=== PATIENT | female | born 1970 | race Two or more races ===

== ENCOUNTER 2020-06-22 12:24 | Outpatient (REF) | payer OTHER, SELFPAY ==
[2020-06-22 12:43] LABS: COVID-19 Test Negative (Negative)
== END 2020-06-22 12:25 | disposition home or self-care (01) ==
LOC: HO.LAB 12:24
PROVIDERS: Visit Provider Internal Medicine
DX: Z20.828 Contact with and (suspected) exposure to other viral communicable diseases (principal)
CPT/HCPCS: 87635

== ENCOUNTER → 2020-06-27 10:20 | Outpatient (BNVA) | payer OTHER, SELFPAY | PROVIDERS: PCP Internal Medicine; Visit Provider Physician Assistant | DX: Z13.89 Encounter for screening for other disorder (principal) | CPT/HCPCS: 99213 ==

== ENCOUNTER 2020-07-12 15:00 | Outpatient (RCR) | payer OTHER, SELFPAY ==
--- NOTE | 2020-07-13 08:25 | MHC.OT.DC ---
[address] [phone] F: [phone] Occupational Therapy Discharge Note Provider: Gin Ritter Diagnosis: L THUMB PAIN Date of Evaluation: 05/31/20 Date of Discharge: 07/12/20 Treatments to Date: 12 Discharge Status: Improved Function Independent with HEP Discharge Summary: SANDY ATTENDED OUTPATIENT OT FOR CMCJ PAIN OF L THUMB, WELL L ELBOW PAIN AND CARPAL TUNNEL SYMPTOMS. SHE WAS PROVIDED WITH A VARIETY OF SPLINTS AND EDUCATED ON JOINT PROTECTION WITH DEMANDING HOUSEKEEPING TASKS. SHE HAD DIFFICULTIES IMPLEMENTING JOINT PROTECTION TECHNIQUES WITH WORK RELATED TASKS, PARTICULARLY MOPPING. HER ELBOW PAIN HAS IMPROVED, HOWEVER SHE CONTINUES TO HAVE CMCJ PAIN AND CTS; POSSIBLE TOS. Pt WOULD BENEFIT FROM EMG/NCV AND POSSIBLE REFERRAL FOR HAND SURGEON CONSULT. D/C OT AT THIS TIME. Electronically Signed By: STEWART ACOSTA OTR/L Please Sign and return to therapist, thank you for your referral.
== END 2020-07-13 08:26 | disposition other institution (70) ==
LOC: HO.OT 15:00
PROVIDERS: Visit Provider Physician Assistant
DX: M79.645 Pain in left finger(s) (principal)
CPT/HCPCS: 29125; 29130; 97033; 97035; 97110; 97112; 97140; 97760

== ENCOUNTER 2020-08-02 09:55 | Outpatient (REF) | payer OTHER, SELFPAY ==
[2020-08-02 10:17] LABS: COVID-19 Test Negative (Negative); IDNOW Serial# 55D5AD1C
== END 2020-08-02 09:56 | disposition home or self-care (01) ==
LOC: HO.EMPCOV 09:55
PROVIDERS: Visit Provider Internal Medicine
DX: Z20.828 Contact with and (suspected) exposure to other viral communicable diseases (principal)
CPT/HCPCS: 87635; C9803

== ENCOUNTER 2020-08-08 10:57 | Outpatient (REF) | payer OTHER, SELFPAY ==
[2020-08-08 11:17] LABS: COVID-19 Test Negative (Negative)
== END 2020-08-08 10:58 | disposition home or self-care (01) ==
LOC: HO.EMPCOV 10:57
PROVIDERS: Visit Provider Internal Medicine
DX: Z20.828 Contact with and (suspected) exposure to other viral communicable diseases (principal)
CPT/HCPCS: 87635; C9803

== ENCOUNTER 2020-08-15 15:05 | Outpatient (REF) | payer OTHER, SELFPAY ==
--- NOTE | 2020-08-15 | US_ITS ---
EXAMINATION: MM DIAGNOSTIC DIGITAL BREAST TOMOSYNTHESIS, BILATERAL US DIAGNOSTIC ULTRASOUND BREAST, BILATERAL CLINICAL INFORMATION: Several months history bilateral mastodynia. Intermittent itching nipples. No dermal changes. No palpable mass or discharge. The lifetime risk of breast cancer based on the Tyrer-Cuzick Model is 6%. COMPARISON: Mammography: 06/24/2018, 04/11/2017, 03/27/2016 TECHNIQUE: Digital breast tomosynthesis is performed in both the craniocaudal and mediolateral oblique views along with computer-aided detection (CAD). Synthesized 2D images are generated from the tomosynthesis. Ultrasound of each breast is performed using grayscale imaging and color Doppler without and with harmonics. Imaging is targeted to the areas of clinical concern. Patient is able to point to the areas of concern at time of imaging. FINDINGS: There are scattered areas of fibroglandular density (ACR BI-RADS breast composition Category b). There are no significant masses, abnormal calcifications, or other abnormalities. Parenchymal pattern is similar to prior studies. There is no developing density. No interval skin thickening or coarsening of the Shaquille's ligaments or duct ectasia. Ultrasound bilateral breasts demonstrate no cystic or solid mass, architectural abnormality, or focal duct ectasia. No skin thickening or edema tracking in the soft tissue planes. Results are discussed with the patient at time of visit. US/US breast RT limited IMPRESSION: 1. No mammographic evidence of malignancy or focal inflammatory changes. 2. Unremarkable bilateral targeted breast ultrasound. ASSESSMENT: BI-RADS 1: Negative RECOMMENDATION: 1. Patient's bilateral breast symptoms should be managed based on the clinical impression. 2. Otherwise, routine annual screening mammography. This patient's information was entered into a reminder system with a target due date for their next mammogram.
--- NOTE | 2020-08-15 15:08 | MM_ITS ---
EXAMINATION: MM DIAGNOSTIC DIGITAL BREAST TOMOSYNTHESIS, BILATERAL US DIAGNOSTIC ULTRASOUND BREAST, BILATERAL CLINICAL INFORMATION: Several months history bilateral mastodynia. Intermittent itching nipples. No dermal changes. No palpable mass or discharge. The lifetime risk of breast cancer based on the Tyrer-Cuzick Model is 6%. COMPARISON: Mammography: 06/24/2018, 04/11/2017, 03/27/2016 TECHNIQUE: Digital breast tomosynthesis is performed in both the craniocaudal and mediolateral oblique views along with computer-aided detection (CAD). Synthesized 2D images are generated from the tomosynthesis. Ultrasound of each breast is performed using grayscale imaging and color Doppler without and with harmonics. Imaging is targeted to the areas of clinical concern. Patient is able to point to the areas of concern at time of imaging. FINDINGS: There are scattered areas of fibroglandular density (ACR BI-RADS breast composition Category b). There are no significant masses, abnormal calcifications, or other abnormalities. Parenchymal pattern is similar to prior studies. There is no developing density. No interval skin thickening or coarsening of the Shaquille's ligaments or duct ectasia. Ultrasound bilateral breasts demonstrate no cystic or solid mass, architectural abnormality, or focal duct ectasia. No skin thickening or edema tracking in the soft tissue planes. Results are discussed with the patient at time of visit. MM/MM diagnostic mammo BI IMPRESSION: 1. No mammographic evidence of malignancy or focal inflammatory changes. 2. Unremarkable bilateral targeted breast ultrasound. ASSESSMENT: BI-RADS 1: Negative RECOMMENDATION: 1. Patient's bilateral breast symptoms should be managed based on the clinical impression. 2. Otherwise, routine annual screening mammography. This patient's information was entered into a reminder system with a target due date for their next mammogram.
== END 2020-08-15 15:06 | disposition home or self-care (01) ==
LOC: HO.MAMMO 15:05
PROVIDERS: PCP Internal Medicine; Visit Provider Internal Medicine
DX: N64.4 Mastodynia (principal)
CPT/HCPCS: 76642; 77066

== ENCOUNTER 2020-08-16 08:25 | Outpatient (REF) | payer OTHER, SELFPAY ==
[2020-08-16 09:01] LABS: COVID-19 Test Negative (Negative)
== END 2020-08-16 08:26 | disposition home or self-care (01) ==
LOC: HO.EMPCOV 08:25
PROVIDERS: Visit Provider Internal Medicine
DX: Z20.828 Contact with and (suspected) exposure to other viral communicable diseases (principal)
CPT/HCPCS: 87635; C9803

== ENCOUNTER 2020-08-30 07:04 | Outpatient (REF) | payer OTHER, SELFPAY ==
[2020-08-30 07:57] LABS: COVID-19 Test Negative (Negative)
== END 2020-08-30 07:05 | disposition home or self-care (01) ==
LOC: HO.EMPCOV 07:04
PROVIDERS: Visit Provider Internal Medicine
DX: Z20.828 Contact with and (suspected) exposure to other viral communicable diseases (principal)
CPT/HCPCS: 87635; C9803

== ENCOUNTER 2020-09-13 08:00 | Outpatient (REF) | payer OTHER, SELFPAY ==
[2020-09-14 12:26] LABS: BV Int Neg Control Negative (Negative); BV Int Pos Control Positive (Positive)
[2020-09-15 18:52] LABS: C. trachomatis RNA TMA NOT DETECTED (NOT DETECTED); N. gonorrhoeae RNA TMA NOT DETECTED (NOT DETECTED)
== END 2020-09-13 08:01 | disposition home or self-care (01) ==
LOC: HO.LAB 08:00
PROVIDERS: Visit Provider Advanced Practice Midwife
DX: Z01.411 Encounter for gynecological examination (general) (routine) with abnormal findings (principal); N89.8 Other specified noninflammatory disorders of vagina; Z20.2 Contact with and (suspected) exposure to infections with a predominantly sexual mode of transmission
CPT/HCPCS: 36415; 87480; 87491; 87510; 87591; 87660

== ENCOUNTER 2020-10-05 06:24 | Emergency (ER) | payer OTHER, SELFPAY ==
[2020-10-05 06:37] VITALS: BP 135/76; PULSE 93; RESP 18; TEMP 37.2; O2SAT 97; BMI 31.4
--- NOTE | 2020-10-05 06:55 | ED.BACK ---
HPI - Back Pain/Injury General Chief Complaint: Back Pain/Injury Stated Complaint: Headache/Bodyaches/ Flank pain Time Seen by Provider: 10/05/20 06:55 Source: patient Mode of arrival: ambulatory Limitations: no limitations History of Present Illness HPI Narrative: 5 days of back pain, headache and generalized bodyaches. 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 Patient denies injury. Patient has a history of renal colic, occaisional dysuria, denies hematuria MD elicited complaint: back pain Pertinent past history: prior back pain Onset (ago): day(s) Timing: intermittent Severity: mild Quality: aching Location: left flank Radiation: none Associated symptoms: dysuria Treatments prior to arrival: NSAIDS Work related injury: No Related Data Previous Rx's Medication Instructions Recorded loratadine 10 mg tablet 10 mg PO DAILY PRN 90 Days #90 tab 06/16/20 pantoprazole 40 mg tablet,delayed 40 mg PO BID 90 Days #180 tab 08/01/20 release naproxen [Naprosyn] 500 mg PO BID #20 tab 10/05/20 Allergies Allergy/AdvReac Type Severity Reaction Status Date / Time cephalexin [From KEFLEX] Allergy Severe SOB/HIVES Verified 10/05/20 06:43 Iodinated Contrast Media Allergy Severe SOB/CHEST Verified 10/05/20 06:43 [IV CONTRAST] PAIN/DIFFICULTY BREATHING acetaminophen Allergy Unknown itch, SOB Verified 10/05/20 06:43 [Tylenol-Codeine] oxycodone [From Percocet] AdvReac Itching Verified 10/05/20 06:43 From KEFZOL Allergy Severe DIFFICULTY Uncoded 05/19/20 15:36 BREATHING Review of Systems Constitutional: Constitutional: Reports no additional constitutional complaints Eyes: Eyes: Reports no additional eye complaints ENT: Denies dizziness Cardiovascular: Cardiovascular: Reports no additional cardiovascular complaints Respiratory: Respiratory: Reports as per HPI Gastrointestinal: Gastrointestinal: Reports no additional gastrointestinal complaints Genitourinary: Genitourinary: Reports no additional female genitourinary complaints Musculoskeletal: Musculoskeletal: Reports no additional musculoskeletal complaints Integumentary/Breasts: Skin/Breast: Denies rash Neurologic: Reports system reviewed and no additional complaints, except as documented, Denies dizziness and Denies Sensory deficit (Neuro) Psychiatric: Psychiatric: Denies anxiety PMFSH Past Medical History Medical History Asthma GERD (gastroesophageal reflux disease) Hx of migraine headaches Painful breasts Surgical History H/O: hysterectomy History of appendectomy History of hernia surgery Hx of tubal ligation Family History Family History Mother Uterine cancer Family/Other History of breast cancer Social History Social History Alcohol intake: never Smoking Status: Never smoker Advance Directives: No Physical Exam Vital Signs: Vital Signs: Last Vital Signs Temp 99.0 F 10/05/20 06:37 Pulse 93 10/05/20 06:37 Resp 18 10/05/20 06:37 BP 135/76 10/05/20 06:37 Pulse Ox 97 10/05/20 06:37 Body Mass Index 31.4 Const: General: healthy appearing Nutritional Appearance: average body habitus Orientation/consciousness: oriented to person and patient oriented x3 Limitations: no limitations HENMT: Head: Yes normal to inspection Ears: external ears normal General nose exam: Normal external nose present Mouth: Normal oral and palatal mucosa present and oropharynx normal Throat: Yes posterior oropharynx normal Eyes: General: appearance normal, both eyes and all related structures Neck: Other: supple Neck: Yes normal visual inspection Chest: Chest palpation & inspection: normal inspection of the chest Resp: Auscultation: clear to auscultation bilaterally Cardio: Jugular venous distension: no JVD Rate: regular rate Rhythm: regular rhythm Heart sounds: S1 normal heart sound present and S2 normal heart sound present GI: Inspection: Yes normal to inspection Palpation (GI): Soft to palpation, nontender and No hepatosplenomegaly present Auscultation: normal bowel sounds : General: Yes no CVA tenderness Back/Spine/Pelvis: Back: no CVA tenderness Skin: General skin exam: no rashes or lesions noted Neuro: General: oriented to person and patient oriented x3 Cranial nerves: Yes CN's II-XII intact bilaterally Motor exam (neuro): 5/5 motor strength present throughout Sensory Exam: No Sensory deficit (Neuro) Extrem: General: Yes normal to inspection Psych: Appearance: grossly normal Course Course Course Narrative: resting comfortably, UA negative for blood or WBC, COVID is negative will dc home MDM - Back Pain/Injury Differential Diagnosis Differential diagnosis: Likely renal colic and thoracic back pain Lab Data Labs: Lab Results 10/05/20 10/05/20 Range/Units 07:04 07:04 Urine Color YELLOW Urine Appearance HAZY Urine pH 6.0 (5.0-8.0) Ur Specific [place] 1.025 (1.005-1.025) Urine Protein NEG (NEG-TRACE) MG/DL Urine Glucose (UA) NEG (NEG) MG/DL Urine Ketones NEG (NEG) MG/DL Urine Blood NEG (NEG) Urine Nitrite NEG (NEG) Ur Leukocyte Esterase NEG (NEG) COVID-19 (LENA) Negative (Negative) COVID-19 Clin Com See Note Discharge Plan Discharge Clinical Impression: Myalgia Patient Disposition: Home, Self-Care Instructions: Musculoskeletal Pain (ED) Prescriptions: New naproxen [Naprosyn] 500 mg tablet 500 mg PO BID Qty: 20 RF: 0 No Action loratadine [Allergy Relief (loratadine)] 10 mg tablet 10 mg PO DAILY PRN (Reason: allergy symptoms) 90 Days Qty: 90 RF: 1 pantoprazole 40 mg tablet,delayed release (DR/EC) 40 mg PO BID 90 Days Qty: 180 RF: 2 Referrals: Everett Gutierrez MD [Primary Care Provider] - 2 days
[2020-10-05 07:15] LABS: Glucose Urine UA NEG (NEG); Leukocyte Esterase Urine NEG (NEG); Nitrite Urine NEG (NEG); Specific Gravity - Urine 1.025 (1.005-1.025); Urine Blood NEG (NEG); Urine Ketones NEG (NEG); Urine Protein NEG (NEG-TRACE)
[2020-10-05 07:16] LABS: Appearance Urine HAZY; Color Urine YELLOW
[2020-10-05 07:25] LABS: IDNOW Serial# 9DD0AD1C
[2020-10-05 07:26] LABS: COVID-19 Test Negative (Negative)
[2020-10-05] MEDS: Ketorolac Tromethamine 60 MG/2 ML VIAL IM (07:30)
[2020-10-05 08:07] VITALS: BP 117/80; PULSE 76; RESP 18; O2SAT 100
== END 2020-10-05 08:31 | disposition home or self-care (01) ==
PROVIDERS: Emergency Provider Emergency Medicine; PCP Internal Medicine
DX: Z04.2 Encounter for examination and observation following work accident (principal); M79.18 Myalgia, other site; Z20.822 Contact with and (suspected) exposure to COVID-19; J45.909 Unspecified asthma, uncomplicated; K21.9 Gastro-esophageal reflux disease without esophagitis
CPT/HCPCS: 36415; 81003; 87635; 96372; 99283; 99284; J1885

== ENCOUNTER 2020-10-19 10:01 | Outpatient (REF) | payer OTHER, SELFPAY ==
--- NOTE | ~2020-10-19 | XR_ITS ---
EXAMINATION: XR LUMBOSACRAL SPINE CLINICAL INFORMATION: Low back pain COMPARISON: Previous lumbar spine x-ray December 2014 TECHNIQUE: Three views of the lumbosacral spine. FINDINGS: There may be a transitional vertebral body segment. Levels are designated to match that of previous exams. 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 This is unchanged. No acute fracture or dislocation is seen. There is degenerative disc disease at L5-S1. There is lower lumbar spine facet arthritis. XR/XR lumbar spine 2-3V IMPRESSION: No change from previous exams. Probable transitional vertebral body segment. Ununited fracture versus accessory ossification center of the right transverse process of the L1 vertebral body unchanged from previous exam. Degenerative disc disease at L5-S1 and lower lumbar spine facet arthritis..
== END 2020-10-19 10:02 | disposition home or self-care (01) ==
LOC: HO.XRAY 10:01
PROVIDERS: Visit Provider Internal Medicine
DX: M54.5 Low back pain (principal)
CPT/HCPCS: 72100

== ENCOUNTER → 2020-11-07 10:15 | Outpatient (BNVA) | payer OTHER, SELFPAY | PROVIDERS: PCP Internal Medicine; Visit Provider Nurse Practitioner ==

== ENCOUNTER → 2020-12-05 10:41 | Outpatient (BNVA) | payer OTHER, SELFPAY | PROVIDERS: PCP Internal Medicine; Visit Provider Nurse Practitioner ==

== ENCOUNTER 2020-12-28 16:00 | Outpatient (RCR) | payer OTHER, SELFPAY ==
--- NOTE | 2020-11-23 16:09 | MHC.PT.EP ---
[facility] [place] Office [place] Office [place] Office [address] Ricardo Garcia [address] [phone] F: [phone] F: [phone] F: [phone] F: [phone] Physical Therapy Plan of Care Date of Evaluation: 11/23/20 Date of Surgery: Diagnosis: low back pain Assessment: 50 y/o F referred to PT with LBP. 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 Recommend PT 2x/week for 5 weeks to address impairments, implement HEP, and optimize functional mobility. Frequency and Duration: The patient will be seen 2x/week for 5 weeks Short Term Goals: 3 weeks 1. I with HEP 2. Improve lumbar extension AROM to 100% 3. I with use of lumbar roll without cues 100% of the time [facility] Goals: 5 weeks 1. I with HEP and self management of sx 2. Pt will improve lumbar flexion to 100% to facilitate job duties 3. Pt will be able to lift 20# with proper mechanics and pain < 3/10 Treatment Plan: Modalities to reduce pain, spasms and effusion. Manual therapy to restore motion and function. Therapeutic exercise to improve strength and flexibility. Neuromuscular re-education for posture and balance. Therapeutic activities to return to functional activities of daily living. Electronically signed by: Ena Nieto PT Please sign and return to therapist. Thank you for your referral.
--- NOTE | 2021-01-04 17:47 | MHC.PT.DC ---
[facility] [place] Office [place] Office [place] Office [address] Ricardo Garcia [address] [phone] F: [phone] F: [phone] F: [phone] F: [phone] Physical Therapy Discharge Report Diagnosis: low back pain Date of Surgery: Date of Evaluation: 11/23/20 Date of Discharge: 01/04/21 Treatments to Date: 5 Cancellations to Date: 2 No Shows to Date: 0 Discharge Status: Independent with HEP Patient Elected to Stop Discharge Summary: Pt called to self-dc. At time of last visit, Progressed standing core stab per pt's tolerance. pt only reported fatigue at end of session. Advised pt to continue w/ HEP at home. pt verbalized understanding. Continue to progress strengthening and stability program per pt's tolerance next visit. Electronically signed by: Ena Nieto PT Please sign and return to therapist. Thank you for your referral.
== END 2021-01-04 17:47 | disposition home or self-care (01) ==
LOC: HO.PT 16:00
PROVIDERS: PCP Internal Medicine; Visit Provider Internal Medicine
DX: M54.5 Low back pain (principal)
CPT/HCPCS: 97110; 97112; 97140; 97161; 97530

== ENCOUNTER 2021-05-16 09:03 | Emergency (ER) | payer OTHER, SELFPAY ==
--- NOTE | ~2021-05-16 | XR_ITS ---
EXAMINATION: XR CHEST CLINICAL INFORMATION: Covid symptoms COMPARISON: Previous chest x-ray September 2018 TECHNIQUE: Frontal view of the chest was obtained. FINDINGS: The cardiac and mediastinal contours are normal. There are increased markings seen in the right upper and lower lung questionable for small infiltrate. The left lung is clear. There is no pleural effusion or pneumothorax. There are degenerative changes of the spine. XR/XR chest 1V IMPRESSION: Question small right infiltrate.
[2021-05-16 09:58] VITALS: BP 126/77; PULSE 81; RESP 16; TEMP 36.7; O2SAT 97; BMI 31.1
--- NOTE | 2021-05-16 10:04 | ED.GENADULT ---
HPI - General Adult General Chief complaint: General Medical Stated complaint: ?dehydration, covid + Time Seen by Provider: 05/16/21 09:42 Source: patient Mode of arrival: ambulatory Limitations: no limitations History of Present Illness HPI narrative: Patient is 51 years old with no significant past medical history was COVID positive on 05/01 not vaccinated complaining of nausea loss of taste body aches or oral intake slight cough no fever or chills feeling weaker and weaker no diarrhea Related Data Home Medications Medication Instructions Recorded Confirmed albuterol sulfate 90 mcg/actuation 2 puff PO QID PRN 11/07/20 aerosol inhaler Previous Rx's Medication Instructions Recorded loratadine 10 mg tablet (Allergy 10 mg PO DAILY PRN 90 Days #90 tab 06/16/20 Relief (loratadine)) pantoprazole 40 mg tablet,delayed 40 mg PO BID 90 Days #180 tab 08/01/20 release naproxen 500 mg tablet (Naprosyn) 500 mg PO BID #20 tab 10/05/20 magnesium oxide 500 mg capsule 500 mg PO BID 30 Days #60 cap 11/07/20 sennosides 8.6 mg capsule (senna) 17.2 mg PO BEDTIME 30 Days #60 cap 11/07/20 ondansetron HCl 4 mg tablet 4 mg PO BID PRN 30 Days #90 tab 11/15/20 (Zofran) albuterol sulfate 90 mcg/actuation 2 puff INHALATION Q4-6H PRN #8.5 g 05/16/21 aerosol inhaler (ProAir HFA) codeine 10 mg-guaifenesin 100 mg/5 10 ml PO Q4-6H PRN #237 ml 05/16/21 mL oral liquid dexamethasone 6 mg tablet 6 mg PO DAILY #7 tab 05/16/21 (Decadron) ondansetron 4 mg disintegrating 4 mg PO Q6-8H PRN #7 tab 05/16/21 tablet Allergies Allergy/AdvReac Type Severity Reaction Status Date / Time cephalexin [From KEFLEX] Allergy Severe SOB/HIVES Verified 11/07/20 10:17 Iodinated Contrast Media Allergy Severe SOB/CHEST Verified 11/07/20 10:17 [IV CONTRAST] PAIN/DIFFICULTY BREATHING acetaminophen [From Percocet] Allergy itchy, SOB Verified 12/05/20 10:44 oxycodone [From Percocet] Allergy itchy, SOB Verified 12/05/20 10:44 From KEFZOL Allergy Severe DIFFICULTY Uncoded 05/19/20 15:36 BREATHING Review of Systems Review of Systems: Yes all other systems are reviewed and are negative COUNTS INCLUDE 234 BEDS AT THE [facility] Past Medical History Medical History Asthma GERD (gastroesophageal reflux disease) Hx of migraine headaches Low back pain Painful breasts Surgical History H/O: hysterectomy History of appendectomy History of esophagogastroduodenoscopy (EGD) History of hernia surgery Hx of colonoscopy Hx of tubal ligation Family History Family History Mother Uterine cancer Family/Other History of breast cancer Social History Social History Alcohol intake: never Advance Directives: No Advance Directives Information Provided: No Physical Exam Vital Signs: Vital Signs: Last Vital Signs Temp 98.1 F 05/16/21 09:58 Pulse 64 05/16/21 11:08 Resp 16 05/16/21 11:08 BP 126/83 05/16/21 11:08 Pulse Ox 98 05/16/21 11:08 Body Mass Index 31.1 Appearance: Alert. Oriented X3. No acute distress. Eyes: No pallor or icterus ENT: Pharynx normal. Oral Mucosa moist Neck: Normal inspection. Neck supple. CVS: Normal heart rate and rhythm. Pulses normal. Respiratory: No respiratory distress. Equal air entry bilateral, no wheezing/rales/rhonchi dry cough on deep inspiration Abdomen: Soft and nontender. Bowel sounds are present, no mass palpable, no CVA tenderness Skin: Skin warm and dry. Normal skin color. Normal skin turgor. Extremities: No lower extremity edema. No calf tenderness Neuro: Oriented X 3. Medical Decision Making Lab Data Lab results reviewed: Yes I reviewed the patient's lab results. Result diagrams: 05/16/21 10:13 05/16/21 10:13 Labs: Lab Results 05/16/21 05/16/21 Range/Units 10:13 10:13 WBC 5.9 (4.8-10.8) X10*3/uL RBC 4.36 (4.20-5.50) X10*6/uL Hgb 13.0 (12.0-16.0) g/dl Hct 40.3 (37-47) % MCV 92.4 (80-98) fL MCH 29.8 (27.0-33.0) pg MCHC 32.3 (31.0-35.0) g/dl RDW 13.7 (11.0-16.0) % Plt Count 291 (160-400) X10*3/uL MPV 9.8 (9.4-12.3) fL Immature Gran % (Auto) 0.2 (0.0-0.4) % Neut % (Auto) 53.0 (45-73) % Lymph % (Auto) 30.3 (20-40) % [place] % (Auto) 14.6 H (2-11) % Eos % (Auto) 1.7 (0-4) % Baso % (Auto) 0.2 (0-2) % Lymph # (Auto) 1.8 (1.2-4.9) X10*3/uL [place] # (Auto) 0.9 (0.1-1.2) X10*3/uL Eos # (Auto) 0.1 (0.0-0.4) X10*3/uL Baso # (Auto) 0.0 (0.0-0.2) X10*3/uL Abs Immat Gran (auto) 0.01 (0.00-0.03) X10*3/uL Absolute Neuts (auto) 3.1 (2.0-8.3) X10*3/uL Absolute Nucleated RBC 0.000 (0.0-0.012) X10*3/uL Nucleated RBC % (auto) 0.0 (0.0-0.2) /100WBC Sodium 139 (135-145) mmol/L Potassium 5.0 (3.3-5.1) mmol/L Chloride 105 (96-108) mmol/L Carbon Dioxide 29 (22-29) mmol/L Anion Gap 10 L (12-20) BUN 9 (9-16) mg/dL Creatinine 0.80 (0.5-1.4) mg/dL Estim Creat Clear Calc 80.8 Estimated GFR > 60 Random Glucose 94 (60-115) mg/dL Calcium 9.4 (8.4-10.2) mg/dL Magnesium 2.3 (1.6-2.6) mg/dL Total Bilirubin 0.4 (0.0-1.0) mg/dL AST 22 (5-31) U/L ALT 26 (0-31) U/L Alkaline Phosphatase 111 (39-117) U/L Total Protein 7.5 (6.5-8.0) g/dL Albumin 4.0 (3.5-5.0) g/dL Discharge Plan Discharge Clinical Impression: COVID-19 Patient Disposition: Home, Self-Care Instructions: COVID-19 (Coronavirus Disease 2019) (ED) Additional Instructions: Drink plenty of fluids take medication for cough Medicine for nausea Avoid social contacts Prescriptions: New ondansetron 4 mg tablet,disintegrating 4 mg PO Q6-8H PRN (Reason: nausea and vomiting) Qty: 7 RF: 0 dexamethasone [Decadron] 6 mg tablet 6 mg PO DAILY Qty: 7 RF: 0 codeine-guaifenesin 10-100 mg/5 mL liquid 10 ml PO Q4-6H PRN (Reason: cough) Qty: 237 RF: 0 albuterol sulfate [ProAir HFA] 90 mcg/actuation HFA aerosol inhaler 2 puff inhalation Q4-6H PRN (Reason: shortness of breath or wheezing) Qty: 8.5 RF: 0 No Action loratadine [Allergy Relief (loratadine)] 10 mg tablet 10 mg PO DAILY PRN (Reason: allergy symptoms) 90 Days Qty: 90 RF: 1 pantoprazole 40 mg tablet,delayed release (DR/EC) 40 mg PO BID 90 Days Qty: 180 RF: 2 ondansetron HCl [Zofran] 4 mg tablet 4 mg PO BID PRN (Reason: nausea and vomiting) 30 Days Qty: 90 RF: 0 naproxen [Naprosyn] 500 mg tablet 500 mg PO BID Qty: 20 RF: 0 magnesium oxide 500 mg capsule 500 mg PO BID 30 Days Qty: 60 RF: 6 senna 8.6 mg capsule 17.2 mg PO BEDTIME 30 Days Qty: 60 RF: 6 Interventions: ED Discharge Assessment Last Done: 05/16/21 11:52 Discharge Date/Time: 05/16/21 11:53
[2021-05-16 10:19] LABS: MANUAL DIFF FLAG NO
[2021-05-16 10:24] LABS: Basophils Percent Auto 0.2 % (0-2); Eosinophils Absolute Auto 0.1 X10*3/uL (0.0-0.4); Eosinophils Percent Auto 1.7 % (0-4); Hematocrit 40.3 % (37-47); Imm Gran Abs Auto 0.01 X10*3/uL (0.00-0.03); Imm Gran Pct Auto 0.2 % (0.0-0.4); Lymphocytes Absolute Auto 1.8 X10*3/uL (1.2-4.9); Lymphocytes Percent Auto 30.3 % (20-40); Mean Corpuscular HGB Conc 32.3 g/dl (31.0-35.0); Mean Corpuscular Hemoglobin 29.8 pg (27.0-33.0); Mean Corpuscular Volume 92.4 fL (80-98); Mean Platelet Volume 9.8 fL (9.4-12.3); Monocytes Absolute Auto 0.9 X10*3/uL (0.1-1.2); Monocytes Percent Auto 14.6 % (2-11); Neutrophils Absolute Auto 3.1 X10*3/uL (2.0-8.3); Platelet Count 291 X10*3/uL (160-400); Red Blood Count 4.36 X10*6/uL (4.20-5.50); Red Cell Distribution Width 13.7 % (11.0-16.0); White Blood Count 5.9 X10*3/uL (4.8-10.8)
[2021-05-16 10:49] LABS: Alanine Aminotransferase 26 U/L (0-31); Alkaline Phosphatase 111 U/L (39-117); Anion Gap 10 (12-20); Aspartate Amino Transferase 22 U/L (5-31); Bilirubin Total 0.4 mg/dL (0.0-1.0); Blood Urea Nitrogen 9 mg/dL (9-16); Calcium 9.4 mg/dL (8.4-10.2); Carbon Dioxide 29 mmol/L (22-29); Chloride 105 mmol/L (96-108); Creatinine Clr Calc Pharmacy 80.8; Estimated Glomerular Filt Rate > 60; Glucose Random 94 mg/dL (60-115); Magnesium 2.3 mg/dL (1.6-2.6); Sodium 139 mmol/L (135-145); Total Protein 7.5 g/dL (6.5-8.0)
[2021-05-16] MEDS: 0.9 % Sodium Chloride 1,000 ML 999 ML IVCONT (11:03)
[2021-05-16] MEDS: ondansetron HCL 4 MG/2 ML VIAL IVPUSH (11:06)
[2021-05-16 11:08] VITALS: BP 126/83; PULSE 64; RESP 16; O2SAT 98
[2021-05-16] MEDS: Albuterol Sulfate 90 MCG 8 GM INHALER 2 PUFF INHALE (11:48)
[2021-05-16] MEDS: guaiFEN/Codeine SF 200/20/10ML 10 ML LIQUID PO (11:48)
[2021-05-16] MEDS: dexAMETHasone 6 MG TABLET PO (11:48)
== END 2021-05-16 11:53 | disposition home or self-care (01) ==
PROVIDERS: Physician Assistant Medical; Emergency Provider Internal Medicine; PCP Internal Medicine
DX: U07.1 COVID-19 (principal); R43.9 Unspecified disturbances of smell and taste; M79.10 Myalgia, unspecified site; R05 Cough; Z79.899 Other long term (current) drug therapy
CPT/HCPCS: 36415; 71045; 80053; 83735; 85025; 96361; 96374; 99284; J2405; J8540

== ENCOUNTER 2021-06-05 15:22 | Emergency (ER) | payer OTHER, SELFPAY ==
--- NOTE | ~2021-06-05 | XR_ITS ---
EXAMINATION: XR CHEST CLINICAL INFORMATION: Short of breath. Question Covid. COMPARISON: None TECHNIQUE: Frontal view of the chest was obtained. FINDINGS: No significant abnormality is noted involving the heart, lungs, mediastinum, bony thorax or soft tissues. XR/XR chest 1V IMPRESSION: Unremarkable chest exam.
--- NOTE | 2021-06-05 15:39 | ECG_ITS ---
Test Reason : CHEST PAIN Blood Pressure : / mmHG Vent. Rate : 094 BPM Atrial Rate : 094 BPM P-R Int : 144 ms QRS Dur : 072 ms QT Int : 378 ms P-R-T Axes : 062 018 032 degrees QTc Int : 472 ms Normal sinus rhythm Normal ECG When compared with ECG of 25-APR-2016 13:55, T wave inversion no longer evident in Anterior leads Referred By: Salvador Medrano Electronically Signed By:LIYA LYLES
[2021-06-05 16:10] VITALS: BP 151/99; PULSE 90; RESP 19; TEMP 36.6; O2SAT 97; BMI 31.4
--- NOTE | 2021-06-05 16:13 | ED.GENADULT ---
HPI - General Adult General Chief complaint: Upper Respiratory Symptoms Stated complaint: cp Time Seen by Provider: 06/05/21 16:10 Related Data Home Medications Medication Instructions Recorded Confirmed albuterol sulfate 90 mcg/actuation 2 puff PO QID PRN 11/07/20 aerosol inhaler Previous Rx's Medication Instructions Recorded loratadine 10 mg tablet (Allergy 10 mg PO DAILY PRN 90 Days #90 tab 06/16/20 Relief (loratadine)) pantoprazole 40 mg tablet,delayed 40 mg PO BID 90 Days #180 tab 08/01/20 release naproxen 500 mg tablet (Naprosyn) 500 mg PO BID #20 tab 10/05/20 magnesium oxide 500 mg capsule 500 mg PO BID 30 Days #60 cap 11/07/20 sennosides 8.6 mg capsule (senna) 17.2 mg PO BEDTIME 30 Days #60 cap 11/07/20 albuterol sulfate 90 mcg/actuation 2 puff INHALATION Q4-6H PRN #8.5 g 05/16/21 aerosol inhaler (ProAir HFA) codeine 10 mg-guaifenesin 100 mg/5 10 ml PO Q4-6H PRN #237 ml 05/16/21 mL oral liquid albuterol sulfate 2.5 mg INHALATION Q4-6H PRN #90 ml 06/05/21 albuterol sulfate 90 mcg/actuation 2 puff INHALATION Q4-6H PRN #8.5 g 06/05/21 aerosol inhaler (ProAir HFA) codeine 10 mg-guaifenesin 100 mg/5 10 ml PO Q4-6H PRN #237 ml 06/05/21 mL oral liquid prednisone 20 mg tablet 40 mg PO DAILY #10 tab 06/05/21 Allergies Allergy/AdvReac Type Severity Reaction Status Date / Time cephalexin [From KEFLEX] Allergy Severe SOB/HIVES Verified 11/07/20 10:17 Iodinated Contrast Media Allergy Severe SOB/CHEST Verified 11/07/20 10:17 [IV CONTRAST] PAIN/DIFFICULTY BREATHING acetaminophen [From Percocet] Allergy itchy, SOB Verified 12/05/20 10:44 oxycodone [From Percocet] Allergy itchy, SOB Verified 12/05/20 10:44 From KEFZOL Allergy Severe DIFFICULTY Uncoded 05/19/20 15:36 BREATHING PMFSH Past Medical History Medical History Asthma GERD (gastroesophageal reflux disease) Hx of migraine headaches Low back pain Painful breasts Surgical History H/O: hysterectomy History of appendectomy History of esophagogastroduodenoscopy (EGD) History of hernia surgery Hx of colonoscopy Hx of tubal ligation Family History Family History Mother Uterine cancer Family/Other History of breast cancer Social History Social History Alcohol intake: never Advance Directives: No Advance Directives Information Provided: No Patient : No Physical Exam Vital Signs: Vital Signs: Last Vital Signs Temp 98.1 F 06/05/21 18:00 Pulse 94 06/05/21 18:26 Resp 18 06/05/21 18:00 BP 146/89 H 06/05/21 18:00 Pulse Ox 97 06/05/21 18:00 Body Mass Index 31.4 Course Course Course Narrative: Patient with Covid on 04/21/2021 presents to the ED for pleuretic chest pain and pressure for at least 2 days. Chest xray ordered. Rapid medical screening initiated. Patient is not hypoxic. patient is A0x3. Medical Decision Making Lab Data Labs: Lab Results 06/05/21 Range/Units 17:08 Coronavirus (PCR) POSITIVE A (Negative) SARS-CoV-2 (PCR) Cancelled Influenza Type A (PCR) NEGATIVE (Negative) Influenza Type B (PCR) NEGATIVE (Negative) RSV RNA Qual (PCR) NEGATIVE (Negative) Discharge Plan Discharge Clinical Impression: COVID-19 Patient Disposition: Home, Self-Care Instructions: COVID-19 (Coronavirus Disease 2019) (ED) Additional Instructions: you are Still positive for COVID-19 Stay isolated and keep social distancing Medication as prescribed Prescriptions: New prednisone 20 mg tablet 40 mg PO DAILY Qty: 10 RF: 0 codeine-guaifenesin 10-100 mg/5 mL liquid 10 ml PO Q4-6H PRN (Reason: cough) Qty: 237 RF: 0 albuterol sulfate [ProAir HFA] 90 mcg/actuation HFA aerosol inhaler 2 puff inhalation Q4-6H PRN (Reason: Wheezing) Qty: 8.5 RF: 0 albuterol sulfate 2.5 mg /3 mL (0.083 %) solution for nebulization 2.5 mg inhalation Q4-6H PRN (Reason: shortness of breath or wheezing) Qty: 90 RF: 0 No Action loratadine [Allergy Relief (loratadine)] 10 mg tablet 10 mg PO DAILY PRN (Reason: allergy symptoms) 90 Days Qty: 90 RF: 1 pantoprazole 40 mg tablet,delayed release (DR/EC) 40 mg PO BID 90 Days Qty: 180 RF: 2 codeine-guaifenesin 10-100 mg/5 mL liquid 10 ml PO Q4-6H PRN (Reason: cough) Qty: 237 RF: 0 albuterol sulfate [ProAir HFA] 90 mcg/actuation HFA aerosol inhaler 2 puff inhalation Q4-6H PRN (Reason: shortness of breath or wheezing) Qty: 8.5 RF: 0 naproxen [Naprosyn] 500 mg tablet 500 mg PO BID Qty: 20 RF: 0 magnesium oxide 500 mg capsule 500 mg PO BID 30 Days Qty: 60 RF: 6 senna 8.6 mg capsule 17.2 mg PO BEDTIME 30 Days Qty: 60 RF: 6 Interventions: ED Discharge Assessment Last Done: 06/05/21 19:49 Discharge Date/Time: 06/05/21 19:49 Print Language: Japanese
--- NOTE | 2021-06-05 16:39 | ED_ITS ---
HPI - URI/Sore Throat General Chief Complaint: Upper Respiratory Symptoms Stated Complaint: cp Time Seen by Provider: 06/05/21 16:10 Source: patient Mode of arrival: ambulatory Limitations: no limitations History of Present Illness HPI Narrative: Patient diagnosed with COVID 05/01 with history of asthma was feeling better treated with Decadron for last few days coughing again in bilateral back pain and the mid chest pain with cough no history of coronary disease no leg swelling patient was saturating 97% at room air no leg pain no acute increase in shortness of breath shortness of breath started 3-4 days ago with cough and chest pain is only during cough Related Data Home Medications Medication Instructions Recorded Confirmed albuterol sulfate 90 mcg/actuation 2 puff PO QID PRN 11/07/20 aerosol inhaler Previous Rx's Medication Instructions Recorded loratadine 10 mg tablet (Allergy 10 mg PO DAILY PRN 90 Days #90 tab 06/16/20 Relief (loratadine)) pantoprazole 40 mg tablet,delayed 40 mg PO BID 90 Days #180 tab 08/01/20 release naproxen 500 mg tablet (Naprosyn) 500 mg PO BID #20 tab 10/05/20 magnesium oxide 500 mg capsule 500 mg PO BID 30 Days #60 cap 11/07/20 sennosides 8.6 mg capsule (senna) 17.2 mg PO BEDTIME 30 Days #60 cap 11/07/20 albuterol sulfate 90 mcg/actuation 2 puff INHALATION Q4-6H PRN #8.5 g 05/16/21 aerosol inhaler (ProAir HFA) codeine 10 mg-guaifenesin 100 mg/5 10 ml PO Q4-6H PRN #237 ml 05/16/21 mL oral liquid albuterol sulfate 2.5 mg INHALATION Q4-6H PRN #90 ml 06/05/21 albuterol sulfate 90 mcg/actuation 2 puff INHALATION Q4-6H PRN #8.5 g 06/05/21 aerosol inhaler (ProAir HFA) codeine 10 mg-guaifenesin 100 mg/5 10 ml PO Q4-6H PRN #237 ml 06/05/21 mL oral liquid prednisone 20 mg tablet 40 mg PO DAILY #10 tab 06/05/21 Allergies Allergy/AdvReac Type Severity Reaction Status Date / Time cephalexin [From KEFLEX] Allergy Severe SOB/HIVES Verified 11/07/20 10:17 Iodinated Contrast Media Allergy Severe SOB/CHEST Verified 11/07/20 10:17 [IV CONTRAST] PAIN/DIFFICULTY BREATHING acetaminophen [From Percocet] Allergy itchy, SOB Verified 12/05/20 10:44 oxycodone [From Percocet] Allergy itchy, SOB Verified 12/05/20 10:44 From KEFZOL Allergy Severe DIFFICULTY Uncoded 05/19/20 15:36 BREATHING Review of Systems Review of Systems: Yes all other systems are reviewed and are negative [facility] Past Medical History Medical History Asthma GERD (gastroesophageal reflux disease) Hx of migraine headaches Low back pain Painful breasts Surgical History H/O: hysterectomy History of appendectomy History of esophagogastroduodenoscopy (EGD) History of hernia surgery Hx of colonoscopy Hx of tubal ligation Family History Family History Mother Uterine cancer Family/Other History of breast cancer Social History Social History Alcohol intake: never Advance Directives: No Advance Directives Information Provided: No Patient : No Physical Exam Vital Signs: Vital Signs: Last Vital Signs Temp 98 F 06/05/21 16:10 Pulse 94 06/05/21 18:26 Resp 19 06/05/21 16:10 BP 151/99 H 06/05/21 16:10 Pulse Ox 97 06/05/21 16:10 Body Mass Index 31.4 Appearance: Alert. Oriented X3. No acute distress. ENT: Pharynx normal. Oral Mucosa moist Neck: Normal inspection. Neck supple. CVS: Normal heart rate and rhythm. Pulses normal. Respiratory: No respiratory distress. Equal air entry bilateral, no wheezing/rales/rhonchi prolonged expiration Abdomen: Soft and nontender. Bowel sounds are present, no mass palpable, no CVA tenderness Skin: Skin warm and dry. Normal skin color. Normal skin turgor. Extremities: No lower extremity edema. No calf tenderness Neuro: Oriented X 3. MDM - URI/Sore Throat Differential Diagnosis Differential diagnosis: Likely upper respiratory infection Lab Data Attestation: I reviewed the patient's lab results. Labs: Lab Results 06/05/21 Range/Units 17:08 Coronavirus (PCR) POSITIVE A (Negative) SARS-CoV-2 (PCR) Cancelled Influenza Type A (PCR) NEGATIVE (Negative) Influenza Type B (PCR) NEGATIVE (Negative) RSV RNA Qual (PCR) NEGATIVE (Negative) ECG Data Attestation: I personally reviewed and interpreted this ECG as follows: Interpretation: Normal sinus rhythm heart rate 94 beats per minute normal intervals normal axis no acute ST T wave changes impression normal EKG Discharge Plan Discharge Clinical Impression: COVID-19 Patient Disposition: Home, Self-Care Instructions: COVID-19 (Coronavirus Disease 2019) (ED) Additional Instructions: you are Still positive for COVID-19 Stay isolated and keep social distancing Medication as prescribed Prescriptions: New prednisone 20 mg tablet 40 mg PO DAILY Qty: 10 RF: 0 codeine-guaifenesin 10-100 mg/5 mL liquid 10 ml PO Q4-6H PRN (Reason: cough) Qty: 237 RF: 0 albuterol sulfate [ProAir HFA] 90 mcg/actuation HFA aerosol inhaler 2 puff inhalation Q4-6H PRN (Reason: Wheezing) Qty: 8.5 RF: 0 albuterol sulfate 2.5 mg /3 mL (0.083 %) solution for nebulization 2.5 mg inhalation Q4-6H PRN (Reason: shortness of breath or wheezing) Qty: 90 RF: 0 No Action loratadine [Allergy Relief (loratadine)] 10 mg tablet 10 mg PO DAILY PRN (Reason: allergy symptoms) 90 Days Qty: 90 RF: 1 pantoprazole 40 mg tablet,delayed release (DR/EC) 40 mg PO BID 90 Days Qty: 180 RF: 2 codeine-guaifenesin 10-100 mg/5 mL liquid 10 ml PO Q4-6H PRN (Reason: cough) Qty: 237 RF: 0 albuterol sulfate [ProAir HFA] 90 mcg/actuation HFA aerosol inhaler 2 puff inhalation Q4-6H PRN (Reason: shortness of breath or wheezing) Qty: 8. 5 RF: 0 naproxen [Naprosyn] 500 mg tablet 500 mg PO BID Qty: 20 RF: 0 magnesium oxide 500 mg capsule 500 mg PO BID 30 Days Qty: 60 RF: 6 senna 8.6 mg capsule 17.2 mg PO BEDTIME 30 Days Qty: 60 RF: 6
[2021-06-05] MEDS: predniSONE 20 MG TABLET 40 MG PO (17:06)
[2021-06-05] MEDS: guaiFEN/Codeine SF 200/20/10ML 10 ML LIQUID PO (17:07)
--- NOTE | 2021-06-05 17:09 | PC.NURSE ---
patient a&ox3, medicated per order, covid swab performed, will continue to monitor.
[2021-06-05 18:00] VITALS: BP 146/89; PULSE 94; RESP 18; TEMP 36.7; O2SAT 97
--- NOTE | 2021-06-05 18:00 | PC.NURSE ---
respiratory called for treatment
[2021-06-05] MEDS: Albuterol Sulfate 90 MCG 8 GM INHALER 4 PUFF INHALE (18:18)
[2021-06-05 18:26] VITALS: PULSE 94; O2SAT 97
[2021-06-05 19:12] LABS: Influenza A PCR NEGATIVE (Negative); Influenza B PCR NEGATIVE (Negative); Resp Syncy Virus RNA Qual PCR NEGATIVE (Negative)
[2021-06-05 19:14] LABS: SARS COV2 PCR INHOUSE POSITIVE (Negative)
== END 2021-06-05 19:49 | disposition home or self-care (01) ==
PROVIDERS: Emergency Provider Internal Medicine; PCP Internal Medicine
DX: U07.1 COVID-19 (principal); R07.9 Chest pain, unspecified; Z79.899 Other long term (current) drug therapy
CPT/HCPCS: 0241U; 36415; 71045; 93005; 94640; 94664; 99284

== ENCOUNTER 2021-06-14 10:50 | Emergency (ER) | payer OTHER, SELFPAY ==
[2021-06-14 11:06] VITALS: BP 143/78; PULSE 90; RESP 16; TEMP 36.6; O2SAT 100; BMI 31.4
--- NOTE | 2021-06-14 11:14 | ED_ITS ---
HPI - Dizziness General Chief Complaint: Dizziness Stated Complaint: Dizziness Time Seen by Provider: 06/14/21 11:14 Source: patient Mode of arrival: ambulatory Limitations: no limitations History of Present Illness HPI Narrative: 51-year-old female past medical history significant for GERD, migrganes and recent COVID-19 infection presents to the emergency department with dizziness and headache X2 hours. 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 She states she then went on break, where she became dizzy, she states she felt like she cannot balance on her feet and she felt like she was going to pass out, this reason she sat down in a chair, and felt like she was unable to get up due to dizziness. She states her dizziness is worse when she moves, or if she is lying flat. She says she has been having palpitations for the past 2 hours, and intermittent sweating. She also has a complaint of a frontal headache, she describes as pressure check her head. She denies chest pain, shortness of breath, fevers, chills, nausea, vomiting, abdominal pain, weakness, confusion, changes in vision MD elicited complaint: dizziness and near syncope Onset (ago): hour(s) (2) Timing: sudden onset Severity: moderate Description: off-balance, difficulty walking and near-syncope History of similar symptoms: Yes Exacerbating factors: movement/ambulation, change in body position and position/lying down (Lying down makes it worse) Relieving factors: remaining still Related Data Home Medications Medication Instructions Recorded Confirmed albuterol sulfate 90 mcg/actuation 2 puff PO QID PRN 11/07/20 aerosol inhaler Previous Rx's Medication Instructions Recorded loratadine 10 mg tablet (Allergy 10 mg PO DAILY PRN 90 Days #90 tab 06/16/20 Relief (loratadine)) pantoprazole 40 mg tablet,delayed 40 mg PO BID 90 Days #180 tab 08/01/20 release naproxen 500 mg tablet (Naprosyn) 500 mg PO BID #20 tab 10/05/20 magnesium oxide 500 mg capsule 500 mg PO BID 30 Days #60 cap 11/07/20 sennosides 8.6 mg capsule (senna) 17.2 mg PO BEDTIME 30 Days #60 cap 11/07/20 albuterol sulfate 90 mcg/actuation 2 puff INHALATION Q4-6H PRN #8.5 g 05/16/21 aerosol inhaler (ProAir HFA) codeine 10 mg-guaifenesin 100 mg/5 10 ml PO Q4-6H PRN #237 ml 05/16/21 mL oral liquid albuterol sulfate 2.5 mg INHALATION Q4-6H PRN #90 ml 06/05/21 albuterol sulfate 90 mcg/actuation 2 puff INHALATION Q4-6H PRN #8.5 g 06/05/21 aerosol inhaler (ProAir HFA) codeine 10 mg-guaifenesin 100 mg/5 10 ml PO Q4-6H PRN #237 ml 06/05/21 mL oral liquid prednisone 20 mg tablet 40 mg PO DAILY #10 tab 06/05/21 [id number]-[id number]-yajczbao 1 cap PO Q6H PRN #20 cap 06/14/21 50 mg-300 mg-40 mg capsule (Fioricet) Allergies Allergy/AdvReac Type Severity Reaction Status Date / Time cephalexin [From KEFLEX] Allergy Severe SOB/HIVES Verified 11/07/20 10:17 Iodinated Contrast Media Allergy Severe SOB/CHEST Verified 11/07/20 10:17 [IV CONTRAST] PAIN/DIFFICULTY BREATHING acetaminophen [From Percocet] Allergy itchy, SOB Verified 12/05/20 10:44 oxycodone [From Percocet] Allergy itchy, SOB Verified 12/05/20 10:44 From KEFZOL Allergy Severe DIFFICULTY Uncoded 05/19/20 15:36 BREATHING Review of Systems Review of Systems: Constitutional : No Weight loss, No Fever, No Chills, No Night Sweats, No Fatigue, No Malaise ENT/Mouth : No Hearing loss, No Ear Pain, No Nasal Congestion, no tinnitus Cardiovascular : No Chest Pain, No SOB, No Dyspnea on Exertion, No Orthopnea, No Edema, + Palpitations Respiratory : No Cough, No Sputum, No Wheezing, No Smoke Exposure, No Dyspnea Gastrointestinal : No Nausea, No Vomiting, No Diarrhea, No Constipation, No abdominal Pain, No Hematochezia, No Melena Genitourinary : no irregular bleeding, No Dysuria, No Urinary Frequency, No Hematuria, No Urinary Incontinence, No Urgency, Musculoskeletal : No joint pain, No Myalgias, No Joint Swelling Skin : No Skin Lesions, No rash Neuro : No Weakness, No Numbness, No Paresthesias, No Loss of Consciousness, + Dizziness, + Headache Psych : + Anxiety, No Depression, No SI/HI/AH/VH Neurologic: Reports Abnormal speech present [facility] Past Medical History Attestation statement: The following information was validated with the patient. Source: old records reviewed and nursing notes reviewed Medical History Asthma GERD (gastroesophageal reflux disease) Hx of migraine headaches Low back pain Painful breasts Surgical History H/O: hysterectomy History of appendectomy History of esophagogastroduodenoscopy (EGD) History of hernia surgery Hx of colonoscopy Hx of tubal ligation Family History Family History Mother Uterine cancer Family/Other History of breast cancer Social History Social History Alcohol intake: never Smoked in Last 30 Days: No Use of substances other than those prescribed or required for medical reasons: No Advance Directives: No Advance Directives Information Provided: No Patient : No Physical Exam Vital Signs: Vital Signs: Last Vital Signs Temp 97.8 F 06/14/21 11:06 Pulse 102 H 06/14/21 11:37 Resp 16 06/14/21 11:06 BP 133/86 06/14/21 11:37 Pulse Ox 100 06/14/21 11:06 Body Mass Index 31.4 Const: General: cooperative Nutritional Appearance: average body habitus Orientation/consciousness: oriented to person, oriented to place and oriented to time Limitations: no limitations HENMT: Head: Yes normal to inspection Mouth: Normal oral and palatal mucosa present Eyes: General: appearance normal, both eyes and all related structures Pupils: Equal, round and reactive pupils present EOM: EOMs intact bilaterally Neck: Neck: Yes normal visual inspection and Yes full ROM Thyroid: Thyroid normal Lymphatic: no lymphadenopathy noted Resp: Effort & Inspection: normal respiratory effort and able to speak in c omplete sentences Auscultation: clear to auscultation bilaterally Cardio: Palpation: normal PMI Rate: regular rate Rhythm: regular rhythm and abnormal rhythm Heart sounds: S1 normal heart sound present and S2 normal heart sound present GI: Inspection: Yes normal to inspection Palpation (GI): Soft to palpation and nontender : General: Yes no CVA tenderness Back/Spine/Pelvis: Back: no CVA tenderness Neuro: General: oriented to person, oriented to place and oriented to time Cranial nerves: Yes CN's II-XII intact bilaterally and Yes Equal, round and reactive pupils present Cognition (Neuro): normal cognition Speech: Abnormal speech present Gait exam (Neuro): Normal gait present Motor exam (neuro): 5/5 motor strength present throughout Sensory Exam: Normal double simultaneous stimulation for sensation Coordination: fzhkmk-[id number] test normal, [id number] test normal and tandem gait normal Extrem: General: Yes normal to inspection, Yes full ROM, Yes no pedal edema, Yes no calf tenderness and Yes normal gait Psych: Other: Patient appears anxious Mental Status: mental status grossly normal Course Reevaluation(s) Reevaluation #1: Upon re-evaluation patient states that the dizziness has improved, and some of the palpitations. She does however state that she is having chest pain that is centralized, free of radiation and constant in nature. For this reason the troponin has been ordered to rule out ACS. Time: 12:32 Reevaluation #2: Her EEG normal without any ischemic changes high sensitive troponin negative with atypical chest pain heart score of 0. Discharge patient home advised to follow-up with PCP Time: 14:05 MDM - Dizziness MDM Narrative Medical decision making narrative: 51- year old female past medical history significant for migraines, GERD and a recent COVID-19 infection earlier this month presents to the emergency department with few hours of dizziness, palpitations and headache. Upon physical examination she appears anxious, she is lying on the exam table with her eyes closed, in a dark room. Normal finger to nose, heel to diaz, she is neurologically intact with normal strength upper and lower extremities, unlikely ICH, or cerebellar infarct. She denies chest pain, and shortness of breath, patient's history and physical examination are not consistent with ACS however, an EKG will be ordered to rule this out. This is likely a migraine headache, with anxiety. Plan at this time is to obtain orthostatic vital signs, urinary and EKG Lab Data Labs: Lab Results 06/14/21 06/14/21 Range/Units 11:34 13:26 Troponin I High Sens < 3.5 (<3.5-17.0) ng/L Urine Color YELLOW Urine Appearance CLEAR Urine pH 7.5 (5.0-8.0) Ur Specific [place] 1.010 (1.005-1.025) Urine Protein NEG (NEG-TRACE) MG/DL Urine Glucose (UA) NEG (NEG) MG/DL Urine Ketones NEG (NEG) MG/DL Urine Blood NEG (NEG) Urine Nitrite NEG (NEG) Ur Leukocyte Esterase NEG (NEG) ECG Data Attestation: I personally reviewed and interpreted this ECG as follows: ECG interpretation date: 06/14/21 ECG interpretation time: 11:45 Prior ECG tracings: available for review Interpretation: Ventricular rate 84, normal AR interval, normal QRS, normal QT/QTC. EKG shows normal sinus rhythm. No ST elevations, no T-wave inversions, no acute ischemia. No acute changes when compared with EKG of 06/05/2021 Discharge Plan Discharge Clinical Impression: Palpitations, Dizziness Migraine Qualifiers: Migraine type: without aura Status migrainosus presence: without status migrainosus Intractability: not intractable Qualified Code(s): G43.009 - Migraine without aura, not intractable, without status migrainosus Patient Disposition: Home, Self-Care Instructions: Heart Palpitations (ED), Migraine Headache (ED) Additional Instructions: Follow-up the primary care provider Return to the emergency department with new or worsening symptoms Prescriptions: New pjknnvaggz-bdjlfvvpmecwb-tshx [Fioricet] 50-300-40 mg capsule 1 cap PO Q6H PRN (Reason: headache) Qty: 20 RF: 0 No Action loratadine [Allergy Relief (loratadine)] 10 mg tablet 10 mg PO DAILY PRN (Reason: allergy symptoms) 90 Days Qty: 90 RF: 1 pantoprazole 40 mg tablet,delayed release (DR/EC) 40 mg PO BID 90 Days Qty: 180 RF: 2 codeine-guaifenesin 10-100 mg/5 mL liquid 10 ml PO Q4-6H PRN (Reason: cough) Qty: 237 RF: 0 albuterol sulfate [ProAir HFA] 90 mcg/actuation HFA aerosol inhaler 2 puff inhalation Q4-6H PRN (Reason: shortness of breath or wheezing) Qty: 8.5 RF: 0 naproxen [Naprosyn] 500 mg tablet 500 mg PO BID Qty: 20 RF: 0 prednisone 20 mg tablet 40 mg PO DAILY Qty: 10 RF: 0 codeine-guaifenesin 10-100 mg/5 mL liquid 10 ml PO Q4-6H PRN (Reason: cough) Qty: 237 RF: 0 albuterol sulfate [ProAir HFA] 90 mcg/actuation HFA aerosol inhaler 2 puff inhalation Q4-6H PRN (Reason: Wheezing) Qty: 8.5 RF: 0 albuterol sulfate 2.5 mg /3 mL (0.083 %) solution for nebulization 2.5 mg inhalation Q4-6H PRN (Reason: shortness of breath or wheezing) Qty: 90 RF: 0 magnesium oxide 500 mg capsule 500 mg PO BID 30 Days Qty: 60 RF: 6 senna 8.6 mg capsule 17.2 mg PO BEDTIME 30 Days Qty: 60 RF: 6 Referrals: Everett Gutierrez MD [Primary Care Provider] - 2 days Stand Alone Forms: Work/School Release Interventions: ED Discharge Assessment Last Done: 06/14/21 14:08 Discharge Date/Time: 06/14/21 14:08
--- NOTE | 2021-06-14 11:16 | ECG_ITS ---
Test Reason : DIZZINESS Blood Pressure : / mmHG Vent. Rate : 084 BPM Atrial Rate : 084 BPM P-R Int : 170 ms QRS Dur : 074 ms QT Int : 386 ms P-R-T Axes : 067 007 015 degrees QTc Int : 456 ms Normal sinus rhythm Possible Left atrial enlargement Otherwise normal ECG When compared with ECG of 05-JUN-2021 15:33, No significant change was found Referred By: Parminder Cook Electronically Signed By:JULIA DIAZ MD
[2021-06-14 11:35] VITALS: BP 133/79; PULSE 85
[2021-06-14 11:36] VITALS: BP 126/82; PULSE 100
[2021-06-14 11:37] VITALS: BP 133/86; PULSE 102
[2021-06-14] MEDS: Acetaminophen 325 MG TABLET 975 MG PO (11:49)
[2021-06-14 11:57] LABS: Appearance Urine CLEAR; Color Urine YELLOW; Glucose Urine UA NEG (NEG); Leukocyte Esterase Urine NEG (NEG); Nitrite Urine NEG (NEG); PH 7.5 (5.0-8.0); Urine Blood NEG (NEG); Urine Ketones NEG (NEG); Urine Protein NEG (NEG-TRACE)
[2021-06-14 13:55] LABS: Troponin-I High Sensitivity < 3.5 ng/L (<3.5-17.0)
== END 2021-06-14 14:08 | disposition home or self-care (01) ==
PROVIDERS: Emergency Provider Internal Medicine; PCP Internal Medicine
DX: R42 Dizziness and giddiness (principal); R00.2 Palpitations; G43.009 Migraine without aura, not intractable, without status migrainosus; R07.9 Chest pain, unspecified; Z86.16 Personal history of COVID-19
CPT/HCPCS: 36415; 81003; 84484; 93005; 99283; 99285

== ENCOUNTER 2021-07-03 06:47 | Outpatient (REF) | payer OTHER, SELFPAY ==
[2021-07-03 06:51] LABS: MANUAL DIFF FLAG NO
[2021-07-03 07:28] LABS: Basophils Percent Auto 0.2 % (0-2); Eosinophils Absolute Auto 0.2 X10*3/uL (0.0-0.4); Eosinophils Percent Auto 3.3 % (0-4); Hematocrit 40.8 % (37.0-47.0); Hemoglobin 12.8 g/dl (12.0-16.0); Imm Gran Abs Auto 0.01 X10*3/uL (0.00-0.03); Imm Gran Pct Auto 0.2 % (0.0-0.4); Lymphocytes Percent Auto 40.1 % (20-40); Mean Corpuscular HGB Conc 31.4 g/dl (31.0-35.0); Mean Corpuscular Hemoglobin 29.8 pg (27.0-33.0); Mean Corpuscular Volume 94.9 fL (80.0-98.0); Mean Platelet Volume 9.9 fL (9.4-12.3); Monocytes Absolute Auto 0.6 X10*3/uL (0.1-1.2); Monocytes Percent Auto 13.1 % (2-11); Neutrophils Absolute Auto 2.11 x10*3/uL (2.0-8.3); Neutrophils Percent Auto 43.1 % (45-73); Platelet Count 242 X10*3/uL (160-400); White Blood Count 4.9 X10*3/uL (4.8-10.8)
[2021-07-03 07:59] LABS: Anion Gap 11 (12-20); Blood Urea Nitrogen 9 mg/dL (9-16); Calcium 9.3 mg/dL (8.4-10.2); Carbon Dioxide 30 mmol/L (22-29); Chloride 108 mmol/L (96-108); Cholesterol 257 mg/dL; Estimated Glomerular Filt Rate > 60; Glucose Fasting 101 mg/dL (60-99); HDL Cholesterol 39 mg/dL; LDL Cholesterol Calculated 188 mg/dl; Potassium 4.6 mmol/L (3.3-5.1); Sodium 144 mmol/L (135-145); Triglycerides 152 mg/dL
[2021-07-03 08:22] LABS: TSH reflex Free T4 1.22 uIU/mL (0.32-4.0)
[2021-07-03 13:15] LABS: CT PCR NOT DETECTED (Not Detect.); NG PCR NOT DETECTED (Not Detect.)
== END 2021-07-03 06:48 | disposition home or self-care (01) ==
LOC: HO.LAB 06:47
PROVIDERS: Advanced Practice Midwife; PCP Internal Medicine; Visit Provider Nurse Practitioner Family
DX: F41.9 Anxiety disorder, unspecified (principal); R42 Dizziness and giddiness; E78.00 Pure hypercholesterolemia, unspecified; I10 Essential (primary) hypertension; Z20.2 Contact with and (suspected) exposure to infections with a predominantly sexual mode of transmission
CPT/HCPCS: 36415; 80048; 80061; 82947; 84443; 85025; 87491; 87591

== ENCOUNTER → 2021-08-29 14:22 | Outpatient (REF) | payer OTHER, SELFPAY ==
--- NOTE | ~2021-08-29 | XR_ITS ---
EXAMINATION: XR ABDOMEN KUB CLINICAL INDICATION: Right flank pain and low back pain. COMPARISON: Chest radiograph 06/05/2021, CT abdomen pelvis 03/11/2020. TECHNIQUE: 2 AP radiographs of the abdomen and pelvis. FINDINGS: The visualized lung bases are clear. Scattered bowel gas is noted in nondistended small and large bowel intestinal segments. Scattered upper abdominal calcifications most consistent with scattered costochondral calcifications are noted and correspond to findings present on the CT of 03/11/2020. No definitive findings suspicious for urolithiasis visualized. Multiple pelvic phleboliths are identified. 4 lumbar type vertebral bodies are noted with either hypoplastic ribs associated with the inferior most rib bearing vertebral body or ununited transverse processes. Transitional vertebral bodies present at the lumbosacral junction which may represent L5 with partial bilateral sacralization. Supraspinatus vertebral body represents L5, moderate L4-L5 bilateral facet hypertrophic changes are visualized. Mild bilateral sacroiliac joint vacuum phenomena and subchondral sclerosis is noted. 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 Moderate bilateral facet hypertrophic changes within the lower lumbar spine. *No urolithiasis identified.
[2021-08-29 14:59] LABS: Appearance Urine CLEAR; Color Urine YELLOW; Glucose Urine UA NEG (NEG); Leukocyte Esterase Urine NEG (NEG); Nitrite Urine NEG (NEG); Urine Blood NEG (NEG); Urine Ketones NEG (NEG); Urine Protein NEG (NEG-TRACE)
--- NOTE | 2021-08-29 15:13 | HM_ITS ---
Total monitoring time 3 days and 11 hours. Underlying rhythm is sinus. Minimum heart rate 56/Min. Maximum 156/Min. Average 85/Min. No atrial fibrillation or flutter or AV blocks or pauses. Rare supraventricular ectopy with minimal burden. Rare ventricular ectopy with minimal burden. No patient events. MTDD
== END ==
LOC: HO.CARD 14:22
PROVIDERS: Absent Provider Internal Medicine; PCP Internal Medicine; Visit Provider Nurse Practitioner Family
DX: R00.2 Palpitations (principal); I10 Essential (primary) hypertension; R10.9 Unspecified abdominal pain; M54.50 Low back pain, unspecified
CPT/HCPCS: 74018; 81003; 93242

== ENCOUNTER → 2021-10-16 13:24 | Outpatient (BNVA) | payer OTHER, SELFPAY | PROVIDERS: Visit Provider Nurse Practitioner ==

== ENCOUNTER → 2021-11-01 13:31 | Outpatient (BNVA) | payer OTHER, SELFPAY | PROVIDERS: Referring Provider Internal Medicine; Visit Provider Internal Medicine | DX: R07.2 Precordial pain (principal); R00.2 Palpitations; R03.0 Elevated blood-pressure reading, without diagnosis of hypertension | CPT/HCPCS: 93005 ==

== ENCOUNTER 2021-11-03 08:56 | Outpatient (REF) | payer OTHER, SELFPAY ==
[2021-11-04 09:59] LABS: BV Int Neg Control Negative (Negative); BV Int Pos Control Positive (Positive)
[2021-11-07 23:22] LABS: HPV mRNA E6/E7 rflx Not Detected (Not Detected)
== END 2021-11-03 08:57 | disposition home or self-care (01) ==
LOC: HO.LAB 08:56
PROVIDERS: Visit Provider Advanced Practice Midwife
DX: Z01.419 Encounter for gynecological examination (general) (routine) without abnormal findings (principal); Z11.51 Encounter for screening for human papillomavirus (HPV); N95.2 Postmenopausal atrophic vaginitis
CPT/HCPCS: 87480; 87510; 87624; 87660; 88142

== ENCOUNTER 2021-12-08 13:03 | Outpatient (REF) | payer OTHER, SELFPAY | END 2021-12-08 13:04 | disposition home or self-care (01) | LOC: HO.MAMMO 13:03 | PROVIDERS: Visit Provider Advanced Practice Midwife | DX: Z13.89 Encounter for screening for other disorder (principal) ==

== ENCOUNTER 2021-12-09 07:56 | Outpatient (REF) | payer OTHER, SELFPAY ==
--- NOTE | ~2021-12-09 | MM_ITS ---
EXAMINATION: MM SCREENING DIGITAL BREAST TOMOSYNTHESIS, BILATERAL CLINICAL INFORMATION: Screening. Asymptomatic. The lifetime risk of breast cancer based on the Tyrer-Cuzick Model is 7%. COMPARISON: Mammography: 08/15/2020, 06/24/2018, 04/11/2017 TECHNIQUE: Digital breast tomosynthesis is performed in both the craniocaudal and mediolateral oblique views along with computer-aided detection (CAD). Synthesized 2D images are generated from the tomosynthesis. FINDINGS: There are scattered areas of fibroglandular density (ACR BI-RADS breast composition Category b). There are no significant masses, abnormal calcifications, or other abnormalities. Parenchymal pattern is similar to prior studies. There is no developing density or architectural abnormality. The axilla are unremarkable. MM/MM tomosynthesis screening BI IMPRESSION: No mammographic evidence of malignancy. ASSESSMENT: BI-RADS 1: Negative RECOMMENDATION: Routine annual mammography screening. This patient's information was entered into a reminder system with a target due date for their next mammogram.
== END 2021-12-09 07:57 | disposition home or self-care (01) ==
LOC: HO.MAMMO 07:56
PROVIDERS: Visit Provider Advanced Practice Midwife
DX: Z12.31 Encounter for screening mammogram for malignant neoplasm of breast (principal)
CPT/HCPCS: 77063; 77067

== ENCOUNTER → 2021-12-29 09:27 | Outpatient (REF) | payer OTHER, SELFPAY ==
--- NOTE | 2021-12-29 09:33 | CA_ITS ---
Acquisition Time: 2021-12-29 10:36:11 Total Exercise Time: 00:04:05 Test Indications: Palpitations Medications: ALBUTEROL OMEPRAZOLE PANTOPRAZOLE MAGNESIUM TRULANCE Protocol: BRIONNA Max HR: 126 BPM 74% of Pred: 170 BPM Max BP: 150/100 mmHG Max Work Load: 5.8 METS Exercise stress test with exercise 4 min 5 sec of Brionna protocol, achieving 74% MPHR, with report of 9/10 mid chest tightness ( no discomfort at baseline), without arrythmia, with normotensive response to exercise, with nondiagnostic EKG for ischemia due to suboptimal heart rate however no ischemic changes noted at achieved workload. In recovery her discomfort gradual improved and resolved by 10 min of recovery. Test reviewed with Dr Keys. Will order a pharmacological nuclear stress test for further evaluaton. Referred By: Solis Keys Overread By: KAREN ENG
--- NOTE | 2021-12-29 09:33 | CA_ITS ---
Transthoracic Echocardiogram Patient (Last, First, Middle): Laura Duval, Gender: Female Date of : 1970 Age: 51 Procedure Date: 12/29/2021 Procedure Type: Transthoracic Echocardiogram Location: OP Height: 157.48 cm Weight: 72.58 kg BSA: 1.74 m2 Heart Rate: bpm BP: 22 / 60 mmHg Farm Assistant: Referring MD: Solis Keys MD Symptoms: R07.2 - Precordial pain Study Quality: Good ECG Rhythm: Sinus Conclusions: - The left ventricular systolic function is normal. The calculated ejection fraction is 57% by biplane method. - No obvious valvular pathology seen on this study. Findings Left Ventricle Normal left ventricular cavity size. There is normal left ventricular wall thickness. The left ventricular systolic function is normal. The calculated ejection fraction is 57% by biplane method. There is no evidence of regional wall motion abnormalities. Diastolic function is normal for age. Right Ventricle Normal right ventricular cavity size and systolic function. Atria Both atria are normal in size. Aortic Valve There is a normal trileaflet aortic valve. There is no aortic valve stenosis. There is no aortic valve regurgitation. Mitral Valve The mitral valve appears normal. There is no mitral valve regurgitation. There is no mitral valve stenosis. Pulmonic Valve The pulmonic valve is likely normal. Tricuspid Valve Normal tricuspid valve structure. There is trace tricuspid valve regurgitation. The pulmonary artery systolic pressure is normal. Great Vessels The aortic annulus, sinuses of valsalva, and asc aorta are normal in size. Venous The inferior vena cava is normal in size and does not collapse with inspiration. Pericardium/Pleural There is no evidence of pericardial effusion. Prior Study Comparison No significant change compared to prior study dated: 12/03/2018. Recommendations, Care & Conclusions No obvious valvular pathology seen on this study. Measurements 2D Linear Measurements IVSd: 0.80 0.6-0.9/0.6-1.0 cm LVIDd: 4.31 3.9-5.3/4.2-5.9 cm LVIDd Index: 2.48 2.4-3.2/2.2-3.1 cm/m2 LVIDs: 2.80 2.0-3.6 cm LVPWd: 0.82 0.7-1.1 cm LA Diam: 3.40 2.7-3.8/3.0-4.0 cm LAIDs Index: 1.95 1.5-2.3 cm/m2 LV Mass: 133.60 67-162/88-224 g LV Mass Index: 76.78 43-95/49-115 g/m2 LVOT Diam: 2.00 3.0+(-)1.3 cm 2D Systolic Function EF 4C: 58.60 >55% EF 2C: 53.60 >55% EF BiP: 56.90 >55% Mitral Valve MV Pk E: 0.82 MV PK A: 0.75 MV Decel Time: 171.00 E/A: 1.10 E'Lateral: 13.80 E'Medial: 10.90 E/E' Med: 7.50 E/E' Lat: 5.90 PHT: 50.00 MVA PHT: 4.40 Decel [place]: 4.81 Aortic Valve AoV Pk [place]: 1.56 AoV Mn [place]: 1.07 AoV VTI: 0.34 AoV Pk Grad: 10.00 Aov Mn Grad: 5.00 WILTON Cont.VTI: 2.47 LVOT LVOT Pk [place]: 1.29 LVOT Mn [place]: 0.84 LVOT VTI: 0.27 LVOT Pk Grad: 7.00 LVOT Mn Grad: 3.00 LVOT Diam: 2.00 LVOT Area: 3.14 Diastolic Function MV Pk E: 0.82 MV Pk A: 0.75 E/A: 1.10 E'Medial: 10.90 E/E' Med: 7.50 E' Laterial: 13.80 E/E' Lat: 5.90 Right Ventricle TAPSE (mm): 31.00 TVS' [place]: 13.00 Tricuspid Valve TR Pk [place]: 2.02 TR Pk Grad: 16.00 RA Press: 3.00 RVSP: 19.00 Great Vessels Aorta Ao Asc: 2.90 2.1-3.4 cm Pulmonary Valve PV Pk [place]: 1.08 Peak PV Grad: 5.00 Updated in Other Vendor System with Status of Final Solsi Keys MD electronically signed on 12/30/2021 11:51:26 AM with status of Final
== END ==
LOC: HO.CARD 09:27
PROVIDERS: Visit Provider Internal Medicine
DX: R07.2 Precordial pain (principal)
CPT/HCPCS: 93017; 93306

== ENCOUNTER → 2022-01-05 08:16 | Outpatient (REF) | payer OTHER, SELFPAY ==
--- NOTE | ~2022-01-05 | NM_ITS ---
Lexiscan Myocardial perfusion study Indication: Chest pain, assess for coronary disease and ischemia Technique: The patient was brought in for a Lexiscan perfusion study on 01/05/2022 and was injected 0.4 mg of Lexiscan intravenously. Within a minute of this injection 25 mCi of sestamibi was given intravenously. Images were obtained using the SPECT gamma camera interlaced with the gating device. Images were obtained in supine position. Resting perfusion study was performed on 01/08/2022. Patient was administered 25 mCi of sestamibi intravenously at rest. Images were then obtained in supine position. Total DLP 96mGy-cm. Images were processed with the software and compared side to side in short axis, horizontal long axis and vertical long axis views. Findings: Raw acquisition was reviewed. The stress perfusion study showed no significant perfusion abnormality. With CT attenuation correction, there is overall reduced tracer uptake and hence most likely all artifactual.. The gated study shows normal LV systolic function with calculated LVEF of 56%. LV cavity is normal in size. The gated study shows normal wall thickening and contraction of segments. Resting study shows no significant perfusion abnormality. Gating at rest reveals normal wall motion with ejection fraction at 63%. The findings are consistent with no reversible or fixed perfusion abnormality. NM/NM cardiolite stress test Impression: 1. Myocardial perfusion imaging study shows normal myocardial perfusion. 2. Gated LVEF is 56% during stress and 63% during rest. 3. Transient ischemic dilatation not present. EKG component of the test reported separately.
--- NOTE | 2022-01-05 08:20 | CA_ITS ---
Acquisition Time: 2022-01-05 08:18:19 Total Exercise Time: 00:02:00 Test Indications: ABN ETT, CP Medications: SEE CHART Protocol: LEXISCAN Max HR: 130 BPM 76% of Pred: 170 BPM Max BP: 124/080 mmHG Max Work Load: 1.6 METS Pharmacological stress test with Lexiscan injection, while walking slow on treadmill, with report of 2-3/10 mid chest tightness, with isolated PVC, with normotensive response to injection, with nondiagnostic EKG for ischemia. In recovery she continued to report mid chest tightness that was treated with Aminophylline 75mg IVP to reverse lexiscan with improvement in symptom. Nuclear images pending. Test reviewed with Dr De La Cruz. Referred By: Daphnie Sutton Overread By: DAPHNIE SUTTON
== END ==
LOC: HO.CARD 08:16
PROVIDERS: Visit Provider Nurse Practitioner Family
DX: R07.2 Precordial pain (principal); R94.39 Abnormal result of other cardiovascular function study
CPT/HCPCS: 78452; 93017; A9500; J0280; J2785

== ENCOUNTER 2022-01-27 12:02 | Emergency (ER) | payer OTHER, SELFPAY ==
--- NOTE | ~2022-01-27 | CT_ITS ---
EXAMINATION: CT ABDOMEN AND PELVIS WITHOUT CONTRAST CLINICAL INFORMATION: Epigastric pain, right upper quadrant pain and guarding. COMPARISON: Right upper quadrant ultrasound from 01/27/2022. Abdomen CT from 03/11/2020. TECHNIQUE: Multidetector volumetric imaging was performed from the superior aspect of the liver through the pubic symphysis. Sagittal and coronal reformatted images were obtained on the technologist's workstation. This CT examination was performed using dose optimization techniques as appropriate, variously including the following: *Automated exposure control *Adjustment of mA and/or kV according to patient size (this includes techniques or standardized protocols for targeted exams where dose is matched to indication/reason for exam; i.e. extremities or head) *Use of iterative reconstruction technique DLP: 533 mGy-cm FINDINGS: LUNG BASES: Normal. No pulmonary consolidation or pleural effusion at either lung base. LIVER: The liver has normal size, shape, and attenuation. No evidence of liver mass. GALLBLADDER AND BILIARY TREE: Gallbladder is without radiopaque stones, wall thickening or pericholecystic fluid. No dilated bile ducts. PANCREAS: Normal. No edema, pancreatic ductal dilatation or mass. SPLEEN: Normal. ADRENAL GLANDS: Normal. KIDNEYS AND URETERS: The kidneys have normal size and cortical thickness. No perinephric fluid collection. No urolithiasis or hydroureteronephrosis. BLADDER: Normal. No calculi or wall thickening. BOWEL AND PERITONEUM: Stomach is unremarkable. No dilated loops of bowel. The appendix is surgically absent. No overt bowel wall thickening or mesenteric fat stranding. No ascites or pneumoperitoneum. ABDOMINAL WALL: Unremarkable. VASCULATURE: Unremarkable. LYMPH NODES: No pathologic sized lymph nodes in the abdomen or pelvis. No inguinal lymphadenopathy. PELVIC VISCERA: Prior hysterectomy. No adnexal mass. No pelvic free fluid. Multiple phleboliths are present within the lower pelvis. SKELETAL: No suspicious bone lesions. Moderate facet arthropathy and degenerative disc disease at L5-S1 (as manifest by severe loss of disc space, vacuum phenomenon, endplate sclerosis and osteophytosis). There are osteophytes that cause moderate to severe bilateral neural foraminal narrowing at L5-S1. CT/CT abdomen pelvis wo con IMPRESSION: * No acute imaging abnormalities in the abdomen or pelvis. No specific source of pain is identified. There is no evidence of inflammation or obstruction along the gastrointestinal tract. No abdominal free fluid or pneumoperitoneum. * The hepatobiliary structures have a normal appearance on this noncontrast examination.
--- NOTE | ~2022-01-27 | US_ITS ---
EXAMINATION: US ABDOMEN LIMITED CLINICAL INFORMATION: Right upper quadrant pain. COMPARISON: 03/11/2010 TECHNIQUE: Real-time imaging of the right upper quadrant abdominal viscera. FINDINGS: PANCREAS: Normal. LIVER: Borderline enlarged 16.2 cm. . The liver contour is normal. Mild increased echogenicity No focal hepatic lesion. There is no intrahepatic biliary duct dilatation seen. GALLBLADDER: Echogenic bile. Mild sonographic Tierney's sign reported but no stones or acute inflammatory changes. COMMON BILE DUCT: Normal in caliber measuring 0.3 cm in diameter. RIGHT KIDNEY: Normal. No hydronephrosis. No renal calculi or focal parenchymal lesions. The kidney measures 10.7 cm in maximum dimension. FREE FLUID: None. US/US abdomen limited IMPRESSION: Changes of fatty infiltration of the liver. Gallbladder sludge only. No stones or acute inflammatory changes.
[2022-01-27 12:03] VITALS: BP 127/84; PULSE 85; RESP 18; TEMP 37.2; O2SAT 100; BMI 29.2
[2022-01-27 12:19] LABS: Basophils Percent Auto 0.4 % (0-2); Eosinophils Absolute Auto 0.1 X10*3/uL (0.0-0.4); Eosinophils Percent Auto 1.6 % (0-4); Hematocrit 42.3 % (37.0-47.0); Hemoglobin 12.9 g/dl (12.0-16.0); Imm Gran Abs Auto 0.03 X10*3/uL (0.00-0.03); Imm Gran Pct Auto 0.4 % (0.0-0.4); Lymphocytes Absolute Auto 2.5 X10*3/uL (1.2-4.9); Lymphocytes Percent Auto 30.9 % (20-40); MANUAL DIFF FLAG NO; Mean Corpuscular HGB Conc 30.5 g/dl (31.0-35.0); Mean Corpuscular Hemoglobin 28.4 pg (27.0-33.0); Mean Platelet Volume 9.6 fL (9.4-12.3); Monocytes Absolute Auto 0.8 X10*3/uL (0.1-1.2); Monocytes Percent Auto 10.1 % (2-11); Neutrophils Absolute Auto 4.6 x10*3/uL (2.0-8.3); Neutrophils Percent Auto 56.6 % (45-73); Platelet Count 321 X10*3/uL (160-400); Red Blood Count 4.55 X10*6/uL (4.20-5.50); Red Cell Distribution Width 13.9 % (11.0-16.0)
[2022-01-27 12:36] LABS: Alanine Aminotransferase 26 U/L (0-31); Alkaline Phosphatase 131 U/L (39-117); Anion Gap 13 (12-20); Aspartate Amino Transferase 21 U/L (5-31); Bilirubin Direct < 0.2 mg/dL (0.0-0.5); Bilirubin Total 0.3 mg/dL (0.0-1.0); Blood Urea Nitrogen 12 mg/dL (9-16); Calcium 9.6 mg/dL (8.4-10.2); Carbon Dioxide 26 mmol/L (22-29); Chloride 105 mmol/L (96-108); Creatinine Clr Calc Pharmacy 80.4; Estimated Glomerular Filt Rate > 60; Glucose Random 116 mg/dL (60-115); Potassium 4.5 mmol/L (3.3-5.1); Sodium 139 mmol/L (135-145); Total Protein 7.9 g/dL (6.5-8.0)
[2022-01-27 12:36] LABS: COVID-19 Test Negative (Negative); IDNOW Serial# 16C4AD1C; Influenza A Negative (Negative); Influenza B2 Negative (Negative)
[2022-01-27 13:13] LABS: Appearance Urine HAZY; Color Urine YELLOW; Glucose Urine UA NEG (NEG); Leukocyte Esterase Urine NEG (NEG); Nitrite Urine NEG (NEG); Specific Gravity - Urine >= 1.030 (1.005-1.025); UACC Culture Trigger NO; Urine Blood TRACE (NEG); Urine Ketones NEG (NEG); Urine Protein TRACE MG/DL (NEG-TRACE)
[2022-01-27 13:35] LABS: Lipase 46 U/L (8-78)
[2022-01-27 13:42] LABS: Mucus Urine 1+ /LPF; Squamous Epithelial Cell Urine 2+ /LPF; WBC Urine 0 /HPF (0-4)
--- NOTE | 2022-01-27 14:47 | ED_ITS ---
HPI - Abdominal Pain General Chief Complaint: Abdominal Pain Stated Complaint: Abdominal Pain Time Seen by Provider: 01/27/22 12:34 Source: patient Mode of arrival: ambulatory Limitations: no limitations History of Present Illness HPI narrative: 51-year-old patient sent here from urgent care to rule out gallstones. Patient has had epigastric and right upper quadrant pain that started 4 days ago. The pain is intermittent, and is now 0 4 of 10. No radiation to the back or the shoulder blade. Pain is worse with eating greasy food. Four days ago patient had sore throat, body aches, and subjective fever, and for the last 3 days has had abdominal pain with nausea. Reduced appetite. Tylenol was helping but is not helping anymore. Denies chest pain, shortness of breath, dysuria, hematuria, vomiting, diarrhea. Related Data Home Medications Medication Instructions Recorded Confirmed albuterol sulfate 90 mcg/actuation 2 puff PO QID PRN 11/07/20 11/01/21 aerosol inhaler Previous Rx's Medication Instructions Recorded magnesium oxide 500 mg capsule 500 mg PO BID 30 Days #60 cap 10/16/21 pantoprazole 40 mg tablet,delayed 40 mg PO BID 30 Days #60 tab 10/16/21 release Allergies Allergy/AdvReac Type Severity Reaction Status Date / Time cephalexin [From KEFLEX] Allergy Severe SOB/HIVES Verified 11/03/21 09:20 Iodinated Contrast Media Allergy Severe SOB/CHEST Verified 11/03/21 09:20 [IV CONTRAST] PAIN/DIFFICULTY BREATHING acetaminophen [From Percocet] Allergy itchy, SOB Verified 11/03/21 09:20 oxycodone [From Percocet] Allergy itchy, SOB Verified 11/03/21 09:20 From KEFZOL Allergy Severe DIFFICULTY Uncoded 11/01/21 13:36 BREATHING Review of Systems Constitutional: Denies body ache(s), Denies chills, Denies fatigue, Reports fever(s) (Subjective), Denies headache(s), Denies malaise and Denies weakness Eyes: Denies diplopia Denies vertigo, Denies dizziness, Denies otalgia, Denies headache(s), Denies mouth pain, Denies post nasal drip, Denies sinus pain, Denies sinus pressure, Denies sore throat and Denies throat swelling Cardiovascular: Denies chest pain, Denies syncope, Denies leg edema, Denies lightheadedness, Denies Loss of Consciousness, Denies palpitations and Denies dyspnea Respiratory: Denies chest congestion, Denies cough and Denies dyspnea Gastrointestinal: Reports abdominal pain, Denies hematochezia, Denies constipation, Denies diarrhea, Reports nausea and Denies vomiting Musculoskeletal: Reports no additional musculoskeletal complaints Denies confusion, Denies vertigo, Denies dizziness, Denies syncope, Denies headache(s) and Denies weakness Psychiatric: Denies anxiety, Denies confusion and Denies depression Endocrine: Denies fatigue and Denies palpitations Allergic/Immunologic: Denies throat swelling PMFSH Past Medical History Medical History Asthma GERD (gastroesophageal reflux disease) Hx of migraine headaches Low back pain Painful breasts Surgical History H/O: hysterectomy History of appendectomy History of esophagogastroduodenoscopy (EGD) History of hernia surgery Hx of colonoscopy Hx of tubal ligation Family History Family History Mother Uterine cancer Family/Other History of breast cancer Social History Social History Housing: House Alcohol intake: never Patient Tobacco Use Status: Never used Tobacco e-Cigarette/Vaping Use: Never Used Second Hand Smoke Exposure: No Advance Directives: No Advance Directives Information Provided: No service: No Current occupational status: employed Cognitive needs: No Hearing needs: No Vision needs: No Physical Exam ED Vital Signs: Vital Signs - 24 hr 01/27/22 12:03 01/27/22 14:54 Temperature 99.0 F 98.0 F Pulse Rate 85 84 Respiratory Rate 18 12 Blood Pressure 127/84 113/75 Pulse Oximetry 100 98 BMI result Body Mass Index 29.2 Const General: No confusion Nutritional Appearance: well nourished Orientation/consciousness: No confusion Limitations: no limitations HENMT Head: Yes normal to inspection, Yes normocephalic and Yes atraumatic Ears: hearing grossly normal bilaterally, external ears normal, TM's normal bilaterally and EAC's normal General nose exam: Normal external nose present Face and sinus: Yes normal facial exam and Yes sinuses nontender Mouth: Normal oral and palatal mucosa present Throat: Yes posterior oropharynx normal Eyes Conjunctivae: conjunctivae normal Pupils: Equal, round and reactive pupils present EOM: EOMs intact bilaterally Neck Neck: Yes full ROM, Yes no lymphadenopathy and Yes supple Resp Effort & Inspection: normal respiratory effort and able to speak in complete s entences Auscultation: clear to auscultation bilaterally, no crackles, no rales, no rhonchi and no wheezes Cardio Rate: regular rate Rhythm: regular rhythm Heart sounds: S1 normal heart sound present and S2 normal heart sound present GI Inspection: Yes normal to inspection Palpation (GI): Soft to palpation, Tenderness to palpation present (GI) in the epigastrum and in the RUQ, Guarding due to palpation present (GI) in the RUQ and not rigid Percussion: Yes normal to percussion Auscultation: normal bowel sounds Skin General skin exam: no rashes or lesions noted Neuro General: No confusion Cranial nerves: Yes Equal, round and reactive pupils present Extrem General: Yes normal to inspection and Yes full ROM Psych Appearance: grossly normal Affect: normal affect Attitude: cooperative Thought process: Normal thought process present Course Course Course Narrative: 51-year-old patient sent here from urgent care to rule out gallstones. Patient has had epigastric and right upper quadrant pain that started 4 days ago. The pain is intermittent, and is now 4/10. No radiation to the back or the shoulder blade. Pain is worse with eating greasy food. Four days ago patient had sore throat, body aches, and subjective fever, and for the last 3 days has had abdominal pain with nausea. With right upper quadrant pain, and subjective fevers at home, concern for cholangitis if patient had Charcot's triad of fever, jaundice, abdominal pain. Patient is not jaundiced on exam, she is afebrile here without fever ergonomic specialist, she has no leukocytosis, and her LFTs and bilirubin are all within normal limits. Labs are remarkable only for mildly elevated alk-phos at 01:31. Lipase is not elevated, CBC and CMP are within normal limits. Urine is negative for infection , has trace blood and protein. Patient is negative for COVID negative for flu Ultrasound shows sludge and no stones, no CBD dilatation, no inflammatory changes Awaiting CT of abdomen Patient states she did not want any pain medicine ULTRASOUND FINDINGS: PANCREAS: Normal. LIVER: Borderline enlarged 16.2 cm. . The liver contour is normal. Mild increased echogenicity No focal hepatic lesion. There is no intrahepatic biliary duct dilatation seen. GALLBLADDER: Echogenic bile. Mild sonographic Tierney's sign reported but no stones or acute inflammatory changes. COMMON BILE DUCT: Normal in caliber measuring 0.3 cm in diameter. RIGHT KIDNEY: Normal. No hydronephrosis. No renal calculi or focal parenchymal lesions. The kidney measures 10.7 cm in maximum dimension. FREE FLUID: None. US/US abdomen limited IMPRESSION: Changes of fatty infiltration of the liver. Gallbladder sludge only. No stones or acute inflammatory changes. CT/CT abdomen pelvis wo con IMPRESSION: *? No acute imaging abnormalities in the abdomen or pelvis. No specific source of pain is identified. There is no evidence of inflammation or obstruction along the gastrointestinal tract. No abdominal free fluid or pneumoperitoneum. *? The hepatobiliary structures have a normal appearance on this noncontrast examination. Reevaluation(s) Reevaluation #1: Patient's pain is no worse than when she came in. She refused pain medication. Discussed labs and imaging with patient, discussed need to see GI for possible HIDA scan. Patient cannot take NSAIDs due to her GERD, counseled Tylenol, 1 g every 8 hours, gave return precautions of worsening abdominal pain, fevers, vomiting, return to emergency room. All questions were answered, patient verbalized agreement understanding of the plan MDM - Abdominal Pain Lab Data Result diagrams: 01/27/22 12:12 01/27/22 12:12 Labs: Lab Results 01/27/22 01/27/22 01/27/22 Range/Units 12:08 12:08 12:12 WBC 8.0 (4.8-10.8) X10*3/uL RBC 4.55 (4.20-5.50) X10*6/uL Hgb 12.9 (12.0-16.0) g/dl Hct 42.3 (37.0-47.0) % MCV 93.0 (80.0-98.0) fL MCH 28.4 (27.0-33.0) pg MCHC 30.5 L (31.0-35.0) g/dl RDW 13.9 (11.0-16.0) % Plt Count 321 D (160-400) X10*3/uL MPV 9.6 (9.4-12.3) fL Immature Gran % (Auto) 0.4 (0.0-0.4) % Neut % (Auto) 56.6 (45-73) % Lymph % (Auto) 30.9 (20-40) % [place] % (Auto) 10.1 (2-11) % Eos % (Auto) 1.6 (0-4) % Baso % (Auto) 0.4 (0-2) % Lymph # (Auto) 2.5 (1.2-4.9) X10*3/uL [place] # (Auto) 0.8 (0.1-1.2) X10*3/uL Eos # (Auto) 0.1 (0.0-0.4) X10*3/uL Baso # (Auto) 0.0 (0.0-0.2) X10*3/uL Abs Immat Gran (auto) 0.03 (0.00-0.03) X10*3/uL Absolute Neuts (auto) 4.6 (2.0-8.3) x10*3/uL Absolute Nucleated RBC 0.000 (0.0-0.012) X10*3/uL Nucleated RBC % (auto) 0.0 (0.0-0.2) /100WBC Sodium (135-145) mmol/L Potassium (3.3-5.1) mmol/L Chloride (96-108) mmol/L Carbon Dioxide (22-29) mmol/L Anion Gap (12-20) BUN (9-16) mg/dL Creatinine (0.5-1.4) mg/dL Estim Creat Clear Calc Estimated GFR Random Glucose (60-115) mg/dL Calcium (8.4-10.2) mg/dL Total Bilirubin (0.0-1.0) mg/dL Direct Bilirubin (0.0-0.5) mg/dL AST (5-31) U/L ALT (0-31) U/L Alkaline Phosphatase (39-117) U/L Total Protein (6.5-8.0) g/dL Albumin (3.5-5.0) g/dL Lipase (8-78) U/L Urine Color Urine Appearance Urine pH (5.0-8.0) Ur Specific [place] (1.005-1.025) Urine Protein (NEG-TRACE) MG/DL Urine Glucose (UA) (NEG) MG/DL Urine Ketones (NEG) MG/DL Urine Blood (NEG) Urine Nitrite (NEG) Ur Leukocyte Esterase (NEG) Urine RBC (0) /HPF Urine WBC (0-4) /HPF Ur Squamous Epith Cells /LPF Urine Bacteria /LPF Urine Mucus /LPF COVID-19 (LENA) Negative (Negative) COVID-19 Clin Com See Note Influenza Type A (NIRAV) Negative (Negative) Influenza Type B (NIRAV) Negative (Negative) Influenza A & B Note See Note 01/27/22 01/27/22 Range/Units 12:12 13:04 WBC (4.8-10.8) X10*3/uL RBC (4.20-5.50) X10*6/uL Hgb (12.0-16.0) g/dl Hct (37.0-47.0) % MCV (80.0-98.0) fL MCH (27.0-33.0) pg MCHC (31.0-35.0) g/dl RDW (11.0-16.0) % Plt Count (160-400) X10*3/uL MPV (9.4-12.3) fL Immature Gran % (Auto) (0.0-0.4) % Neut % (Auto) (45-73) % Lymph % (Auto) (20-40) % [place] % (Auto) (2-11) % Eos % (Auto) (0-4) % Baso % (Auto) (0-2) % Lymph # (Auto) (1.2-4.9) X10*3/uL [place] # (Auto) (0.1-1.2) X10*3/uL Eos # (Auto) (0.0-0.4) X10*3/uL Baso # (Auto) (0.0-0.2) X10*3/uL Abs Immat Gran (auto) (0.00-0.03) X10*3/uL Absolute Neuts (auto) (2.0-8.3) x10*3/uL Absolute Nucleated RBC (0.0-0.012) X10*3/uL Nucleated RBC % (auto) (0.0-0.2) /100WBC Sodium 139 (135-145) mmol/L Potassium 4.5 (3.3-5.1) mmol/L Chloride 105 (96-108) mmol/L Carbon Dioxide 26 (22-29) mmol/L Anion Gap 13 (12-20) BUN 12 (9-16) mg/dL Creatinine 0.78 (0.5-1.4) mg/dL Estim Creat Clear Calc 80.4 Estimated GFR > 60 Random Glucose 116 H (60-115) mg/dL Calcium 9.6 (8.4-10.2) mg/dL Total Bilirubin 0.3 (0.0-1.0) mg/dL Direct Bilirubin < 0.2 (0.0-0.5) mg/dL AST 21 (5-31) U/L ALT 26 (0-31) U/L Alkaline Phosphatase 131 H (39-117) U/L Total Protein 7.9 (6.5-8.0) g/dL Albumin 4.0 (3.5-5.0) g/dL Lipase 46 (8-78) U/L Urine Color YELLOW Urine Appearance HAZY Urine pH 6.0 (5.0-8.0) Ur Specific [place] >= 1.030 H (1.005-1.025) Urine Protein TRACE (NEG-TRACE) MG/DL Urine Glucose (UA) NEG (NEG) MG/DL Urine Ketones NEG (NEG) MG/DL Urine Blood TRACE (NEG) Urine Nitrite NEG (NEG) Ur Leukocyte Esterase NEG (NEG) Urine RBC 1-4 (0) /HPF Urine WBC 0 (0-4) /HPF Ur Squamous Epith Cells 2+ /LPF Urine Bacteria NONE /LPF Urine Mucus 1+ /LPF COVID-19 (LENA) (Negative) COVID-19 Clin Com Influenza Type A (NIRAV) (Negative) Influenza Type B (NIRAV) (Negative) Influenza A & B Note Discharge Plan Discharge Clinical Impression: Cholecystitis Prescriptions: No Action albuterol sulfate 90 mcg/actuation HFA aerosol inhaler 2 puff PO QID PRN0RF pantoprazole 40 mg tablet,delayed release (DR/EC) 40 mg PO BID 30 Days Qty: 60 6RF Rx Instructions: Take one tablet by mouth twice a day magnesium oxide 500 mg capsule 500 mg PO BID 30 Days Qty: 60 6RF
[2022-01-27 14:54] VITALS: BP 113/75; PULSE 84; RESP 12; TEMP 36.7; O2SAT 98
== END 2022-01-27 16:26 | disposition home or self-care (01) ==
PROVIDERS: Physician Assistant; Emergency Provider Emergency Medicine; PCP Internal Medicine
DX: K81.9 Cholecystitis, unspecified (principal); R10.13 Epigastric pain; R10.31 Right lower quadrant pain; Z20.822 Contact with and (suspected) exposure to COVID-19; Z79.899 Other long term (current) drug therapy
CPT/HCPCS: 74176; 76705; 80053; 81001; 82248; 83690; 85025; 87502; 87635; 99283

== ENCOUNTER 2022-04-12 08:24 | Day surgery (SDC) | payer OTHER, SELFPAY ==
[2022-04-05 15:18] VITALS: BMI 28.0
--- NOTE | 2022-04-11 12:52 | HO.ANESPROP2 ---
Documented by User: Carol Frost NP 04/11/22 12:55 HPI - Anesthesia Eval Consult details Narrative: 51yo F for Colonoscopy Cardiac w/u for CP 10/2021 negative PMFSH Active Problems Active Problems: All Active Problems (Updated 04/05/22 @ 15:18 by Alicia Charles, DANNY) Well woman exam with routine gynecological exam (Acute) Vaginal odor (Acute) Potential exposure to STD (Acute) GERD (gastroesophageal reflux disease) (Acute) Chronic idiopathic constipation (Acute) Peptic ulcer disease (Acute) COVID-19 (Acute) Chest pain (Acute) Dizziness (Acute) Anxiety (Acute) Elevated blood pressure reading without diagnosis of hypertension (Acute) Headache (Acute) 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) Class 1 obesity (Acute) Palpitations (Acute) Essential hypertension (Acute) Right low back pain (Acute) Intermittent chest pain (Acute) Family history of polyps in the colon (Acute) Precordial chest pain (Acute) Abnormal stress test (Acute) Hemorrhagic gastritis (Acute) Nausea and vomiting (Acute) Low back pain (Acute) Painful breasts (Acute) Past Medical History Medical History Asthma GERD (gastroesophageal reflux disease) History of COVID-19 Hx of migraine headaches Low back pain Painful breasts Family History Family History Mother Uterine cancer Family/Other History of breast cancer Surgical History Surgical History H/O: hysterectomy History of appendectomy History of esophagogastroduodenoscopy (EGD) History of hernia surgery Hx of colonoscopy Hx of tubal ligation Social History Social History Housing: House Alcohol intake: never Patient Tobacco Use Status: Never used Tobacco e-Cigarette/Vaping Use: Never Used Second Hand Smoke Exposure: No Use of substances other than those prescribed or required for medical reasons: No Are you DNR?: No Advance Directives: No Advance Directives Information Provided: Yes service: No Current occupational status: employed Cognitive needs: No Hearing needs: No Vision needs: No Meds Allergies Allergy/AdvReac Type Severity Reaction Status Date / Time cephalexin [From KEFLEX] Allergy Severe SOB/HIVES Verified 03/01/22 15:25 Iodinated Contrast Media Allergy Severe SOB/CHEST Verified 03/01/22 15:25 [IV CONTRAST] PAIN/DIFFICULTY BREATHING oxycodone [From Percocet] Allergy Intermediate itchy, SOB Verified 04/05/22 13:35 Home Medications Medication Instructions Recorded Confirmed Last Taken Type albuterol sulfate 90 mcg/actuation 2 puff PO QID PRN Shortness Of 11/07/20 04/05/22 Unknown History aerosol inhaler Breath docusate sodium 100 mg capsule 100 mg PO DAILY 03/01/22 04/05/22 Unknown History (Colace) Exam Exam Date and Time: April 11, 2022 1252 Height,Weight and Vital Signs: Height 5 ft 2 in Weight 69.4 kg Pertinent Lab Results Pertinent Lab Results: Laboratory Tests 01/27/22 01/27/22 12:12 12:12 WBC 8.0 Hgb 12.9 Hct 42.3 Plt Count 321 D Sodium 139 Potassium 4.5 Chloride 105 Carbon Dioxide 26 BUN 12 Creatinine 0.78 Narrative Narrative: NM cardiolite stress test 12/2021 Impression: ? 1.? Myocardial perfusion imaging study shows normal myocardial perfusion. 2.? Gated LVEF is 56% during stress and 63% during rest. 3. Transient ischemic dilatation not present. ? EKG component of the test reported separately. ECHO 12/2021 Conclusions: - The left ventricular systolic function is normal.? The ? calculated ejection fraction is 57% by biplane method. ? - No obvious valvular pathology seen on this study.? ? EKG 10/2021 sinus rhythm at 69/Min; no significant ST-T changes and otherwise unremarkable. Assessment and Plan Assessment Anesthesia Assessment: Chart Reviewed Documented by User: Carlotta Abad MD 04/12/22 09:20 PMFSH Active Problems Active Problems: All Active Problems (Updated 04/05/22 @ 15:18 by Alicia Charles RN) Well woman exam with routine gynecological exam (Acute) Vaginal odor (Acute) Potential exposure to STD (Acute) GERD (gastroesophageal reflux disease) (Acute) Chronic idiopathic constipation (Acute) Peptic ulcer disease (Acute) COVID-19 (Acute) Chest pain (Acute) Dizziness (Acute) Anxiety (Acute) Elevated blood pressure reading without diagnosis of hypertension (Acute) Headache (Acute) 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) Class 1 obesity (Acute) Palpitations (Acute) Essential hypertension (Acute) Right low back pain (Acute) Intermittent chest pain (Acute) Family history of polyps in the colon (Acute) Precordial chest pain (Acute) Abnormal stress test (Acute). Scheduled to see cardiology for follow up. Denies any chest pain since October. Hemorrhagic gastritis (Acute) Nausea and vomiting (Acute) Low back pain (Acute) Painful breasts (Acute) Past Medical History Medical History Asthma GERD (gastroesophageal reflux disease) History of COVID-19 Hx of migraine headaches Low back pain Painful breasts Family History Family History Mother Uterine cancer Family/Other History of breast cancer Family history of problems with anesthesia: No Surgical History Surgical History H/O: hysterectomy History of appendectomy History of esophagogastroduodenoscopy (EGD) History of hernia surgery Hx of colonoscopy Hx of tubal ligation History of Problems with Anesthesia: No Social History Social History Housing: House Alcohol intake: never Patient Tobacco Use Status: Never used Tobacco e-Cigarette/Vaping Use: Never Used Second Hand Smoke Exposure: No Use of substances other than those prescribed or required for medical reasons: No Are you DNR?: No Advance Directives: No Advance Directives Information Provided: Yes service: No Current occupational status: employed Cognitive needs: No Hearing needs: No Vision needs: No Meds Allergies Allergy/AdvReac Type Severity Reaction Status Date / Time cephalexin [From KEFLEX] Allergy Severe SOB/HIVES Verified 03/01/22 15:25 Iodinated Contrast Media Allergy Severe SOB/CHEST Verified 03/01/22 15:25 [IV CONTRAST] PAIN/DIFFICULTY BREATHING oxycodone [From Percocet] Allergy Intermediate itchy, SOB Verified 04/05/22 13:35 Home Medications Medication Instructions Recorded Confirmed Last Taken Type albuterol sulfate 90 mcg/actuation 2 puff PO QID PRN Shortness Of 11/07/20 04/05/22 Unknown History aerosol inhaler Breath docusate sodium 100 mg capsule 100 mg PO DAILY 03/01/22 04/05/22 Unknown History (Colace) Exam Height,Weight and Vital Signs: Height 5 ft 2 in Weight 69.4 kg Vital Signs Temp Pulse Resp BP Pulse Ox O2 Del Method 04/12/22 08:47 97.8 F 70 16 110/67 98 Room Air Airway Mallampati Class: II TM Dist: >3cm Neck ROM: Full Loose/Missing/Broken Teeth: Yes (Broken bottom left back, missing bottom left back) Heart: RRR Lungs: CTAB Assessment and Plan Assessment Anesthesia Assessment: Anesthesia Plan Discussed Final Anesthetic Review Family History of Problems with Anesthesia: No History of Problems with Anesthesia: No NPO: Yes ASA Class: III Final Preanesthetic Review: No Changes in Pt Med Stat, Meds/Allgs Chart Reviewed, Consent Obtained/Reviewed and Anes Risks/Benef Reviewed Patient Risk: Intermediate Procedure Risk: Low Assessment/Block/Sedation in SS: Assess/Block/Sedation-SS Anesthetic Plan Anesthetic Plan: MAC: Disposition: Standard PACU
[2022-04-12 08:34] VITALS: BMI 28.9
[2022-04-12 08:47] VITALS: BP 110/67; PULSE 70; RESP 16; TEMP 36.6; O2SAT 98
[2022-04-12] MEDS: Lactated Ringers 1,000 ML 100 ML IVCONT (08:50)
--- NOTE | 2022-04-12 09:22 | MHC.SHP ---
Pre-Procedural Eval Section A Date of Service: 04/12/22 Section B Chief Complaint: fm hx of polyps Relevant Family History (Specify if Yes): Yes Relevant Social History: None Present Medications: see Short Stay Collaborative assessment Medical History: Significant History (Asthma GERD (gastroesophageal reflux disease) History of COVID-19 Hx of migraine headaches Low back pain Painful breasts) History of Previous Operations: Relevant previous surgery/procedure and date(s) (H/O: hysterectomy History of appendectomy History of esophagogastroduodenoscopy (EGD) History of hernia surgery Hx of colonoscopy Hx of tubal ligation) Allergies: Allergies Allergy/AdvReac Type Severity Reaction Status Date / Time cephalexin [From KEFLEX] Allergy Severe SOB/HIVES Verified 03/01/22 15:25 Iodinated Contrast Media Allergy Severe SOB/CHEST Verified 03/01/22 15:25 [IV CONTRAST] PAIN/DIFFICULTY BREATHING oxycodone [From Percocet] Allergy Intermediate itchy, SOB Verified 04/05/22 13:35 Review of Systems Sugical H&P ROS: Negative: Constitution, Cardiovascular, Respiratory, Neurological, Psychiatric, Hem-Onc, Allergic/Immunologic, Gastrointestinal, Genitourinary, Musculoskeletal, Integumentary, Endocrine and Eyes/Ears/Nose/Throat Exam Surgical H&P Exam: Normal: HEENT, Normal: Heart, Normal: Lungs, Normal: Extremities, Normal: Abdomen, Normal: Skin and Normal: Neurological Plan Diagnosis/Plan: Unchanged I have reviewed the history and physical and performed a pertinent physical examination on my patient. No changes have occurred unless specified.
--- NOTE | 2022-04-12 09:26 | W.PM.OPN ---
Operative Note Operative Note Date of Service: 04/12/22 Narrative: Operative Information Procedure Description: Colonoscopy Indication: FH of polyps, screening Anesthesia: MAC COLONOSCOPY Instrument: Olympus variable stiffness pediatric scope 190L Colonoscopy Monitoring: Vital signs and clinical assessment, continuous EKG monitoring, Pulse oximetry, Carbon Dioxide monitoring and blood pressure monitoring were done throughout the procedure. Colon withdrawal time was 9 minutes. Procedure: The patient was placed in the left lateral decubitis position and pre-procedure medications were administered. After a digital rectal examination of the ano-rectum, the video colonoscope was inserted into the rectum and advanced through the colon to the cecum/TI. The colonoscope was slowly withdrawn in a retrograde panoramic fashion and the colon mucosa was carefully examined including a retroflexed view of the rectum. Findings and interventions are described below. Procedure Difficulty: easy Findings: Terminal Ileum-normal Right sided retroflexion was normal Cecum:normal Ascending Colon: 8-9 mm sessile polyp removed with cold snare Transverse Colon -normal Descending Colon: 10 mm sessile polyp removed with cold snare Sigmoid Colon: normal Rectum: Retroflexion with small internal hemorrhoids, grade I Anorectum - normal Colon preparation: Renick Bowel Preparation Scale Right colon; 3 Transverse colon: 2 Left colon; 3 (0 = Unprepared colon segment with mucosa not seen due to solid stool that cannot be cleared. 1 = Portion of mucosa of the colon segment seen, but other areas of the colon segment not well seen due to staining, residual stool and/or opaque liquid. 2 = Minor amount of residual staining, small fragments of stool and/or opaque liquid, but mucosa of colon segment seen well. 3 = Entire mucosa of colon segment seen well with no residual staining, small fragments of stool or opaque liquid) Impression and Post Procedure Diagnosis: polyps internal hemorrhoids Plan: High fiber diet leaflet Avoid straining at stool, epsom salts and sitz bath, anusol supps or cream Repeat Colonoscopy in 5 years due to FH and polyps removed today or earlier if clinically indicated Above findings were reviewed with the patient and relevant handouts were provided if indicated.
[2022-04-12 09:50] VITALS: BP 101/58; PULSE 77; RESP 16; TEMP 36.5; O2SAT 98
[2022-04-12 10:05] VITALS: BP 101/58; PULSE 59; RESP 16; TEMP 37.2; O2SAT 96
[2022-04-12 10:20] VITALS: BP 118/72; PULSE 59; RESP 16; TEMP 36.4; O2SAT 96
== END 2022-04-12 10:59 | disposition home or self-care (01) ==
PROVIDERS: Visit Provider Internal Medicine Gastroenterology
PROC: 0DJD8ZZ Inspection of Lower Intestinal Tract, Via Natural or Artificial Opening Endoscopic (ICD-10-PCS; CPT 45378; principal; 2022-04-12 09:40)
DX: Z12.11 Encounter for screening for malignant neoplasm of colon (principal); Z83.71 Family history of colonic polyps; D12.2 Benign neoplasm of ascending colon; D12.4 Benign neoplasm of descending colon; K64.0 First degree hemorrhoids; K59.04 Chronic idiopathic constipation; K21.9 Gastro-esophageal reflux disease without esophagitis; J45.909 Unspecified asthma, uncomplicated; Z79.899 Other long term (current) drug therapy; Z88.1 Allergy status to other antibiotic agents; Z88.8 Allergy status to other drugs, medicaments and biological substances; Z91.041 Radiographic dye allergy status; Z80.49 Family history of malignant neoplasm of other genital organs; Z86.16 Personal history of COVID-19; Z98.890 Other specified postprocedural states
CPT/HCPCS: 45385; 88305

== ENCOUNTER → 2022-08-16 08:26 | Outpatient (REF) | payer OTHER, SELFPAY ==
--- NOTE | ~2022-08-16 | NM_ITS ---
EXAMINATION: RADIONUCLIDE SOLID FOOD GASTRIC EMPTYING 4-HOUR STUDY CLINICAL INFORMATION: Nausea with vomiting. COMPARISON: No previous gastric ending study is available for comparison. TECHNIQUE: A standard meal consisting of 4 oz of Egg Beaters brand equivalent tagged was 1.0 mCi Tc-99m Sulfur Colloid, 8 oz water and 2 slices of toast with jelly was administered orally to the patient. Images were obtained using a dual head gamma camera in the anterior and posterior projections over of the stomach immediately post ingestion and at hourly intervals up to 4 hours post ingestion. The anterior and posterior counts at each time interval were averaged using the geometric mean and expressed as percentage of the immediate post ingestion counts. FINDINGS: There is good visualization of activity in the stomach immediately post ingestion. As the study progresses, there is only minimal visualization of some small bowel bowel activity. At the end of the study at 4 hours post of the activity is still retained within the stomach. Retention in the stomach at each time interval was: 1 hour 85% (normal 37%-90%) 2 hours 86% (normal 30%-60%) 3 hours 78% 4 hours 77% (normal 0%-10%) NM/NM gastric emptying study IMPRESSION: Abnormal study. There is marked abnormal retention of solid food in the stomach at 4 hours.
== END ==
LOC: HO.NUCMED 08:26
PROVIDERS: PCP Internal Medicine; Visit Provider Nurse Practitioner
DX: R11.2 Nausea with vomiting, unspecified (principal)
CPT/HCPCS: 78264; A9541

== ENCOUNTER → 2022-08-29 10:18 | Outpatient (BNVA) | payer OTHER, SELFPAY | PROVIDERS: PCP Internal Medicine; Visit Provider Nurse Practitioner | DX: R10.13 Epigastric pain (principal) ==

== ENCOUNTER 2022-09-05 12:48 | Outpatient (REF) | payer OTHER, SELFPAY ==
[2022-09-05 13:43] LABS: Influenza A PCR POSITIVE (Negative); Influenza B PCR NEGATIVE (Negative); Resp Syncy Virus RNA Qual PCR NEGATIVE (Negative); SARS COV2 PCR INHOUSE NEGATIVE (Negative)
== END 2022-09-05 12:49 | disposition home or self-care (01) ==
LOC: HO.LAB 12:48
PROVIDERS: PCP Internal Medicine; Visit Provider Internal Medicine
DX: Z20.822 Contact with and (suspected) exposure to COVID-19 (principal); J98.8 Other specified respiratory disorders
CPT/HCPCS: 0241U

== ENCOUNTER 2022-09-06 07:05 | Outpatient (REF) | payer OTHER, SELFPAY ==
--- NOTE | ~2022-09-06 | XR_ITS ---
EXAMINATION: XR CHEST CLINICAL INFORMATION: J98.8 - Other specified respiratory disorders COMPARISON: Chest radiographs 06/05/2021, 05/16/2021, CT abdomen 01/27/2022 TECHNIQUE: 2 views of the chest were obtained. FINDINGS: The lungs are clear. There is no airspace consolidation or groundglass opacity or effusion. Heart size normal. Vascularity normal. The hilar and mediastinal contours are unremarkable. No acute bony abnormality. XR/XR chest 2V IMPRESSION: Unremarkable examination.
== END 2022-09-06 07:06 | disposition home or self-care (01) ==
LOC: HO.XRAY 07:05
PROVIDERS: PCP Internal Medicine; Visit Provider Internal Medicine
DX: J98.8 Other specified respiratory disorders (principal); R05.9 Cough, unspecified
CPT/HCPCS: 71046

== ENCOUNTER 2022-09-19 06:36 | Emergency (ER) | payer OTHER, SELFPAY ==
--- NOTE | ~2022-09-19 | XR_ITS ---
EXAMINATION: XR CHEST CLINICAL INFORMATION: Cough and shortness of breath COMPARISON: 09/06/2022 TECHNIQUE: 2 views of the chest were obtained. FINDINGS: No significant abnormality is noted involving the heart, lungs, mediastinum, bony thorax or soft tissues. XR/XR chest 2V IMPRESSION: Unremarkable examination.
[2022-09-19 06:54] VITALS: BP 146/87; PULSE 109; RESP 19; TEMP 36.6; O2SAT 94; BMI 28.9
[2022-09-19 07:36] VITALS: PULSE 89; RESP 16; O2SAT 98
--- NOTE | 2022-09-19 07:41 | PC.NURSE ---
pt alert and oriented, skin appropriate for ethnicity, respirations even and unlabored, intermittent dry cough x3 days, feeling sob, ls diminished on the right lowe lobe, pt also reports having a headache
[2022-09-19 07:58] VITALS: BP 122/82; PULSE 98; RESP 20; TEMP 36.2; O2SAT 97
[2022-09-19 07:59] VITALS: O2SAT 97
[2022-09-19 08:00] LABS: COVID-19 Test Negative (Negative); IDNOW Serial# 16C4AD1C
[2022-09-19 08:02] LABS: IDNOW Serial# BCCEAD1C
[2022-09-19 08:03] LABS: Influenza A Negative (Negative); Influenza B2 Negative (Negative)
--- NOTE | 2022-09-19 09:11 | ED.URI ---
HPI - URI/Sore Throat General Chief Complaint: Upper Respiratory Symptoms Stated Complaint: Asthma Time Seen by Provider: 09/19/22 08:00 Source: patient Mode of arrival: ambulatory Limitations: no limitations History of Present Illness HPI Narrative: 52-year-old female with a past medical history of asthma, GERD, gastroparesis, anxiety, and hypertension presents to the emergency department with complaints of cough and congestion which she has been treating at home with her albuterol nebulizer and inhalers without relief of symptoms. She states she was diagnosed with the flu over 2 weeks ago and took antivirals prescriber primary care provider, however; she continues to have a cough and vague shortness of breath. She reports chills but denies fevers. She denies any nausea, vomiting, diarrhea, constipation, chest pain, Headache vision changes. MD elicited complaint: cough and nasal congestion Pertinent past history: asthma Onset (ago): day(s) Consistency: constant Severity: moderate Description of mucous: clear and yellow Able to tolerate fluids by mouth: Yes Exacerbating factors: speaking and deep breaths Relieving factors: nothing Associated symptoms: denies other symptoms Treatments prior to arrival: other ( Albuterol nebulizer and inhaler) Related Data Home Medications Medication Instructions Recorded Confirmed docusate sodium 100 mg capsule 100 mg PO DAILY 03/01/22 07/09/22 (Colace) doxycycline hyclate 100 mg capsule mg PO BID 08/29/22 Previous Rx's Medication Instructions Recorded magnesium oxide 500 mg capsule 500 mg PO BID 30 days #60 caps 10/16/21 sucralfate 1 gram tablet (Carafate) 1 g PO .qacsupper #60 tabs 03/01/22 pantoprazole 40 mg tablet,delayed 40 mg PO BID #180 tabs 06/18/22 release albuterol sulfate 2.5 mg/3 mL 2.5 mg (3 mL) inhalation Q6H PRN 07/09/22 (0.083 %) solution for nebulization shortness of breath or wheezing 30 days #180 mL albuterol sulfate 90 mcg/actuation 2 puff PO QID PRN Shortness Of 07/09/22 aerosol inhaler Breath 30 days #8.5 grams metoclopramide HCl 5 mg tablet 5 mg PO QIDACHS #120 tabs 08/29/22 (Reglan) oseltamivir 75 mg capsule (Tamiflu) 75 mg PO BID 5 days #10 caps 09/05/22 albuterol sulfate 2.5 mg/3 mL 2.5 mg (3 mL) inhalation Q4-6H PRN 09/19/22 (0.083 %) solution for nebulization shortness of breath or wheezing #180 mL albuterol sulfate 90 mcg/actuation 2 inh inhalation QID PRN shortness 09/19/22 aerosol inhaler of breath or wheezing #8.5 grams amoxicillin 875 mg-potassium 1 tab PO BID 5 days #10 tabs 09/19/22 clavulanate 125 mg tablet guaifenesin 600 mg tablet, 600 mg PO Q12H PRN congestion #14 09/19/22 extended release 12 hr (Mucinex) tabs prednisone 20 mg tablet 60 mg PO DAILY 5 days #15 tabs 09/19/22 Allergies Allergy/AdvReac Type Severity Reaction Status Date / Time cephalexin [From KEFLEX] Allergy Severe SOB/HIVES Verified 08/29/22 10:47 Iodinated Contrast Media Allergy Severe SOB/CHEST Verified 08/29/22 10:47 [IV CONTRAST] PAIN/DIFFICULTY BREATHING oxycodone [From Percocet] Allergy Intermediate itchy, SOB Verified 08/29/22 10:47 Review of Systems Review of Systems: In addition to documented HPI above, the additional ROS was obtained: Constitutional: No Weight loss, No Fever, No Chills ENT/Mouth: No Ear Pain, No Nasal Congestion, No Sinus Pain, No Hoarseness, No sore throat, No Rhinorrhea, No Swallowing Difficulty Cardiovascular: No Chest Pain, No SOB Respiratory: No Cough, No Sputum, No Wheezing Gastrointestinal: No Nausea, No Vomiting, No Diarrhea, No Constipation, No Abdominal pain Genitourinary: No Dysuria, No Urinary Frequency, No Hematuria, No Urinary Incontinence/retention, No Urgency, No Flank Pain Musculoskeletal: No joint pain, No Myalgias, No Joint Swelling Skin: No Skin Lesions, No rash Neuro: No Weakness, No Numbness, No Paresthesias Yes all other systems are reviewed and are negative [facility] Past Medical History Attestation statement: The following information was validated with the patient. Source: old records reviewed Medical History Asthma Gastroparesis GERD (gastroesophageal reflux disease) History of COVID-19 Hx of migraine headaches Low back pain Painful breasts Surgical History H/O: hysterectomy History of appendectomy History of esophagogastroduodenoscopy (EGD) History of hernia surgery Hx of colonoscopy Hx of tubal ligation Family History Family History Mother Uterine cancer Family/Other History of breast cancer Social History Social History Housing: House Alcohol intake: never Patient Tobacco Use Status: Never used Tobacco Smoked in Last 30 Days: No e-Cigarette/Vaping Use: Never Used Second Hand Smoke Exposure: No Use of substances other than those prescribed or required for medical reasons: No Advance Directives: No Advance Directives Information Provided: No service: No Current occupational status: employed Cognitive needs: No Hearing needs: No Vision needs: No Physical Exam Vital Signs: Vital Signs: Last Vital Signs Temp 97.1 F 09/19/22 07:58 Pulse 98 09/19/22 07:58 Resp 20 09/19/22 07:58 BP 122/82 09/19/22 07:58 Pulse Ox 97 09/19/22 07:59 O2 Del Method 09/19/22 07:59 BMI result Body Mass Index 28.9 Nursing notes and vital signs reviewed. GENERAL APPEARANCE: A&0 x 4, generally well appearing, no acute distress HENMT: Normal to inspection, atraumatic, face symmetrical. Normal external ears, nose, and oropharynx clear. EYE: PERRLA, EOM intact, structures appear normal NECK: Supple without lymphadenopathy. No stiffness or restricted ROM. CHEST: Normal to inspection HEART: Normal rate and regular rhythm, normal S1/S2, no M/R/G LUNGS: LS diminished. Able to speak in complete sentences. No crackles, wheezes, or rhonchi auscultated ABDOMEN: Soft, nontender, nondistended. Normal bowel sounds noted BACK: No CVAT, no obvious deformity EXTREMITIES: Moving all extremities without difficulty. No cyanosis, clubbing, or edema. Normal capillary refill. NEUROLOGICAL: Alert and oriented, moving all 4 extremities with equal strength. CN not formally tested but appearing grossly intact. Observed to ambulate with normal gait. Cognition normal SKIN: Warm and dry without any lesions, rash, or visible sores PSYCH: Cooperative, normal affect, normal thought process Course Course Course Narrative: 829: albuterol nebulizer treatment, chest x-ray, and nasal swabs done prior to my initial assessment. 914: Plan for 60 mg p.o. prednisone here in the emergency department plan to continue 5 day course of prednisone and 5 day course of Augmentin as patient has had an intermittent cough for greater than 2 weeks Medications Administered Discontinued Medications Generic Name Dose Route Start Last Admin Trade Name Freq PRN Reason Stop Dose Admin Albuterol Sulfate 2.5 mg/ 0 mg 09/19/22 07:22 09/19/22 07:35 Ipratropium [place] 0.5 mg INHALE 09/19/22 07: 2.5 each ONCE ONE Administration Medical Decision Making Medical Decision Making [facility] Narrative: 52-year-old female with a past medical history of asthma, GERD, gastroparesis, anxiety, and hypertension presents to the emergency department with complaints of cough and congestion which she has been treating at home with her albuterol nebulizer and inhalers without relief of symptoms. Chest x-ray unremarkable. Serology negative for influenza or COVID-19. Albuterol nebulizer and prednisone given in the emergency department with initial SpO2 94% and improved to 97% post treatment. History, physical, and diagnostics consistent with acute asthma exacerbation and bronchitis. Low suspicion for ACS, PE, pneumonia. Patient is safe for discharge at this time with plan to continue 5 day course of prednisone and begin 5 day course of Augmentin. Decongestant, prednisone, Augmentin, and refills of albuterol nebulizer and inhalers sent to patient's preferred pharmacy. HPI, PE, diagnostics, and plan discussed with patient with patient feeling confident being discharged home with plan, no unanswered questions at this time. Patient educated to return to the emergency department with new, worsening, or concerning emergent symptoms. Recommended to follow-up with her primary care provider for further treatment and management. *Refer to Course for additional information on consultations, diagnostic interpretation, consultations, emergency department stay, conversations with patient and family, shared decision making with patient, and more information on medical decision making* Lab Data [facility] Lab Attestation statement: I reviewed the patient's lab results. Labs: Lab Results 09/19/22 09/19/22 Range/Units 07:34 07:34 COVID-19 (LENA) Negative (Negative) COVID-19 Clin Com See Note Influenza Type A (NIRAV) Negative (Negative) Influenza Type B (NIRAV) Negative (Negative) Influenza A & B Note See Note Independent Interpretation I performed an independent interpretation of an: Plain X-Ray Interpretation: Have independently reviewed the chest x-ray showing no cardiopulmonary pathology Radiology Impression Discussion of test interpretation with radiology: I have reviewed the radiologist's reading. Radiologist Impression: EXAMINATION: XR CHEST CLINICAL INFORMATION: Cough and shortness of breath COMPARISON: 09/06/2022 TECHNIQUE: 2 views of the chest were obtained. FINDINGS: No significant abnormality is noted involving the heart, lungs, mediastinum, bony thorax or soft tissues. XR/XR chest 2V IMPRESSION: Unremarkable examination. Dictated By: Trevor Head MD Signed By: <Electronically signed by Trevor Head MD in OV> 09/19/22 0834 DD/ 08 TD/TT:? 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 Prescriptions: New prednisone 20 mg tablet 60 mg PO DAILY 5 Days Qty: 15 0RF amoxicillin-pot clavulanate 875-125 mg tablet 1 tab PO BID 5 Days Qty: 10 0RF albuterol sulfate 2.5 mg /3 mL (0.083 %) solution for nebulization 2.5 mg inhalation Q4-6H PRN (Reason: shortness of breath or wheezing) Qty: 180 0RF albuterol sulfate 90 mcg/actuation HFA aerosol inhaler 2 inh inhalation QID PRN (Reason: shortness of breath or wheezing) Qty: 8.5 0RF guaifenesin [Mucinex] 600 mg tablet extended release 12hr 600 mg PO Q12H PRN (Reason: congestion) Qty: 14 0RF No Action pantoprazole 40 mg tablet,delayed release (DR/EC) 40 mg PO BID Qty: 180 0RF oseltamivir [Tamiflu] 75 mg capsule 75 mg PO BID 5 Days Qty: 10 0RF albuterol sulfate 2.5 mg /3 mL (0.083 %) solution for nebulization 2.5 mg inhalation Q6H PRN (Reason: shortness of breath or wheezing) 30 Days Qty: 180 1RF albuterol sulfate 90 mcg/actuation HFA aerosol inhaler 2 puff PO QID PRN (Reason: Shortness Of Breath) 30 Days Qty: 8.5 1RF magnesium oxide 500 mg capsule 500 mg PO BID 30 Days Qty: 60 6RF docusate sodium [Colace] 100 mg capsule 100 mg PO DAILY sucralfate [Carafate] 1 gram tablet 1 g PO .qacsupper Qty: 60 6RF doxycycline hyclate 100 mg capsule PO BID metoclopramide HCl [Reglan] 5 mg tablet 5 mg PO QIDACHS Qty: 120 3RF Referrals: Everett Gutierrez MD [Primary Care Provider] - Print Language: Maltese
[2022-09-19] MEDS: Acetaminophen 325 MG TABLET 650 MG PO (10:30)
[2022-09-19] MEDS: predniSONE 20 MG TABLET 60 MG PO (10:30)
[2022-09-19 10:34] VITALS: BP 118/82; PULSE 94; TEMP 36.2; O2SAT 99
== END 2022-09-19 10:36 | disposition home or self-care (01) ==
PROVIDERS: Emergency Provider Emergency Medicine; PCP Internal Medicine
DX: J06.9 Acute upper respiratory infection, unspecified (principal); Z20.822 Contact with and (suspected) exposure to COVID-19; J45.909 Unspecified asthma, uncomplicated; I10 Essential (primary) hypertension
CPT/HCPCS: 71046; 87502; 87635; 94640; 99284; 99285

== ENCOUNTER 2022-10-15 07:05 | Outpatient (REF) | payer OTHER, SELFPAY ==
[2022-10-15 07:21] LABS: MANUAL DIFF FLAG NO
[2022-10-15 07:49] LABS: Basophils Percent Auto 0.2 % (0-2); Eosinophils Absolute Auto 0.7 X10*3/uL (0.0-0.4); Eosinophils Percent Auto 8.3 % (0-4); Hematocrit 42.4 % (37.0-47.0); Hemoglobin 13.2 g/dl (12.0-16.0); Imm Gran Abs Auto 0.03 X10*3/uL (0.00-0.03); Imm Gran Pct Auto 0.4 % (0.0-0.4); Lymphocytes Absolute Auto 2.8 X10*3/uL (1.2-4.9); Lymphocytes Percent Auto 33.7 % (20-40); Mean Corpuscular HGB Conc 31.1 g/dl (31.0-35.0); Mean Corpuscular Hemoglobin 29.3 pg (27.0-33.0); Mean Corpuscular Volume 94.2 fL (80.0-98.0); Mean Platelet Volume 10.2 fL (9.4-12.3); Monocytes Absolute Auto 1.1 X10*3/uL (0.1-1.2); Monocytes Percent Auto 12.7 % (2-11); Neutrophils Absolute Auto 3.7 x10*3/uL (2.0-8.3); Neutrophils Percent Auto 44.7 % (45-73); Platelet Count 307 X10*3/uL (160-400); Red Cell Distribution Width 14.1 % (11.0-16.0); White Blood Count 8.3 X10*3/uL (4.8-10.8)
[2022-10-15 07:53] LABS: Appearance Urine Clear; Color Urine Yellow; Glucose Urine UA Negative (Negative); Leukocyte Esterase Urine Negative (Negative); Nitrite Urine Negative (Negative); PH 6.5 (5.0-9.0); Urine Blood Negative (Negative); Urine Ketones Negative (Negative); Urine Protein Negative (Neg-Trace)
[2022-10-15 08:29] LABS: Alanine Aminotransferase 30 U/L (0-31); Albumin Level 4.1 g/dL (3.5-5.0); Alkaline Phosphatase 106 U/L (39-117); Anion Gap 14 (12-20); Aspartate Amino Transferase 24 U/L (5-31); Bilirubin Total 0.4 mg/dL (0.0-1.0); Blood Urea Nitrogen 12 mg/dL (9-16); Calcium 9.5 mg/dL (8.4-10.2); Carbon Dioxide 25 mmol/L (22-29); Chloride 107 mmol/L (96-108); Cholesterol 277 mg/dL; Estimated Glomerular Filt Rate > 60; Glucose Fasting 94 mg/dL (60-99); HDL Cholesterol 41 mg/dL; LDL Cholesterol Calculated 182 mg/dl; Potassium 4.3 mmol/L (3.3-5.1); Sodium 142 mmol/L (135-145); Total Protein 7.3 g/dL (6.5-8.0); Triglycerides 271 mg/dL
[2022-10-15 08:36] LABS: TSH reflex Free T4 1.23 uIU/mL (0.32-4.0); Vitamin D 25-OH Total 23.8 ng/mL (>30)
== END 2022-10-15 07:06 | disposition home or self-care (01) ==
LOC: HO.LAB 07:05
PROVIDERS: PCP Internal Medicine; Visit Provider Internal Medicine
DX: I10 Essential (primary) hypertension (principal); R30.0 Dysuria; E55.9 Vitamin D deficiency, unspecified; E78.00 Pure hypercholesterolemia, unspecified
CPT/HCPCS: 36415; 80053; 80061; 81003; 82306; 84443; 85025

== ENCOUNTER 2022-10-24 11:59 | Outpatient (REF) | payer OTHER, SELFPAY ==
--- NOTE | ~2022-10-24 | XR_ITS ---
EXAMINATION: XR THORACIC SPINE CLINICAL INFORMATION: Back pain COMPARISON: None TECHNIQUE: 3 views of the thoracic spine were obtained. FINDINGS: There is no fracture or bone destruction seen and the vertebral alignment is normal. Mild multilevel disc space narrowing and osteophytosis. There is no abnormality of the paraspinal soft tissues. XR/XR thoracic spine 3V IMPRESSION: Mild degenerative changes of the thoracic spine.
--- NOTE | ~2022-10-24 | XR_ITS ---
EXAMINATION: XR ABDOMEN KUB CLINICAL INDICATION: Lower back pain COMPARISON: None TECHNIQUE: AP view of the abdomen. FINDINGS: The bowel gas pattern is normal with no evidence of ileus or obstruction. No unusual soft tissue calcifications are noted. The bones are unremarkable. XR/XR KUB IMPRESSION: Unremarkable examination.
== END 2022-10-24 12:00 | disposition home or self-care (01) ==
LOC: HO.XRAY 11:59
PROVIDERS: PCP Internal Medicine; Visit Provider Internal Medicine
DX: M54.50 Low back pain, unspecified (principal); M54.9 Dorsalgia, unspecified
CPT/HCPCS: 72072; 74018

== ENCOUNTER 2022-11-22 09:56 | Day surgery (SDC) | payer OTHER, SELFPAY ==
[2022-11-19 11:23] VITALS: BMI 29.6
--- NOTE | 2022-11-21 10:39 | HO.ANESPROP2 ---
Documented by User: Carol Frost NP 11/21/22 10:41 HPI - Anesthesia Eval Consult details Narrative: 52yo F for Upper Endoscopy with Balloon Dilitation s/p [place] 04/2022 with MAC 2021 cardiac w/u negative PMFSH Active Problems Active Problems: All Active Problems (Updated 10/23/22 @ 16:30 by KATIE Norton) Mid back pain (Acute) Tubular adenoma of colon (Acute) Gastroparesis (Acute) Asthma exacerbation (Acute) Epigastric pain (Acute) Well woman exam with routine gynecological exam (Acute) Vaginal odor (Acute) Potential exposure to STD (Acute) GERD (gastroesophageal reflux disease) (Acute) Chronic idiopathic constipation (Acute) Peptic ulcer disease (Acute) COVID-19 (Acute) Chest pain (Acute) Dizziness (Acute) Anxiety (Acute) Elevated blood pressure reading without diagnosis of hypertension (Acute) Headache (Acute) 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) Class 1 obesity (Acute) Palpitations (Acute) Essential hypertension (Acute) Right low back pain (Acute) Intermittent chest pain (Acute) Family history of polyps in the colon (Acute) Precordial chest pain (Acute) Abnormal stress test (Acute) Hemorrhagic gastritis (Acute) Nausea and vomiting (Acute) Low back pain (Acute) Painful breasts (Acute) Past Medical History Medical History Asthma Gastroparesis GERD (gastroesophageal reflux disease) History of COVID-19 Hx of migraine headaches Low back pain Painful breasts Family History Family History Mother Uterine cancer Family/Other History of breast cancer Family history of problems with anesthesia: No Surgical History Surgical History H/O: hysterectomy History of appendectomy History of esophagogastroduodenoscopy (EGD) History of hernia surgery Hx of colonoscopy Hx of tubal ligation History of Problems with Anesthesia: No Social History Social History Housing: House Alcohol intake: never Patient Tobacco Use Status: Never used Tobacco e-Cigarette/Vaping Use: Never Used Second Hand Smoke Exposure: No Use of substances other than those prescribed or required for medical reasons: No Are you DNR?: No Advance Directives: No Advance Directives Information Provided: Yes Recently lost weight without trying: No Nutrition Risks: No Nutritional Risk service: No Current occupational status: employed Cognitive needs: No Hearing needs: No Vision needs: No Meds Allergies Allergy/AdvReac Type Severity Reaction Status Date / Time cephalexin [From KEFLEX] Allergy Severe SOB/HIVES Verified 10/23/22 16:19 Iodinated Contrast Media Allergy Severe SOB/CHEST Verified 10/23/22 16:19 [IV CONTRAST] PAIN/DIFFICULTY BREATHING oxycodone [From Percocet] Allergy Intermediate itchy, SOB Verified 10/23/22 16:19 Home Medications Medication Instructions Recorded Confirmed Last Taken Type docusate sodium 100 mg capsule 100 mg PO DAILY 03/01/22 10/23/22 Unknown History (Colace) Exam Exam Date and Time: November 21, 2022 1039 Height,Weight and Vital Signs: Height 5 ft 2 in Weight 73.482 kg Pertinent Lab Results Pertinent Lab Results: Laboratory Tests 10/15/22 10/15/22 07:19 07:19 WBC 8.3 Hgb 13.2 Hct 42.4 Plt Count 307 Sodium 142 Potassium 4.3 Chloride 107 Carbon Dioxide 25 BUN 12 Creatinine 0.82 Narrative Narrative: NM cardiolite stress test 12/2021 Impression: ? 1.? Myocardial perfusion imaging study shows normal myocardial perfusion. 2.? Gated LVEF is 56% during stress and 63% during rest. 3. Transient ischemic dilatation not present. ? EKG component of the test reported separately. ECHO 12/2021 Conclusions: - The left ventricular systolic function is normal.? The ? calculated ejection fraction is 57% by biplane method. ? - No obvious valvular pathology seen on this study.? ? EKG 10/2021 sinus rhythm at 69/Min; no significant ST-T changes and otherwise unremarkable. Assessment and Plan Assessment Anesthesia Assessment: Chart Reviewed Final Anesthetic Review Family History of Problems with Anesthesia: No History of Problems with Anesthesia: No Documented by User: Zulma Perez MD 11/22/22 10:59 HPI - Anesthesia Eval Consult details Narrative: 52yo F for Upper Endoscopy with Balloon Dilitation for abominal pain and dysphagia s/p [place] 04/2022 with MAC 2021 cardiac w/u negative PMFSH Past Medical History Medical History Asthma Gastroparesis GERD (gastroesophageal reflux disease) History of COVID-19 Hx of migraine headaches Low back pain Painful breasts Family History Family History Mother Uterine cancer Family/Other History of breast cancer Surgical History Surgical History H/O: hysterectomy History of appendectomy History of esophagogastroduodenoscopy (EGD) History of hernia surgery Hx of colonoscopy Hx of tubal ligation Social History Social History Housing: House Alcohol intake: never Patient Tobacco Use Status: Never used Tobacco e-Cigarette/Vaping Use: Never Used Second Hand Smoke Exposure: No Use of substances other than those prescribed or required for medical reasons: No Are you DNR?: No Advance Directives: No Advance Directives Information Provided: Yes Recently lost weight without trying: No Nutrition Risks: No Nutritional Risk service: No Current occupational status: employed Cognitive needs: No Hearing needs: No Vision needs: No Meds Allergies Allergy/AdvReac Type Severity Reaction Status Date / Time cephalexin [From KEFLEX] Allergy Severe SOB/HIVES Verified 10/23/22 16:19 Iodinated Contrast Media Allergy Severe SOB/CHEST Verified 10/23/22 16:19 [IV CONTRAST] PAIN/DIFFICULTY BREATHING oxycodone [From Percocet] Allergy Intermediate itchy, SOB Verified 10/23/22 16:19 Home Medications Medication Instructions Recorded Confirmed Last Taken Type docusate sodium 100 mg capsule 100 mg PO DAILY 03/01/22 10/23/22 Unknown History (Colace) Exam Airway Mallampati Class: II TM Dist: >3cm Neck ROM: Full Heart: rr Lungs: cta Other: cta cough sp cold and asthma no fever today Assessment and Plan Assessment Anesthesia Assessment: Anesthesia Plan Discussed Final Anesthetic Review NPO: Yes ASA Class: II Final Preanesthetic Review: No Changes in Pt Med Stat, Meds/Allgs Chart Reviewed, Consent Obtained/Reviewed and Anes Risks/Benef Reviewed Patient Risk: Intermediate Procedure Risk: Low Anesthetic Plan Anesthetic Plan: MAC: Disposition: Standard PACU
[2022-11-22] VITALS (7 sets, daily range): BP systolic 111–133; BP diastolic 61–87; PULSE 73–91; RESP 16–20; TEMP 36.4–36.8; O2SAT 93–97; BMI 29.9
[2022-11-22] MEDS: Albuterol Sulfate (0.083%) 2.5 MG/3 ML VIAL.NEB INHALE (10:55)
--- NOTE | 2022-11-22 10:56 | MHC.SHP ---
Pre-Procedural Eval Section A Date of Service: 11/22/22 Section B Chief Complaint: GERD,Gastroparesis Relevant Family History (Specify if Yes): No Relevant Social History: None Present Medications: see Short Stay Collaborative assessment Medical History: Significant History (Asthma Gastroparesis GERD (gastroesophageal reflux disease) History of COVID-19 Hx of migraine headaches Low back pain Painful breasts) History of Previous Operations: Relevant previous surgery/procedure and date(s) (H/O: hysterectomy History of appendectomy History of esophagogastroduodenoscopy (EGD) History of hernia surgery Hx of colonoscopy Hx of tubal ligation) Allergies: Allergies Allergy/AdvReac Type Severity Reaction Status Date / Time cephalexin [From KEFLEX] Allergy Severe SOB/HIVES Verified 10/23/22 16:19 Iodinated Contrast Media Allergy Severe SOB/CHEST Verified 10/23/22 16:19 [IV CONTRAST] PAIN/DIFFICULTY BREATHING oxycodone [From Percocet] Allergy Intermediate itchy, SOB Verified 10/23/22 16:19 Review of Systems Sugical H&P ROS: Negative: Constitution, Cardiovascular, Respiratory, Neurological, Psychiatric, Hem-Onc, Allergic/Immunologic, Gastrointestinal, Genitourinary, Musculoskeletal, Integumentary, Endocrine and Eyes/Ears/Nose/Throat Exam Surgical H&P Exam: Normal: HEENT, Normal: Heart, Normal: Lungs, Normal: Extremities, Normal: Abdomen, Normal: Skin and Normal: Neurological Plan Diagnosis/Plan: Unchanged I have reviewed the history and physical and performed a pertinent physical examination on my patient. No changes have occurred unless specified. Time Spent With Patient Time: Total time managing care of this patient today ____ minutes.
[2022-11-22] MEDS: Lactated Ringers 1,000 ML 100 ML IVCONT (11:05)
--- NOTE | 2022-11-22 11:25 | W.PM.OPN ---
Operative Note Operative Note Date of Service: 11/22/22 Narrative: Procedure Description: EGD Indication: gastroparesis, hx of gastritis Anesthesia: MAC FLEXIBLE TRANSORAL UPPER GASTROINTESTINAL ENDOSCOPY UPPER ENDOSCOPY Consent: Indications for the procedure and potential complications of bleeding, perforation, reaction to medications and missed diagnosis were discussed with the patient and informed consent was obtained. Instrument: Olympus GIF H 190 J mid size upper endoscope Monitoring: Vital signs and clinical assessment, continuous EKG monitoring, Pulse oximetry, Carbon Dioxide monitoring and blood pressure monitoring were done throughout the procedure. Procedure: The patient was placed in the left lateral decubitis position and pre-procedure medications were administered and a bite block was placed. The endoscope was inserted into the mouth and advanced under direct vision to the third part of duodenum. A careful inspection was made as the upper endoscope was withdrawn including a retroflexed examination of the proximal stomach; Findings and interventions are described below. Findings: Larynx:normal Esophagus: GE junction at 34 cm, diaphragm hiatus at 36 cm, consistent with 2 cm sliding hiatal hernia--erosive esophagitis noted LA grade B at GEJ, bx taken from GEJ, distal and proximal esophagus Stomach: Patchy gastric erythema with many erosions at the antrum. Biopsies were obtained. Grade 2 flap valve on retroflexed examination of the cardia. The pylorus was stretched with a 19 mm balloon, no tears seen. There appeared to be good stomach peristalsis (patient stopped regaln a while back due to side effects) Duodenum: bulbar duodenitis , bx taken Intervention: Biopsies as noted above, pyloric balloon dilation Impression/Findings: erosive gastritis erosive esophagitis duodenitis hiatal hernia PLAN: reflux precautions check compliance with PPI and change preparation and also if taking nsaids if h pylori pos then treat reflux maybe contributing to her asthma
[2022-11-22] MEDS: fentaNYL citrate/PF 100 MCG/2 ML VIAL 50 MCG IVPUSH (12:02)
== END 2022-11-22 13:01 | disposition home or self-care (01) ==
PROVIDERS: PCP Internal Medicine; Visit Provider Internal Medicine Gastroenterology
PROC: (CPT 43245; principal; 2022-11-22 12:10)
DX: K21.9 Gastro-esophageal reflux disease without esophagitis (principal); K31.84 Gastroparesis; K29.50 Unspecified chronic gastritis without bleeding; K20.80 Other esophagitis without bleeding; K29.80 Duodenitis without bleeding; K44.9 Diaphragmatic hernia without obstruction or gangrene
CPT/HCPCS: 43245; 43239; 88305; 88342; 94640; C1726; J3010

== ENCOUNTER → 2022-11-30 13:50 | Outpatient (BNVA) | payer OTHER, SELFPAY | PROVIDERS: PCP Internal Medicine; Referring Provider Internal Medicine; Visit Provider Nurse Practitioner | DX: Z13.89 Encounter for screening for other disorder (principal) ==

== ENCOUNTER → 2022-12-19 15:52 | Outpatient (BNVA) | payer OTHER, SELFPAY | PROVIDERS: PCP Internal Medicine; Visit Provider Nurse Practitioner | DX: Z13.89 Encounter for screening for other disorder (principal) ==

== ENCOUNTER 2023-01-12 07:32 | Outpatient (REF) | payer OTHER, SELFPAY ==
--- NOTE | ~2023-01-12 | XR_ITS ---
EXAMINATION: XR KNEE, BILATERAL XR FOOT, BILATERAL CLINICAL INFORMATION: Pain. COMPARISON: None available. TECHNIQUE: 3 views each foot. 4 views each knee. FINDINGS: Bilateral Foot: There is a [id number]-size retrocalcaneal enthesophyte. The ankle mortise and subtalar joints are normal. The intertarsal, tarsometatarsal and interphalangeal joints are maintained normal. No acute fracture or bony abnormality. The soft tissues are normal. Bilateral Knee: There is minimal reduction in the medial and patellofemoral compartment joint space both knees. No loose bodies, bony erosive changes, fracture or dislocation. There is a small enthesophyte along the anterior suprapatella left knee. No abnormal joint effusion seen. XR/XR knee RT 4V IMPRESSION: 1. Small retrocalcaneal enthesophyte both feet. No acute fracture or dislocation. 2. Minimal reduction in medial and patellofemoral compartment joint space both knees. No acute fracture, loose bodies or joint effusion seen. Mild anterior superior patellar enthesophyte in left knee.
--- NOTE | ~2023-01-12 | XR_ITS ---
EXAMINATION: XR KNEE, BILATERAL XR FOOT, BILATERAL CLINICAL INFORMATION: Pain. COMPARISON: None available. TECHNIQUE: 3 views each foot. 4 views each knee. FINDINGS: Bilateral Foot: There is a gepos-yz-xfonfuvx-size retrocalcaneal enthesophyte. The ankle mortise and subtalar joints are normal. The intertarsal, tarsometatarsal and interphalangeal joints are maintained normal. No acute fracture or bony abnormality. The soft tissues are normal. Bilateral Knee: There is minimal reduction in the medial and patellofemoral compartment joint space both knees. No loose bodies, bony erosive changes, fracture or dislocation. There is a small enthesophyte along the anterior suprapatella left knee. No abnormal joint effusion seen. XR/XR foot LT min 3V IMPRESSION: 1. Small retrocalcaneal enthesophyte both feet. No acute fracture or dislocation. 2. Minimal reduction in medial and patellofemoral compartment joint space both knees. No acute fracture, loose bodies or joint effusion seen. Mild anterior superior patellar enthesophyte in left knee.
--- NOTE | ~2023-01-12 | XR_ITS ---
EXAMINATION: XR KNEE, BILATERAL XR FOOT, BILATERAL CLINICAL INFORMATION: Pain. COMPARISON: None available. TECHNIQUE: 3 views each foot. 4 views each knee. FINDINGS: Bilateral Foot: There is a omolg-nl-frlwxtdx-size retrocalcaneal enthesophyte. The ankle mortise and subtalar joints are normal. The intertarsal, tarsometatarsal and interphalangeal joints are maintained normal. No acute fracture or bony abnormality. The soft tissues are normal. Bilateral Knee: There is minimal reduction in the medial and patellofemoral compartment joint space both knees. No loose bodies, bony erosive changes, fracture or dislocation. There is a small enthesophyte along the anterior suprapatella left knee. No abnormal joint effusion seen. XR/XR foot RT min 3V IMPRESSION: 1. Small retrocalcaneal enthesophyte both feet. No acute fracture or dislocation. 2. Minimal reduction in medial and patellofemoral compartment joint space both knees. No acute fracture, loose bodies or joint effusion seen. Mild anterior superior patellar enthesophyte in left knee.
--- NOTE | ~2023-01-12 | XR_ITS ---
EXAMINATION: XR KNEE, BILATERAL XR FOOT, BILATERAL CLINICAL INFORMATION: Pain. COMPARISON: None available. TECHNIQUE: 3 views each foot. 4 views each knee. FINDINGS: Bilateral Foot: There is a ahkcn-qj-giybuwhc-size retrocalcaneal enthesophyte. The ankle mortise and subtalar joints are normal. The intertarsal, tarsometatarsal and interphalangeal joints are maintained normal. No acute fracture or bony abnormality. The soft tissues are normal. Bilateral Knee: There is minimal reduction in the medial and patellofemoral compartment joint space both knees. No loose bodies, bony erosive changes, fracture or dislocation. There is a small enthesophyte along the anterior suprapatella left knee. No abnormal joint effusion seen. XR/XR knee LT 4V IMPRESSION: 1. Small retrocalcaneal enthesophyte both feet. No acute fracture or dislocation. 2. Minimal reduction in medial and patellofemoral compartment joint space both knees. No acute fracture, loose bodies or joint effusion seen. Mild anterior superior patellar enthesophyte in left knee.
[2023-01-12 08:07] LABS: MANUAL DIFF FLAG NO
[2023-01-12 08:59] LABS: Basophils Percent Auto 0.5 % (0-2); Eosinophils Absolute Auto 0.4 X10*3/uL (0.0-0.4); Eosinophils Percent Auto 6.5 % (0-4); Hematocrit 41.4 % (37.0-47.0); Hemoglobin 12.8 g/dl (12.0-16.0); Imm Gran Abs Auto 0.01 X10*3/uL (0.00-0.03); Imm Gran Pct Auto 0.2 % (0.0-0.4); Lymphocytes Absolute Auto 2.1 X10*3/uL (1.2-4.9); Mean Corpuscular HGB Conc 30.9 g/dl (31.0-35.0); Mean Corpuscular Hemoglobin 29.2 pg (27.0-33.0); Mean Corpuscular Volume 94.3 fL (80.0-98.0); Mean Platelet Volume 9.9 fL (9.4-12.3); Monocytes Absolute Auto 0.9 X10*3/uL (0.1-1.2); Monocytes Percent Auto 12.8 % (2-11); Neutrophils Absolute Auto 3.3 x10*3/uL (2.0-8.3); Platelet Count 296 X10*3/uL (160-400); Red Blood Count 4.39 X10*6/uL (4.20-5.50); Red Cell Distribution Width 13.3 % (11.0-16.0); White Blood Count 6.6 X10*3/uL (4.8-10.8)
[2023-01-12 09:04] LABS: Appearance Urine Clear; Color Urine Yellow; Glucose Urine UA Negative (Negative); Leukocyte Esterase Urine Small (1+) (Negative); Nitrite Urine Negative (Negative); PH 5.5 (5.0-9.0); Specific Gravity - Urine 1.025 (1.005-1.025); UMIC TRIGGER UACC YES; Urine Blood Negative (Negative); Urine Ketones Negative (Negative); Urine Protein Trace mg/dL (Neg-Trace)
[2023-01-12 09:23] LABS: Bacteria Urine None Seen (None Seen); Hyaline Casts Urine 0-2 /LPF (0-2); RBC Urine 0-2 /HPF (0-2); UACC Culture Trigger YES; WBC Urine 0-5 /HPF (0-5)
[2023-01-12 09:43] LABS: Erythrocyte Sedimentation Rate 21 MM/HR (0-20)
[2023-01-12 09:51] LABS: Alanine Aminotransferase 23 U/L (0-31); Albumin Level 4.2 g/dL (3.5-5.0); Alkaline Phosphatase 112 U/L (39-117); Anion Gap 14 (12-20); Aspartate Amino Transferase 21 U/L (5-31); Bilirubin Total 0.4 mg/dL (0.0-1.0); Blood Urea Nitrogen 13 mg/dL (9-16); C Reactive Protein 0.39 mg/dL (< or = 0.50); Calcium 9.5 mg/dL (8.4-10.2); Carbon Dioxide 27 mmol/L (22-29); Chloride 108 mmol/L (96-108); Cholesterol 280 mg/dL; Estimated Glomerular Filt Rate > 60; Glucose Fasting 101 mg/dL (60-99); HDL Cholesterol 46 mg/dL; LDL Cholesterol Calculated 212 mg/dl; Potassium 4.6 mmol/L (3.3-5.1); Rheumatoid Factor < 13.0 IU/mL (<15.0); Sodium 144 mmol/L (135-145); Total Protein 7.4 g/dL (6.5-8.0); Triglycerides 110 mg/dL
[2023-01-12 10:00] LABS: Folate 11.1 ng/mL (> or = 4.0); TSH reflex Free T4 1.16 uIU/mL (0.32-4.0); Vitamin B12 594 pg/mL (200-900); Vitamin D 25-OH Total 23.7 ng/mL (>30)
[2023-01-16 14:48] LABS: Anti Nuclear Antibody Screen NEGATIVE (NEGATIVE)
== END 2023-01-12 07:33 | disposition home or self-care (01) ==
LOC: HO.LAB 07:32
PROVIDERS: PCP Internal Medicine; Visit Provider Internal Medicine
DX: M25.561 Pain in right knee (principal); M25.562 Pain in left knee; M79.671 Pain in right foot; M79.672 Pain in left foot; E55.9 Vitamin D deficiency, unspecified; E53.8 Deficiency of other specified B group vitamins; R20.2 Paresthesia of skin; I10 Essential (primary) hypertension; D16.22 Benign neoplasm of long bones of left lower limb; E78.00 Pure hypercholesterolemia, unspecified; R82.90 Unspecified abnormal findings in urine
CPT/HCPCS: 36415; 73564; 73630; 80053; 80061; 81001; 82306; 82607; 82746; 84443; 85025; 85652; 86038; 86140; 86431; 87086; 87147

== ENCOUNTER 2023-01-24 10:27 | Outpatient (REF) | payer OTHER, SELFPAY ==
[2023-01-25 10:55] LABS: BV Int Neg Control Negative (Negative); BV Int Pos Control Positive (Positive)
== END 2023-01-24 10:28 | disposition home or self-care (01) ==
LOC: HO.LAB 10:27
PROVIDERS: PCP Internal Medicine; Visit Provider Advanced Practice Midwife
DX: Z01.419 Encounter for gynecological examination (general) (routine) without abnormal findings (principal); N89.8 Other specified noninflammatory disorders of vagina
CPT/HCPCS: 87480; 87510; 87660

== ENCOUNTER → 2023-01-30 15:33 | Outpatient (BNVA) | payer OTHER, SELFPAY | PROVIDERS: PCP Internal Medicine; Visit Provider Nurse Practitioner ==

== ENCOUNTER 2023-02-02 07:26 | Outpatient (REF) | payer OTHER, SELFPAY ==
--- NOTE | ~2023-02-02 | MM_ITS ---
EXAMINATION: MM SCREENING DIGITAL BREAST TOMOSYNTHESIS, BILATERAL CLINICAL INFORMATION: Screening. Asymptomatic. The lifetime risk of breast cancer based on the Tyrer-Cuzick Model is 6%. COMPARISON: Mammography: 12/09/2021, 08/15/2020, 06/24/2018, 04/11/2017 TECHNIQUE: Digital breast tomosynthesis is performed in both the craniocaudal and mediolateral oblique views along with computer-aided detection (CAD). Synthesized 2D images are generated from the tomosynthesis. FINDINGS: There are scattered areas of fibroglandular density (ACR BI-RADS breast composition Category b). Right breast parenchymal pattern is similar to prior studies. No developing density or architectural abnormality. Neither breast shows abnormal calcifications. The bilateral axilla and skin contours are unremarkable. There is small focal nodular asymmetry mid upper outer left breast, margins incompletely defined. Patient will be recalled for additional imaging. MM/MM tomosynthesis screening BI IMPRESSION: Left: -Small focal nodular asymmetry mid upper outer left breast with incompletely defined margins. Right: -No mammographic evidence of malignancy. ASSESSMENT: BI-RADS 0: Incomplete - Need Additional Imaging Evaluation RECOMMENDATION: 1. Additional views left breast: Spot CC, spot ML). 2. Targeted ultrasound if warranted after review of the additional views. 3. Radiology department staff will contact the patient for additional imaging. This patient's information was entered into a reminder system with a target due date for their next mammogram.
== END 2023-02-02 07:27 | disposition home or self-care (01) ==
LOC: HO.MAMMO 07:26
PROVIDERS: Visit Provider Internal Medicine
DX: Z12.31 Encounter for screening mammogram for malignant neoplasm of breast (principal)
CPT/HCPCS: 77063; 77067

== ENCOUNTER 2023-02-19 14:58 | Outpatient (REF) | payer OTHER, SELFPAY ==
--- NOTE | ~2023-02-19 | MM_ITS ---
EXAMINATION: MM DIAGNOSTIC DIGITAL BREAST TOMOSYNTHESIS, LEFT US DIAGNOSTIC ULTRASOUND BREAST, LEFT CLINICAL INFORMATION: Recall from screening for small focal nodular asymmetry mid upper outer left breast with incompletely defined margins. COMPARISON: Prior mammography exams including most recent 02/02/2023. TECHNIQUE: Digital breast tomosynthesis is performed. 2D images are generated from the tomosynthesis. The following views are obtained: Spot CC, spot ML Ultrasound left breast is targeted to the upper outer quadrant using grayscale imaging and color Doppler without and with harmonics. FINDINGS: There are scattered areas of fibroglandular density (ACR BI-RADS breast composition Category b). The additional views show small smooth circumscribed nodule in the area for recall in retrospect without significant change from recent prior studies. No architectural abnormality. No developing density. Ultrasound demonstrates a simple cyst posterior 2:00 position measuring just under 5 mm. There is increased through-transmission of sound and no associated color flow. No solid mass or architectural abnormality. Results are discussed with the patient at time of visit. MM/MM tomosynthesis added views L IMPRESSION: -Small simple cyst posterior 2:00 position corresponding to recent mammography. ASSESSMENT: BI-RADS 2: Benign RECOMMENDATION: Routine annual mammography screening. This patient's information was entered into a reminder system with a target due date for their next mammogram.
== END 2023-02-19 14:59 | disposition home or self-care (01) ==
LOC: HO.MAMMO 14:58
PROVIDERS: PCP Internal Medicine; Visit Provider Internal Medicine
DX: N64.89 Other specified disorders of breast (principal)
CPT/HCPCS: 76642; 77061; 77065

== ENCOUNTER 2023-03-12 15:33 | Outpatient (AMB) | payer OTHER, SELFPAY ==
[2023-03-12 15:40] VITALS: BP 130/84; PULSE 87; BMI 29.9
--- NOTE | 2023-03-12 15:40 | A.OFFVIS_ITS ---
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 08/17/22 IMPRESSION: Abnormal study. There is marked abnormal retention of solid food in the stomach at 4 hours. ?Code(s): K31.84 - Gastroparesis ?Plan: In general he is doing fairly.? She is only able to tolerate half 5 Reglan 1st which she finds controlling her.? I did encourage her to try taking other later in the day since she is still having some trouble bloating.? In the meantime, will try adding some senna and titrating her to get things. She continues on her pantoprazole twice a day with good control of her GERD especially since we added the Reglan.? So far she has not had a return of the severe upper abdominal pain that would necessitate adding back in the Carafate. Return office visit in 2 months per patient request. (2) GERD (gastroesophageal reflux disease): ?Code(s): K21.9 - Gastro-esophageal reflux disease without esophagitis (3) Tubular adenoma of colon: ?Comment: 04/23 scope repeat in 5 years ?Code(s): D12.6 - Benign neoplasm of colon, unspecified ? ? ? Medications: New sennosides (senna) 17.2 mg (2 x 8.6 m g) PO BEDTIME 30 d ays 60 caps 3RF co nstipation K21.9 - Gastro-eso phageal reflux dis ease without esoph agitis ? metoclopramide HCl (Reglan) 5 mg? PO DAILY 30 tabs 3RF K31.84 - Gastropar esis ? Refilled pantoprazole 40 mg? PO BID 180 tabs 1RF K21.9 - Gastro-eso phageal reflux dis ease without esoph agitis, K27.9 - Pe ptic ulcer, site u nspecified, unspec ified as acute or chronic, without h emorrhage or perfo ration ? Discontinued sucralfate (Carafa te) ?? Discontinue d Reason:? Doctor' s Order 1 g? PO .qacsupper 60 tabs 6RF K29.71 - Gastritis , unspecified, wit h bleeding TODAY'S VISIT She is taking 1/2 reglan bid as she did not tolerate the 5mg pill r/t RODRÍGUEZ. She continues to have a lot of post prandial bloating, and her stooling is soft to loose with post prandial urgency. CIC resolved with d/c of carafate. WIll try simethicone and creon. She has senna at home if she needed for constipation. ROV 8 weeks. [facility] Medical History Asthma Esophagitis Gastroparesis GERD (gastroesophageal reflux disease) History of COVID-19 Hx of migraine headaches Low back pain Migraine Overweight (BMI 25.0-29.9) Painful breasts Vitamin D deficiency Surgical History H/O: hysterectomy History of appendectomy History of esophagogastroduodenoscopy (EGD) History of hernia surgery Hx of colonoscopy Hx of tubal ligation Family History Mother Uterine cancer Family/Other History of breast cancer Social History (Updated 03/21/23 @ 10:05 by SERGIO Knight) Housing: House Alcohol intake: never Patient Tobacco Use Status: Never used Tobacco e-Cigarette/Vaping Use: Never Used Second Hand Smoke Exposure: No service: No Current occupational status: 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 Sexual orientation: Straight/Heterosexual Gender identity: Female Cognitive needs: No Hearing needs: No Vision needs: No Female Reproductive History Menstrual Age of Menarche: 12 Review of Systems Const Denies fatigue, Denies fever(s), Denies night sweats, Denies poor appetite and Denies weight loss Eyes Details: glasses Reports requires corrective lenses ENT Reports Normal hearing present, Denies dental pain, Denies dysphagia, Denies hearing loss, Denies mouth pain, Denies odynophagia, Denies throat swelling, Denies tongue swelling and Reports other (Dentition adequate) Card Reports no additional complaints Resp Reports no additional complaints GI Denies abdominal pain, Denies melena, Reports bloating, Denies hematochezia, Denies constipation, Denies GI cramping, Denies dysphagia, Denies excessive flatus, Reports early satiety, Reports heartburn, Denies diarrhea, Reports loose stools, Denies nausea, Denies odynophagia, Denies vomiting and Denies hematemesis Skin/Breast Denies pruritus, Denies lesions, Denies rash and Denies jaundice Neuro Reports Normal hearing present and Denies Abnormal speech present Endo Denies fatigue Aller/Immun Denies throat swelling and Denies tongue swelling Physical Exam Vital Signs: Last Vital Signs Pulse 87 03/12/23 15:40 BP 130/84 03/12/23 15:40 BMI result Body Mass Index 29.9 Const General: cooperative, no acute distress, well developed and well groomed Nutritional Appearance: well nourished and overweight Orientation/consciousness: oriented to person, oriented to place and oriented to time Limitations: language barrier HEENT Head: Yes normocephalic and Yes atraumatic Eyes General: appearance normal, both eyes and all related structures Pupils: Equal, round and reactive pupils present Neck Neck: Yes normal visual inspection and Yes no lymphadenopathy Thyroid: Thyroid normal Resp Effort & Inspection: normal respiratory effort and able to speak in complete sentences Auscultation: clear to auscultation bilaterally Cardio Rate: regular rate Rhythm: regular rhythm Heart sounds: Normal, physiologic split S2 sound present Peripheral pulses: radial pulses present and posterior tibial pulses present GI Inspection: No distended, No Abdominal panniculus present and Yes obesity Palpation (GI): Soft to palpation, nontender, no guarding, not rigid and No hepatosplenomegaly present Percussion: Yes normal to percussion Auscultation: normal bowel sounds Rectal Exam - Female: deferred Skin General skin exam: no rashes or lesions noted, turgor normal, skin not dry, no jaundice, No spider nevi and no striae Rashes: no rashes Nails: normal Neuro General: oriented to person, oriented to place and oriented to time Cranial nerves: Yes Equal, round and reactive pupils present and Yes Normal hearing present Speech: No Abnormal speech present Extrem General: Yes normal to inspection, No clubbing, No cyanosis and No edema Psych Appearance: grossly normal and well kempt Mental Status: mental status grossly normal Speech and movement: Normal speech and movement present Affect: normal affect Attitude: cooperative Thought process: Normal thought process present and not confabulating Thought content: Normal thought content present Insight: Limited insight present (Psych) Judgement: Limited judgement present (Psych) Assessment & Plan Assessment & Plan (1) Gastroparesis: Comment: GASTRIC EMPTYING STUDY 08/17/22 IMPRESSION: Abnormal study. There is marked abnormal retention of solid food in the stomach at 4 hours. Code(s): K31.84 - Gastroparesis Plan: She is taking 1/2 reglan bid as she did not tolerate the 5mg pill r/t RODRÍGUEZ. She continues to have a lot of post prandial bloating, and her stooling is soft to loose with post prandial urgency. CIC resolved with d/c of carafate. WIll try simethicone and creon. She has senna at home if she needed for constipation. ROV 8 weeks. (2) GERD (gastroesophageal reflux disease): Code(s): K21.9 - Gastro-esophageal reflux disease without esophagitis (3) IBS (irritable bowel syndrome): Code(s): K58.9 - Irritable bowel syndrome without diarrhea Medications: New simethicone after meals 180 mg PO .tidac 90 caps 6RF 30 days [id number] 36,000-114,000- 180,000 unit (Creon) administer with meals and/or snacks 1 cap PO QID 120 caps 6RF K58.9 - Irritable bowel syndrome without diarrhea Changed From metoclopramide HCl 5 mg PO DAILY 30 tabs 3RF K31.84 - Gastroparesis To metoclopramide HCl (Reglan) 2.5 mg (1/2 x 5 mg) PO BID 30 tabs 6RF K31.84 - Gastroparesis Refilled metoclopramide HCl (Reglan) 2.5 mg (1/2 x 5 mg) PO BID 30 tabs 6RF K31.84 - Gastroparesis Discontinued sennosides Discontinued Reason: Doctor's Order 17.2 mg (2 x 8.6 mg) PO BEDTIME 30 days 60 caps 3RF constipation K21.9 - Gastro-esophageal reflux disease without esophagitis Coding Level of Care Code Est Pt Level 3 (38137) Diagnoses Gastroparesis K31.84 GERD (gastroesophageal reflux disease) K21.9 IBS (irritable bowel syndrome) K58.9
== END 2023-03-12 16:02 | disposition home or self-care (01) ==
PROVIDERS: PCP Internal Medicine; Visit Provider Nurse Practitioner
DX: K31.84 Gastroparesis (principal); K21.9 Gastro-esophageal reflux disease without esophagitis; K58.9 Irritable bowel syndrome, unspecified
CPT/HCPCS: 99213

== ENCOUNTER → 2023-03-12 15:33 | Outpatient (BNVA) | payer OTHER, SELFPAY | PROVIDERS: PCP Internal Medicine; Visit Provider Nurse Practitioner ==

== ENCOUNTER 2023-03-21 09:50 | Outpatient (AMB) | payer OTHER, SELFPAY ==
[2023-03-21 09:56] VITALS: BMI 29.8
--- NOTE | 2023-03-21 09:56 | MHC.OFFVIS ---
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 Patient reports pain has been present for about 2 years, denies injury. She has intermittent throbbing pain that is located at the anterior aspect of knee. Pain is worse with walking, stair use and bending of knees. Denies numbness or tingling. Finds temporary relief with motrin. No previous tx. 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 She states she has intermittent throbbing pain in the anterior aspect of her knees which radiates to the back of her bilateral knees. Her pain is aggravated with bending, ambulating and stairs use. She also c/o catching and her knees giving out with stair use. She denies any injury, numbness or tingling. She finds mild relief with Motrin. She has not had any physical therapy in the past. 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 [facility] Medical History Asthma Esophagitis Gastroparesis GERD (gastroesophageal reflux disease) History of COVID-19 Hx of migraine headaches Low back pain Migraine Overweight (BMI 25.0-29.9) Painful breasts Vitamin D deficiency Surgical History H/O: hysterectomy History of appendectomy History of esophagogastroduodenoscopy (EGD) History of hernia surgery Hx of colonoscopy Hx of tubal ligation Family History Mother Uterine cancer Family/Other History of breast cancer Social History (Updated 03/21/23 @ 10:05 by Daphnie Nguyen Rey Housing: House Alcohol intake: never Patient Tobacco Use Status: Never used Tobacco e-Cigarette/Vaping Use: Never Used Second Hand Smoke Exposure: No service: No Current occupational status: 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 Sexual orientation: Straight/Heterosexual Gender identity: Female Cognitive needs: No Hearing needs: No Vision needs: No Female Reproductive History Menstrual Age of Menarche: 12 Review of Systems Const All systems reviewed & are unremarkable except as noted in HPI and below Physical Exam Vital Signs: BMI result Body Mass Index 29.8 Const General: cooperative, healthy appearing, comfortable, no acute distress, well developed and alert Orientation/consciousness: patient oriented x3 HEENT Head: Yes normal to inspection, Yes normocephalic and Yes atraumatic Eyes General: appearance normal, both eyes and all related structures Resp Effort & Inspection: normal respiratory effort and able to speak in complete sentences Cardio Rate: regular rate Peripheral pulses: Peripheral pulses 2+ throughout GI Palpation (GI): Soft to palpation Skin Lesions: no lesions Rashes: no rashes Neuro General: patient oriented x3 Extrem Other: Bilateral knee: Skin intact, no erythema or joint effusion. Retropatellar tenderness present. Full ROM with crepitus. Negative George?s. No ligamentous laxity. NVI. Results Reviewed Results Reviewed: xrays of bilat knee obtained on 01/12/23 show mild medial compartment oa with mild pf oa Assessment & Plan Assessment & Plan (1) Osteoarthritis of knees, bilateral: Code(s): M17.0 - Bilateral primary osteoarthritis of knee Plan We discussed options which include PT, NSAIDs and injections. The patient will defer on the injection today and proceed with PT and NSAIDs. I did send a prescription of Celebrex to her pharmacy in the office today. If symptoms persist, the patient will contact me for an injection, otherwise, PRN. Orders: Orders PT Evaluation and Treatment Today M17.0 - Bilateral primary osteoarthritis of knee Medications: New celecoxib (Celebrex) 200 mg PO BID 60 caps 3RF 30 days Patient Instructions: Scribed for Teodora Rosales PA-C, by Faustino Almanza health care / medical job titles, on 03/21/2023 at 10:00 AM Teodora EMZA PA-C, have personally reviewed and agree with the information entered by the scribe. Coding Level of Care Code New Pt Level 3 (06945) Diagnoses Osteoarthritis of knees, bilateral M17.0
== END 2023-03-21 10:19 | disposition home or self-care (01) ==
PROVIDERS: PCP Internal Medicine; Visit Provider Physician Assistant
DX: M17.0 Bilateral primary osteoarthritis of knee (principal)
CPT/HCPCS: 99203

== ENCOUNTER → 2023-03-21 09:50 | Outpatient (BNVA) | payer OTHER, SELFPAY | PROVIDERS: PCP Internal Medicine; Visit Provider Physician Assistant ==

== ENCOUNTER 2023-09-24 15:23 | Outpatient (AMB) | payer OTHER, SELFPAY ==
--- NOTE | 2023-09-24 15:25 | A.OFFVIS_ITS ---
Intake Vital Signs 09/24/23 15:31 Height 5 ft 2 in Weight 165 lb 12.602 oz BMI 30.3 BP 113/75 Blood Pressure Location Lt brachial Position Sitting Pulse 76 Intake Visit Reasons: follow up req by patient Intake Note: Laura returns to in office follow up of GERD. CC: Patient reports she has been having nausea and and upset stomach after she eats. She reports occasional constipation and diarrhea. 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 There is marked abnormal retention of solid food in the stomach at 4 hours. Code(s): K31.84 - Gastroparesis Plan: She is taking 1/2 reglan bid as she did not tolerate the 5mg pill r/t [id number]. She continues to have a lot of post prandial bloating, and her stooling is soft to loose with post prandial urgency. CIC resolved with d/c of carafate. WIll try simethicone and creon. She has senna at home if she needed for constipation. ROV 8 weeks. (2) GERD (gastroesophageal reflux diseas e): Code(s): K21.9 - Gastro-esophageal reflux disease without esophagitis (3) IBS (irritable bowel syndrome): Code(s): K58.9 - Irritable bowel syndrome without diarrhea Medications: New simethicone aft er meals 180 mg PO .tidac 9 0 caps 6RF 30 days [id number] ylase 36,000-114,0 00- 180,000 unit ( Creon) administ er with meals and/ or snacks 1 cap PO QID 120 c aps 6RF K58.9 - Irritable bowel syndrome wit hout diarrhea Changed From metoclopramide HCl 5 mg PO DAILY 30 tabs 3RF K31.84 - Gastropar esis To metoclopramide HCl (Reglan) 2.5 mg (1/2 x 5 mg ) PO BID 30 tabs 6 RF K31.84 - Gastropar esis Refilled metoclopramide HCl (Reglan) 2.5 mg (1/2 x 5 mg ) PO BID 30 tabs 6 RF K31.84 - Gastropar esis Discontinued sennosides Disc ontinued Reason: Doctor's Order 17.2 mg (2 x 8.6 m g) PO BEDTIME 30 d ays 60 caps 3RF co nstipation K21.9 - Gastro-eso phageal reflux dis ease without esoph agitis TODAY'S VISIT She is having more vomiting, although she was better for a while. She shaking of her hands taking the Reglan so she discontinued it. She was doing well for a little while but now the symptoms have returned. We know the gastroparesis is 1 of the root causes of her constipation and her nausea; it is idiopathic, so it is uncertain what makes it better or worse. She has had no other new medications, and she has had a lot on her mind lately so I do not know stress may be a contributing factor. She has constipation on off and I did let her know that sometimes we can manage things from below with laxatives but for now she prefers to continue on her magnesium for this. I offer her Zofran to help with the symptom of nausea but she declines. If she reconsiders this I can always prescribe this for her. She continues on her pantoprazole twice a day, and on her Creon and simethicone. She will be due for repeat colonoscopy in 2026. Return office visit in 6 month [facility] Medical History Osteoarthritis Esophagitis Bilateral knee pain Annual physical exam Right knee pain Left knee pain Arthralgia Duodenitis Mid back pain Tubular adenoma of colon Asthma exacerbation Epigastric pain Nausea and vomiting Hemorrhagic gastritis Precordial chest pain Intermittent chest pain Class 1 obesity Anxiety disorder due to medical condition Headache Elevated blood pressure reading without diagnosis of hypertension COVID-19 Peptic ulcer disease Low back pain Potential exposure to STD Vaginal odor Well woman exam with routine gynecological exam Painful breasts Overweight (BMI 25.0-29.9) Vitamin D deficiency Migraine Gastroparesis History of COVID-19 Asthma Hx of migraine headaches GERD (gastroesophageal reflux disease) Surgical History History of esophagogastroduodenoscopy (EGD) Hx of colonoscopy History of hernia surgery Hx of tubal ligation History of appendectomy H/O: hysterectomy Family History Mother Uterine cancer Family/Other History of breast cancer Social History Housing: House Alcohol intake: never Patient Tobacco Use Status: Never used Tobacco e-Cigarette/Vaping Use: Never Used Second Hand Smoke Exposure: No service: No Current occupational status: 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 Sexual orientation: Straight/Heterosexual Gender identity: Female Cognitive needs: No Hearing needs: No Vision needs: No Female Reproductive History Menstrual Age of Menarche: 12 Review of Systems Const Denies fatigue, Denies fever(s), Denies night sweats, Reports poor appetite and Denies weight loss Eyes Details: glasses Reports requires corrective lenses ENT Reports Normal hearing present, Denies dental pain, Denies dysphagia, Denies hearing loss, Denies mouth pain, Denies odynophagia, Denies throat swelling, Denies tongue swelling and Reports other (Dentition adequate) Card Reports no additional complaints Resp Reports no additional complaints GI Denies abdominal pain, Denies melena, Denies bloating, Denies hematochezia, Reports constipation, Denies GI cramping, Denies dysphagia, Denies excessive flatus, Denies early satiety, Reports heartburn, Denies diarrhea, Reports nausea, Denies odynophagia, Reports vomiting and Denies hematemesis Skin/Breast Denies pruritus, Denies lesions, Denies rash and Denies jaundice Neuro Reports Normal hearing present and Denies Abnormal speech present Psych Reports anxiety Endo Denies fatigue Aller/Immun Denies throat swelling and Denies tongue swelling Physical Exam Vital Signs: Last Vital Signs Pulse 76 09/24/23 15:31 BP 113/75 09/24/23 15:31 BMI result Body Mass Index 30.3 Const General: cooperative, no acute distress, well developed and well groomed Nutritional Appearance: well nourished and obese Orientation/consciousness: oriented to person, oriented to place and oriented to time Limitations: No language barrier HEENT Head: Yes normocephalic and Yes atraumatic Eyes General: appearance normal, both eyes and all related structures Pupils: Equal, round and reactive pupils present Neck Neck: Yes normal visual inspection and Yes no lymphadenopathy Thyroid: Thyroid normal Resp Effort & Inspection: normal respiratory effort and able to speak in complete sentences Auscultation: clear to auscultation bilaterally Cardio Rate: regular rate Rhythm: regular rhythm Heart sounds: Normal, physiologic split S2 sound present Peripheral pulses: radial pulses present and posterior tibial pulses present GI Inspection: No distended, No Abdominal panniculus present and Yes obesity Palpation (GI): Soft to palpation, nontender, no guarding, not rigid and No hepatosplenomegaly present Percussion: Yes normal to percussion Auscultation: normal bowel sounds Rectal Exam - Female: deferred Skin General skin exam: no rashes or lesions noted, turgor normal, skin not dry, no jaundice, No spider nevi and no striae Rashes: no rashes Nails: normal Neuro General: oriented to person, oriented to place and oriented to time Cranial nerves: Yes Equal, round and reactive pupils present and Yes Normal hearing present Speech: No Abnormal speech present Extrem General: Yes normal to inspection, No clubbing, No cyanosis and No edema Psych Appearance: grossly normal and well kempt Mental Status: mental status grossly normal Speech and movement: Normal speech and movement present Affect: normal affect Attitude: cooperative Thought process: Normal thought process present and not confabulating Thought content: Normal thought content present Insight: Fair insight present (Psych) Judgement: Fair judgement present (Psych) Assessment & Plan Assessment & Plan (1) Gastroparesis: Comment: GASTRIC EMPTYING STUDY 08/17/22 IMPRESSION: Abnormal study. There is marked abnormal retention of solid food in the stomach at 4 hours. Code(s): K31.84 - Gastroparesis (2) GERD (gastroesophageal reflux disease): Code(s): K21.9 - Gastro-esophageal reflux disease without esophagitis (3) Chronic idiopathic constipation: Code(s): K59.04 - Chronic idiopathic constipation (4) IBS (irritable bowel syndrome): Code(s): K58.9 - Irritable bowel syndrome without diarrhea Plan She is having more vomiting, although she was better for a while. She shaking of her hands taking the Reglan so she discontinued it. She was doing well for a little while but now the symptoms have returned. We know the gastroparesis is 1 of the root causes of her constipation and her nausea; it is idiopathic, so it is uncertain what makes it better or worse. She has had no other new medications, and she has had a lot on her mind lately so I do not know stress may be a contributing factor. She has constipation on off and I did let her know that sometimes we can manage things from below with laxatives but for now she prefers to continue on her magnesium for this. I offer her Zofran to help with the symptom of nausea but she declines. If she reconsiders this I can always prescribe this for her. She continues on her pantoprazole twice a day, and on her Creon and simethicone. She will be due for repeat colonoscopy in 2026. Return office visit in 6 month Medications: Refilled [id number] 36,000-114,000- 180,000 unit (Creon) administer with meals and/or snacks 1 cap PO QID 120 caps 6RF K58.9 - Irritable bowel syndrome without diarrhea pantoprazole 40 mg PO BID 60 tabs 6RF K21.9 - Gastro-esophageal reflux disease without esophagitis, K27.9 - Peptic ulcer, site unspecified, unspecified as acute or chronic, without hemorrhage or perforation magnesium oxide 500 mg PO BID 30 days 60 caps 6RF K59.04 - Chronic idiopathic constipation simethicone after meals 180 mg PO .tidac 30 days 90 caps 6RF Discontinued metoclopramide HCl (Reglan) Discontinued Reason: Doctor's Order 2.5 mg (1/2 x 5 mg) PO BID 30 tabs 6RF K31.84 - Gastroparesis Coding Level of Care Code Est Pt Level 3 (52213) Diagnoses Gastroparesis K31.84 GERD (gastroesophageal reflux disease) K21.9 Chronic idiopathic constipation K59.04 IBS (irritable bowel syndrome) K58.9
[2023-09-24 15:31] VITALS: BP 113/75; PULSE 76; BMI 30.3
== END 2023-09-24 16:38 | disposition home or self-care (01) ==
PROVIDERS: PCP Internal Medicine; Visit Provider Nurse Practitioner
DX: K31.84 Gastroparesis (principal); K21.9 Gastro-esophageal reflux disease without esophagitis; K59.04 Chronic idiopathic constipation; K58.9 Irritable bowel syndrome, unspecified
CPT/HCPCS: 99213

== ENCOUNTER → 2023-09-24 15:23 | Outpatient (BNVA) | payer OTHER, SELFPAY | PROVIDERS: PCP Internal Medicine; Visit Provider Nurse Practitioner ==

== ENCOUNTER 2024-01-13 17:11 | Outpatient (AMB) | payer OTHER, SELFPAY ==
[2024-01-13 17:21] VITALS: BP 124/78; PULSE 75; O2SAT 98; BMI 30.2
--- NOTE | 2024-01-13 17:21 | MHC.PC.OV ---
Vital Signs 01/13/24 17:21 Height 5 ft 2 in Weight 165 lb BMI 30.2 BP 124/78 Blood Pressure Location Lt brachial Position Sitting Pulse 75 Pulse Source Pulse Oximeter Pulse Oximetry (%) 98 Oxygen Delivery Method Room Air Intake Visit Reasons: Physical exam Allergies cephalexin [From KEFLEX] Allergy (Severe, Verified 01/13/24 17:34) SOB/HIVES Iodinated Contrast Media [IV CONTRAST] Allergy (Severe, Verified 01/13/24 17:34) SOB/CHEST PAIN/DIFFICULTY BREATHING oxycodone [From Percocet] Allergy (Intermediate, Verified 01/13/24 17:34) itchy, SOB Medication List - Last Reconciled 01/13/24 by Everett Gutierrez MD albuterol sulfate 2.5 mg (3 mL) inhalation Q4-6H PRN albuterol sulfate 90 mcg/actuation 2 inhalations inhalation QID PRN atorvastatin 10 mg PO BEDTIME 30 days celecoxib (Celebrex) 200 mg PO BID 30 days bvsqzs-glhhlcvo-cnkdeuj 36,000-114,000- 180,000 unit (Creon) 1 cap PO QID magnesium oxide 500 mg PO BID 30 days pantoprazole 40 mg PO BID simethicone 180 mg PO .tidac 30 days Tobacco use date assessed: 01/13/24 Dental Screening Dental Screen Date: 01/13/24 Did you have a dental visit in the last 12 months?: Yes Did you have a dental problem in the last 6 months where you did not have access to dental care?: No Was dental information given to patient?: Patient has dentist HPI Physical exam HPI Details Patient comes in today for her annual physical examination States that she has been experiencing diffuse joint pains and aching for a while now Also notes on and off sharp pains over her anterior chest wall area - notes that these occur irregardless of activity or exertion She relates increased fatigue but denies any headaches or dizziness Denies any exertional chest pains or increased SOB lately Relates experiencing some asthma flare ups a couple of weeks ago but states that her asthma seems to have calmed down again lately No nausea/vomiting, relates (+) occasional abdominal pain but frequent abdominal bloating and discomfort - has gastroparesis No change in bowel habits noted - states that she still has frequent constipation, which she's had for most of her adult life She denies any acute urinary symptoms but reports (+) occasional flank pains and is concerned that she may be passing kidney stones again when these pains occur She had her screening colonoscopy done with Dr. John back on 04/12/2022 and was recommended repeat colonoscopy in 5 years (2026) She is scheduled for her repeat mammogram next month on 02/10/2024 and has appt with gynecology in a couple of weeks on 01/30/2024 for her next annual gynecology exam and pap smear She has never had a bone density test done in the past [facility] Medical History (Updated 01/13/24 @ 18:32 by Everett Gutierrez MD) Obesity (BMI 30-39.9) Pure hypercholesterolemia Erosive gastritis Osteoarthritis Esophagitis Duodenitis Tubular adenoma of colon Hemorrhagic gastritis Class 1 obesity Anxiety disorder due to medical condition Elevated blood pressure reading without diagnosis of hypertension COVID-19 Peptic ulcer disease Low back pain Vaginal odor Painful breasts Overweight (BMI 25.0-29.9) Vitamin D deficiency Migraine Gastroparesis History of COVID-19 Asthma GERD (gastroesophageal reflux disease) Surgical History History of esophagogastroduodenoscopy (EGD) Hx of colonoscopy History of hernia surgery Hx of tubal ligation History of appendectomy H/O: hysterectomy Family History Mother Uterine cancer Family/Other History of breast cancer Social History Housing: House Alcohol intake: never Patient Tobacco Use Status: Never used Tobacco Tobacco use type: Cigarette e-Cigarette/Vaping Use: Never Used Second Hand Smoke Exposure: No service: No Current occupational status: 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 1. Little interest or pleasure in doing things: not at all 2. Feeling down, depressed, or hopeless: not at all 3. Trouble falling or staying asleep, or sleeping too much: not at all 4. Feeling tired or having little energy: not at all 5. Poor appetite or overeating: not at all 6. Feeling bad about yourself - or that you are a failure or have let yourself or your family down: not at all 7. Trouble concentrating on things, such as reading the newspaper or watching television: not at all 8. Moving or speaking so slowly that other people could have noticed. Or the opposite - being so fidgety or restless that you have been moving around a lot more than usual: not at all 9. Thoughts that you would be better off or of hurting yourself in some way: not at all Total score: 0 Depression Screening Interpretation: Negative Depression Screening Done: Yes [id number] - PHQ-9 Billing: Yes Source: Developed by Drs. Julio Martínez, Reina Ness, Maximo Yousif and colleagues, with an educational neha from [employer]. Thrive Questionnaire Date Thrive assessed: 01/13/24 I am a: Patient What is your living situation today?: I have a steady place to live Within the past 12 months, did the food you bought not last and you didn't have the money to get more?: Never true Within the past 12 months, did you worry whether your food would run out before you got money to buy more?: Never true Do you have trouble paying for medicines?: No Do you have trouble getting transportation to medical appointments?: No Do you have trouble paying your heating and electricity bill?: No Do you have trouble taking care of your child, family member or friend?: No Do you have trouble with day-to-day activities such as bathing, preparing meals, shopping, managing finances, etc.?: No Are you currently unemployed and looking for a job?: No Are you interested in more education?: No Currently or been in a relationship where the following occur: no concerns reported THRIVE Score: 0 AUDIT C Alcohol Use Questionnaire (AUDIT-C) 1. How often do you have a drink containing alcohol?: Never 3. How often do you have six or more drinks on one occasion?: Never Total Score: 0 Score Reviewed/Action Taken: Yes DANA-7 AMB Questionnaire DANA-7 Date DANA - 7 assessed: 01/13/24 Feeling nervous, anxious, or on edge: 0 = Not at all Not being able to stop or control worryin = Not at all Worrying too much about different things: 0 = Not at all Trouble relaxin = Not at all Being so restless that it is hard to sit still: 0 = Not at all Becoming easily annoyed or irritable: 0 = Not at all Feeling afraid as if something awful might happen: 0 = Not at all Total DANA-7 score (0-4 normal; 5-9 mild; 10-14 moderate; 15-21 severe): 0 Source: Developed by Drs. Julio Martínez, Reina Ness, Maximo Yousif and colleagues, with an educational neha from [employer]. Review of Systems Const Denies chills, Reports difficulty sleeping, Reports fatigue (increased lately), Denies fever(s), Denies headache(s) and Denies malaise Eyes Denies blurry vision, Denies change in vision, Denies irritation and Denies itchy eyes ENT Denies dysphagia, Denies dizziness, Denies otalgia, Denies headache(s), Denies nasal congestion, Denies neck pain, Denies odynophagia, Denies sinus pain and Denies sore throat Card Denies chest pain, Denies rapid heart rate, Denies irregular heart rhythm, Denies palpitations and Denies dyspnea Resp Denies chest congestion, Denies cough, Denies dyspnea and Denies wheezing GI Reports abdominal pain (occasional, mostly over the epigastric area), Reports bloating (frequent), Reports constipation (chronic), Denies dysphagia, Reports early satiety, Reports dyspepsia, Denies heartburn, Denies diarrhea, Denies nausea, Denies odynophagia and Denies vomiting Denies hematuria, Denies urinary frequency, Denies dysuria, Reports flank pain (over the left flank, at times), Denies urinary incontinence and Denies urinary urgency Musc Reports back pain (on and off), Reports myalgias, Reports arthralgias (diffuse), Denies joint swelling, Denies muscle weakness, Denies neck pain and Reports stiffness Skin/Breast Denies breast pain, Denies breast mass, Denies change in pigmentation, Denies lesions, Denies rash and Denies unusual bruising Neuro Denies dizziness, Denies headache(s) and Denies paresthesias Psych Denies anxiety and Denies depression Endo Reports fatigue (increased lately) and Denies palpitations Julien/Lymph Denies easy bruising Aller/Immun Denies itchy eyes and Denies wheezing Physical exam (Primary Care) Vital Signs: Last Vital Signs Pulse 75 01/13/24 17:21 BP 124/78 01/13/24 17:21 Pulse Ox 98 01/13/24 17:21 Oxygen Delivery Method Room Air 01/13/24 17:21 BMI result Body Mass Index 30.2 Tobacco/Smoking Status: Tobacco use Status Tobacco use date assessed 01/13/24 01/13/24 17:28 Patient Tobacco Use Status Never used Tobacco 01/13/24 17:28 Tobacco use type Cigarette 01/13/24 17:28 e-Cigarette/Vaping Use Never Used 01/13/24 17:28 PHQ-9: PHQ-9 Score PHQ-9: Total score 0 01/13/24 17:28 Depression Screening Interpretation: Negative Thrive Assessment: Date of Thrive Assessment Date Thrive assessed 01/13/24 01/13/24 17:28 Currently or been in a relationship where the following occur: no concerns reported Const General: no acute distress, alert and awake Orientation/consciousness: patient oriented x3 HENMT Head: Yes normocephalic and Yes atraumatic Ears: external ears normal, TM's normal bilaterally and EAC's normal General nose exam: No nasal discharge present Face and sinus: Yes normal facial exam and Yes sinuses nontender Teeth and gingiva: dentition normal Throat: Yes posterior oropharynx normal and Yes tonsils normal (no TP congestion) Eyes Eyelids: Yes eyelids normal Conjunctivae: conjunctivae normal Pupils: Equal, round and reactive pupils present EOM: EOMs intact bilaterally Neck Neck: Yes no lymphadenopathy and Yes supple Thyroid: Thyroid normal Resp Auscultation: clear to auscultation bilaterally, no rales and no wheezes Cardio Rate: regular rate Rhythm: regular rhythm Heart sounds: no murmurs GI Palpation (GI): Soft to palpation, nontender (but (+) epigastric discomfort on deep palpation), no guarding, No hepatosplenomegaly present and No Rebound tenderness present Auscultation: normal bowel sounds General: Yes no CVA tenderness Back/Spine/Pelvis Back: no CVA tenderness Cervical Spine: cervical muscular tenderness (bilateral) and No Cervical spine tenderness Thoracic/Lumbar Spine: lumbar spinal tenderness (mild) Skin Lesions: no lesions Rashes: no rashes Neuro General: patient oriented x3, moves all extremities, no focal motor deficits and CN's II-XI intact bilaterally Cranial nerves: Yes Equal, round and reactive pupils present Cognition (Neuro): normal cognition Gait exam (Neuro): Normal gait present Extrem General: Yes no clubbing, cyanosis or edema Right upper extremity: shoulder/upper arm Details: tenderness (diffusely over the scapular area) Left upper extremity: shoulder/upper arm Details: tenderness (diffusely over the scapular areas) Assessment and Plan Assessment & Plan (1) Annual physical exam: Code(s): Z00.00 - Encounter for general adult medical examination without abnormal findings Plan: Check labs (2) Pure hypercholesterolemia: Code(s): E78.00 - Pure hypercholesterolemia, unspecified Plan: Reinforced low cholesterol diet Continue Atorvastatin 10 mg QD Will recheck her labs and fasting lipids for follow up (3) Arthralgia: Code(s): M25.50 - Pain in unspecified joint Qualifiers: Joint pain location: unspecified Qualified Code(s): M25.50 - Pain in unspecified joint Plan: Will send her for some additional labs for further evaluation of her diffuse joint and muscle pains, including serologic test for Lyme disease (4) Asthma: Code(s): J45.909 - Unspecified asthma, uncomplicated Qualifiers: Asthma severity: unspecified severity Asthma persistence: unspecified Asthma complication type: uncomplicated Qualified Code(s): J45.909 - Unspecified asthma, uncomplicated Plan: Controlled again lately She used to be on Symbicort 80-4.5 mcg and Montelukast 10 mg but states that she has not taken them in more than a year now Continue Albuterol HFA 2 inhalations Q 6 hours PRN (5) Esophagitis: Comment: (+) erosive esophagitis on biopsy in 2019 Code(s): K20.90 - Esophagitis, unspecified without bleeding Plan: Dietary restrictions reinforced Repeat EGD done in October 2022 revealed (+) findings of erosive esophagitis and gastritis Continue Pantoprazole 40 mg BID Follow up with GI as scheduled (6) Erosive gastritis: Code(s): K29.60 - Other gastritis without bleeding Plan: Repeat EGD done in October 2022 revealed (+) findings of BOTH erosive esophagitis and gastritis Dietary restrictions reinforced Continue Pantoprazole 40 mg BID Follow up with GI as scheduled (7) Gastroparesis: Comment: GASTRIC EMPTYING STUDY 08/17/22 IMPRESSION: Abnormal study. There is marked abnormal retention of solid food in the stomach at 4 hours. Code(s): K31.84 - Gastroparesis Plan: This was noted/confirmed on gastric emptying studies done back in August 2022 Reminded to keep his feedings small but to eat more frequently to help keep up with her nutritional needs Continue Simethicone 180 mg QID and Creon 1 capsule QID Follow up with GI as scheduled (8) Chronic idiopathic constipation: Code(s): K59.04 - Chronic idiopathic constipation Plan: Encouraged increased oral fluids and dietary fiber Continue Senna 8.6 mg 1 to 2 tablets Q HS and Magnesium Oxide 500 mg BID Follow up with GI as scheduled (9) Migraine: Code(s): G43.909 - Migraine, unspecified, not intractable, without status migrainosus Qualifiers: Intractability: not intractable Migraine type: without aura Status migrainosus presence: without status migrainosus Qualified Code(s): G43.009 - Migraine without aura, not intractable, without status migrainosus Plan: Stable/controlled lately Reinforced avoidance of potential migraine triggers (10) Vitamin D deficiency: Code(s): E55.9 - Vitamin D deficiency, unspecified Plan: Will recheck her Vitamin D level for follow up (11) Obesity (BMI 30-39.9): Code(s): E66.9 - Obesity, unspecified Plan: Reinforced diet/exercise as tolerated/lose weight (12) Cervical cancer screening: Code(s): Z12.4 - Encounter for screening for malignant neoplasm of cervix Plan: Patient is up-to-date with her cervical cancer screening and gynecology exam - has appointment scheduled [facility] a [facility] weeks [facility] (13) Breast cancer screening by mammogram: Code(s): Z12.31 - Encounter for screening mammogram for malignant neoplasm of breast Plan: She is also up-to-date with her annual mammography and she is scheduled to have this year's annual mammogram done next month on 02/10/2024 (14) Osteoporosis screening: Code(s): Z13.820 - Encounter for screening for osteoporosis Plan: Will send patient for BMD for osteoporosis screening - this will be her index screen Plan Follow up in 4 months Orders: Orders XR DEXA axial skeleton Today Z78.0 - Asymptomatic menopausal state Comprehensive [place]. Panel Fast Today E78.00 - Pure hypercholesterolemia, unspecified, Z00.00 - Encounter for general adult medical examination without abnormal findings TSH reflex Free T4 Today E78.00 - Pure hypercholesterolemia, unspecified, Z00.00 - Encounter for general adult medical examination without abnormal findings Vitamin D 25-OH Total Today E55.9 - Vitamin D deficiency, unspecified, Z00.00 - Encounter for general adult medical examination without abnormal findings [place] Reflex Titer and Pattern Today M25.50 - Pain in unspecified joint, R52 - Pain, unspecified C Reactive Protein Today M25.50 - Pain in unspecified joint, R52 - Pain, unspecified Lyme IgG/IgM w/reflex to WB Today M25.50 - Pain in unspecified joint, R52 - Pain, unspecified XR KUB Today R10.9 - Unspecified abdominal pain Complete Blood Count Auto Diff Today D64.9 - Anemia, unspecified, Z00.00 - Encounter for general adult medical examination without abnormal findings Lipid Panel Today E78.00 - Pure hypercholesterolemia, unspecified, Z00.00 - Encounter for general adult medical examination without abnormal findings UA CC w/rflx Micro + Cult Today R30.0 - Dysuria, Z00.00 - Encounter for general adult medical examination without abnormal findings Vitamin B12 and Folate Today E53.8 - Deficiency of other specified B group vitamins, Z00.00 - Encounter for general adult medical examination without abnormal findings Rheumatoid Factor Today M25.50 - Pain in unspecified joint, R52 - Pain, unspecified Erythrocyte Sedimentation Rate Today M25.50 - Pain in unspecified joint, M79.7 - Fibromyalgia, R52 - Pain, unspecified CK, Total+Isoenzymes, Serum Today M79.10 - Myalgia, unspecified site Medications: Refilled albuterol sulfate 90 mcg/actuation 2 inhalations inhalation QID PRN 8.5 grams 3RF shortness of breath or wheezing J45.909 - Unspecified asthma, uncomplicated atorvastatin 10 mg PO BEDTIME 30 days 30 tabs 3RF Coding Level of Care Code Est Pt Prev Care 40-64y(70640) Diagnoses Annual physical exam Z00.00 Pure hypercholesterolemia E78.00 Arthralgia, unspecified joint M25.50 Joint pain location: unspecified Uncomplicated asthma, unspecified asthma severity, unspecified whether persistent J45.909 Asthma severity: unspecified severity Asthma persistence: unspecified Asthma complication type: uncomplicated Esophagitis K20.90 Erosive gastritis K29.60 Gastroparesis K31.84 Chronic idiopathic constipation K59.04 Migraine G43.009 Intractability: not intractable Migraine type: without aura Status migrainosus presence: without status migrainosus Vitamin D deficiency E55.9 Obesity (BMI 30-39.9) E66.9 Cervical cancer screening Z12.4 Breast cancer screening by mammogram Z12.31 Osteoporosis screening Z13.820
== END 2024-01-13 17:57 | disposition home or self-care (01) ==
PROVIDERS: PCP Internal Medicine; Visit Provider Internal Medicine
DX: Z00.00 Encounter for general adult medical examination without abnormal findings (principal); E78.00 Pure hypercholesterolemia, unspecified; Z68.30 Body mass index [BMI] 30.0-30.9, adult; M25.50 Pain in unspecified joint; E66.9 Obesity, unspecified; J45.909 Unspecified asthma, uncomplicated; K20.90 Esophagitis, unspecified without bleeding; K29.60 Other gastritis without bleeding; K31.84 Gastroparesis; K59.04 Chronic idiopathic constipation; G43.009 Migraine without aura, not intractable, without status migrainosus; E55.9 Vitamin D deficiency, unspecified
CPT/HCPCS: 99396

== ENCOUNTER 2024-01-21 07:03 | Outpatient (REF) | payer OTHER, SELFPAY ==
--- NOTE | ~2024-01-21 | XR_ITS ---
EXAMINATION: XR ABDOMEN KUB CLINICAL INDICATION: Abdominal pain. COMPARISON: CT abdomen/pelvis dated 01/27/2022. TECHNIQUE: AP views of the abdomen. FINDINGS: Nonobstructive bowel gas pattern. Mild air and stool throughout the bowel. Redemonstration of multiple phleboliths within the pelvis. No abnormal soft tissue calcification. No acute osseous abnormality. XR/XR KUB IMPRESSION: Nonobstructive bowel gas pattern.
[2024-01-21 07:26] LABS: MANUAL DIFF FLAG NO
[2024-01-21 07:34] LABS: Basophils Percent Auto 0.6 % (0-2); Eosinophils Absolute Auto 0.5 X10*3/uL (0.0-0.4); Eosinophils Percent Auto 6.6 % (0-4); Hematocrit 40.1 % (37.0-47.0); Hemoglobin 12.8 g/dl (12.0-16.0); Imm Gran Abs Auto 0.01 X10*3/uL (0.00-0.03); Imm Gran Pct Auto 0.1 % (0.0-0.4); Lymphocytes Absolute Auto 2.3 X10*3/uL (1.2-4.9); Lymphocytes Percent Auto 32.9 % (20-40); Mean Corpuscular HGB Conc 31.9 g/dl (31.0-35.0); Mean Corpuscular Hemoglobin 30.2 pg (27.0-33.0); Mean Corpuscular Volume 94.6 fL (80.0-98.0); Monocytes Absolute Auto 0.8 X10*3/uL (0.1-1.2); Monocytes Percent Auto 11.7 % (2-11); Neutrophils Absolute Auto 3.4 x10*3/uL (2.0-8.3); Neutrophils Percent Auto 48.1 % (45-73); Platelet Count 297 X10*3/uL (160-400); Red Blood Count 4.24 X10*6/uL (4.20-5.50); Red Cell Distribution Width 13.4 % (11.0-16.0); White Blood Count 7.1 X10*3/uL (4.8-10.8)
[2024-01-21 08:13] LABS: Rheumatoid Factor < 13.0 IU/mL (<15.0)
[2024-01-21 08:20] LABS: Alanine Aminotransferase 27 U/L (0-31); Albumin Level 4.1 g/dL (3.5-5.0); Alkaline Phosphatase 109 U/L (39-117); Anion Gap 13 (12-20); Aspartate Amino Transferase 24 U/L (5-31); Bilirubin Total 0.3 mg/dL (0.0-1.0); Blood Urea Nitrogen 15 mg/dL (9-16); C Reactive Protein 0.26 mg/dL (< or = 0.50); Calcium 9.5 mg/dL (8.4-10.2); Carbon Dioxide 26 mmol/L (22-29); Chloride 108 mmol/L (96-108); Cholesterol 178 mg/dL (<200); Erythrocyte Sedimentation Rate 18 MM/HR (0-20); Estimated Glomerular Filt Rate > 60; Glucose Fasting 105 mg/dL (60-99); HDL Cholesterol 42 mg/dL (>40); LDL Cholesterol Calculated 111 mg/dL (<100); Potassium 4.3 mmol/L (3.3-5.1); Sodium 143 mmol/L (135-145); Total Protein 7.6 g/dL (6.5-8.0); Triglycerides 125 mg/dL (<150)
[2024-01-21 08:39] LABS: TSH reflex Free T4 2.14 uIU/mL (0.32-4.0); Vitamin D 25-OH Total 29.2 ng/mL (>30)
[2024-01-21 08:47] LABS: Folate 4.7 ng/mL (> or = 4.0); Vitamin B12 389 pg/mL (200-900)
[2024-01-21 09:56] LABS: Appearance Urine Clear; Color Urine Yellow; Glucose Urine UA Negative (Negative); Leukocyte Esterase Urine Trace (Negative); Nitrite Urine Negative (Negative); PH 6.5 (5.0-9.0); Specific Gravity - Urine 1.025 (1.005-1.025); UMIC TRIGGER UACC YES; Urine Blood Negative (Negative); Urine Ketones Negative (Negative); Urine Protein Trace mg/dL (Neg-Trace)
[2024-01-21 10:01] LABS: Bacteria Urine None Seen (None Seen); Hyaline Casts Urine 0-2 /LPF (0-2); RBC Urine 0-2 /HPF (0-2); WBC Urine 0-5 /HPF (0-5)
[2024-01-22 18:14] LABS: Lyme Blot 1.19 index
[2024-01-23 12:09] LABS: Lyme Abs Screen POSITIVE
[2024-01-23 16:14] LABS: Anti Nuclear Antibody Screen NEGATIVE (NEGATIVE)
[2024-01-24 23:44] LABS: CK-BB None Detected (None Detected); CK-MB 0 % (<5); CK-MM 59 % (95-100); Creatine Kinase,Total,Serum 80 U/L (29-143)
[2024-01-28 18:38] LABS: 18 KD (IgG) Band NON-REACTIVE; 23 KD (IgG) Band NON-REACTIVE; 23 KD (IgM) Band NON-REACTIVE; 28 KD (IgG) Band NON-REACTIVE; 30 KD (IgG) Band NON-REACTIVE; 39 KD (IgM) Band NON-REACTIVE; 39KD (IgG) Band NON-REACTIVE; 41 KD (IgM) Band NON-REACTIVE; 41KD (IgG) Band NON-REACTIVE; 45 KD (IgG) Band NON-REACTIVE; 58 KD (IgG) Band REACTIVE; 66 KD (IgG) Band NON-REACTIVE; 93 KD (IgG) Band NON-REACTIVE; Lyme IgG Blot Interp NEGATIVE (NEGATIVE); Lyme IgM Blot Interp NEGATIVE (NEGATIVE)
== END 2024-01-21 07:04 | disposition home or self-care (01) ==
LOC: HO.XRAY 07:03
PROVIDERS: PCP Internal Medicine; Visit Provider Internal Medicine
DX: Z00.00 Encounter for general adult medical examination without abnormal findings (principal); R10.9 Unspecified abdominal pain; E55.9 Vitamin D deficiency, unspecified; E53.8 Deficiency of other specified B group vitamins; E78.00 Pure hypercholesterolemia, unspecified; D64.9 Anemia, unspecified; M79.7 Fibromyalgia
CPT/HCPCS: 36415; 74018; 80053; 80061; 81001; 82306; 82552; 82607; 82746; 84443; 85025; 85652; 86038; 86140; 86431; 86617; 86618

== ENCOUNTER 2024-01-30 10:06 | Outpatient (AMB) | payer OTHER, SELFPAY ==
[2024-01-30 10:11] VITALS: BP 106/70; BMI 29.8
--- NOTE | 2024-01-30 10:11 | MHC.OFFVIS ---
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 Intake Note: Having vaginal odor Director Rehabilitation Program Required: No Information Interpreted: non-clinical & clinical Waste Disposal Leakage Tester: Waste Disposal Leakage Tester Present (Aidyn) Allergies cephalexin [From KEFLEX] Allergy (Severe, Verified 01/30/24 10:13) SOB/HIVES Iodinated Contrast Media [IV CONTRAST] Allergy (Severe, Verified 01/30/24 10:13) SOB/CHEST PAIN/DIFFICULTY BREATHING oxycodone [From Percocet] Allergy (Intermediate, Verified 01/30/24 10:13) itchy, SOB environmental allergies Allergy (Mild, Verified 01/30/24 10:13) congestion Is last menstrual period known: No Post menopausal: Yes Patient : No HPI Comments Details: She is a postmenopausal woman presenting for her annual ob/gyn examination. She is doing well with no concerns: Vaginal odor, pink discharge with urinating or wiping at times, history of kidney stones, occasional back pain. Attempting to eat a healthy diet, reports she is picky, has calcium and vitamin D and stays active with exercise-walking at work. Currently not sexually active. STI testing offered; she accepts. Last pap smear; 2020. Last mammogram; 2022. Colonoscopy is UTD. Hysterectomy due to heavy menstrual bleeding. Denies any family history of ovarian or colon cancer. Family history of breast cancer. [facility] Medical History Obesity (BMI 30-39.9) Pure hypercholesterolemia Erosive gastritis Osteoarthritis Esophagitis Duodenitis Tubular adenoma of colon Hemorrhagic gastritis Class 1 obesity Anxiety disorder due to medical condition Elevated blood pressure reading without diagnosis of hypertension COVID-19 Peptic ulcer disease Low back pain Vaginal odor Painful breasts Overweight (BMI 25.0-29.9) Vitamin D deficiency Migraine Gastroparesis History of COVID-19 Asthma GERD (gastroesophageal reflux disease) Surgical History History of esophagogastroduodenoscopy (EGD) Hx of colonoscopy History of hernia surgery Hx of tubal ligation History of appendectomy H/O: hysterectomy Family History Mother Uterine cancer Family/Other History of breast cancer Social History Housing: House Alcohol intake: never Patient Tobacco Use Status: Never used Tobacco Tobacco use type: Cigarette e-Cigarette/Vaping Use: Never Used Second Hand Smoke Exposure: No Patient : No service: No Current occupational status: 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 Sexual orientation: Straight/Heterosexual Gender identity: Female Cognitive needs: No Hearing needs: No Vision needs: Yes Female Reproductive History Menstrual Age of Menarche: 12 control method: permanent sterilization Total pregnancies: 4 Full term: 4 Number of Living Children: 4 Date of last pap smear: 11/06/21 (negative) History of abnormal pap smear: No Date of Mammogram: 02/19/23 Review of Systems Const All systems reviewed & are unremarkable except as noted in HPI and below Reports as per HPI Eyes Reports no additional complaints ENT Reports no additional complaints Card Reports no additional complaints Resp Reports no additional complaints GI Reports as per HPI and Reports no additional complaints Reports as per HPI Musc Reports no additional complaints Skin/Breast Reports as per HPI Neuro Reports no additional complaints Psych Reports no additional complaints Endo Reports no additional complaints Julien/Lymph Reports no additional complaints Aller/Immun Reports no additional complaints Physical Exam Vital Signs: Last Vital Signs BP 106/70 01/30/24 10:11 BMI result Body Mass Index 29.8 Const General: cooperative, healthy appearing, no acute distress, well developed and alert Orientation/consciousness: patient oriented x3 HEENT Head: Yes normal to inspection Eyes General: appearance normal, both eyes and all related structures Neck Neck: Yes normal visual inspection Thyroid: Thyroid normal Chest Chest palpation & inspection: normal inspection of the chest and other (no puckering, dimpling, peau de orange, retraction, discharge, masses) Breast/axilla inspection: normal inspection of the breasts Breast/axilla palpation: normal palpation of the breasts Resp Effort & Inspection: normal respiratory effort GI Inspection: Yes normal to inspection and Yes scar Palpation (GI): Soft to palpation Rectal Exam - Female: deferred General: Yes bladder normal to palpation External Female Exam: normal external appearance and normal appearance of the urethra Speculum Exam - Vagina: normal appearance of the vagina, normal palpation, normal vaginal discharge and vagina atrophic Speculum Exam - Cervix: Cervix absent (Vaginal cuff no lesions or nodules) Bimanual exam- vagina & uterus: normal bimanual exam, normal palpation, bladder normal to palpation and uterus absent Bimanual Exam- Adnexa, other: no masses Skin General skin exam: no rashes or lesions noted Rashes: no rashes Neuro General: patient oriented x3 Cognition (Neuro): normal cognition Extrem General: Yes normal to inspection Psych Attitude: cooperative Thought process: Normal thought process present Assessment & Plan Assessment & Plan (1) Encounter for well woman exam with routine gynecological exam: Code(s): Z01.419 - Encounter for gynecological examination (general) (routine) without abnormal findings Plan Discussed: Current recommendations for pap smears per ASCCP guidelines. Breast awareness, periodic self breast exams and yearly mammogram. Maintain a healthy lifestyle, well balanced diet including Calcium 1,200 mg and Vitamin D 600 IU daily, and routine exercise. Increase hydration. Replens moisturizer, lubrication. BV panel and GC chlamydia obtained await results for plan of care. Plan STD blood work today. Contact the office with any postmenopausal bleeding. Patient verbalizes understanding and agrees to the plan of care. She was given opportunity to ask questions and all questions were answered to the best of my ability. RTO in 1 year for annual ob/gyn exam. This note is constructed using voice recognition software. While every effort has been made to ensure accuracy, food preparation worker errors may have been included. Orders: Orders HIV Ab/Ag Today Z20.2 - Contact with and (suspected) exposure to infections with a predominantly sexual mode of transmission Syphilis Screen Today Z20.2 - Contact with and (suspected) exposure to infections with a predominantly sexual mode of transmission UA CC w/rflx Micro + Cult Today N89.8 - Other specified noninflammatory disorders of vagina, Z87.448 - Personal history of other diseases of urinary system Hepatitis C Antibody Reflex Today Z20.2 - Contact with and (suspected) exposure to infections with a predominantly sexual mode of transmission Hepatitis B Core Antibody Today Z20.2 - Contact with and (suspected) exposure to infections with a predominantly sexual mode of transmission Bacterial Vaginosis Panel Today N89.8 - Other specified noninflammatory disorders of vagina, Z87.448 - Personal history of other diseases of urinary system CT NG by PCR Today N89.8 - Other specified noninflammatory disorders of vagina, Z87.448 - Personal history of other diseases of urinary system Coding Level of Care Code Est Pt Prev Care 40-64y(74909) Diagnoses Encounter for well woman exam with routine gynecological exam Z01.419
== END 2024-01-30 10:47 | disposition home or self-care (01) ==
PROVIDERS: PCP Internal Medicine; Visit Provider Advanced Practice Midwife
DX: Z01.419 Encounter for gynecological examination (general) (routine) without abnormal findings (principal)
CPT/HCPCS: 99396

== ENCOUNTER 2024-01-30 10:06 | Outpatient (REF) | payer OTHER, SELFPAY | END 2024-01-30 10:07 | disposition home or self-care (01) | LOC: HO.LNP 10:06 | PROVIDERS: Visit Provider Advanced Practice Midwife | DX: Z13.89 Encounter for screening for other disorder (principal) ==

== ENCOUNTER 2024-01-30 11:07 | Outpatient (REF) | payer OTHER, SELFPAY ==
[2024-01-30 12:28] LABS: Appearance Urine Clear; Color Urine Yellow; Glucose Urine UA Negative (Negative); Leukocyte Esterase Urine Negative (Negative); Nitrite Urine Negative (Negative); PH 5.5 (5.0-9.0); Specific Gravity - Urine 1.025 (1.005-1.025); Urine Blood Negative (Negative); Urine Ketones Trace mg/dL (Negative); Urine Protein Trace mg/dL (Neg-Trace)
[2024-01-30 12:56] LABS: HBc Num1 0.16 S/CO (0.00-0.79); HIV AB/AG Nonreactive (Nonreactive); HIV Num 1 0.06 S/CO (0.00-0.99); Hepatitis B Core Antibody Nonreactive (Nonreactive); ~HepC Num1 0.11 S/CO (0.00-0.79); ~Hepatitis C Antibody Nonreactive (Nonreactive)
[2024-01-30 12:57] LABS: Syphilis Screen Nonreactive (Nonreactive)
[2024-01-30 14:05] LABS: CT PCR NOT DETECTED (Not Detect.); NG PCR NOT DETECTED (Not Detect.)
[2024-01-30 15:22] LABS: Bacterial Vaginosis PCR NEGATIVE (Negative); Candida Group PCR NOT DETECTED (Not Detect); Candida glab krusei PCR NOT DETECTED (Not Detect); Trichomonas vaginalis PCR NOT DETECTED (Not Detect)
== END 2024-01-30 11:08 | disposition home or self-care (01) ==
LOC: HO.LAB 11:07
PROVIDERS: PCP Internal Medicine; Visit Provider Advanced Practice Midwife
DX: Z20.2 Contact with and (suspected) exposure to infections with a predominantly sexual mode of transmission (principal); N89.8 Other specified noninflammatory disorders of vagina; Z87.448 Personal history of other diseases of urinary system
CPT/HCPCS: 0352U; 0353U; 81003; 86704; 86780; 86803; 87389

== ENCOUNTER 2024-03-24 15:38 | Outpatient (AMB) | payer OTHER, SELFPAY ==
[2024-03-24 15:41] VITALS: BP 112/75; PULSE 79; BMI 29.8
--- NOTE | 2024-03-24 15:41 | MHC.OFFVIS ---
Vital Signs 03/24/24 15:41 Height 5 ft 2 in Weight 162 lb 11.218 oz BMI 29.8 BP 112/75 Blood Pressure Location Lt brachial Position Sitting Pulse 79 Intake Visit Reasons: follow up 6 months Intake Note: Patient in office today in follow up of GERD. CC: Patient states that she has been having epigastric pain for 2 days after eating meat with fat. She states GERD and constipation are well controlled with medications. Shop Assistant Required: No Accompanied by: Self / Same As Patient Allergies cephalexin [From KEFLEX] Allergy (Severe, Verified 05/18/24 17:23) SOB/HIVES Iodinated Contrast Media [IV CONTRAST] Allergy (Severe, Verified 05/18/24 17:23) SOB/CHEST PAIN/DIFFICULTY BREATHING oxycodone [From Percocet] Allergy (Intermediate, Verified 05/18/24 17:23) itchy, SOB environmental allergies Allergy (Mild, Verified 05/18/24 17:23) congestion HPI HPI follow up 6 months: Details: Assessment & Plan (1) Gastroparesis: Comment: GASTRIC EMPTYING STUDY 08/17/22 IMPRESSION: Abnormal study. There is marked abnormal retention of solid food in the stomach at 4 hours. Code(s): K31.84 - Gastroparesis (2) GERD (gastroesophageal reflux disease): Code(s): K21.9 - Gastro-esophageal reflux disease without esophagitis (3) Chronic idiopathic constipation: Code(s): K59.04 - Chronic idiopathic constipation (4) IBS (irritable bowel syndrome): Code(s): K58.9 - Irritable bowel syndrome without diarrhea Plan She is having more vomiting, although she was better for a while. She shaking of her hands taking the Reglan so she discontinued it. She was doing well for a little while but now the symptoms have returned. We know the gastroparesis is 1 of the root causes of her constipation and her nausea; it is idiopathic, so it is uncertain what makes it better or worse. She has had no other new medications, and she has had a lot on her mind lately so I do not know stress may be a contributing factor. She has constipation on off and I did let her know that sometimes we can manage things from below with laxatives but for now she prefers to continue on her magnesium for this. I offer her Zofran to help with the symptom of nausea but she declines. If she reconsiders this I can always prescribe this for her. She continues on her pantoprazole twice a day, and on her Creon and simethicone. She will be due for repeat colonoscopy in 2026. Return office visit in 6 month Medications: Refilled [id number] 36,000-114,000- 180,000 unit (Creon) administer with meals and/or snacks 1 cap PO QID 120 caps 6RF K58.9 - Irritable bowel syndrome without diarrhea pantoprazole 40 mg PO BID 60 tabs 6RF K21.9 - Gastro-esophageal reflux disease without esophagitis, K27.9 - Peptic ulcer, site unspecified, unspecified as acute or chronic, without hemorrhage or perforation magnesium oxide 500 mg PO BID 30 days 60 caps 6RF K59.04 - Chronic idiopathic constipation simethicone after meals 180 mg PO .tidac 30 days 90 caps 6RF Discontinued metoclopramide HCl (Reglan) Discontinued Reason: Doctor's Order 2.5 mg (1/2 x 5 mg) PO BID 30 tabs 6RF K31.84 - Gastroparesis TODAY'S VISIT She continues on her pantoprazole twice a day Creon and simethicone. She is more constipation lately this may be because the Creon is now regulating her bowels better. Will start her on a trial of senna. She is complaining of difficulty swallowing and I think will get a barium swallow to look at this also to see if there is any hiatal hernia or paraesophageal hernia contributing to her ongoing nausea and vomiting syndrome. She continues on Zofran for help with this symptom. She did not tolerate Reglan related to hand shaking. Return office visit in 6 weeks [facility] Medical History Chest pain Dizziness Palpitations Osteoporosis screening Cervical cancer screening Breast cancer screening by mammogram Obesity (BMI 30-39.9) Pure hypercholesterolemia Erosive gastritis Osteoarthritis Esophagitis Duodenitis Tubular adenoma of colon Hemorrhagic gastritis Class 1 obesity Anxiety disorder due to medical condition Elevated blood pressure reading without diagnosis of hypertension COVID-19 Peptic ulcer disease Low back pain Vaginal odor Painful breasts Overweight (BMI 25.0-29.9) Vitamin D deficiency Migraine Gastroparesis History of COVID-19 Asthma GERD (gastroesophageal reflux disease) Surgical History History of esophagogastroduodenoscopy (EGD) Hx of colonoscopy History of hernia surgery Hx of tubal ligation History of appendectomy H/O: hysterectomy Family History Mother Uterine cancer Family/Other History of breast cancer Social History Housing: House Alcohol intake: never Patient Tobacco Use Status: Never used Tobacco Tobacco use type: Cigarette e-Cigarette/Vaping Use: Never Used Second Hand Smoke Exposure: No service: No Current occupational status: 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 Sexual orientation: Straight/Heterosexual Gender identity: Female Cognitive needs: No Hearing needs: No Vision needs: Yes Female Reproductive History Menstrual Age of Menarche: 12 Review of Systems Const Denies fatigue, Denies fever(s), Denies night sweats, Denies poor appetite and Denies weight loss Eyes Details: glasses Reports requires corrective lenses ENT Reports Normal hearing present, Denies dental pain, Reports dysphagia, Denies hearing loss, Denies mouth pain, Denies odynophagia, Denies throat swelling, Denies tongue swelling and Reports other (Dentition adequate) Card Reports no additional complaints Resp Reports no additional complaints GI Details: Denies abdominal pain, Denies melena, Denies bloating, Denies hematochezia, Reports constipation, Denies GI cramping, Reports dysphagia, Denies excessive flatus, Denies early satiety, Reports heartburn, Denies diarrhea, Reports nausea, Denies odynophagia, Denies vomiting and Denies hematemesis Skin/Breast Denies pruritus, Denies lesions, Denies rash and Denies jaundice Neuro Reports Normal hearing present and Denies Abnormal speech present Endo Denies fatigue Aller/Immun Denies throat swelling and Denies tongue swelling Physical Exam Vital Signs: Last Vital Signs Pulse 79 03/24/24 15:41 BP 112/75 03/24/24 15:41 BMI result Body Mass Index 29.8 Const General: cooperative, no acute distress, well developed and well groomed Nutritional Appearance: well nourished and overweight Orientation/consciousness: oriented to person, oriented to place and oriented to time Limitations: No language barrier HEENT Head: Yes normocephalic and Yes atraumatic Eyes General: appearance normal, both eyes and all related structures Pupils: Equal, round and reactive pupils present Neck Neck: Yes normal visual inspection and Yes no lymphadenopathy Thyroid: Thyroid normal Resp Effort & Inspection: normal respiratory effort and able to speak in complete sentences Auscultation: clear to auscultation bilaterally Cardio Rate: regular rate Rhythm: regular rhythm Heart sounds: Normal, physiologic split S2 sound present Peripheral pulses: radial pulses present and posterior tibial pulses present GI Inspection: No distended and No Abdominal panniculus present Palpation (GI): Soft to palpation, nontender, no guarding, not rigid and No hepatosplenomegaly present Percussion: Yes normal to percussion Auscultation: normal bowel sounds Rectal Exam - Female: deferred Skin General skin exam: no rashes or lesions noted, turgor normal, skin not dry, no jaundice, No spider nevi and no striae Rashes: no rashes Nails: normal Neuro General: oriented to person, oriented to place and oriented to time Cranial nerves: Yes Equal, round and reactive pupils present and Yes Normal hearing present Speech: No Abnormal speech present Extrem General: Yes normal to inspection, No clubbing, No cyanosis and No edema Psych Appearance: grossly normal and well kempt Mental Status: mental status grossly normal Speech and movement: Normal speech and movement present Affect: normal affect Attitude: cooperative Thought process: Normal thought process present and not confabulating Thought content: Normal thought content present Insight: Limited insight present (Psych) Judgement: Limited judgement present (Psych) Assessment & Plan Assessment & Plan (1) GERD (gastroesophageal reflux disease): Code(s): K21.9 - Gastro-esophageal reflux disease without esophagitis Category: Medical (2) Gastroparesis: Comment: She could not tolerate reglan r/t hand shaking GASTRIC EMPTYING STUDY 08/17/22 IMPRESSION: Abnormal study. There is marked abnormal retention of solid food in the stomach at 4 hours. Code(s): K31.84 - Gastroparesis Category: Medical (3) Chronic idiopathic constipation: Code(s): K59.04 - Chronic idiopathic constipation Category: Medical (4) Erosive gastritis: Code(s): K29.60 - Other gastritis without bleeding Category: Medical Plan She continues on her pantoprazole twice a day Creon and simethicone. She is more constipation lately this may be because the Creon is now regulating her bowels better. Will start her on a trial of senna. She is complaining of difficulty swallowing and I think will get a barium swallow to look at this also to see if there is any hiatal hernia or paraesophageal hernia contributing to her ongoing nausea and vomiting syndrome. She continues on Zofran for help with this symptom. She did not tolerate Reglan related to hand shaking. Return office visit in 6 weeks Orders: Orders [place] barium swallow 03/24/24 K21.9 - Gastro-esophageal reflux disease without esophagitis Medications: New sennosides (Senna Laxative) 17.2 mg (2 x 8.6 mg) PO BEDTIME 60 tabs 6RF K59.04 - Chronic idiopathic constipation Refilled pantoprazole 40 mg PO BID 180 tabs 1RF K27.9 - Peptic ulcer, site unspecified, unspecified as acute or chronic, without hemorrhage or perforation, K21.9 - Gastro-esophageal reflux disease without esophagitis pantoprazole 40 mg PO BID 180 tabs 1RF K27.9 - Peptic ulcer, site unspecified, unspecified as acute or chronic, without hemorrhage or perforation, K21.9 - Gastro-esophageal reflux disease without esophagitis [id number] 36,000-114,000- 180,000 unit (Creon) administer with meals and/or snacks 1 cap PO QID 120 caps 6RF K58.9 - Irritable bowel syndrome without diarrhea magnesium oxide 500 mg PO BID 60 caps 6RF 30 days K59.04 - Chronic idiopathic constipation simethicone after meals 180 mg PO .tidac 90 caps 6RF 30 days [id number] 36,000-114,000- 180,000 unit (Creon) administer with meals and/or snacks 1 cap PO QID 120 caps 6RF K58.9 - Irritable bowel syndrome without diarrhea Coding Level of Care Code Est Pt Level 3 (20569) Diagnoses GERD (gastroesophageal reflux disease) K21.9 Gastroparesis K31.84 Chronic idiopathic constipation K59.04 Erosive gastritis K29.60
== END 2024-03-24 16:24 | disposition home or self-care (01) ==
PROVIDERS: PCP Internal Medicine; Visit Provider Nurse Practitioner
DX: K21.9 Gastro-esophageal reflux disease without esophagitis (principal); K31.84 Gastroparesis; K59.04 Chronic idiopathic constipation; K29.60 Other gastritis without bleeding
CPT/HCPCS: 99213

== ENCOUNTER → 2024-03-24 15:38 | Outpatient (BNVA) | payer OTHER, SELFPAY | PROVIDERS: PCP Internal Medicine; Visit Provider Nurse Practitioner ==

== ENCOUNTER 2024-04-07 14:00 | Outpatient (REF) | payer OTHER, SELFPAY ==
--- NOTE | ~2024-04-07 | MM_ITS ---
EXAMINATION: BONE DENSITOMETRY CLINICAL INDICATION: Asymptomatic menopausal state. COMPARISON: This is the patient's baseline examination. TECHNIQUE: Using a Oculo Therapy DXA System (software version: 13.1) manufactured by [employer] (f[employer]), dual-energy x-ray absorptiometry was performed of the lumbar spine and left hip. The images are of good technical quality. Summary results are attached. FINDINGS: LEFT FEMUR, NECK: BMD 0.949 g/cm2, Z-score 0.1, T-score -0.6, normal. LEFT FEMUR, TOTAL: BMD 0.980 g/cm2, Z-score 0.1, T-score -0.2, normal. AP SPINE L1-L4: BMD 1.086 g/cm2, Z-score -0.4, T-score -0.8, normal. IDENTIFIED RISK FACTORS: Hysterectomy, left oophorectomy, menopause. HISTORY OF FRACTURE: None listed. MEDICATIONS: None listed. MM/XR DEXA axial skeleton IMPRESSION: 1. DIAGNOSIS: Normal bone density based on the lowest T-score value of -0.8 in the lumbar spine applying World Health Organization criteria. 2. 10-YEAR FRACTURE RISK PREDICTION, FRAX: According to the guidelines, FRAX calculation should only be performed on patients in the osteopenia bone density category. Therefore, FRAX was not performed on this patient. 3. Treatment Recommendations: NOF guidelines recommend consideration for treatment in postmenopausal women and men age 50 and older presenting with the following: -A hip or vertebral (clinical or morphometric) fracture. -T-score less than or equal to -2.5 at the femoral neck or spine after appropriate evaluation to exclude secondary causes. -Low bone mass at the hip or spine and a 10-year fracture probability by FRAX of greater than or equal to 3% for hip fracture or greater than or equal to 20% for major osteoporotic fracture based on the [place] adapted WHO algorithm. 4. Other Recommendations: All treatment decisions require clinical judgment and consideration of individual patient factors, including patient preferences, comorbidities, previous drug use, risk factors not captured in the FRAX model (e.g. frailty, falls, vitamin D deficiency, increased bone turnover, interval significant decline in bone density) and possible under or overestimation of fracture risk by FRAX. FUTURE SCAN RECOMMENDATION: People with diagnosed cases of osteoporosis or at high risk for fracture should have regular bone mineral density tests. For patients eligible for Medicare, routine testing is allowed once every 2 years. The testing frequency can be increased to one year for patients who have rapidly progressing disease, those who are receiving or discontinuing medical therapy to restore bone mass, or have additional risk factors.
== END 2024-04-07 14:01 | disposition home or self-care (01) ==
LOC: HO.MAMMO 14:00
PROVIDERS: PCP Internal Medicine; Visit Provider Internal Medicine
DX: Z12.31 Encounter for screening mammogram for malignant neoplasm of breast (principal); Z13.820 Encounter for screening for osteoporosis; Z78.0 Asymptomatic menopausal state
CPT/HCPCS: 77063; 77067; 77080

== ENCOUNTER → 2024-04-07 14:15 | Outpatient (BNV) | payer OTHER, SELFPAY | PROVIDERS: PCP Internal Medicine; Visit Provider Radiology Diagnostic Radiology | DX: Z12.31 Encounter for screening mammogram for malignant neoplasm of breast (principal) | CPT/HCPCS: 77063; 77067 ==

== ENCOUNTER 2024-05-18 16:51 | Outpatient (AMB) | payer OTHER, SELFPAY ==
--- NOTE | 2024-05-18 16:54 | A.OFFPC_ITS ---
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 Allergies cephalexin [From KEFLEX] Allergy (Severe, Verified 05/18/24 17:23) SOB/HIVES Iodinated Contrast Media [IV CONTRAST] Allergy (Severe, Verified 05/18/24 17:23) SOB/CHEST PAIN/DIFFICULTY BREATHING oxycodone [From Percocet] Allergy (Intermediate, Verified 05/18/24 17:23) itchy, SOB environmental allergies Allergy (Mild, Verified 05/18/24 17:23) congestion Medication List - Last Reconciled 05/18/24 by Everett Gutierrez MD albuterol sulfate 2.5 mg (3 mL) inhalation Q4-6H PRN albuterol sulfate 90 mcg/actuation 2 inhalations inhalation QID PRN atorvastatin 10 mg PO BEDTIME 30 days celecoxib (Celebrex) 200 mg PO BID 30 days [id number] 36,000-114,000- 180,000 unit (Creon) 1 cap PO QID magnesium oxide 500 mg PO BID 30 days pantoprazole 40 mg PO BID sennosides (Senna Laxative) 17.2 mg (2 x 8.6 mg) PO BEDTIME simethicone 180 mg PO .tidac 30 days Tobacco use date assessed: 01/13/24 Dental Screening Dental Screen Date: 01/13/24 HPI hypothyroid HPI Details Patient comes in today for her follow up visit States that she continues to experience frequent diffuse joint pains and muscle aches Adds that she's had on and off chest congestion and recurrent coughing for the past couple of weeks now States that her chest feels tight at times, with on and off [place] Relates that her cough is mostly non-productive and seems to be worse at night She denies any fever or sore throat She relates increased fatigue often but denies any headaches or dizziness Denies any exertional chest pains No nausea/vomiting; still (+) mild epigastric pain at times with frequent bloating sensation No change in bowel habits noted She had her labs done back in January 2024 - to discuss her results [facility] Medical History Chest pain Dizziness Palpitations Osteoporosis screening Cervical cancer screening Breast cancer screening by mammogram Obesity (BMI 30-39.9) Pure hypercholesterolemia Erosive gastritis Osteoarthritis Esophagitis Duodenitis Tubular adenoma of colon Hemorrhagic gastritis Class 1 obesity Anxiety disorder due to medical condition Elevated blood pressure reading without diagnosis of hypertension COVID-19 Peptic ulcer disease Low back pain Vaginal odor Painful breasts Overweight (BMI 25.0-29.9) Vitamin D deficiency Migraine Gastroparesis History of COVID-19 Asthma GERD (gastroesophageal reflux disease) Surgical History History of esophagogastroduodenoscopy (EGD) Hx of colonoscopy History of hernia surgery Hx of tubal ligation History of appendectomy H/O: hysterectomy Family History Mother Uterine cancer Family/Other History of breast cancer Social History Housing: House Alcohol intake: never Patient Tobacco Use Status: Never used Tobacco Tobacco use type: Cigarette e-Cigarette/Vaping Use: Never Used Second Hand Smoke Exposure: No service: No Current occupational status: 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 1. Little interest or pleasure in doing things: not at all 2. Feeling down, depressed, or hopeless: not at all 3. Trouble falling or staying asleep, or sleeping too much: not at all 4. Feeling tired or having little energy: not at all 5. Poor appetite or overeating: not at all 6. Feeling bad about yourself - or that you are a failure or have let yourself or your family down: not at all 7. Trouble concentrating on things, such as reading the newspaper or watching television: not at all 8. Moving or speaking so slowly that other people could have noticed. Or the opposite - being so fidgety or restless that you have been moving around a lot more than usual: not at all 9. Thoughts that you would be better off or of hurting yourself in some way: not at all Total score: 0 Depression Screening Interpretation: Negative Depression Screening Done: Yes 00897 - PHQ-9 Billing: Yes Source: Developed by Drs. Julio Martínez, Reina Ness, Maximo Yousif and colleagues, with an educational neha from [employer]. Thrive Questionnaire Date Thrive assessed: 01/13/24 Are you currently unemployed and looking for a job?: No THRIVE Score: 0 AUDIT C Alcohol Use Questionnaire (AUDIT-C) 1. How often do you have a drink containing alcohol?: Never 3. How often do you have six or more drinks on one occasion?: Never Total Score: 0 Score Reviewed/Action Taken: Yes DANA-7 AMB Questionnaire DANA-7 Date DANA - 7 assessed: 01/13/24 Source: Developed by Drs. Julio Martínez, Reina Ness, Maximo Yousif and colleagues, with an educational neha from [employer]. Review of Systems Const Denies chills, Reports difficulty sleeping, Reports fatigue (chronic), Denies fever(s) and Denies headache(s) ENT Denies dysphagia, Denies dizziness, Denies otalgia, Denies headache(s), Reports nasal congestion, Denies neck pain, Denies odynophagia and Denies sore throat Card Denies chest pain, Denies irregular heart rhythm, Denies palpitations and Reports dyspnea on exertion Resp Reports chest congestion (chest feels tight often over the past 2 weeks), Reports cough (recurrent, non-productive and worse at night), Reports dyspnea on exertion and Denies wheezing GI Reports abdominal pain (occasional, mostly over the epigastric area), Reports bloating (frequent), Reports constipation (chronic), Denies dysphagia, Reports early satiety, Reports dyspepsia, Denies heartburn, Denies diarrhea, Denies nausea, Denies odynophagia and Denies vomiting Denies hematuria, Denies urinary frequency, Denies dysuria and Denies urinary urgency Musc Reports back pain (on and off), Reports myalgias (diffuse), Reports arthralgias (involving multiple joints, including shoulders, elbows and both hips), Denies joint swelling, Denies neck pain and Reports stiffness Skin/Breast Denies rash Neuro Denies dizziness, Denies headache(s) and Denies paresthesias Psych Denies anxiety and Denies depression Endo Reports fatigue (chronic) and Denies palpitations Aller/Immun Denies wheezing Physical exam (Primary Care) Vital Signs: Last Vital Signs Pulse 77 05/18/24 16:55 BP 110/78 05/18/24 16:55 Pulse Ox 94 05/18/24 16:55 Oxygen Delivery Method Room Air 05/18/24 16:55 BMI result Body Mass Index 28.9 Tobacco/Smoking Status: Tobacco use Status Tobacco use date assessed 01/13/24 05/18/24 16:58 Patient Tobacco Use Status Never used Tobacco 05/18/24 16:58 Tobacco use type Cigarette 05/18/24 16:58 e-Cigarette/Vaping Use Never Used 05/18/24 16:58 PHQ-9: PHQ-9 Score PHQ-9: Total score 0 05/18/24 21:57 Depression Screening Interpretation: Negative Thrive Assessment: Date of Thrive Assessment Date Thrive assessed 01/13/24 05/18/24 16:58 Const General: no acute distress and alert HENMT Ears: TM's normal bilaterally and EAC's normal Throat: Yes posterior oropharynx normal and Yes tonsils normal (no TP congestion) Neck Neck: Yes no lymphadenopathy and Yes supple Thyroid: Thyroid normal Resp Auscultation: no crackles, no rales, rhonchi (scattered) throughout, no wheezes, diminished lung sounds (slightly) bilateral and bronchial breath sounds bilateral Cardio Rate: regular rate Rhythm: regular rhythm Heart sounds: no murmurs GI Palpation (GI): Soft to palpation, nontender (but (+) epigastric discomfort on deep palpation), no guarding and No Rebound tenderness present Auscultation: normal bowel sounds General: Yes no CVA tenderness Back/Spine/Pelvis Back: no CVA tenderness Cervical Spine: cervical muscular tenderness (bilateral) and No Cervical spine tenderness Thoracic/Lumbar Spine: lumbar spinal tenderness (mild) Skin Rashes: no rashes Extrem General: Yes no clubbing, cyanosis or edema Right upper extremity: shoulder/upper arm Details: tenderness (diffusely over the scapular area) Left upper extremity: shoulder/upper arm Details: tenderness (diffusely over the scapular areas) Results Reviewed Results Reviewed: Laboratory Tests 01/21/24 01/30/24 07:24 11:30 WBC 7.1 Hgb 12.8 Hct 40.1 Plt Count 297 ESR 18 Sodium 143 Potassium 4.3 Creatinine 0.90 Estimated GFR > 60 Fasting Glucose 105 H Calcium 9.5 AST 24 ALT 27 C-Reactive Protein 0.26 Triglycerides 125 Cholesterol 178 LDL Cholesterol, Calc 111 H HDL Cholesterol 42 Vitamin B12 389 25-OH Vitamin D Total 29.2 L TSH 2.14 Ur Specific [place] 1.025 Urine Protein Trace Urine Glucose (UA) Negative Urine Blood Negative Urine Nitrite Negative Ur Leukocyte Esterase Negative Rheumatoid Factor < 13.0 Lyme Screen IgG & IgM POSITIVE Assessment and Plan Assessment & Plan (1) Pure hypercholesterolemia: Code(s): E78.00 - Pure hypercholesterolemia, unspecified Plan: Results of her labs done a few months ago reviewed and discussed with patient - advised that her cholesterol levels have improved significantly from last year Reinforced low cholesterol diet Continue Atorvastatin 10 mg QD Will recheck her labs and fasting lipids in 4 months for follow up (2) Myalgia: Code(s): M79.10 - Myalgia, unspecified site Plan: Diffuse - suspect fibromyalgia although her sed rate was normal when checked a few months ago Patient is advised that her all of her labs that are related to this, including test for Lyme disease, were all negative For completion, will check her for EBV with her next set of labs in a few months (3) Arthralgia: Code(s): M25.50 - Pain in unspecified joint Qualifiers: Joint pain location: unspecified Qualified Code(s): M25.50 - Pain in un specified joint Plan: She is advised that all of the tests we sent her for to look into these, including tests for RA and LORETTA, were all negative X-rays of her knees and feet done a few months ago revealed only minimal / early OA changes in the knees Will send her for x-rays of her hips and pelvis for further evaluation as she reports experiencing increased pain in her hips lately, especially after increased activity or walking Continue Celecoxib 200 mg BID with food PRN for now Will refer her to rheumatology for further evaluation and management (4) Back pain: Code(s): M54.9 - Dorsalgia, unspecified Qualifiers: Back pain location: back pain in other location Chronicity: unspecified Qualified Code(s): M54.89 - Other dorsalgia Plan: Thoracic spine x-rays done last year (2022) revealed (+) mild degenerative changes of the thoracic spine Will send her to get x-rays of her lumbar spine for further evaluation of her recent increased low back pain - advised that she likely also has mild degenerative changes in the lumbar spine, considering the above findings in her thoracic spine last year Reinforced activity and weight-lifting restrictions to avoid aggravating her back symptoms (5) Asthma exacerbation: Code(s): J45.901 - Unspecified asthma with (acute) exacerbation Qualifiers: Asthma severity: moderate Asthma persistence: persistent Qualified Code(s): J45.41 - Moderate persistent asthma with (acute) exacerbation Plan: Will start patient empirically on Azithromycin QD x 5 days but will send her to test for COVID, in light of the apparent spike in the number of COVID cases recently Continue Albuterol HFA 2 inhalations Q 6 hours PRN She used to be on Symbicort 80-4.5 mcg and Montelukast 10 mg but has not taken these in over a year - will start her back on Montelukast 10 mg QD for now Have advised patient that if her respiratory symptoms do not improve significantly over the next few weeks, will consider starting her back on Symbicort (6) Esophagitis: Comment: (+) erosive esophagitis on biopsy in 2018 Code(s): K20.90 - Esophagitis, unspecified without bleeding Plan: Dietary restrictions reinforced Repeat EGD done in October 2022 revealed (+) findings of erosive esophagitis and gastritis Continue Pantoprazole 40 mg BID Follow up with GI as scheduled (7) Erosive gastritis: Code(s): K29.60 - Other gastritis without bleeding Plan: Repeat EGD done in October 2022 revealed (+) findings of BOTH erosive esophagitis and gastritis Dietary restrictions reinforced Continue Pantoprazole 40 mg BID Follow up with GI as scheduled (8) Gastroparesis: Comment: She could not tolerate reglan r/t hand shaking GASTRIC EMPTYING STUDY 08/17/22 IMPRESSION: Abnormal study. There is marked abnormal retention of solid food in the stomach at 4 hours. Code(s): K31.84 - Gastroparesis Plan: This was noted/confirmed on gastric emptying studies done back in August 2022 She is reminded to keep her feedings small but to eat more frequently to help keep up with her nutritional requirements Continue Simethicone 180 mg QID and Creon 1 capsule QID Follow up with GI as scheduled (9) Chronic idiopathic constipation: Code(s): K59.04 - Chronic idiopathic constipation Plan: Encouraged again on increased oral fluids and dietary fiber Continue Senna 8.6 mg 1 to 2 tablets Q HS and Magnesium Oxide 500 mg BID Follow up with GI as scheduled (10) Migraine: Code(s): G43.909 - Migraine, unspecified, not intractable, without status migrainosus Qualifiers: Intractability: not intractable Migraine type: without aura Status migrainosus presence: without status migrainosus Qualified Code(s): G43.009 - Migraine without aura, not intractable, without status migrainosus Plan: Stable/controlled lately Reinforced avoidance of potential migraine triggers (11) Vitamin D deficiency: Code(s): E55.9 - Vitamin D deficiency, unspecified Plan: She is advised that her Vitamin D level is still slightly low on her recent labs Will start her back on Vitamin D3 2000 units QD (12) Overweight (BMI 25.0-29.9): Code(s): E66.3 - Overweight Plan: Reinforced diet/exercise as tolerated/lose weight Plan Follow up in 4 months Orders: Orders Lipid Panel 4 Months E78.00 - Pure hypercholesterolemia, unspecified SARS-CoV2/FLU/RSV 05/18/24 J98.8 - Other specified respiratory disorders Melissa-Jones Virus Profile 4 Months M79.10 - Myalgia, unspecified site, R53.82 - Chronic fatigue, unspecified UA CC w/rflx Micro + Cult 4 Months R30.0 - Dysuria Vitamin D 25-OH Total 4 Months E55.9 - Vitamin D deficiency, unspecified XR hip BI w PEL1V 24 M25.551 - Pain in right hip, M25.552 - Pain in left hip XR lumbar spine 2-3V 05/18/24 M54.50 - Low back pain, unspecified Complete Blood Count Auto Diff 4 Months D64.9 - Anemia, unspecified Comprehensive Price. Panel Fast 4 Months E78.00 - Pure hypercholesterolemia, unspecified Referrals Rheumatology Referral M25.50 - Pain in unspecified joint, M79.10 - Myalgia, unspecified site Medications: New azithromycin take 500 mg today (day 1), then 250 mg for 4 days (days 2-5) PO 6 tabs 0RF Coding Level of Care Code Est Pt Level 4 (99904) Diagnoses Pure hypercholesterolemia E78.00 Myalgia M79.10 Arthralgia, unspecified joint M25.50 Joint pain location: unspecified Other back pain, unspecified chronicity M54.89 Back pain location: back pain in other location Chronicity: unspecified Moderate persistent asthma with exacerbation J45.41 Asthma severity: moderate Asthma persistence: persistent Esophagitis K20.90 Erosive gastritis K29.60 Gastroparesis K31.84 Chronic idiopathic constipation K59.04 Migraine G43.009 Intractability: not intractable Migraine type: without aura Status migrainosus presence: without status migrainosus Vitamin D deficiency E55.9 Overweight (BMI 25.0-29.9) E66.3
[2024-05-18 16:55] VITALS: BP 110/78; PULSE 77; O2SAT 94; BMI 28.9
== END 2024-05-18 17:39 | disposition home or self-care (01) ==
PROVIDERS: PCP Internal Medicine; Visit Provider Internal Medicine
DX: E78.00 Pure hypercholesterolemia, unspecified (principal); M79.10 Myalgia, unspecified site; M25.50 Pain in unspecified joint; M54.89 Other dorsalgia; J45.41 Moderate persistent asthma with (acute) exacerbation; K20.90 Esophagitis, unspecified without bleeding; K29.60 Other gastritis without bleeding; K31.84 Gastroparesis; K59.04 Chronic idiopathic constipation; G43.009 Migraine without aura, not intractable, without status migrainosus; E55.9 Vitamin D deficiency, unspecified; E66.3 Overweight

== ENCOUNTER → 2024-05-18 16:51 | Outpatient (BNVA) | payer OTHER, SELFPAY | PROVIDERS: PCP Internal Medicine; Visit Provider Internal Medicine | DX: E78.00 Pure hypercholesterolemia, unspecified (principal); M79.10 Myalgia, unspecified site; M25.50 Pain in unspecified joint; M54.89 Other dorsalgia; J45.41 Moderate persistent asthma with (acute) exacerbation; K20.90 Esophagitis, unspecified without bleeding; K29.60 Other gastritis without bleeding; K31.84 Gastroparesis; K59.04 Chronic idiopathic constipation; G43.009 Migraine without aura, not intractable, without status migrainosus; E55.9 Vitamin D deficiency, unspecified; E66.3 Overweight; Z79.899 Other long term (current) drug therapy | CPT/HCPCS: 96127 ==

== ENCOUNTER 2024-05-19 06:32 | Outpatient (REF) | payer OTHER, SELFPAY ==
--- NOTE | ~2024-05-19 | XR_ITS ---
EXAMINATION: XR LUMBAR SPINE. XR PELVIS AND HIPS. CLINICAL INFORMATION: Right hip pain. Low back pain. COMPARISON: Lumbar spine radiographs 10/19/2020 TECHNIQUE: 3 views of the lumbar spine. AP pelvis and AP and frog lateral views of each hip. FINDINGS: Lumbar spine: Moderate L5-S1 degenerative disc disease and mild degenerative disc disease at L1-L2 with disc space narrowing and endplate osteophytes. This is slightly progressed since the previous study. No fracture. Normal alignment and lumbar lordosis. Pelvis and hips: No fracture or malalignment. No significant joint space narrowing. No suspicious bone lesion or soft tissue calcification. Multiple phleboliths overlie the pelvis. XR/XR hip BI w PEL1V IMPRESSION: LUMBAR SPINE: Moderate L5-S1 degenerative disc disease, slightly progressed since the previous study. No acute abnormality. PELVIS AND HIP: Normal. Electronically signed by: Ramsey Dumont MD 05/25/2024 08:34 AM EDT
--- NOTE | ~2024-05-19 | XR_ITS ---
EXAMINATION: XR LUMBAR SPINE. XR PELVIS AND HIPS. CLINICAL INFORMATION: Right hip pain. Low back pain. COMPARISON: Lumbar spine radiographs 10/19/2020 TECHNIQUE: 3 views of the lumbar spine. AP pelvis and AP and frog lateral views of each hip. FINDINGS: Lumbar spine: Moderate L5-S1 degenerative disc disease and mild degenerative disc disease at L1-L2 with disc space narrowing and endplate osteophytes. This is slightly progressed since the previous study. No fracture. Normal alignment and lumbar lordosis. Pelvis and hips: No fracture or malalignment. No significant joint space narrowing. No suspicious bone lesion or soft tissue calcification. Multiple phleboliths overlie the pelvis. XR/XR lumbar spine 2-3V IMPRESSION: LUMBAR SPINE: Moderate L5-S1 degenerative disc disease, slightly progressed since the previous study. No acute abnormality. PELVIS AND HIP: Normal. Electronically signed by: Ramsey Dumont MD 05/25/2024 08:34 AM EDT
[2024-05-19 06:49] LABS: MANUAL DIFF FLAG NO
[2024-05-19 07:12] LABS: Basophils Percent Auto 0.4 % (0-2); Eosinophils Absolute Auto 0.4 X10*3/uL (0.0-0.4); Eosinophils Percent Auto 5.5 % (0-4); Hematocrit 39.9 % (37.0-47.0); Hemoglobin 12.5 g/dl (12.0-16.0); Imm Gran Abs Auto 0.01 X10*3/uL (0.00-0.03); Imm Gran Pct Auto 0.1 % (0.0-0.4); Lymphocytes Absolute Auto 2.5 X10*3/uL (1.2-4.9); Lymphocytes Percent Auto 34.5 % (20-40); Mean Corpuscular HGB Conc 31.3 g/dl (31.0-35.0); Mean Corpuscular Hemoglobin 29.5 pg (27.0-33.0); Mean Corpuscular Volume 94.1 fL (80.0-98.0); Mean Platelet Volume 9.9 fL (9.4-12.3); Monocytes Absolute Auto 0.8 X10*3/uL (0.1-1.2); Monocytes Percent Auto 11.4 % (2-11); Neutrophils Absolute Auto 3.5 x10*3/uL (2.0-8.3); Neutrophils Percent Auto 48.1 % (45-73); Platelet Count 325 X10*3/uL (160-400); Red Blood Count 4.24 X10*6/uL (4.20-5.50); Red Cell Distribution Width 13.5 % (11.0-16.0); White Blood Count 7.3 X10*3/uL (4.8-10.8)
[2024-05-19 07:51] LABS: Alanine Aminotransferase 26 U/L (0-31); Alkaline Phosphatase 130 U/L (39-117); Anion Gap 12 (12-20); Aspartate Amino Transferase 20 U/L (5-31); Bilirubin Total 0.2 mg/dL (0.0-1.0); Blood Urea Nitrogen 11 mg/dL (9-16); Calcium 9.5 mg/dL (8.4-10.2); Carbon Dioxide 30 mmol/L (22-29); Chloride 107 mmol/L (96-108); Cholesterol 173 mg/dL (<200); Estimated Glomerular Filt Rate > 60; Glucose Fasting 104 mg/dL (60-99); HDL Cholesterol 40 mg/dL (>40); LDL Cholesterol Calculated 109 mg/dL (<100); Potassium 4.7 mmol/L (3.3-5.1); Sodium 144 mmol/L (135-145); Total Protein 7.6 g/dL (6.5-8.0); Triglycerides 124 mg/dL (<150)
[2024-05-19 08:05] LABS: Vitamin D 25-OH Total 35.3 ng/mL (>30)
[2024-05-19 08:18] LABS: Influenza A PCR NEGATIVE (Negative); Influenza B PCR NEGATIVE (Negative); Resp Syncy Virus RNA Qual PCR NEGATIVE (Negative); SARS COV2 PCR INHOUSE NEGATIVE (Negative)
[2024-05-19 12:20] LABS: Appearance Urine Clear; Color Urine Yellow; Glucose Urine UA Negative (Negative); Leukocyte Esterase Urine Negative (Negative); Nitrite Urine Negative (Negative); Urine Blood Negative (Negative); Urine Ketones Negative (Negative); Urine Protein Negative (Neg-Trace)
[2024-05-21 07:02] LABS: EBV-VCA IgM Ab <36.00 U/mL
== END 2024-05-19 06:33 | disposition home or self-care (01) ==
LOC: HO.XRAY 06:32
PROVIDERS: PCP Internal Medicine; Visit Provider Internal Medicine
DX: M51.17 Intervertebral disc disorders with radiculopathy, lumbosacral region (principal); D64.9 Anemia, unspecified; E78.00 Pure hypercholesterolemia, unspecified; M79.10 Myalgia, unspecified site; R53.82 Chronic fatigue, unspecified; J98.8 Other specified respiratory disorders; R30.0 Dysuria; E55.9 Vitamin D deficiency, unspecified; R05.9 Cough, unspecified; R06.00 Dyspnea, unspecified
CPT/HCPCS: 0241U; 36415; 72100; 73521; 80053; 80061; 81003; 82306; 85025; 86664; 86665

== ENCOUNTER 2024-06-01 14:08 | Outpatient (REF) | payer OTHER, SELFPAY ==
--- NOTE | ~2024-06-01 | XR_ITS ---
EXAMINATION: XR CHEST CLINICAL INFORMATION: Cough, unspecified COMPARISON: Chest 09/19/2022 TECHNIQUE: 2 views of the chest were obtained. FINDINGS: No significant abnormality is noted involving the heart, lungs, mediastinum, bony thorax or soft tissues. XR/XR chest 2V IMPRESSION: Unremarkable examination. Electronically signed by: Jennifer Watts MD 06/01/2024 02:52 PM EDT RP
== END 2024-06-01 14:09 | disposition home or self-care (01) ==
LOC: HO.XRAY 14:08
PROVIDERS: PCP Internal Medicine; Visit Provider Internal Medicine
DX: R05.9 Cough, unspecified (principal)
CPT/HCPCS: 71046

== ENCOUNTER 2024-06-23 13:21 | Outpatient (AMB) | payer OTHER, SELFPAY ==
--- NOTE | 2024-06-23 12:41 | MHC.OFFVIS ---
Vital Signs 06/23/24 13:24 Height 5 ft 2 in Weight 162 lb 4 oz BMI 29.7 BP 118/74 Blood Pressure Location Rt brachial Position Sitting Pulse 82 Pulse Source Pulse Oximeter Pulse Oximetry (%) 98 Oxygen Delivery Method Room Air Intake Visit Reasons: cough/ asthma Allergies cephalexin [From KEFLEX] Allergy (Severe, Verified 06/23/24 13:27) SOB/HIVES Iodinated Contrast Media [IV CONTRAST] Allergy (Severe, Verified 06/23/24 13:27) SOB/CHEST PAIN/DIFFICULTY BREATHING oxycodone [From Percocet] Allergy (Intermediate, Verified 06/23/24 13:27) itchy, SOB environmental allergies Allergy (Mild, Verified 06/23/24 13:27) congestion HPI HPI cough/ asthma: Details: Laura is a pleasant 54-year-old female, never smoker, with underlying asthma, GERD, erosive gastritis, gastroparesis and hypertension. She was referred by PCP for pulmonary evaluation. She reports waxing and waning dry cough for the past few months. She denies dyspnea, chest tightness or wheezing. Recent chest x-ray unremarkable. She currently uses albuterol MDI frequently. Years ago was on a maintenance inhaler. She reports asthma diagnosis as an adult, never requiring intubations. She reports seasonal allergies, no recent allergy testing. When she did have allergy skin testing in the past it had to be discontinued due to increased respiratory symptoms. She has a dog at home. 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 She reports mother with asthma/COPD. She is under the care of GI for reflux and has been on omeprazole with moderate effect. She currently denies any reflux symptoms. FORMERLY [facility], LATER [facility] Medical History Chest pain Dizziness Palpitations Osteoporosis screening Cervical cancer screening Breast cancer screening by mammogram Obesity (BMI 30-39.9) Pure hypercholesterolemia Erosive gastritis Osteoarthritis Esophagitis Duodenitis Tubular adenoma of colon Hemorrhagic gastritis Class 1 obesity Anxiety disorder due to medical condition Elevated blood pressure reading without diagnosis of hypertension COVID-19 Peptic ulcer disease Low back pain Vaginal odor Painful breasts Overweight (BMI 25.0-29.9) Vitamin D deficiency Migraine Gastroparesis History of COVID-19 Asthma GERD (gastroesophageal reflux disease) Surgical History History of esophagogastroduodenoscopy (EGD) Hx of colonoscopy History of hernia surgery Hx of tubal ligation History of appendectomy H/O: hysterectomy Family History Mother Uterine cancer Family/Other History of breast cancer Social History Housing: House Alcohol intake: never Patient Tobacco Use Status: Never used Tobacco Tobacco use type: Cigarette e-Cigarette/Vaping Use: Never Used Second Hand Smoke Exposure: No service: No Current occupational status: 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 Sexual orientation: Straight/Heterosexual Gender identity: Female Cognitive needs: No Hearing needs: No Vision needs: Yes Female Reproductive History Menstrual Age of Menarche: 12 Review of Systems Const Denies chills, Denies excessive sweating, Denies fever(s), Denies headache(s) and Denies night sweats Eyes Denies dry eyes, Denies irritation and Denies itchy eyes ENT Reports Normal hearing present, Denies headache(s), Denies nasal congestion, Denies nasal discharge, Denies post nasal drip and Denies sore throat Card Denies chest pain, Denies chest pain at rest, Denies chest pain with activity, Denies claudication, Denies leg edema, Denies dyspnea, Denies dyspnea on exertion, Denies orthopnea and Denies paroxysmal nocturnal dyspnea Resp Denies chest congestion, Denies excessive phlegm production, Denies pain on inspiration, Denies pain with cough, Denies dyspnea, Denies dyspnea on exertion, Denies stridor and Denies wheezing Musc Denies myalgias Neuro Reports Normal hearing present and Denies headache(s) Endo Denies excessive sweating Julien/Lymph Denies lymphadenopathy Aller/Immun Denies itchy eyes, Denies seasonal rhinorrhea and Denies wheezing Physical Exam Vital Signs: Last Vital Signs Pulse 82 06/23/24 13:24 BP 118/74 06/23/24 13:24 Pulse Ox 98 06/23/24 13:24 Oxygen Delivery Method Room Air 06/23/24 13:24 BMI result Body Mass Index 29.7 Const General: cooperative, healthy appearing, comfortable, no acute distress, well developed and alert Nutritional Appearance: obese Orientation/consciousness: patient oriented x3 Limitations: no limitations HEENT Head: Yes normal to inspection, Yes normocephalic and Yes atraumatic Ears: hearing grossly normal bilaterally and external ears normal Eyes General: appearance normal, both eyes and all related structures Eyelids: Yes eyelids normal Sclerae: sclerae normal EOM: EOMs intact bilaterally Neck Neck: Yes normal visual inspection and Yes no lymphadenopathy Lymphatic: no lymphadenopathy noted Chest Chest palpation & inspection: normal inspection of the chest Resp Other: post exhalation cough Effort & Inspection: normal respiratory effort, able to speak in complete sentences, no audible wheezes, no stridor, not tachypneic, no tripod positioning and no use of accessory muscles Auscultation: clear to auscultation bilaterally Cardio Jugular venous distension: no JVD Rate: regular rate Rhythm: regular rhythm Skin Other: warm, dry General skin exam: no rashes or lesions noted Neuro General: patient oriented x3 Cranial nerves: Yes Normal hearing present Cognition (Neuro): normal cognition Gait exam (Neuro): Normal gait present Extrem General: Yes normal to inspection, Yes capillary refill normal, Yes no clubbing, cyanosis or edema and Yes no pedal edema Psych Appearance: grossly normal and well kempt Speech and movement: Normal speech and movement present and Clear speech present Affect: normal affect Attitude: cooperative Thought process: Normal thought process present Thought content: Normal thought content present Insight: Good insight present (Psych) Judgement: Good judgement present (Psych) Results Reviewed Results Reviewed: [address] [address] XRay Report Signed Patient: Laura Duval MR#: [id number] : 1970 Acct:[id number] Age/Sex: 54 / F ADM Date: 06/01/24 Loc: HO.XRAY Attending Dr: Everett Gutierrez MD Ordering Physician: Everett Gutierrez MD Date of Service: 06/01/24 Procedure(s): XR chest 2V Accession Number(s): [id number] cc: Everett Gutierrez MD~ EXAMINATION: XR CHEST CLINICAL INFORMATION: Cough, unspecified COMPARISON: Chest 09/19/2022 TECHNIQUE: 2 views of the chest were obtained. FINDINGS: No significant abnormality is noted involving the heart, lungs, mediastinum, bony thorax or soft tissues. XR/XR chest 2V IMPRESSION: Unremarkable examination. 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 She also reports multiple allergies which are likely contributing to symptoms, will send for RAST. Will empirically start Arnuity. Discussed importance of good oral hygiene. If cough persists despite optimal control of asthma, will consider chest CT. All questions were answered and patient is in agreement of plan. Will follow-up in 6-8 weeks or sooner use. Orders: Orders Complete Blood Count Auto Diff Today Z91.09 - Other allergy status, other than to drugs and biological substances Immunoglobulin E Today Z91.09 - Other allergy status, other than to drugs and biological substances Resp Allergy Profile Region I Today Z91.09 - Other allergy status, other than to drugs and biological substances PFT pulmonary function test Today J45.909 - Unspecified asthma, uncomplicated Medications: New fluticasone furoate 100 mcg/actuation (Arnuity Ellipta) 1 inh inhalation DAILY 30 ea 3RF Coding Level of Care Code New Pt Level 3 (79996) Diagnoses Uncomplicated asthma, unspecified asthma severity, unspecified whether persistent J45.909 Asthma complication type: uncomplicated Asthma persistence: unspecified Asthma severity: unspecified severity Environmental allergies Z91.09 Cough R05.9
[2024-06-23 13:24] VITALS: BP 118/74; PULSE 82; O2SAT 98; BMI 29.7
== END 2024-06-23 13:44 | disposition home or self-care (01) ==
PROVIDERS: PCP Internal Medicine; Referring Provider Internal Medicine; Visit Provider Nurse Practitioner Family
DX: J45.909 Unspecified asthma, uncomplicated (principal); Z91.09 Other allergy status, other than to drugs and biological substances; R05.9 Cough, unspecified
CPT/HCPCS: 99203

== ENCOUNTER → 2024-06-23 13:21 | Outpatient (BNVA) | payer OTHER, SELFPAY | PROVIDERS: PCP Internal Medicine; Referring Provider Internal Medicine; Visit Provider Nurse Practitioner Family | DX: Z91.09 Other allergy status, other than to drugs and biological substances (principal); J45.909 Unspecified asthma, uncomplicated ==

== ENCOUNTER 2024-06-23 13:49 | Outpatient (REF) | payer OTHER, SELFPAY ==
[2024-06-23 17:44] LABS: MANUAL DIFF FLAG NO
[2024-06-23 17:59] LABS: Basophils Percent Auto 0.4 % (0-2); Eosinophils Absolute Auto 0.4 X10*3/uL (0.0-0.4); Hematocrit 38.9 % (37.0-47.0); Hemoglobin 12.4 g/dl (12.0-16.0); Imm Gran Abs Auto 0.02 X10*3/uL (0.00-0.03); Imm Gran Pct Auto 0.3 % (0.0-0.4); Lymphocytes Absolute Auto 2.5 X10*3/uL (1.2-4.9); Lymphocytes Percent Auto 34.5 % (20-40); Mean Corpuscular HGB Conc 31.9 g/dl (31.0-35.0); Mean Corpuscular Hemoglobin 30.3 pg (27.0-33.0); Mean Corpuscular Volume 95.1 fL (80.0-98.0); Mean Platelet Volume 10.3 fL (9.4-12.3); Monocytes Absolute Auto 0.6 X10*3/uL (0.1-1.2); Monocytes Percent Auto 8.9 % (2-11); Neutrophils Absolute Auto 3.6 x10*3/uL (2.0-8.3); Neutrophils Percent Auto 49.9 % (45-73); Platelet Count 305 X10*3/uL (160-400); Red Blood Count 4.09 X10*6/uL (4.20-5.50); Red Cell Distribution Width 13.8 % (11.0-16.0); White Blood Count 7.2 X10*3/uL (4.8-10.8)
[2024-06-25 21:54] LABS: Class Alternaria alternata 0; Class Aspergillus fumigatus 0; Class Bermuda Grass 0; Class Birch 0; Class Cat Dander 3; Class Cladosporium herbarum 0; Class Cockroach 0/1; Class Common Ragweed 0; Class Cottonwood 0/1; Class Derm. pterony 3; Class Dermatophagoides farinae 3; Class Dog Dander 4; Class Elm 0; Class Maple Box Elder 0; Class Mountain Cedar 0; Class Mouse Urine Protein 3; Class Mugwort 0; Class Oak 0; Class Penicillium crysogenum 0; Class Rough Pigweed 0; Class Sheep Sorrel 0; Class Sycamore 0; Class Timothy Grass 0; Class Walnut Tree 0; Class White Ash 0; Class White Mulberry 0; E001 - IgE Cat Dander 3.85 kU/L; E072-IgE Mouse Urine 7.64 kU/L; G002 IgE Bermuda Grass <0.10 kU/L; G006 - IgE Timothy Grass <0.10 kU/L; I006-IgE Cockroach, German 0.25 kU/L; Immunoglobulin E 431 kU/L (<OR=114); M001 IgE Penicillium chrysogen <0.10 kU/L; M002 - IgE Cladosporium herbar <0.10 kU/L; M003 - IgE Aspergillus fumigat <0.10 kU/L; M006 - IgE Alternaria alternat <0.10 kU/L; T001 IgE Maple/Box Elder <0.10 kU/L; T003 IgE Common Silver Birch <0.10 kU/L; T006 - IgE Cedar, Mountain <0.10 kU/L; T007 - IgE Oak, White <0.10 kU/L; T008 IgE Elm, American <0.10 kU/L; T010 - IgE Walnut <0.10 kU/L; T011 - IgE Maple Leaf Sycamore <0.10 kU/L; T015 - IgE Ash, White <0.10 kU/L; T070 - IgE White Mulberry <0.10 kU/L; W001 - IgE Ragweed, Short <0.10 kU/L; W006 - IgE Mugwort <0.10 kU/L; W014 IgE Pigweed, Common <0.10 kU/L; W018 IgE Sheep Sorrel <0.10 kU/L
== END 2024-06-23 13:50 | disposition home or self-care (01) ==
LOC: HO.WFDLDS 13:49
PROVIDERS: Visit Provider Nurse Practitioner Family
DX: Z91.09 Other allergy status, other than to drugs and biological substances (principal)
CPT/HCPCS: 36415; 82785; 85025; 86003

== ENCOUNTER 2024-07-15 13:17 | Outpatient (AMB) | payer OTHER, SELFPAY ==
[2024-07-15 13:26] VITALS: BP 116/72; PULSE 87; O2SAT 97; BMI 29.9
--- NOTE | 2024-07-15 13:26 | A.OFFVIS_ITS ---
Vital Signs 07/15/24 13:26 Height 5 ft 2 in Weight 163 lb 5.8 oz BMI 29.9 BP 116/72 Blood Pressure Location Lt brachial Position Sitting Pulse 87 Pulse Source Pulse Oximeter Pulse Oximetry (%) 97 Oxygen Delivery Method Room Air Intake Visit Reasons: Myalgia/CM Intake Note: Patient presents today for myalgia, she was internally referred by PCP Dr. Gutierrez. Allergies cephalexin [From KEFLEX] Allergy (Severe, Verified 07/15/24 13:29) SOB/HIVES Iodinated Contrast Media [IV CONTRAST] Allergy (Severe, Verified 07/15/24 13:29) SOB/CHEST PAIN/DIFFICULTY BREATHING oxycodone [From Percocet] Allergy (Intermediate, Verified 07/15/24 13:29) itchy, SOB environmental allergies Allergy (Mild, Verified 07/15/24 13:29) congestion Medication List - Last Reconciled 07/15/24 by Chloe Daniels MD albuterol sulfate 2.5 mg (3 mL) inhalation Q4-6H PRN albuterol sulfate 90 mcg/actuation 2 inhalations inhalation QID PRN atorvastatin 10 mg PO BEDTIME 30 days celecoxib (Celebrex) 200 mg PO BID 30 days fluticasone furoate 100 mcg/actuation (Arnuity Ellipta) 1 inh inhalation DAILY [id number] 36,000-114,000- 180,000 unit (Creon) 1 cap PO QID magnesium oxide 500 mg PO BID 30 days pantoprazole 40 mg PO BID sennosides (Senna Laxative) 17.2 mg (2 x 8.6 mg) PO BEDTIME simethicone 180 mg PO .tidac 30 days HPI Comments Details: Patient is a 54-year-old female with hyperlipidemia who presents for evaluation of polyarthralgias Patient states that for the past 2 years she has noticed insidious onset of polyarticular joint pain involving her hands, wrists, elbows, shoulders, hips, knees and ankles. This is associated with overwhelming fatigue and insomnia (difficulty getting to sleep at night). She particularly notes that she finds it difficult to lay on either side of her hips at night. Denies rashes, photosensitivity, alopecia, oral/nasal ulcers, sicca symptoms, lymphadenopathy, chest pain/shortness of breath, foamy urine, lower extremity edema, muscle weakness, Raynaud's Also denies history of seizure, CVA, psychosis, history of kidney problems, history of cytopenias, history of VTE including PE or DVTs FORMERLY [facility], [facility] Medical History (Updated 07/15/24 @ 14:36 by Chloe Daniels MD) Bilateral carpal tunnel syndrome Fibromyalgia Chest pain Dizziness Palpitations Osteoporosis screening Cervical cancer screening Breast cancer screening by mammogram Obesity (BMI 30-39.9) Pure hypercholesterolemia Erosive gastritis Osteoarthritis Esophagitis Duodenitis Tubular adenoma of colon Hemorrhagic gastritis Class 1 obesity Anxiety disorder due to medical condition Elevated blood pressure reading without diagnosis of hypertension COVID-19 Peptic ulcer disease Low back pain Vaginal odor Painful breasts Overweight (BMI 25.0-29.9) Vitamin D deficiency Migraine Gastroparesis History of COVID-19 Asthma GERD (gastroesophageal reflux disease) Surgical History History of esophagogastroduodenoscopy (EGD) Hx of colonoscopy History of hernia surgery Hx of tubal ligation History of appendectomy H/O: hysterectomy Family History Mother Uterine cancer Family/Other History of breast cancer Social History Housing: House Alcohol intake: never Patient Tobacco Use Status: Never used Tobacco Tobacco use type: Cigarette e-Cigarette/Vaping Use: Never Used Second Hand Smoke Exposure: No service: No Current occupational status: 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 Sexual orientation: Straight/Heterosexual Gender identity: Female Cognitive needs: No Hearing needs: No Vision needs: Yes Female Reproductive History Menstrual Age of Menarche: 12 Review of Systems Const Details: Review of Systems Constitutional: Denies fever, chills, weight loss ENT: Denies vision changes, eye pain or eye redness, dental caries, dry mouth GI: Denies nausea, vomiting, diarrhea, abdominal pain, change in BM Pulm: Denies SOB, [place]DR[place]ON, hemoptysis, wheezing Cards: Denies chest pain, palpitations Skin: Denies Raynaud's, rash, nail changes, photosensitivity, MANAGER AEROSPACE: Denies headaches, weakness, paresthesias, recurrent falls MSK: as per HPI All other systems reviewed and are unremarkable except noted above Physical Exam Vital Signs: Last Vital Signs Pulse 87 11/13/24 13:26 BP 116/72 07/15/24 13:26 Pulse Ox 97 07/15/24 13:26 Oxygen Delivery Method Room Air 07/15/24 13:26 BMI result Body Mass Index 29.9 Physical Examination CONSTITUITIONAL Patient alert and cooperative. Well appearing and in no apparent painful distress HEENT Conjunctiva and sclera clear. ?Pupils equal round and reactive to light. CHEST/RESPIRATORY SYSTEM Normal respiratory effort and able to speak in complete sentences. ?Clear to auscultation bilaterally. ?No crackles, rales, rhonchi, wheezes heard. CARDIAC SYSTEM Regular rate and rhythm. ?S1 and S2 heard no murmurs. 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 ?No deformities noted. ?No synovitis noted to the MCPs, PIPs or DIPs. ?No tenderness to palpation of these joints. Wrists: ?Full range of motion at the wrists without pain. ?No tenderness to palpation or synovitis noted to the wrists. Positive median nerve compression test Elbows: Full range of motion without pain. No tenderness, weakness, swelling, increased warmth or erythema. Shoulders: Full range of motion without pain. No tenderness, weakness, swelling, increased warmth or erythema. Hips: Full range of motion without pain. Hip bursa: Bilateral tenderness to palpation right worse than left Knees: ?Full range of motion. ?No tenderness, swelling, increased warmth or erythema.?No effusion or crepitations Ankles: Full range of motion. ?No tenderness, swelling, increased warmth or erythema.? Feet: ?Negative squeeze test. ?No tenderness to palpation or swelling of the MTPs. Tender points:??Tenderness to palpation of the neck, shoulders, chest, elbows, hips, buttocks or knees. SKIN Skin intact without rashes. Preliminary diagnostic criteria for fibromyalgia: Widespread pain index 7, somatic severity scale 9 Results Reviewed Results Reviewed: Laboratory Tests 01/12/23 01/21/24 05/19/24 08:05 07:24 06:48 WBC 7.3 RBC 4.24 Hgb 12.5 Hct 39.9 Plt Count 325 ESR 21 H 18 Sodium 144 Potassium 4.7 Chloride 107 Carbon Dioxide 30 H BUN 11 Creatinine 0.90 AST 20 ALT 26 C-Reactive Protein 0.26 25-OH Vitamin D Total 35.3 Rheumatoid Factor < 13.0 [place] Screen NEGATIVE 06/23/24 13:51 WBC 7.2 RBC 4.09 L Hgb 12.4 Hct 38.9 Plt Count 305 ESR Sodium Potassium Chloride Carbon Dioxide BUN Creatinine AST ALT C-Reactive Protein 25-OH Vitamin D Total Rheumatoid Factor [place] Screen Assessment & Plan Assessment & Plan (1) Fibromyalgia: Code(s): M79.7 - Fibromyalgia Category: Medical Plan: #Fibromyalgia Patient meets criteria for fibromyalgia satisfying a widespread pain index greater than 5 and a somatic severity scale greater than 7 Had a long discussion with patient about the disease, the nature of the disease and the holistic treatment plan involved. We will trial gabapentin. Gave suggestions for daily stretches in bathtub under shower Check x-rays of hand and wrist (2) Bilateral carpal tunnel syndrome: Code(s): G56.03 - Carpal tunnel syndrome, bilateral upper limbs Category: Medical Plan: #Bilateral carpal tunnel syndrome Bilateral hand splints recommended. Plan I spent 30 minutes reviewing the record and labs, seeing the patient, discussing the treatment plan and documenting in the medical record ? For next visit: * Follow up gabapentin and splints * Follow up x-rays Orders: Orders XR hand wrist LT Today M79.7 - Fibromyalgia XR hand wrist RT Today M79.7 - Fibromyalgia Medications: New gabapentin 300 mg (3 x 100 mg) PO BEDTIME 270 caps 1RF 90 days M79.7 - Fibromyalgia Coding Level of Care Code New Pt Level 3 (71676) Diagnoses Fibromyalgia M79.7 Bilateral carpal tunnel syndrome G56.03
== END 2024-07-15 14:09 | disposition home or self-care (01) ==
PROVIDERS: PCP Internal Medicine; Visit Provider Student in an Organized Health Care Education/Training Program
DX: M79.7 Fibromyalgia (principal); G56.03 Carpal tunnel syndrome, bilateral upper limbs
CPT/HCPCS: 99203

== ENCOUNTER 2024-07-27 08:02 | Outpatient (REF) | payer OTHER, SELFPAY ==
--- NOTE | ~2024-07-27 | FL_ITS ---
EXAMINATION: XR FLUOROSCOPY UPPER GI WITH AIR CLINICAL INFORMATION: Reflux. Dysphagia. COMPARISON: None TECHNIQUE: Fluoroscopic air contrast upper GI examination was performed utilizing standard techniques with thin and thick barium and effervescent granules. Numerous spot images were obtained. FINDINGS: Lateral cine images of the oropharynx and hypopharynx demonstrate normal swallow mechanism with normal epiglottic inversion and soft palate elevation. No tracheal penetration, glottic or subglottic aspiration identified. No nasopharyngeal reflux present. Hypopharyngeal structures appear normal without evidence of mass or diverticulum. There was no significant cricopharyngeal achalasia. Dual and single contrast images of the esophagus demonstrate a normal caliber and contour. There is a mild granular appearance of the esophageal mucosa, suggestive of esophagitis. No masses, ulcerations, or strictures present. There is a small anterior bridging osteophyte at C4-C5 that causes minimal posterior indentation of the cervical esophagus. Esophageal peristalsis is moderately disorganized. A small to moderate-sized type I hiatal hernia is present. Significant gastroesophageal reflux is seen up to the thoracic inlet. Dual contrast and single contrast images of the stomach demonstrated a normal contour. The gastric rugal folds have a thickened appearance, suggestive of gastritis. No masses or ulcerations are seen. Contrast freely passed into the gastric antrum and duodenal bulb without delay. Single and air-contrast images of the duodenal bulb demonstrate no abnormality. The duodenal sweep has a normal appearance, course, and mucosal fold appearance. The imaged proximal jejunum has a normal fold pattern and caliber. FLUOROSCOPY TIME: 3 minutes 21 seconds Number of Spot Images: 11 Number of Cine: 13 DOSE AREA PRODUCT: 1758 uGy-m2 (microgray-meter squared) FL/FL barium swallow with air IMPRESSION: 1. Small anterior bridging osteophyte at C4-C5 that causes minimal posterior indentation of the cervical esophagus. This is unlikely to be contributing to the patient's symptoms. 2. Mild granular appearance of the esophageal mucosa, suggestive of esophagitis. 3. Moderate esophageal dysmotility. 4. Small to moderate-sized type I hiatal hernia with significant gastroesophageal reflux. 5. Thickened appearance the gastric rugal folds, suggestive of gastritis. This procedure was performed by Raul Lomax PA-C, and supervised by Dr. Sánchez Electronically signed by: Kaushal Sánchez MD 07/28/2024 02:39 PM EST RP
== END 2024-07-27 08:03 | disposition home or self-care (01) ==
LOC: HO.XRAY 08:02
PROVIDERS: PCP Internal Medicine; Visit Provider Nurse Practitioner
DX: K21.9 Gastro-esophageal reflux disease without esophagitis (principal)
CPT/HCPCS: 74221

== ENCOUNTER → 2024-07-27 08:04 | Outpatient (BNV) | payer OTHER, SELFPAY | PROVIDERS: PCP Internal Medicine; Visit Provider Physician Assistant Surgical | DX: R13.10 Dysphagia, unspecified (principal) | CPT/HCPCS: 74221 ==

== ENCOUNTER 2024-08-04 15:35 | Outpatient (AMB) | payer OTHER, SELFPAY ==
--- NOTE | 2024-08-04 15:38 | MHC.OFFVIS ---
Vital Signs 08/04/24 15:42 Height 5 ft 2 in Weight 162 lb 4.163 oz BMI 29.7 BP 125/79 Blood Pressure Location Lt brachial Position Sitting Pulse 80 Intake Visit Reasons: barium swallow follow up Intake Note: Laura presents to in office follow up of barium swallow. CC: Patient states that she continues to have abdominal pain since after she took a medication to have the barium swallow done. 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 Accompanied by: Self / Same As Patient Allergies cephalexin [From KEFLEX] Allergy (Severe, Verified 08/04/24 15:55) SOB/HIVES Iodinated Contrast Media [IV CONTRAST] Allergy (Severe, Verified 08/04/24 15:55) SOB/CHEST PAIN/DIFFICULTY BREATHING oxycodone [From Percocet] Allergy (Intermediate, Verified 08/04/24 15:55) itchy, SOB environmental allergies Allergy (Mild, Verified 08/04/24 15:55) congestion HPI HPI barium swallow follow up: Details: Assessment & Plan (1) GERD (gastroesophageal reflux disease): Code(s): K21.9 - Gastro-esophageal reflux disease without esophagitis Category: Medical (2) Gastroparesis: Comment: She could not tolerate reglan r/t hand shaking GASTRIC EMPTYING STUDY 08/17/22 IMPRESSION: Abnormal study. There is marked abnormal retention of solid food in the stomach at 4 hours. Code(s): K31.84 - Gastroparesis Category: Medical (3) Chronic idiopathic constipation: Code(s): K59.04 - Chronic idiopathic constipation Category: Medical (4) Erosive gastritis: Code(s): K29.60 - Other gastritis without bleeding Category: Medical Plan She continues on her pantoprazole twice a day Creon and simethicone. She is more constipation lately this may be because the Creon is now regulating her bowels better. Will start her on a trial of senna. She is complaining of difficulty swallowing and I think will get a barium swallow to look at this also to see if there is any hiatal hernia or paraesophageal hernia contributing to her ongoing nausea and vomiting syndrome. She continues on Zofran for help with this symptom. She did not tolerate Reglan related to hand shaking. Return office visit in 6 weeks Orders: Orders FL barium swallow 03/24/24 K21.9 - Gastro-esophageal reflux disease without esophagitis Medications: New sennosides (Senna Laxative) 17.2 mg (2 x 8.6 mg) PO BEDTIME 60 tabs 6RF K59.04 - Chronic idiopathic constipation Refilled pantoprazole 40 mg PO BID 180 tabs 1RF K27.9 - Peptic ulcer, site unspecified, unspecified as acute or chronic, without hemorrhage or perforation, K21.9 - Gastro-esophageal reflux disease without esophagitis pantoprazole 40 mg PO BID 180 tabs 1RF K27.9 - Peptic ulcer, site unspecified, unspecified as acute or chronic, without hemorrhage or perforation, K21.9 - Gastro-esophageal reflux disease without esophagitis [id number] 36,000-114,000- 180,000 unit (Creon) administer with meals and/or snacks 1 cap PO QID 120 caps 6RF K58.9 - Irritable bowel syndrome without diarrhea magnesium oxide 500 mg PO BID 60 caps 6RF 30 days K59.04 - Chronic idiopathic constipation simethicone after meals 180 mg PO .tidac 90 caps 6RF 30 days [id number] 36,000-114,000- 180,000 unit (Creon) administer with meals and/or snacks 1 cap PO QID 120 caps 6RF K58.9 - Irritable bowel syndrome without diarrhea BARIUM SWALLOW 07/28/24 FINDINGS: Lateral cine images of the oropharynx and hypopharynx demonstrate normal swallow mechanism with normal epiglottic inversion and soft palate elevation. No tracheal penetration, glottic or subglottic aspiration identified. No nasopharyngeal reflux present. Hypopharyngeal structures appear normal without evidence of mass or diverticulum. There was no significant cricopharyngeal achalasia. Dual and single contrast images of the esophagus demonstrate a normal caliber and contour. There is a mild granular appearance of the esophageal mucosa, suggestive of esophagitis. No masses, ulcerations, or strictures present. There is a small anterior bridging osteophyte at C4-C5 that causes minimal posterior indentation of the cervical esophagus. Esophageal peristalsis is moderately disorganized. A small to moderate-sized type I hiatal hernia is present. Significant gastroesophageal reflux is seen up to the thoracic inlet. Dual contrast and single contrast images of the stomach demonstrated a normal contour. The gastric rugal folds have a thickened appearance, suggestive of gastritis. No masses or ulcerations are seen. Contrast freely passed into the gastric antrum and duodenal bulb without delay. Single and air-contrast images of the duodenal bulb demonstrate no abnormality. The duodenal sweep has a normal appearance, course, and mucosal fold appearance. The imaged proximal jejunum has a normal fold pattern and caliber. FLUOROSCOPY TIME: 3 minutes 21 seconds Number of Spot Images: 11 Number of Cine: 13 DOSE AREA PRODUCT: 1758 uGy-m2 (microgray-meter squared) FL/FL barium swallow with air IMPRESSION: 1. Small anterior bridging osteophyte at C4-C5 that causes minimal posterior indentation of the cervical esophagus. This is unlikely to be contributing to the patient's symptoms. 2. Mild granular appearance of the esophageal mucosa, suggestive of esophagitis. 3. Moderate esophageal dysmotility. 4. Small to moderate-sized type I hiatal hernia with significant gastroesophageal reflux. 5. Thickened appearance the gastric rugal folds, suggestive of gastritis. Laboratory Tests 05/19/24 06/23/24 06:48 13:51 WBC 7.2 Hgb 12.4 Hct 38.9 Plt Count 305 Estimated GFR > 60 Total Bilirubin 0.2 AST 20 ALT 26 Alkaline Phosphatase 130 H TODAYS VISIT Given history of erosive esophagitis and gastritis at this point we might want schedule another upper endoscopy to assess for healing. She is agreeable to this. No cardiac or respiratory problems. No problems with anesthesia or sedation. No ID problems. her dysphagia continues and when she drank the barium etc it really hurt her stomach. She continues on her pantoprazole 40mg bid. I can't rx carafate now as she is having CIC, she takes senna and magnesium, but this is very slow to work for her. Will progress to low dose Linzess 72mcg. She can continue the magnesium as this helps with her migraines. ROV 4 weeks. [facility] Medical History (Updated 08/04/24 @ 16:51 by Daisy Kilgore, ANP-C) Constipation Bilateral carpal tunnel syndrome Fibromyalgia Chest pain Dizziness Palpitations Osteoporosis screening Cervical cancer screening Breast cancer screening by mammogram Obesity (BMI 30-39.9) Pure hypercholesterolemia Erosive gastritis Osteoarthritis Esophagitis Duodenitis Tubular adenoma of colon Hemorrhagic gastritis Class 1 obesity Anxiety disorder due to medical condition Elevated blood pressure reading without diagnosis of hypertension COVID-19 Peptic ulcer disease Low back pain Vaginal odor Painful breasts Overweight (BMI 25.0-29.9) Vitamin D deficiency Migraine Gastroparesis History of COVID-19 Asthma GERD (gastroesophageal reflux disease) Surgical History History of esophagogastroduodenoscopy (EGD) Hx of colonoscopy History of hernia surgery Hx of tubal ligation History of appendectomy H/O: hysterectomy Family History Mother Uterine cancer Family/Other History of breast cancer Social History Housing: House Alcohol intake: never Patient Tobacco Use Status: Never used Tobacco Tobacco use type: Cigarette e-Cigarette/Vaping Use: Never Used Second Hand Smoke Exposure: No service: No Current occupational status: 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 Sexual orientation: Straight/Heterosexual Gender identity: Female Cognitive needs: No Hearing needs: No Vision needs: Yes Female Reproductive History Menstrual Age of Menarche: 12 Review of Systems Const Denies fatigue, Denies fever(s), Denies night sweats, Denies poor appetite and Denies weight loss Eyes Details: glasses Reports requires corrective lenses ENT Reports Normal hearing present, Denies dental pain, Reports dysphagia, Denies hearing loss, Denies mouth pain, Denies odynophagia, Denies throat swelling, Denies tongue swelling and Reports other (Dentition adequate) Card Reports no additional complaints Resp Reports no additional complaints GI Details: Reports abdominal pain, Denies melena, Denies bloating, Denies hematochezia, Reports constipation, Denies GI cramping, Reports dysphagia, Denies excessive flatus, Denies early satiety, Reports heartburn, Denies diarrhea, Denies nausea, Denies odynophagia, Denies vomiting and Denies hematemesis Skin/Breast Denies pruritus, Denies lesions, Denies rash and Denies jaundice Neuro Reports Normal hearing present and Denies Abnormal speech present Endo Denies fatigue Aller/Immun Denies throat swelling and Denies tongue swelling Physical Exam Vital Signs: Last Vital Signs Pulse 80 08/04/24 15:42 BP 125/79 08/04/24 15:42 BMI result Body Mass Index 29.7 Const General: cooperative, no acute distress, well developed and well groomed Nutritional Appearance: well nourished and overweight Orientation/consciousness: oriented to person, oriented to place and oriented to time Limitations: No language barrier HEENT Head: Yes normocephalic and Yes atraumatic Eyes General: appearance normal, both eyes and all related structures Pupils: Equal, round and reactive pupils present Neck Neck: Yes normal visual inspection and Yes no lymphadenopathy Thyroid: Thyroid normal Resp Effort & Inspection: normal respiratory effort and able to speak in complete sentences Auscultation: clear to auscultation bilaterally Cardio Rate: regular rate Rhythm: regular rhythm Heart sounds: Normal, physiologic split S2 sound present Peripheral pulses: radial pulses present and posterior tibial pulses present GI Inspection: No distended, No Abdominal panniculus present and Yes obesity Palpation (GI): Soft to palpation, nontender, no guarding, not rigid and No hepatosplenomegaly present Percussion: Yes normal to percussion Auscultation: normal bowel sounds Rectal Exam - Female: deferred Skin General skin exam: no rashes or lesions noted, turgor normal, skin not dry, no jaundice, No spider nevi and no striae Rashes: no rashes Nails: normal Neuro General: oriented to person, oriented to place and oriented to time Cranial nerves: Yes Equal, round and reactive pupils present and Yes Normal hearing present Speech: No Abnormal speech present Extrem General: Yes normal to inspection, No clubbing, No cyanosis and No edema Psych Appearance: grossly normal and well kempt Mental Status: mental status grossly normal Speech and movement: Normal speech and movement present Affect: normal affect Attitude: cooperative Thought process: Normal thought process present and not confabulating Thought content: Normal thought content present Insight: Limited insight present (Psych) Judgement: Limited judgement present (Psych) Assessment & Plan Assessment & Plan (1) Gastroparesis: Comment: She could not tolerate reglan r/t hand shaking GASTRIC EMPTYING STUDY 08/17/22 IMPRESSION: Abnormal study. There is marked abnormal retention of solid food in the stomach at 4 hours. Code(s): K31.84 - Gastroparesis Category: Medical (2) GERD (gastroesophageal reflux disease): Code(s): K21.9 - Gastro-esophageal reflux disease without esophagitis Category: Medical (3) Chronic idiopathic constipation: Code(s): K59.04 - Chronic idiopathic constipation Category: Medical (4) Dysphagia: Code(s): R13.10 - Dysphagia, unspecified Category: Medical (5) Pre-op examination: Code(s): Z01.818 - Encounter for other preprocedural examination Category: Medical Plan Given history of erosive esophagitis and gastritis at this point we might want schedule another upper endoscopy to assess for healing. She is agreeable to this. No cardiac or respiratory problems. No problems with anesthesia or sedation. No ID problems. her dysphagia continues and when she drank the barium etc it really hurt her stomach. She continues on her pantoprazole 40mg bid. I can't rx carafate now as she is having CIC, she takes senna and magnesium, but this is very slow to work for her. Will progress to low dose Linzess 72mcg. She can continue the magnesium as this helps with her migraines. ROV 4 weeks. Orders: Orders Rheumatoid Factor Today M25.50 - Pain in unspecified joint EGD - GI Use Only Today R13.10 - Dysphagia, unspecified Medications: New linaclotide (Linzess) 72 mcg PO QAM 30 caps 6RF K59.00 - Constipation, unspecified On Hold sennosides (Senna Laxative) Hold Comment: Doctor's Order 17.2 mg (2 x 8.6 mg) PO BEDTIME 60 tabs 6RF K59.04 - Chronic idiopathic constipation Coding Level of Care Code Est Pt Level 4 (12590) Diagnoses Gastroparesis K31.84 GERD (gastroesophageal reflux disease) K21.9 Chronic idiopathic constipation K59.04 Dysphagia R13.10 Pre-op examination Z01.818 Time Spent (min) 35
[2024-08-04 15:42] VITALS: BP 125/79; PULSE 80; BMI 29.7
== END 2024-08-04 16:39 | disposition home or self-care (01) ==
LOC: HO.HGI 15:35
PROVIDERS: PCP Internal Medicine; Visit Provider Nurse Practitioner
DX: K31.84 Gastroparesis (principal); K21.9 Gastro-esophageal reflux disease without esophagitis; K59.04 Chronic idiopathic constipation; R13.10 Dysphagia, unspecified; Z01.818 Encounter for other preprocedural examination
CPT/HCPCS: 99214

== ENCOUNTER 2024-08-11 15:27 | Outpatient (REF) | payer OTHER, SELFPAY ==
[2024-08-11 11:08] VITALS: PULSE 82; O2SAT 96
--- NOTE | 2024-08-11 15:51 | PFT_ITS ---
Indication: Asthma Spirometry [FEV1 to FVC 72% pre bronchodilators and 75% post bronchodilators; FEV1 2.32 L; FVC 3.11 L. No significant response to bronchodilators noted. To note the FEF 01/19/2075 down to 59% predicted.] Lung Volumes [Total lung capacity in 6% predicted; residual volume 73% predicted] Diffusion Capacity [DLCO 114% predicted] Comparisons [None] Interpretation [No definitive obstructive nor restrictive ventilatory defects identified. No significant response to bronchodilators noted. Although there is evidence of small airways disease suggestive of the history asthma. Normal ox voluntary ventilation. Lung volumes are low normal. Diffusing capacity is within normal limits. If asthma is in the differential a methacholine challenge may be helpful in assessing for hyperreactive airways. Clinical correlation warranted.] MTDD
== END 2024-08-11 15:28 | disposition home or self-care (01) ==
LOC: HO.RESP 15:27
PROVIDERS: PCP Internal Medicine; Visit Provider Nurse Practitioner Family
DX: J45.909 Unspecified asthma, uncomplicated (principal)
CPT/HCPCS: 94010; 94640; 94727; 94729

== ENCOUNTER → 2024-08-11 15:51 | Outpatient (BNV) | payer OTHER, SELFPAY | PROVIDERS: PCP Internal Medicine; Visit Provider Hospitalist | DX: J45.909 Unspecified asthma, uncomplicated (principal) | CPT/HCPCS: 94060; 94727; 94729 ==

== ENCOUNTER 2024-08-31 15:11 | Outpatient (AMB) | payer OTHER, SELFPAY ==
--- NOTE | 2024-08-31 12:34 | MHC.OFFVIS ---
Vital Signs 08/31/24 15:20 Height 5 ft 2 in Weight 166 lb 7.184 oz BMI 30.4 BP 108/60 Blood Pressure Location Lt brachial Position Sitting Pulse 73 Pulse Source Pulse Oximeter Pulse Oximetry (%) 97 Oxygen Delivery Method Room Air Intake Visit Reasons: Asthma/PFT Follow Up Allergies cephalexin [From KEFLEX] Allergy (Severe, Verified 08/31/24 15:23) SOB/HIVES Iodinated Contrast Media [IV CONTRAST] Allergy (Severe, Verified 08/31/24 15:23) SOB/CHEST PAIN/DIFFICULTY BREATHING oxycodone [From Percocet] Allergy (Intermediate, Verified 08/31/24 15:23) itchy, SOB environmental allergies Allergy (Mild, Verified 08/31/24 15:23) congestion HPI HPI Asthma/PFT Follow Up: Details: Laura is a pleasant 54-year-old female, never smoker, with underlying asthma, GERD, erosive gastritis, gastroparesis and hypertension. At the last visit, she was started on Arnuity, noting some improvements overall however continues with harsh dry cough, as well as intermittent chest tightness and wheezing. 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 Today she presents to review RAST and PFT results. She denies any visits to urgent care or hospitalizations related to respiratory distress since the last visit. [facility] Medical History (Updated 08/04/24 @ 16:51 by VANCE Cornelius) Constipation Bilateral carpal tunnel syndrome Fibromyalgia Chest pain Dizziness Palpitations Osteoporosis screening Cervical cancer screening Breast cancer screening by mammogram Obesity (BMI 30-39.9) Pure hypercholesterolemia Erosive gastritis Osteoarthritis Esophagitis Duodenitis Tubular adenoma of colon Hemorrhagic gastritis Class 1 obesity Anxiety disorder due to medical condition Elevated blood pressure reading without diagnosis of hypertension COVID-19 Peptic ulcer disease Low back pain Vaginal odor Painful breasts Overweight (BMI 25.0-29.9) Vitamin D deficiency Migraine Gastroparesis History of COVID-19 Asthma GERD (gastroesophageal reflux disease) Surgical History History of esophagogastroduodenoscopy (EGD) Hx of colonoscopy History of hernia surgery Hx of tubal ligation History of appendectomy H/O: hysterectomy Family History Mother Uterine cancer Family/Other History of breast cancer Social History Housing: House Alcohol intake: never Patient Tobacco Use Status: Never used Tobacco Tobacco use type: Cigarette e-Cigarette/Vaping Use: Never Used Second Hand Smoke Exposure: No service: No Current occupational status: 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 Sexual orientation: Straight/Heterosexual Gender identity: Female Cognitive needs: No Hearing needs: No Vision needs: Yes Female Reproductive History Menstrual Age of Menarche: 12 Review of Systems Const Denies chills, Denies excessive sweating, Denies fever(s), Denies headache(s) and Denies night sweats Eyes Denies dry eyes, Denies irritation and Denies itchy eyes ENT Reports Normal hearing present and Denies headache(s) Card Denies chest pain, Denies chest pain at rest, Denies chest pain with activity, Denies claudication, Denies leg edema, Denies dyspnea, Denies dyspnea on exertion, Denies orthopnea and Denies paroxysmal nocturnal dyspnea Resp Denies chest congestion, Denies excessive phlegm production, Denies pain on inspiration, Denies pain with cough, Denies dyspnea, Denies dyspnea on exertion and Denies stridor Musc Denies myalgias Neuro Reports Normal hearing present and Denies headache(s) Endo Denies excessive sweating Julien/Lymph Denies lymphadenopathy Aller/Immun Denies itchy eyes and Denies seasonal rhinorrhea Physical Exam Vital Signs: Last Vital Signs Pulse 73 08/31/24 15:20 BP 108/60 08/31/24 15:20 Pulse Ox 97 08/31/24 15:20 Oxygen Delivery Method Room Air 08/31/24 15:20 BMI result Body Mass Index 30.4 Const General: cooperative, healthy appearing, comfortable, no acute distress, well developed and alert Nutritional Appearance: obese Orientation/consciousness: patient oriented x3 Limitations: no limitations HEENT Head: Yes normal to inspection, Yes normocephalic and Yes atraumatic Ears: hearing grossly normal bilaterally and external ears normal Eyes General: appearance normal, both eyes and all related structures Eyelids: Yes eyelids normal Sclerae: sclerae normal EOM: EOMs intact bilaterally Neck Neck: Yes normal visual inspection and Yes no lymphadenopathy Lymphatic: no lymphadenopathy noted Chest Chest palpation & inspection: normal inspection of the chest Resp Other: harsh dry cough throughout visit Effort & Inspection: normal respiratory effort, able to speak in complete sentences, no audible wheezes, no stridor, not tachypneic, no tripod positioning and no use of accessory muscles Auscultation: clear to auscultation bilaterally Cardio Jugular venous distension: no JVD Rate: regular rate Rhythm: regular rhythm Skin Other: warm, dry General skin exam: no rashes or lesions noted Neuro General: patient oriented x3 Cranial nerves: Yes Normal hearing present Cognition (Neuro): normal cognition Gait exam (Neuro): Normal gait present Extrem General: Yes normal to inspection, Yes capillary refill normal, Yes no clubbing, cyanosis or edema and Yes no pedal edema Psych Appearance: grossly normal and well kempt Speech and movement: Normal speech and movement present and Clear speech present Affect: normal affect Attitude: cooperative Thought process: Normal thought process present Thought content: Normal thought content present Insight: Good insight present (Psych) Judgement: Good judgement present (Psych) Assessment & Plan Assessment & Plan (1) Asthma: Code(s): J45.909 - Unspecified asthma, uncomplicated Category: Medical Qualifiers: Asthma complication type: uncomplicated Asthma persistence: unspecified Asthma severity: unspecified severity Qualified Code(s): J45.909 - Unspecified asthma, uncomplicated (2) Environmental allergies: Code(s): Z91.09 - Other allergy status, other than to drugs and biological substances Category: Medical (3) Cough: Code(s): R05.9 - Cough, unspecified Category: Medical Plan Reviewed PFT which revealed no definitive obstructive nor restrictive ventilatory defect. No significant response to bronchodilators noted, although there is evidence of small airways disease suggestive of the history asthma. Lung volumes are low normal. Diffusing capacity is within normal limits. Reviewed RAST which revealed multiple environmental allergies, IgE 431 and eosinophils elevated, confirming allergic component to asthma, encouraged use of antihistamine. Will switch Arnuity to Breo, as she reports suboptimal effect. Will consider singulair. Will also send zpak. All questions were answered and patient is in agreement of plan. Will follow-up in 6-8 weeks or sooner if needed. Medications: New fluticasone furoate-vilanterol 100-25 mcg/dose (Breo Ellipta) 1 inh inhalation DAILY 60 ea 3RF azithromycin For 250 mg dose pack: take 500 mg today (day 1), then 250 mg for 4 days (days 2-5) PO 6 tabs 0RF Discontinued fluticasone furoate 100 mcg/actuation (Arnuity Ellipta) Discontinued Reason: Patient Completed Course 1 inh inhalation DAILY 30 ea 3RF Coding Level of Care Code Est Pt Level 4 (04111) Diagnoses Uncomplicated asthma, unspecified asthma severity, unspecified whether persistent J45.909 Asthma complication type: uncomplicated Asthma persistence: unspecified Asthma severity: unspecified severity Environmental allergies Z91.09 Cough R05.9
[2024-08-31 15:20] VITALS: BP 108/60; PULSE 73; O2SAT 97; BMI 30.4
== END 2024-08-31 15:46 | disposition home or self-care (01) ==
PROVIDERS: PCP Internal Medicine; Visit Provider Nurse Practitioner Family
DX: J45.909 Unspecified asthma, uncomplicated (principal); Z91.09 Other allergy status, other than to drugs and biological substances; R05.9 Cough, unspecified
CPT/HCPCS: 99214

== ENCOUNTER → 2024-08-31 15:11 | Outpatient (BNVA) | payer OTHER, SELFPAY | PROVIDERS: PCP Internal Medicine; Visit Provider Nurse Practitioner Family ==

== ENCOUNTER 2024-09-10 08:02 | Outpatient (AMB) | payer OTHER, SELFPAY ==
[2024-09-10 08:05] VITALS: BP 108/72; PULSE 95; BMI 30.2
--- NOTE | 2024-09-10 08:05 | A.OFFVIS_ITS ---
Vital Signs 09/10/24 08:05 Height 5 ft 2 in Weight 165 lb 5.547 oz BMI 30.2 BP 108/72 Blood Pressure Location Lt brachial Position Sitting Pulse 95 Pulse Source Pulse Oximeter Intake Visit Reasons: Low back pain/Rt knee pain. Booked per Dr. Daniels Intake Note: Patient present today for low back pain and right knee pain. Oil Deliverer Required: No Accompanied by: Self / Same As Patient Allergies cephalexin [From KEFLEX] Allergy (Severe, Verified 09/10/24 08:07) SOB/HIVES Iodinated Contrast Media [IV CONTRAST] Allergy (Severe, Verified 09/10/24 08:07) SOB/CHEST PAIN/DIFFICULTY BREATHING oxycodone [From Percocet] Allergy (Intermediate, Verified 09/10/24 08:07) itchy, SOB environmental allergies Allergy (Mild, Verified 09/10/24 08:07) congestion Medication List - Last Reconciled 09/10/24 by Chloe Daniels MD albuterol sulfate 2.5 mg (3 mL) inhalation Q4-6H PRN albuterol sulfate 90 mcg/actuation 2 inhalations inhalation QID PRN atorvastatin 10 mg PO BEDTIME 30 days azithromycin For 250 mg dose pack: take 500 mg today (day 1), then 250 mg for 4 days (days 2-5) PO celecoxib (Celebrex) 200 mg PO BID 30 days fluticasone furoate-vilanterol 100-25 mcg/dose (Breo Ellipta) 1 inh inhalation DAILY gabapentin 300 mg (3 x 100 mg) PO BEDTIME 90 days linaclotide (Linzess) 72 mcg PO QAM xdxyme-agkvphrb-bypzool 36,000-114,000- 180,000 unit (Creon) 1 cap PO QID magnesium oxide 500 mg PO BID 30 days pantoprazole 40 mg PO BID sennosides (Senna Laxative) 17.2 mg (2 x 8.6 mg) PO BEDTIME simethicone 180 mg PO .tidac 30 days HPI Comments Details: Patient is a 54-year-old female with hyperlipidemia who presents for follow up Interval History: Last seen 07/2024 to establish care for polyarthralgias. History and exam consistent with fibromyalgia and degenerative joint disease. Started on gabapentin and Celebrex. Patient states that she is able to take 1-2 tablets of the gabapentin at night but is limited by drowsiness in the morning. The Celebrex has been helping her whole-body pains. However she called the office 09/09/2024 complaining of right buttock pain and right knee pain since the weekend. She states that the Celebrex was not helping the pain and wanted additional medication for this. She is here today for an urgent appointment. Today patient continues to complain of right buttock and right knee pain. Denies any trauma or any overly exertional activities over the weekend. Rheumatologic History: Initial History: Patient states that for the past 2 years she has noticed insidious onset of polyarticular joint pain involving her hands, wrists, elbows, shoulders, hips, knees and ankles. This is associated with overwhelming fatigue and insomnia (difficulty getting to sleep at night). She particularly notes that she finds it difficult to lay on either side of her hips at night. Denies rashes, photosensitivity, alopecia, oral/nasal ulcers, sicca symptoms, lymphadenopathy, chest pain/shortness of breath, foamy urine, lower extremity edema, muscle weakness, Raynaud's Also denies history of seizure, CVA, psychosis, history of kidney problems, history of cytopenias, history of VTE including PE or DVTs Based on history and examination, her pain was more consistent with degenerative joint disease and fibromyalgia. No evidence of inflammatory arthritis Started on gabapentin and celebrex Current Rheumatology Medication(s): Gabapentin 100mg - 300mg at night Celebrex 200mg bid [facility] Medical History (Updated 09/10/24 @ 08:17 by Chloe Daniels MD) Facet arthritis, degenerative, L5-S1 level, lumbosacral spine Piriformis syndrome of right side Constipation Bilateral carpal tunnel syndrome Fibromyalgia Chest pain Dizziness Palpitations Osteoporosis screening Cervical cancer screening Breast cancer screening by mammogram Obesity (BMI 30-39.9) Pure hypercholesterolemia Erosive gastritis Osteoarthritis Esophagitis Duodenitis Tubular adenoma of colon Hemorrhagic gastritis Class 1 obesity Anxiety disorder due to medical condition Elevated blood pressure reading without diagnosis of hypertension COVID-19 Peptic ulcer disease Low back pain Vaginal odor Painful breasts Overweight (BMI 25.0-29.9) Vitamin D deficiency Migraine Gastroparesis History of COVID-19 Asthma GERD (gastroesophageal reflux disease) Surgical History History of esophagogastroduodenoscopy (EGD) Hx of colonoscopy History of hernia surgery Hx of tubal ligation History of appendectomy H/O: hysterectomy Family History Mother Uterine cancer Family/Other History of breast cancer Social History Housing: House Alcohol intake: never Patient Tobacco Use Status: Never used Tobacco Tobacco use type: Cigarette e-Cigarette/Vaping Use: Never Used Second Hand Smoke Exposure: No service: No Current occupational status: 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 Sexual orientation: Straight/Heterosexual Gender identity: Female Cognitive needs: No Hearing needs: No Vision needs: Yes Female Reproductive History Menstrual Age of Menarche: 12 Review of Systems Const Details: Review of Systems Constitutional: Denies fever, chills, weight loss ENT: Denies vision changes, eye pain or eye redness, dental caries, dry mouth GI: Denies nausea, vomiting, diarrhea, abdominal pain, change in BM Pulm: Denies SOB, [place]DR[place]ON, hemoptysis, wheezing Cards: Denies chest pain, palpitations Skin: Denies Raynaud's, rash, nail changes, photosensitivity, RADIOLOGY SCHEDULER: Denies headaches, weakness, paresthesias, recurrent falls MSK: as per HPI All other systems reviewed and are unremarkable except noted above Physical Exam Vital Signs: Last Vital Signs Pulse 95 09/10/24 08:05 BP 108/72 09/10/24 08:05 BMI result Body Mass Index 30.2 Physical Examination CONSTITUITIONAL Patient alert and cooperative. Well appearing and in no apparent painful distress HEENT Conjunctiva and sclera clear. ?Pupils equal round and reactive to light. ?No lymphadenopathy. ? CHEST/RESPIRATORY SYSTEM Normal respiratory effort and able to speak in complete sentences. ?Clear to auscultation bilaterally. ?No crackles, rales, rhonchi, wheezes heard. CARDIAC SYSTEM Regular rate and rhythm. ?S1 and S2 heard no murmurs. ?Radial pulses intact bilaterally MSK Positive FAIR maneuver on the right Pinpoint tenderness to upper middle gluteus Negative straight leg raise Negative DAISHA SKIN Skin intact without rashes. Results Reviewed Results Reviewed: Laboratory Tests 01/21/24 06/23/24 07:24 13:51 WBC 7.2 RBC 4.09 L Hgb 12.4 Hct 38.9 Plt Count 305 Rheumatoid Factor < 13.0 [place]OR[place] Screen NEGATIVE XR L spine 05/2024 FINDINGS: Lumbar spine: Moderate L5-S1 degenerative disc disease and mild degenerative disc disease at L1-L2 with disc space narrowing and endplate osteophytes. This is slightly progressed since the previous study. No fracture. Normal alignment and lumbar lordosis. Assessment & Plan Assessment & Plan (1) Piriformis syndrome of right side: Code(s): G57.01 - Lesion of sciatic nerve, right lower limb Category: Medical Plan: #Piriformis syndrome Acute right low back/buttock pain. Exam consistent with piriformis syndrome Start high-dose ibuprofen and refer to physical therapy Stretches given Plan - Ibuprofen 600mg tid prn for pain - Sucralfate 10mL bid to cover her erosive gastritis - Refer to PT - Stretches given - RTC 3 months (2) Facet arthritis, degenerative, L5-S1 level, lumbosacral spine: Code(s): M47.817 - Spondylosis without myelopathy or radiculopathy, lumbosacral region Category: Medical Plan: #Facet arthritis L5-S1 Patient with facet arthritis which imaging showed worsening disease between [id number] Plan - Refer to PT Plan I spent 30 minutes reviewing the record and labs, taking a history, examining the patient, discussing the treatment plan and documenting in the medical record Orders: Orders PT Evaluation and Treatment Today G57.01 - Lesion of sciatic nerve, right lower limb, M47.817 - Spondylosis without myelopathy or radiculopathy, lumbosacral region Medications: New ibuprofen 800 mg PO TID PRN 60 tabs 0RF pain sucralfate 10 mL PO BID 300 mL 1RF K29.60 - Other gastritis without bleeding Discontinued azithromycin Discontinued Reason: Doctor's Order For 250 mg dose pack: take 500 mg today (day 1), then 250 mg for 4 days (days 2-5) PO 6 tabs 0RF celecoxib (Celebrex) Discontinued Reason: Doctor's Order 200 mg PO BID 30 days 60 caps 3RF Coding Level of Care Code Est Pt Level 4 (35611) Diagnoses Piriformis syndrome of right side G57.01 Facet arthritis, degenerative, L5-S1 level, lumbosacral spine M47.817
== END 2024-09-10 08:29 | disposition home or self-care (01) ==
PROVIDERS: PCP Internal Medicine; Visit Provider Student in an Organized Health Care Education/Training Program
DX: G57.01 Lesion of sciatic nerve, right lower limb (principal); M47.817 Spondylosis without myelopathy or radiculopathy, lumbosacral region
CPT/HCPCS: 99214

== ENCOUNTER → 2024-09-10 08:02 | Outpatient (BNVA) | payer OTHER, SELFPAY | PROVIDERS: PCP Internal Medicine; Visit Provider Student in an Organized Health Care Education/Training Program ==

== ENCOUNTER 2024-11-09 14:04 | Outpatient (AMB) | payer OTHER, SELFPAY ==
--- NOTE | 2024-11-09 14:08 | A.OFFVIS_ITS ---
Vital Signs 11/09/24 14:10 Height 5 ft 2 in Weight 162 lb 0.636 oz BMI 29.6 BP 102/60 Blood Pressure Location Lt brachial Position Sitting Pulse 74 Pulse Source Pulse Oximeter Pulse Oximetry (%) 95 Oxygen Delivery Method Room Air Intake Visit Reasons: Asthma Business Analyst Manager Required: No Air Control/Anti Air Warfare Officer: Air Control/Anti Air Warfare Officer offered & declined Accompanied by: Self / Same As Patient Allergies cephalexin [From KEFLEX] Allergy (Severe, Verified 11/09/24 14:16) SOB/HIVES Iodinated Contrast Media [IV CONTRAST] Allergy (Severe, Verified 11/09/24 14:16) SOB/CHEST PAIN/DIFFICULTY BREATHING oxycodone [From Percocet] Allergy (Intermediate, Verified 11/09/24 14:16) itchy, SOB environmental allergies Allergy (Mild, Verified 11/09/24 14:16) congestion Medication List - Last Reconciled 11/09/24 by Autumn Kirkland LPN albuterol sulfate 2.5 mg (3 mL) inhalation Q4-6H PRN albuterol sulfate 90 mcg/actuation 2 inhalations inhalation QID PRN atorvastatin 10 mg PO BEDTIME 30 days fluticasone furoate-vilanterol 100-25 mcg/dose (Breo Ellipta) 1 inh inhalation DAILY gabapentin 300 mg (3 x 100 mg) PO BEDTIME 90 days ibuprofen 800 mg PO TID PRN linaclotide (Linzess) 72 mcg PO QAM kckevi-bxlwcfic-buhymwt 36,000-114,000- 180,000 unit (Creon) 1 cap PO QID magnesium oxide 500 mg PO BID 30 days pantoprazole 40 mg PO BID sennosides (Senna Laxative) 17.2 mg (2 x 8.6 mg) PO BEDTIME simethicone 180 mg PO .tidac 30 days sucralfate 10 mL PO BID HPI HPI Asthma: Details: Laura is a pleasant 54-year-old female, never smoker, with underlying asthma, GERD, erosive gastritis, gastroparesis and hypertension. Initially she was started on Arnuity with suboptimal effect, switched to Breo with significant improvements, rarely requiring albuterol MDI. Today she denies any respiratory symptoms. She denies any visits to urgent care or hospitalizations related to respiratory distress since the last visit. [facility] Medical History (Updated 09/10/24 @ 08:17 by Chloe Daniels MD) Facet arthritis, degenerative, L5-S1 level, lumbosacral spine Piriformis syndrome of right side Constipation Bilateral carpal tunnel syndrome Fibromyalgia Chest pain Dizziness Palpitations Osteoporosis screening Cervical cancer screening Breast cancer screening by mammogram Obesity (BMI 30-39.9) Pure hypercholesterolemia Erosive gastritis Osteoarthritis Esophagitis Duodenitis Tubular adenoma of colon Hemorrhagic gastritis Class 1 obesity Anxiety disorder due to medical condition Elevated blood pressure reading without diagnosis of hypertension COVID-19 Peptic ulcer disease Low back pain Vaginal odor Painful breasts Overweight (BMI 25.0-29.9) Vitamin D deficiency Migraine Gastroparesis History of COVID-19 Asthma GERD (gastroesophageal reflux disease) Surgical History History of esophagogastroduodenoscopy (EGD) Hx of colonoscopy History of hernia surgery Hx of tubal ligation History of appendectomy H/O: hysterectomy Family History Mother Uterine cancer Family/Other History of breast cancer Social History Housing: House Alcohol intake: never Patient Tobacco Use Status: Never used Tobacco Tobacco use type: Cigarette e-Cigarette/Vaping Use: Never Used Second Hand Smoke Exposure: No service: No Current occupational status: 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 Sexual orientation: Straight/Heterosexual Gender identity: Female Cognitive needs: No Hearing needs: No Vision needs: Yes Female Reproductive History Menstrual Age of Menarche: 12 Review of Systems Const Denies chills, Denies excessive sweating, Denies fever(s), Denies headache(s) and Denies night sweats Eyes Denies dry eyes, Denies irritation and Denies itchy eyes ENT Reports Normal hearing present, Denies headache(s), Denies nasal congestion, Denies nasal discharge, Denies post nasal drip and Denies sore throat Card Denies chest pain, Denies chest pain at rest, Denies chest pain with activity, Denies claudication, Denies leg edema, Denies dyspnea, Denies dyspnea on exertion, Denies orthopnea and Denies paroxysmal nocturnal dyspnea Resp Denies chest congestion, Denies cough, Denies excessive phlegm production, Denies pain on inspiration, Denies pain with cough, Denies dyspnea, Denies dyspnea on exertion, Denies stridor and Denies wheezing Musc Denies myalgias Neuro Reports Normal hearing present and Denies headache(s) Endo Denies excessive sweating Julien/Lymph Denies lymphadenopathy Aller/Immun Denies itchy eyes, Denies seasonal rhinorrhea and Denies wheezing Physical Exam Vital Signs: Last Vital Signs Pulse 74 11/09/24 14:10 BP 102/60 11/09/24 14:10 Pulse Ox 95 11/09/24 14:10 Oxygen Delivery Method Room Air 11/09/24 14:10 BMI result Body Mass Index 29.6 Const General: cooperative, healthy appearing, comfortable, no acute distress, well developed and alert Orientation/consciousness: patient oriented x3 Limitations: no limitations HEENT Head: Yes normal to inspection, Yes normocephalic and Yes atraumatic Ears: hearing grossly normal bilaterally and external ears normal Eyes General: appearance normal, both eyes and all related structures Eyelids: Yes eyelids normal Sclerae: sclerae normal EOM: EOMs intact bilaterally Neck Neck: Yes normal visual inspection and Yes no lymphadenopathy Lymphatic: no lymphadenopathy noted Chest Chest palpation & inspection: normal inspection of the chest Resp Effort & Inspection: normal respiratory effort, able to speak in complete sentences, no audible wheezes, no cough, no stridor, not tachypneic, no tripod positioning and no use of accessory muscles Auscultation: clear to auscultation bilaterally Cardio Jugular venous distension: no JVD Rate: regular rate Rhythm: regular rhythm Skin Other: warm, dry General skin exam: no rashes or lesions noted Neuro General: patient oriented x3 Cranial nerves: Yes Normal hearing present Cognition (Neuro): normal cognition Gait exam (Neuro): Normal gait present Extrem General: Yes normal to inspection, Yes capillary refill normal, Yes no clubbing, cyanosis or edema and Yes no pedal edema Psych Appearance: grossly normal and well kempt Speech and movement: Normal speech and movement present and Clear speech present Affect: normal affect Attitude: cooperative Thought process: Normal thought process present Thought content: Normal thought content present Insight: Good insight present (Psych) Judgement: Good judgement present (Psych) Assessment & Plan Assessment & Plan (1) Asthma: Code(s): J45.909 - Unspecified asthma, uncomplicated Category: Medical Qualifiers: Asthma complication type: uncomplicated Asthma persistence: unspecified Asthma severity: unspecified severity Qualified Code(s): J45.909 - Unspecified asthma, uncomplicated (2) Environmental allergies: Code(s): Z91.09 - Other allergy status, other than to drugs and biological substances Category: Medical (3) Cough: Code(s): R05.9 - Cough, unspecified Category: Medical Plan At this time Laura reports good control of respiratory symptoms on current regimen, advised to continue and will send refills. She is aware to call office if symptoms change with the start of Spring. All questions were answered and patient is in agreement of plan. Will follow-up in 6 months or sooner if needed. Medications: Refilled fluticasone furoate-vilanterol 100-25 mcg/dose (Breo Ellipta) 1 inh inhalation DAILY 60 ea 6RF albuterol sulfate 90 mcg/actuation 2 inhalations inhalation QID PRN 8.5 grams 3RF shortness of breath or wheezing J45.909 - Unspecified asthma, uncomplicated Coding Level of Care Code Est Pt Level 3 (94994) Diagnoses Uncomplicated asthma, unspecified asthma severity, unspecified whether persistent J45.909 Asthma complication type: uncomplicated Asthma persistence: unspecified Asthma severity: unspecified severity Environmental allergies Z91.09 Cough R05.9
[2024-11-09 14:10] VITALS: BP 102/60; PULSE 74; O2SAT 95; BMI 29.6
== END 2024-11-09 14:25 | disposition home or self-care (01) ==
PROVIDERS: PCP Internal Medicine; Referring Provider Internal Medicine; Visit Provider Nurse Practitioner Family
DX: J45.909 Unspecified asthma, uncomplicated (principal); Z91.09 Other allergy status, other than to drugs and biological substances; R05.9 Cough, unspecified
CPT/HCPCS: 99213

== ENCOUNTER 2024-12-28 09:30 | Outpatient (AMB) | payer OTHER, SELFPAY ==
--- NOTE | 2024-12-28 09:47 | MHC.OFFVIS ---
Vital Signs 12/28/24 09:51 Height 5 ft 2 in Weight 168 lb 3.403 oz BMI 30.8 BP 112/74 Blood Pressure Location Lt brachial Position Sitting Pulse 75 Pulse Source Pulse Oximeter Pulse Oximetry (%) 96 Oxygen Delivery Method Room Air Intake Visit Reasons: Low back pain/Rt knee pain Intake Note: Patient presents for low back pain and Rt knee pain. Allergies cephalexin [From KEFLEX] Allergy (Severe, Verified 12/28/24 09:49) SOB/HIVES Iodinated Contrast Media [IV CONTRAST] Allergy (Severe, Verified 12/28/24 09:49) SOB/CHEST PAIN/DIFFICULTY BREATHING oxycodone [From Percocet] Allergy (Intermediate, Verified 12/28/24 09:49) itchy, SOB environmental allergies Allergy (Mild, Verified 12/28/24 09:49) congestion Medication List - Last Reconciled 12/28/24 by Chloe Daniels MD albuterol sulfate 2.5 mg (3 mL) inhalation Q4-6H PRN albuterol sulfate 90 mcg/actuation 2 inhalations inhalation QID PRN atorvastatin 10 mg PO BEDTIME 30 days fluticasone furoate-vilanterol 100-25 mcg/dose (Breo Ellipta) 1 inh inhalation DAILY gabapentin 300 mg (3 x 100 mg) PO BEDTIME 90 days ibuprofen 800 mg PO TID PRN linaclotide (Linzess) 72 mcg PO QAM irarys-idxerhra-dydxuyq 36,000-114,000- 180,000 unit (Creon) 1 cap PO QID magnesium oxide 500 mg PO BID 30 days pantoprazole 40 mg PO BID sennosides (Senna Laxative) 17.2 mg (2 x 8.6 mg) PO BEDTIME simethicone 180 mg PO .tidac 30 days sucralfate 10 mL PO BID HPI Comments Details: Patient is a 54-year-old female with hyperlipidemia, fibomyalgia and polyarticular OA who presents for follow up Interval History: Last seen 09/10/2024 with me. At that time she was following up for diagnosis of fibromyalgia and polyarticular osteoarthritis she was on gabapentin and Celebrex which was helpful. She was complaining of right buttock pain. Her exam was consistent with piriformis syndrome and she was started on high-dose ibuprofen and sent to PT Today patient is here for follow up Ibuprofen was helpful but has not started PT as yet Currently complaining of bilateral knee pain Rheumatologic History: Initial History: Patient states that for the past 2 years she has noticed insidious onset of polyarticular joint pain involving her hands, wrists, elbows, shoulders, hips, knees and ankles. This is associated with overwhelming fatigue and insomnia (difficulty getting to sleep at night). She particularly notes that she finds it difficult to lay on either side of her hips at night. Denies rashes, photosensitivity, alopecia, oral/nasal ulcers, sicca symptoms, lymphadenopathy, chest pain/shortness of breath, foamy urine, lower extremity edema, muscle weakness, Raynaud's Also denies history of seizure, CVA, psychosis, history of kidney problems, history of cytopenias, history of VTE including PE or DVTs Based on history and examination, her pain was more consistent with degenerative joint disease and fibromyalgia. No evidence of inflammatory arthritis Started on gabapentin and celebrex Current Rheumatology Medication(s): Gabapentin 100mg - 300mg at night Celebrex 200mg bid [facility] Medical History (Updated 12/28/24 @ 10:28 by Chloe Daniels MD) Bilateral plantar fasciitis Facet arthritis, degenerative, L5-S1 level, lumbosacral spine Piriformis syndrome of right side Constipation Bilateral carpal tunnel syndrome Fibromyalgia Chest pain Dizziness Palpitations Osteoporosis screening Cervical cancer screening Breast cancer screening by mammogram Obesity (BMI 30-39.9) Pure hypercholesterolemia Erosive gastritis Osteoarthritis Esophagitis Duodenitis Tubular adenoma of colon Hemorrhagic gastritis Class 1 obesity Anxiety disorder due to medical condition Elevated blood pressure reading without diagnosis of hypertension COVID-19 Peptic ulcer disease Low back pain Vaginal odor Painful breasts Overweight (BMI 25.0-29.9) Vitamin D deficiency Migraine Gastroparesis History of COVID-19 Asthma GERD (gastroesophageal reflux disease) Surgical History History of esophagogastroduodenoscopy (EGD) Hx of colonoscopy History of hernia surgery Hx of tubal ligation History of appendectomy H/O: hysterectomy Family History Mother Uterine cancer Family/Other History of breast cancer Social History Housing: House Alcohol intake: never Patient Tobacco Use Status: Never used Tobacco Tobacco use type: Cigarette e-Cigarette/Vaping Use: Never Used Second Hand Smoke Exposure: No service: No Current occupational status: 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 Sexual orientation: Straight/Heterosexual Gender identity: Female Cognitive needs: No Hearing needs: No Vision needs: Yes Female Reproductive History Menstrual Age of Menarche: 12 Review of Systems Const Details: Review of Systems Constitutional: Denies fever, chills, weight loss ENT: Denies vision changes, eye pain or eye redness, dental caries, dry mouth GI: Denies nausea, vomiting, diarrhea, abdominal pain, change in BM Pulm: Denies SOB, [place]DR[place]ON, hemoptysis, wheezing Cards: Denies chest pain, palpitations Skin: Denies Raynaud's, rash, nail changes, photosensitivity, [employer]: Denies headaches, weakness, paresthesias, recurrent falls MSK: as per HPI All other systems reviewed and are unremarkable except noted above Physical Exam Vital Signs: Last Vital Signs Pulse 75 12/28/24 09:51 BP 112/74 12/28/24 09:51 Pulse Ox 96 12/28/24 09:51 Oxygen Delivery Method Room Air 12/28/24 09:51 BMI result Body Mass Index 30.8 Vital signs reviewed Physical Examination CONSTITUITIONAL Patient alert and cooperative. Well appearing and in no apparent painful distress HEENT Conjunctiva and sclera clear. ?Pupils equal round and reactive to light. ?No lymphadenopathy. ? CHEST/RESPIRATORY SYSTEM Normal respiratory effort and able to speak in complete sentences. ?Clear to auscultation bilaterally. ?No crackles, rales, rhonchi, wheezes heard. CARDIAC SYSTEM Regular rate and rhythm. ?S1 and S2 heard no murmurs. ?Radial pulses intact bilaterally MSK Hands: ?Able to make a fist. No synovitis noted to the MCPs, PIPs or DIPs. ?No tenderness to palpation of these joints. No deformities noted. ? Wrists: ?Full range of motion at the wrists without pain. ?No tenderness to palpation or synovitis noted to the wrists. Elbows: Full range of motion without pain. No tenderness, weakness, swelling, increased warmth or erythema. Shoulders: Full range of active range of motion without pain. No tenderness, weakness, swelling, increased warmth or erythema. Hips: Full range of motion without pain. Hip bursa: No tenderness to palpation Knees: ?Full range of motion. ?No tenderness, swelling, increased warmth or erythema.?crepitations bilaterally. TTP of the joint line Ankles: Full range of motion. ?No tenderness, swelling, increased warmth or erythema.? Feet: ?Negative squeeze test. ?No tenderness to palpation or swelling of the MTPs. Tender points:?No tenderness to palpation of the bilateral trapezius, supraspinatus, greater trochanters, anterior costochondral junctions, bilateral gluteal areas, bilateral suboccipital muscle insertions SKIN Skin intact without rashes. Office Procedures AMB Joint Injection/Aspiration Joint Injection/Aspiration Details: Procedure was explained to the patient and consent was obtained. ? The area of interest was identified and confirmed with patient. ?This was subsequently cleaned with chlorhexidine x3. ? The area was then anesthetized using ethyl chloride spray. 40 mg Kenalog with 1 cc 1% lidocaine was injected without issue. ?Minimal to no bleeding. ?Patient tolerated procedure. Primary Site: right knee Prep: site was prepped using aseptic technique and ethochloride spray was applied Injected: 40 mg of, Kenalog, 1% plain lidocaine and in the joint Approach Used: anterior Procedure: The patient tolerated the procedure well Coding 80130 - Large joint Procedure code (CPT) selection complete AMB Joint Injection/Aspiration Joint Injection/Aspiration Details: Procedure was explained to the patient and consent was obtained. ? The area of interest was identified and confirmed with patient. ?This was subsequently cleaned with chlorhexidine x3. ? The area was then anesthetized using ethyl chloride spray. 40 mg Kenalog with 1 cc 1% lidocaine was injected without issue. ?Minimal to no bleeding. ?Patient tolerated procedure. Primary Site: left knee Prep: site was prepped using aseptic technique and ethochloride spray was applied Injected: 40 mg of, Kenalog, with 1 mL of and 1% plain lidocaine Approach Used: anterior Procedure: The patient tolerated the procedure well Coding 08159 - Large joint Procedure code (CPT) selection complete Office Meds lidocaine (PF) 10 mg/mL (1 %) injection solution Performing Provider: Chloe Daniels MD Performing Location: [facility] [place] [facility] Administered by: Chloe Daniels MD on 12/28/24 12:34 Dose Route Admin Location Dispensed Lot Number Expiration Date [facility] Fingerprint Classifier 1 mL Infiltration right knee 2 mL [id number] 10/31/26 21883-492-78 [employer] Kenalog 40 mg/mL suspension for injection Performing Provider: Chloe Daniels MD Performing Location: [facility] [place] [facility] Administered by: Chloe Daniels MD on 12/28/24 12:34 Dose Route Admin Location Dispensed Lot Number Expiration Date [place] Fingerprint Classifier 40 mg intra-articular right knee 1 mL [id number] 03/02/26 [address]-4 [employer] lidocaine (PF) 10 mg/mL (1 %) injection solution Performing Provider: Chloe Daniels MD Performing Location: [facility] [place] [facility] Administered by: Chloe Daniels MD on 12/28/24 12:34 Dose Route Admin Location Dispensed Lot Number Expiration Date [place] Fingerprint Classifier 1 mL Infiltration left knee 2 mL [id number] 10/31/26 28123-976-72 [employer] Kenalog 40 mg/mL suspension for injection Performing Provider: Chloe Daniels MD Performing Location: [facility] [place] [facility] Administered by: Chloe Daniels MD on 12/28/24 12:34 Dose Route Admin Location Dispensed Lot Number Expiration Date [facility] Fingerprint Classifier 40 mg intra-articular left knee 1 mL [id number] 03/02/26 [address]-1 [employer] Results Reviewed Results Reviewed: Laboratory Tests 01/21/24 06/23/24 07:24 13:51 WBC 7.2 RBC 4.09 L Hgb 12.4 Hct 38.9 Plt Count 305 Rheumatoid Factor < 13.0 [place] Screen NEGATIVE XR L spine 05/2024 FINDINGS: Lumbar spine: Moderate L5-S1 degenerative disc disease and mild degenerative disc disease at L1-L2 with disc space narrowing and endplate osteophytes. This is slightly progressed since the previous study. No fracture. Normal alignment and lumbar lordosis. XR Bilateral Knees 12/2022 FINDINGS: Bilateral Knee: There is minimal reduction in the medial and patellofemoral compartment joint space both knees. No loose bodies, bony erosive changes, fracture or dislocation. There is a small enthesophyte along the anterior suprapatella left knee. No abnormal joint effusion seen. Assessment & Plan Assessment & Plan (1) Bilateral primary osteoarthritis of knee: Code(s): M17.0 - Bilateral primary osteoarthritis of knee Plan: #Bilateral knee OA Patient is a 54 y.o. female with polyarticular OA here today for follow up. Complaining of bilateral knee OA today. s/p steroid inj Plan - S/p bilateral knee steroid injection - RTC 6 months or sooner (2) Piriformis syndrome of right side: Code(s): G57.01 - Lesion of sciatic nerve, right lower limb Category: Medical Plan: #Piriformis syndrome Improved with ibuprofen Follow up with PT Plan - Ibuprofen 600mg tid prn for pain - Sucralfate 10mL bid to cover her erosive gastritis - Follow up with PT (3) Bilateral plantar fasciitis: Code(s): M72.2 - Plantar fascial fibromatosis Category: Medical Plan: #Bilateral plantar fasciitis Currently seeing podiatry and getting steroid injections Strecthes given Plan I spent 30 minutes reviewing the record and labs, taking a history, examining the patient, discussing the treatment plan and documenting in the medical record Orders: Orders AMB Joint Injection/Aspiration Today M17.0 - Bilateral primary osteoarthritis of knee AMB Joint Injection/Aspiration Today M17.0 - Bilateral primary osteoarthritis of knee Medications: New Kenalog (triamcinolone acetonide) 40 mg intra-articular ONCE 1 mL 0RF NS M17.0 - Bilateral primary osteoarthritis of knee lidocaine (PF) 1 mL Infiltration ONCE 2 mL 0RF M17.0 - Bilateral primary osteoarthritis of knee Kenalog (triamcinolone acetonide) 40 mg intra-articular ONCE 1 mL 0RF NS M17.0 - Bilateral primary osteoarthritis of knee lidocaine (PF) 1 mL Infiltration ONCE 2 mL 0RF M17.0 - Bilateral primary osteoarthritis of knee Refilled ibuprofen 800 mg PO TID PRN 60 tabs 1RF pain M17.0 - Bilateral primary osteoarthritis of knee, M72.2 - Plantar fascial fibromatosis Coding Level of Care Code Est Pt Level 4 (81958) Diagnoses Bilateral primary osteoarthritis of knee M17.0 Piriformis syndrome of right side G57.01 Bilateral plantar fasciitis M72.2 CPT Codes Coding - 73422 Large joint: 94711 - Large joint ([id number]) Coding - 60190 Large joint: 64828 - Large joint ([id number])
[2024-12-28 09:51] VITALS: BP 112/74; PULSE 75; O2SAT 96; BMI 30.8
== END 2024-12-28 10:28 | disposition home or self-care (01) ==
LOC: HO.RHE 09:30
PROVIDERS: PCP Internal Medicine; Visit Provider Student in an Organized Health Care Education/Training Program
DX: M17.0 Bilateral primary osteoarthritis of knee (principal); G57.01 Lesion of sciatic nerve, right lower limb; M72.2 Plantar fascial fibromatosis
CPT/HCPCS: 20610; 99214

== ENCOUNTER → 2024-12-28 09:30 | Outpatient (BNVA) | payer OTHER, SELFPAY | PROVIDERS: PCP Internal Medicine; Visit Provider Student in an Organized Health Care Education/Training Program | DX: M17.0 Bilateral primary osteoarthritis of knee (principal); G57.01 Lesion of sciatic nerve, right lower limb; M72.2 Plantar fascial fibromatosis | CPT/HCPCS: 20610; J3300 ==

== ENCOUNTER 2025-01-19 06:05 | Outpatient (REF) | payer OTHER, SELFPAY ==
[2025-01-19 06:20] LABS: MANUAL DIFF FLAG NO
[2025-01-19 07:12] LABS: Basophils Percent Auto 0.2 % (0-2); Eosinophils Absolute Auto 0.3 X10*3/uL (0.0-0.4); Hematocrit 39.8 % (37.0-47.0); Hemoglobin 12.7 g/dl (12.0-16.0); Imm Gran Abs Auto 0.03 X10*3/uL (0.00-0.03); Imm Gran Pct Auto 0.3 % (0.0-0.4); Lymphocytes Absolute Auto 1.9 X10*3/uL (1.2-4.9); Mean Corpuscular HGB Conc 31.9 g/dl (31.0-35.0); Mean Corpuscular Volume 93.9 fL (80.0-98.0); Monocytes Absolute Auto 1.2 X10*3/uL (0.1-1.2); Monocytes Percent Auto 11.5 % (2-11); Platelet Count 274 X10*3/uL (160-400); Red Blood Count 4.24 X10*6/uL (4.20-5.50); Red Cell Distribution Width 13.9 % (11.0-16.0); White Blood Count 10.4 X10*3/uL (4.8-10.8)
[2025-01-19 07:33] LABS: Appearance Urine Clear; Color Urine Yellow; Glucose Urine UA Negative (Negative); Leukocyte Esterase Urine Trace (Negative); Nitrite Urine Negative (Negative); UMIC TRIGGER UACC YES; Urine Blood Negative (Negative); Urine Ketones Negative (Negative); Urine Protein Negative (Neg-Trace)
[2025-01-19 07:38] LABS: Bacteria Urine None Seen (None Seen); Hyaline Casts Urine 0-2 /LPF (0-2); RBC Urine 0-2 /HPF (0-2); Squamous Epithelial Cell Urine 0-2 /HPF (0-2); WBC Urine 0-5 /HPF (0-5)
[2025-01-19 07:40] LABS: Alanine Aminotransferase 25 U/L (0-31); Alkaline Phosphatase 111 U/L (39-117); Anion Gap 12 (12-20); Aspartate Amino Transferase 24 U/L (5-31); Bilirubin Total 0.4 mg/dL (0.0-1.0); Blood Urea Nitrogen 11 mg/dL (9-16); Calcium 9.5 mg/dL (8.4-10.2); Carbon Dioxide 29 mmol/L (22-29); Chloride 108 mmol/L (96-108); Cholesterol 263 mg/dL (<200); Estimated Glomerular Filt Rate > 60; Glucose Fasting 85 mg/dL (60-99); HDL Cholesterol 49 mg/dL (>40); LDL Cholesterol Calculated 192 mg/dL (<100); Potassium 4.8 mmol/L (3.3-5.1); Sodium 144 mmol/L (135-145); Total Protein 7.3 g/dL (6.5-8.0); Triglycerides 112 mg/dL (<150)
[2025-01-19 07:59] LABS: TSH reflex Free T4 1.44 uIU/mL (0.32-4.0); Vitamin D 25-OH Total 23.1 ng/mL (>30)
== END 2025-01-19 06:06 | disposition home or self-care (01) ==
LOC: HO.LAB 06:05
PROVIDERS: PCP Internal Medicine; Visit Provider Internal Medicine
DX: Z00.00 Encounter for general adult medical examination without abnormal findings (principal); E78.00 Pure hypercholesterolemia, unspecified; M79.7 Fibromyalgia; M17.0 Bilateral primary osteoarthritis of knee; M51.35 Other intervertebral disc degeneration, thoracolumbar region; J45.909 Unspecified asthma, uncomplicated; K20.90 Esophagitis, unspecified without bleeding; K29.60 Other gastritis without bleeding; K31.84 Gastroparesis; K59.04 Chronic idiopathic constipation; G43.909 Migraine, unspecified, not intractable, without status migrainosus; E55.9 Vitamin D deficiency, unspecified; E66.3 Overweight; Z68.29 Body mass index [BMI] 29.0-29.9, adult; D64.9 Anemia, unspecified; Z79.891 Long term (current) use of opiate analgesic; Z79.899 Other long term (current) drug therapy
CPT/HCPCS: 36415; 80053; 80061; 81001; 82306; 84443; 85025; 96127

== ENCOUNTER 2025-01-19 17:12 | Outpatient (AMB) | payer OTHER, SELFPAY ==
--- NOTE | 2025-01-19 17:19 | A.OFFPC_ITS ---
Vital Signs 01/19/25 17:25 Height 5 ft 2 in Weight 162 lb 6 oz BMI 29.7 BP 128/86 Blood Pressure Location Lt brachial Position Sitting Pulse 84 Pulse Source Pulse Oximeter Temp 97.3 F Temp Source Temporal Artery Scan Pulse Oximetry (%) 98 Oxygen Delivery Method Room Air Intake Visit Reasons: annual exam Streaming Media Specialist Required: No Accompanied by: Self / Same As Patient Allergies cephalexin [From KEFLEX] Allergy (Severe, Verified 01/19/25 17:34) SOB/HIVES Iodinated Contrast Media [IV CONTRAST] Allergy (Severe, Verified 01/19/25 17:34) SOB/CHEST PAIN/DIFFICULTY BREATHING oxycodone [From Percocet] Allergy (Intermediate, Verified 01/19/25 17:34) itchy, SOB environmental allergies Allergy (Mild, Verified 01/19/25 17:34) congestion Medication List - Last Reconciled 01/19/25 by Everett Gutierrez MD albuterol sulfate 2.5 mg (3 mL) inhalation Q4-6H PRN albuterol sulfate 90 mcg/actuation 2 inhalations inhalation QID PRN atorvastatin 10 mg PO BEDTIME 30 days fluticasone furoate-vilanterol 100-25 mcg/dose (Breo Ellipta) 1 inh inhalation DAILY gabapentin 300 mg (3 x 100 mg) PO BEDTIME 90 days ibuprofen 800 mg PO TID PRN linaclotide (Linzess) 72 mcg PO QAM bwasrr-bkoyarti-gvmnepo 36,000-114,000- 180,000 unit (Creon) 1 cap PO QID magnesium oxide 500 mg PO BID 30 days pantoprazole 40 mg PO BID sennosides (Senna Laxative) 17.2 mg (2 x 8.6 mg) PO BEDTIME simethicone 180 mg PO .tidac 30 days sucralfate 10 mL PO BID Tobacco use date assessed: 01/19/25 Dental Screening Dental Screen Date: 01/19/25 Did you have a dental visit in the last 12 months?: Yes Did you have a dental problem in the last 6 months where you did not have access to dental care?: No Was dental information given to patient?: Patient has dentist HPI annual exam HPI Details Patient comes in today for her annual physical examination States that she feels okay She denies any headaches or dizziness Denies any chest pains, no SOB No nausea/vomiting, no abdominal pain No change in bowel habits noted She denies any acute urinary symptoms She had her follow up labs done earlier this morning - to discuss her results She is up-to-date with all of her cancer screenings - she had her annual mammogram and bone density done back in April 2024 and is scheduled for her next yearly gynecology exam next month (January 2025) She had her screening colonoscopy done back in 2021 and will be due for repeat colonoscopy in 5 years (2026) [facility] Medical History (Updated 01/20/25 @ 06:45 by Everett Gutierrez MD) Esophagitis DDD (degenerative disc disease), thoracolumbar Bilateral plantar fasciitis Facet arthritis, degenerative, L5-S1 level, lumbosacral spine Piriformis syndrome of right side Constipation Bilateral carpal tunnel syndrome Fibromyalgia Chest pain Dizziness Palpitations Osteoporosis screening Cervical cancer screening Breast cancer screening by mammogram Obesity (BMI 30-39.9) Pure hypercholesterolemia Erosive gastritis Osteoarthritis Duodenitis Tubular adenoma of colon Hemorrhagic gastritis Class 1 obesity Anxiety disorder due to medical condition Elevated blood pressure reading without diagnosis of hypertension COVID-19 Peptic ulcer disease Low back pain Vaginal odor Painful breasts Overweight (BMI 25.0-29.9) Vitamin D deficiency Migraine Gastroparesis History of COVID-19 Asthma GERD (gastroesophageal reflux disease) Surgical History (Updated 01/19/25 @ 17:40 by Everett Gutierrez MD) History of esophagogastroduodenoscopy (EGD) Hx of colonoscopy History of hernia surgery Hx of tubal ligation History of appendectomy H/O: hysterectomy Family History Mother Uterine cancer Family/Other History of breast cancer Social History Housing: House Alcohol intake: never Patient Tobacco Use Status: Never used Tobacco Tobacco use type: Cigarette e-Cigarette/Vaping Use: Never Used Second Hand Smoke Exposure: No service: No Current occupational status: 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 1. Little interest or pleasure in doing things: not at all 2. Feeling down, depressed, or hopeless: not at all 3. Trouble falling or staying asleep, or sleeping too much: not at all 4. Feeling tired or having little energy: nearly every day 5. Poor appetite or overeating: not at all 6. Feeling bad about yourself - or that you are a failure or have let yourself or your family down: not at all 7. Trouble concentrating on things, such as reading the newspaper or watching television: nearly every day 8. Moving or speaking so slowly that other people could have noticed. Or the opposite - being so fidgety or restless that you have been moving around a lot more than usual: not at all 9. Thoughts that you would be better off or of hurting yourself in some way: not at all Total score: 6 Depression Screening Interpretation: Positive Depression Screening Follow-up: Follow-up Visit Requested Depression Screening Done: Yes 74662 - PHQ-9 Billing: Yes Source: Developed by Drs. Julio Martínez, Reina Ness, Maximo Yousif and colleagues, with an educational neha from [employer]. Thrive Questionnaire Date Thrive assessed: 01/19/25 I am a: Patient What is your living situation today?: I have a steady place to live Within the past 12 months, did the food you bought not last and you didn't have the money to get more?: Sometimes True Within the past 12 months, did you worry whether your food would run out before you got money to buy more?: Sometimes True Do you have trouble paying for medicines?: No Do you have trouble getting transportation to medical appointments?: No Do you have trouble paying your heating and electricity bill?: Yes Do you have trouble taking care of your child, family member or friend?: No Do you have trouble with day-to-day activities such as bathing, preparing meals, shopping, managing finances, etc.?: No Are you currently unemployed and looking for a job?: Yes Are you interested in more education?: No Please select the resources that you would like help with: Utilities Currently or been in a relationship where the following occur: No concerns reported THRIVE Score: 3 AUDIT C Alcohol Use Questionnaire (AUDIT-C) 1. How often do you have a drink containing alcohol?: Never 3. How often do you have six or more drinks on one occasion?: Never Total Score: 0 Score Reviewed/Action Taken: Yes DANA-7 AMB Questionnaire DANA-7 Date DANA - 7 assessed: 01/19/25 Feeling nervous, anxious, or on edge: 0 = Not at all Not being able to stop or control worryin = Not at all Worrying too much about different things: 0 = Not at all Trouble relaxin = Not at all Being so restless that it is hard to sit still: 0 = Not at all Becoming easily annoyed or irritable: 0 = Not at all Feeling afraid as if something awful might happen: 0 = Not at all Total DANA-7 score (0-4 normal; 5-9 mild; 10-14 moderate; 15-21 severe): 0 Source: Developed by Drs. Julio Martínez, Reina Ness, Maximo Yousif and colleagues, with an educational neha from [employer]. DANA-7 Assessment Billing DANA-7 Assessment Tool: DANA-7 Assessment 25618 Review of Systems Const Denies chills, Denies fatigue, Denies fever(s), Denies headache(s) and Denies malaise Eyes Denies blurry vision, Denies change in vision, Denies irritation and Denies itchy eyes ENT Denies dysphagia, Denies dizziness, Denies otalgia, Denies headache(s), Denies nasal congestion, Denies neck pain, Denies odynophagia, Denies sinus pain and Denies sore throat Card Denies chest pain, Denies rapid heart rate, Denies irregular heart rhythm, Denies palpitations and Denies dyspnea Resp Denies chest congestion, Denies cough, Denies dyspnea and Denies wheezing GI Denies abdominal pain, Denies bloating, Denies constipation, Denies dysphagia, Denies heartburn, Denies diarrhea, Denies nausea, Denies odynophagia and Denies vomiting Denies hematuria, Denies urinary frequency, Denies dysuria, Denies urinary incontinence and Denies urinary urgency Musc Denies back pain, Denies arthralgias, Denies joint swelling, Denies muscle weakness and Denies neck pain Skin/Breast Denies breast pain, Denies breast mass, Denies change in pigmentation, Denies lesions, Denies rash and Denies unusual bruising Neuro Denies dizziness, Denies headache(s) and Denies paresthesias Psych Denies anxiety and Denies depression Endo Denies fatigue and Denies palpitations Julien/Lymph Denies easy bruising Aller/Immun Denies itchy eyes and Denies wheezing Physical exam (Primary Care) Vital Signs: Last Vital Signs Temp 97.3 F 01/19/25 17:25 Pulse 84 01/19/25 17:25 BP 128/86 01/19/25 17:25 Pulse Ox 98 01/19/25 17:25 Oxygen Delivery Method Room Air 01/19/25 17:25 BMI result Body Mass Index 29.7 Tobacco/Smoking Status: Tobacco use Status Tobacco use date assessed 01/19/25 01/19/25 17:20 Patient Tobacco Use Status Never used Tobacco 01/19/25 17:20 Tobacco use type Cigarette 01/19/25 17:20 e-Cigarette/Vaping Use Never Used 01/19/25 17:20 PHQ-9: PHQ-9 Score PHQ-9: Total score 6 01/19/25 17:36 Depression Screening Interpretation: Positive Depression Screening Follow-up: Follow-up Visit Requested Thrive Assessment: Date of Thrive Assessment Date Thrive assessed 01/19/25 01/19/25 17:20 Currently or been in a relationship where the following occur: No concerns reported Const General: no acute distress, alert and awake Orientation/consciousness: patient oriented x3 HENMT Head: Yes normocephalic and Yes atraumatic Ears: external ears normal, TM's normal bilaterally and EAC's normal General nose exam: No nasal discharge present Face and sinus: Yes normal facial exam and Yes sinuses nontender Teeth and gingiva: dentition normal Throat: Yes posterior oropharynx normal and Yes tonsils normal (no TP congestion) Eyes Eyelids: Yes eyelids normal Conjunctivae: conjunctivae normal Pupils: Equal, round and reactive pupils present EOM: EOMs intact bilaterally Neck Neck: Yes no lymphadenopathy and Yes supple Thyroid: Thyroid normal Resp Auscultation: clear to auscultation bilaterally, no rales and no wheezes Cardio Rate: regular rate Rhythm: regular rhythm Heart sounds: no murmurs GI Palpation (GI): Soft to palpation, nontender and No hepatosplenomegaly present Auscultation: normal bowel sounds General: Yes no CVA tenderness Back/Spine/Pelvis Back: no CVA tenderness Thoracic/Lumbar Spine: thoracic and lumbar spine normal to inspection Skin Lesions: no lesions Rashes: no rashes Neuro General: patient oriented x3, moves all extremities, no focal motor deficits and CN's II-XI intact bilaterally Cranial nerves: Yes Equal, round and reactive pupils present Cognition (Neuro): normal cognition Gait exam (Neuro): Normal gait present Extrem General: Yes no clubbing, cyanosis or edema Results Reviewed Results Reviewed: Laboratory Tests 05/19/24 01/19/25 01/19/25 06:48 06:16 06:18 WBC 10.4 Hgb 12.7 Hct 39.8 Plt Count 274 Sodium 144 Potassium 4.8 Creatinine 0.91 Estimated GFR > 60 Fasting Glucose 85 Calcium 9.5 AST 24 ALT 25 Cholesterol 173 263 H Triglycerides 112 LDL Cholesterol, Calc 109 H 192 H HDL Cholesterol 49 25-OH Vitamin D Total 23.1 L TSH 1.44 Ur Specific [place] 1.020 Urine Protein Negative Urine Glucose (UA) Negative Urine Blood Negative Urine Nitrite Negative Ur Leukocyte Esterase Trace H Coding Level of Care Code Est Pt Prev Care 40-64y(09235) Diagnoses Annual physical exam Z00.00 Pure hypercholesterolemia E78.00 Fibromyalgia M79.7 Primary osteoarthritis of both knees M17.0 Osteoarthritis type: primary DDD (degenerative disc disease), thoracolumbar M51.35 Uncomplicated asthma, unspecified asthma severity, unspecified whether persistent J45.909 Asthma severity: unspecified severity Asthma persistence: unspecified Asthma complication type: uncomplicated Esophagitis K20.90 Erosive gastritis K29.60 Gastroparesis K31.84 Chronic idiopathic constipation K59.04 Migraine without status migrainosus, not intractable, unspecified migraine type G43.909 Migraine type: unspecified Status migrainosus presence: without status migrainosus Intractability: not intractable Vitamin D deficiency E55.9 Overweight (BMI 25.0-29.9) E66.3 Additional Codes DANA-7 Assessment Billing - DANA-7 Assessment Tool: DANA-7 Assessment 44068 ([id number]) PHQ-9 - 98130 - PHQ-9 Billing: Yes ([id number]) Assessment & Plan Assessment & Plan (1) Annual physical exam: Code(s): Z00.00 - Encounter for general adult medical examination without abnormal findings Category: Medical Plan: Results of her labs done earlier today reviewed and discussed with patient She is up-to-date with all of her cancer screenings - she had her annual mammogram and bone density done back in April 2024 and is scheduled for her next yearly gynecology exam next month (January 2025) She had her screening colonoscopy done back in 2021 and will be due for repeat colonoscopy in 5 years (2026) (2) Pure hypercholesterolemia: Code(s): E78.00 - Pure hypercholesterolemia, unspecified Category: Medical Plan: Have advised patient that her cholesterol levels have increased significantly on her recent labs Patient admitted that she stopped taking her cholesterol medication last prescription ran out and she thought that she no longer needed to continue on the medication Have advised patient that just because her cholesterol levels are controlled while she is on the medication does not mean that she is cured and it is likely she will need to stay on cholesterol medication for the rest of her life Will start her back her Atorvastatin 10 mg QD Reinforced low-cholesterol diet Will recheck her labs and fasting lipids in 4 months for follow-up (3) Fibromyalgia: Code(s): M79.7 - Fibromyalgia Category: Medical Plan: Per rheumatology, patient meets criteria for fibromyalgia, with a widespread pain index greater than 5 and a somatic severity scale greater than 7 Patient is advised on regular exercise and physical activity to help manage her fibromyalgia symptoms Continue Gabapentin 300 mg Q HS (4) Osteoarthritis of knees, bilateral: Code(s): M17.0 - Bilateral primary osteoarthritis of knee Category: Medical Qualifiers: Osteoarthritis type: primary Qualified Code(s): M17.0 - Bilateral primary osteoarthritis of knee Plan: X-rays of both knees done last year revealed (+) minimal / early OA changes in the knees Continue Celecoxib 200 mg QD PRN (5) DDD (degenerative disc disease), thoracolumbar: Code(s): M51.35 - Other intervertebral disc degeneration, thoracolumbar region Category: Medical Plan: Thoracic spine x-rays done in 2022 revealed (+) mild degenerative changes of the thoracic spine Lumbar spine x-rays done last year revealed moderate L5-S1 degenerative disc disease and mild degenerative disc disease at L1-L2 with disc space narrowing and endplate osteophytes. This is slightly progressed since the previous study Reinforced activity and weight-lifting restrictions to avoid aggravating her back symptoms (6) Asthma: Code(s): J45.909 - Unspecified asthma, uncomplicated Category: Medical Qualifiers: Asthma severity: unspecified severity Asthma persistence: unspecified Asthma complication type: uncomplicated Qualified Code(s): J45.909 - Unspecified asthma, uncomplicated Plan: Continue Albuterol HFA 2 inhalations Q 6 hours PRN and Montelukast 10 mg QD She used to be on Symbicort 80-4.5 mcg but has not needed to use this in a couple of years now (7) Esophagitis: Comment: (+) erosive esophagitis on biopsy in 2018 Code(s): K20.90 - Esophagitis, unspecified without bleeding Category: Medical Plan: Dietary restrictions reinforced Repeat EGD done in October 2022 revealed (+) findings of erosive esophagitis and gastritis Continue Pantoprazole 40 mg BID Follow up with GI as scheduled (8) Erosive gastritis: Code(s): K29.60 - Other gastritis without bleeding Category: Medical Plan: Repeat EGD done in October 2022 revealed (+) findings of BOTH erosive esophagitis and gastritis Dietary restrictions reinforced Continue Pantoprazole 40 mg BID Follow up with GI as scheduled (9) Gastroparesis: Comment: She could not tolerate reglan r/t hand shaking GASTRIC EMPTYING STUDY 08/17/22 IMPRESSION: Abnormal study. There is marked abnormal retention of solid food in the stomach at 4 hours. Code(s): K31.84 - Gastroparesis Category: Medical Plan: This was noted/confirmed on gastric emptying studies done back in August 2022 She is reminded to keep her feedings small but to eat more frequently to help keep up with her nutritional requirements Continue Simethicone 180 mg QID and Creon 1 capsule QID Follow up with GI as scheduled (10) Chronic idiopathic constipation: Code(s): K59.04 - Chronic idiopathic constipation Category: Medical Plan: Patient is encouraged again on increased oral fluids and dietary fiber Continue Senna 8.6 mg 1 to 2 tablets Q HS and Magnesium Oxide 500 mg BID Follow up with GI as scheduled (11) Migraine: Code(s): G43.909 - Migraine, unspecified, not intractable, without status migrainosus Category: Medical Qualifiers: Migraine type: unspecified Status migrainosus presence: without status migrainosus Intractability: not intractable Qualified Code(s): G43.909 - Migraine, unspecified, not intractable, without status migrainosus Plan: Stable/controlled lately Reinforced avoidance of potential migraine triggers (12) Vitamin D deficiency: Code(s): E55.9 - Vitamin D deficiency, unspecified Category: Medical Plan: Continue Vitamin D3 2000 units QD (13) Overweight (BMI 25.0-29.9): Code(s): E66.3 - Overweight Category: Medical Plan: Reinforced diet/exercise as tolerated/lose weight Plan Follow up in 4 months Orders: Orders Complete Blood Count Auto Diff 4 Months D64.9 - Anemia, unspecified TSH reflex Free T4 4 Months E78.00 - Pure hypercholesterolemia, unspecified Lipid Panel 4 Months E78.00 - Pure hypercholesterolemia, unspecified Comprehensive Mentcle. Panel Fast 4 Months E78.00 - Pure hypercholesterolemia, unspecified UA CC w/rflx Micro + Cult 4 Months R30.0 - Dysuria Vitamin D 25-OH Total 4 Months E55.9 - Vitamin D deficiency, unspecified Medications: Changed From atorvastatin 10 mg PO BEDTIME 30 days 30 tabs 3RF To atorvastatin 10 mg PO BEDTIME 90 days 90 tabs 3RF
[2025-01-19 17:25] VITALS: BP 128/86; PULSE 84; TEMP 36.3; O2SAT 98; BMI 29.7
== END 2025-01-19 17:43 | disposition home or self-care (01) ==
LOC: HO.HMCH 17:12
PROVIDERS: PCP Internal Medicine; Visit Provider Internal Medicine
DX: Z00.00 Encounter for general adult medical examination without abnormal findings (principal); E78.00 Pure hypercholesterolemia, unspecified; M79.7 Fibromyalgia; M17.0 Bilateral primary osteoarthritis of knee; M51.35 Other intervertebral disc degeneration, thoracolumbar region; J45.909 Unspecified asthma, uncomplicated; K20.90 Esophagitis, unspecified without bleeding; K29.60 Other gastritis without bleeding; K31.84 Gastroparesis; K59.04 Chronic idiopathic constipation; G43.909 Migraine, unspecified, not intractable, without status migrainosus; E55.9 Vitamin D deficiency, unspecified; E66.3 Overweight

== ENCOUNTER 2025-01-21 08:18 | Outpatient (REF) | payer OTHER, SELFPAY ==
--- NOTE | ~2025-01-21 | US_ITS ---
EXAMINATION: US ABDOMEN HISTORY: R10.9 - Unspecified abdominal pain TECHNIQUE: Real-time grayscale ultrasound imaging of the abdomen was performed and images were reviewed. COMPARISON: There are no prior studies for comparison. FINDINGS: Liver: The right lobe of the liver measures 15.1 cm in size. The left lobe of the liver measures 8.5 cm in size. The liver demonstrates normal homogeneous echotexture. No focal mass or intrahepatic biliary ductal dilatation is identified. There is normal hepatopedal flow in the portal vein. Gallbladder and biliary tree: The gallbladder is unremarkable, without evidence of calculi, wall thickening, or pericholecystic fluid. There is no sonographic Tierney sign. The common bile duct is normal in caliber measuring 2 mm. 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 The left kidney measures 10.5 cm in length. The kidneys are otherwise unremarkable, without evidence of masses, hydronephrosis, or calculi. Pancreas: The pancreatic head, neck, and body are unremarkable. The pancreatic tail is obscured by bowel gas. Spleen: The spleen is normal in size and contour, measuring 8.9 cm in length. Abdominal aorta and inferior vena cava: The visualized portions of the abdominal aorta and inferior vena cava are normal in caliber. There is no free fluid in the abdomen. US/US abdomen complete IMPRESSION: Unremarkable abdominal ultrasound. Electronically signed by: Julio Palafox MD 01/21/2025 09:12 AM EDT
== END 2025-01-21 08:19 | disposition home or self-care (01) ==
LOC: HO.US 08:18
PROVIDERS: PCP Internal Medicine; Visit Provider Nurse Practitioner
DX: R10.9 Unspecified abdominal pain (principal)
CPT/HCPCS: 76700

== ENCOUNTER → 2025-01-21 08:20 | Outpatient (BNV) | payer OTHER, SELFPAY | PROVIDERS: PCP Internal Medicine; Visit Provider Radiology Diagnostic Radiology | DX: R10.9 Unspecified abdominal pain (principal) | CPT/HCPCS: 76700 ==

== ENCOUNTER 2025-02-04 06:59 | Day surgery (SDC) | payer OTHER, SELFPAY ==
[2025-02-02 13:03] VITALS: BMI 29.6
--- NOTE | 2025-02-03 11:26 | P.CONAN_ITS ---
Documented by User: Carol Frost NP 02/03/25 11:27 HPI - Anesthesia Eval Consult details Narrative: 54yo F for Upper Endoscopy PMFSH Active Problems Active Problems: All Active Problems Esophagitis (Acute) DDD (degenerative disc disease), thoracolumbar (Acute) Annual physical exam (Acute) Bilateral plantar fasciitis (Acute) Right sided abdominal pain (Acute) Facet arthritis, degenerative, L5-S1 level, lumbosacral spine (Acute) Piriformis syndrome of right side (Acute) Pre-op examination (Acute) Dysphagia (Acute) Bilateral carpal tunnel syndrome (Acute) Fibromyalgia (Acute) Environmental allergies (Acute) Recurrent cough (Acute) Cough (Acute) Back pain (Acute) Asthma exacerbation (Acute) Chronic fatigue (Acute) Myalgia (Acute) Obesity (BMI 30-39.9) (Acute) Pure hypercholesterolemia (Acute) Erosive gastritis (Acute) Bilateral flank pain (Acute) Osteoarthritis of knees, bilateral (Acute) IBS (irritable bowel syndrome) (Acute) Overweight (BMI 25.0-29.9) (Acute) Vitamin D deficiency (Acute) Migraine (Acute) Asthma (Acute) Foot pain, bilateral (Acute) Osteochondroma of left fibula (Acute) Gastroparesis (Acute) GERD (gastroesophageal reflux disease) (Acute) Chronic idiopathic constipation (Acute) Anxiety (Acute) Essential hypertension (Acute) Right low back pain (Acute) Family history of polyps in the colon (Acute) Abnormal stress test (Acute) Past Medical History Medical History Esophagitis DDD (degenerative disc disease), thoracolumbar Bilateral plantar fasciitis Facet arthritis, degenerative, L5-S1 level, lumbosacral spine Piriformis syndrome of right side Constipation Bilateral carpal tunnel syndrome Fibromyalgia Chest pain Dizziness Palpitations Osteoporosis screening Cervical cancer screening Breast cancer screening by mammogram Obesity (BMI 30-39.9) Pure hypercholesterolemia Erosive gastritis Osteoarthritis Duodenitis Tubular adenoma of colon Hemorrhagic gastritis Class 1 obesity Anxiety disorder due to medical condition Elevated blood pressure reading without diagnosis of hypertension COVID-19 Peptic ulcer disease Low back pain Vaginal odor Painful breasts Overweight (BMI 25.0-29.9) Vitamin D deficiency Migraine Gastroparesis History of COVID-19 Asthma GERD (gastroesophageal reflux disease) Family History Family History Mother Uterine cancer Family/Other History of breast cancer Family history of problems with anesthesia: No Surgical History Surgical History History of esophagogastroduodenoscopy (EGD) Hx of colonoscopy History of hernia surgery Hx of tubal ligation History of appendectomy H/O: hysterectomy History of Problems with Anesthesia: No Social History Social History Housing: House Alcohol intake: never Patient Tobacco Use Status: Never used Tobacco Tobacco use type: Cigarette e-Cigarette/Vaping Use: Never Used Second Hand Smoke Exposure: No Use of substances other than those prescribed or required for medical reasons: No Have you been hit, kicked, punched, or otherwise hurt by someone within the past year? 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 Sexual orientation: Straight/Heterosexual Gender identity: Female Cognitive needs: No Hearing needs: No Vision needs: Yes Meds Allergies Allergy/AdvReac Type Severity Reaction Status Date / Time cephalexin [From KEFLEX] Allergy Severe SOB/HIVES Verified 01/19/25 17:34 Iodinated Contrast Media Allergy Severe SOB/CHEST Verified 01/19/25 17:34 [IV CONTRAST] PAIN/DIFFICULTY BREATHING oxycodone [From Percocet] Allergy Intermediate itchy, SOB Verified 01/19/25 17:34 environmental allergies Allergy Mild congestion Verified 01/19/25 17:34 Exam Height,Weight and Vital Signs: Height 5 ft 2 in Weight 73.482 kg Pertinent Lab Results Pertinent Lab Results: Laboratory Tests 01/19/25 06:18 WBC 10.4 Hgb 12.7 Hct 39.8 Plt Count 274 Sodium 144 Potassium 4.8 Chloride 108 Carbon Dioxide 29 BUN 11 Creatinine 0.91 Assessment and Plan Assessment Anesthesia Assessment: Chart Reviewed Final Anesthetic Review Family History of Problems with Anesthesia: No History of Problems with Anesthesia: No Documented by User: Jennifer Little MD 02/04/25 08:06 [facility] Past Medical History Medical History Esophagitis DDD (degenerative disc disease), thoracolumbar Bilateral plantar fasciitis Facet arthritis, degenerative, L5-S1 level, lumbosacral spine Piriformis syndrome of right side Constipation Bilateral carpal tunnel syndrome Fibromyalgia Chest pain Dizziness Palpitations Osteoporosis screening Cervical cancer screening Breast cancer screening by mammogram Obesity (BMI 30-39.9) Pure hypercholesterolemia Erosive gastritis Osteoarthritis Duodenitis Tubular adenoma of colon Hemorrhagic gastritis Class 1 obesity Anxiety disorder due to medical condition Elevated blood pressure reading without diagnosis of hypertension COVID-19 Peptic ulcer disease Low back pain Vaginal odor Painful breasts Overweight (BMI 25.0-29.9) Vitamin D deficiency Migraine Gastroparesis History of COVID-19 Asthma GERD (gastroesophageal reflux disease) Family History Family History Mother Uterine cancer Family/Other History of breast cancer Surgical History Surgical History History of esophagogastroduodenoscopy (EGD) Hx of colonoscopy History of hernia surgery Hx of tubal ligation History of appendectomy H/O: hysterectomy Social History Social History Housing: House Alcohol intake: never Patient Tobacco Use Status: Never used Tobacco Tobacco use type: Cigarette e-Cigarette/Vaping Use: Never Used Second Hand Smoke Exposure: No Use of substances other than those prescribed or required for medical reasons: No Have you been hit, kicked, punched, or otherwise hurt by someone within the past year? 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 Sexual orientation: Straight/Heterosexual Gender identity: Female Cognitive needs: No Hearing needs: No Vision needs: Yes Meds Allergies Allergy/AdvReac Type Severity Reaction Status Date / Time cephalexin [From KEFLEX] Allergy Severe SOB/HIVES Verified 01/19/25 17:34 Iodinated Contrast Media Allergy Severe SOB/CHEST Verified 01/19/25 17:34 [IV CONTRAST] PAIN/DIFFICULTY BREATHING oxycodone [From Percocet] Allergy Intermediate itchy, SOB Verified 01/19/25 17:34 environmental allergies Allergy Mild congestion Verified 01/19/25 17:34 Exam Airway Mallampati Class: II TM Dist: >3cm Neck ROM: Full Loose/Missing/Broken Teeth: No Heart: RRR Lungs: CTA Assessment and Plan Assessment Anesthesia Assessment: Anesthesia Plan Discussed Final Anesthetic Review NPO: Yes ASA Class: II Final Preanesthetic Review: Meds/Allgs Chart Reviewed, Consent Obtained/Reviewed and Anes Risks/Benef Reviewed Patient Risk: Low Procedure Risk: Intermediate Anesthetic Plan Anesthetic Plan: MAC: Disposition: Standard PACU
[2025-02-04 07:11] VITALS: BP 112/58; PULSE 66; RESP 16; TEMP 36.4; O2SAT 95
[2025-02-04] MEDS: Lactated Ringers 1,000 ML 100 ML IVCONT (07:21)
--- NOTE | 2025-02-04 07:44 | MHC.SHP ---
Pre-Procedural Eval Section A - 24 Hr Update-Section A only Date of Service: 02/04/25 Section B - Complete if H&P > 30 days Chief Complaint: Other gastritis without bleeding,gastroparesis Relevant Family History (Specify if Yes): No Relevant Social History: None Present Medications: see Short Stay Collaborative assessment Medical History: Significant History (Esophagitis DDD (degenerative disc disease), thoracolumbar Bilateral plantar fasciitis Facet arthritis, degenerative, L5-S1 level, lumbosacral spine Piriformis syndrome of right side Constipation Bilateral carpal tunnel syndrome Fibromyalgia Chest pain Dizziness Palpitations Osteoporosis screening C) History of Previous Operations: Relevant previous surgery/procedure and date(s) (History of esophagogastroduodenoscopy (EGD) Hx of colonoscopy History of hernia surgery Hx of tubal ligation History of appendectomy H/O: hysterectomy) Allergies: Allergies Allergy/AdvReac Type Severity Reaction Status Date / Time cephalexin [From KEFLEX] Allergy Severe SOB/HIVES Verified 01/19/25 17:34 Iodinated Contrast Media Allergy Severe SOB/CHEST Verified 01/19/25 17:34 [IV CONTRAST] PAIN/DIFFICULTY BREATHING oxycodone [From Percocet] Allergy Intermediate itchy, SOB Verified 01/19/25 17:34 environmental allergies Allergy Mild congestion Verified 01/19/25 17:34 Review of Systems Sugical H&P ROS: Negative: Constitution, Cardiovascular, Respiratory, Neurological, Psychiatric, Hem-Onc, Allergic/Immunologic, Gastrointestinal, Genitourinary, Musculoskeletal, Integumentary, Endocrine and Eyes/Ears/Nose/Throat Exam Surgical H&P Exam: Normal: HEENT, Normal: Heart, Normal: Lungs, Normal: Extremities, Normal: Abdomen, Normal: Skin and Normal: Neurological Plan Diagnosis/Plan: Unchanged I have reviewed the history and physical and performed a pertinent physical examination on my patient. No changes have occurred unless specified. Time Spent With Patient Time: Total time managing care of this patient today ____ minutes.
--- NOTE | 2025-02-04 08:21 | W.PM.OPN ---
Operative Note Operative Note Date of Service: 02/04/25 Narrative: Procedure Description: EGD Indication: GERD Anesthesia: MAC FLEXIBLE TRANSORAL UPPER GASTROINTESTINAL ENDOSCOPY UPPER ENDOSCOPY Consent: Indications for the procedure and potential complications of bleeding, perforation, reaction to medications and missed diagnosis were discussed with the patient and informed consent was obtained. Instrument: Olympus GIF H 190 J mid size upper endoscope Monitoring: Vital signs and clinical assessment, continuous EKG monitoring, Pulse oximetry, Carbon Dioxide monitoring and blood pressure monitoring were done throughout the procedure. Procedure: The patient was placed in the left lateral decubitis position and pre-procedure medications were administered and a bite block was placed. The endoscope was inserted into the mouth and advanced under direct vision to the third part of duodenum. A careful inspection was made as the upper endoscope was withdrawn including a retroflexed examination of the proximal stomach; Findings and interventions are described below. Findings: Larynx:normal Esophagus: GE junction at 33 cm, diaphragm hiatus at 35 cm, with LA grade B erosive esophagitis noted with few erosive streaks and mild ulceration at GEJ, bx taken from distal esophagus, also 2 cm small sliding hiatal hernia noted Stomach: mild erythema . Biopsies were obtained. Grade 2 flap valve on retroflexed examination of the cardia. Duodenum: Normal bulb and descending duodenum, Intervention: Biopsies as noted above, Impression/Findings: erosive esophagitis small hiatal hernia PLAN: check compliance with medication, if not working then change, or consider surgical referral GERD precautions
[2025-02-04 08:24] VITALS: BP 102/60; PULSE 70; RESP 12; TEMP 36.4; O2SAT 97
[2025-02-04 08:45] VITALS: BP 105/68; PULSE 77; RESP 18; TEMP 36.1; O2SAT 96
== END 2025-02-04 09:06 | disposition home or self-care (01) ==
PROVIDERS: PCP Internal Medicine; Visit Provider Internal Medicine Gastroenterology
PROC: 0DJ08ZZ Inspection of Upper Intestinal Tract, Via Natural or Artificial Opening Endoscopic (ICD-10-PCS; CPT 43235; principal; 2025-02-04 08:20)
DX: K21.9 Gastro-esophageal reflux disease without esophagitis (principal); K20.80 Other esophagitis without bleeding; K44.9 Diaphragmatic hernia without obstruction or gangrene; K29.60 Other gastritis without bleeding; K31.84 Gastroparesis; K59.04 Chronic idiopathic constipation; R07.9 Chest pain, unspecified; R13.10 Dysphagia, unspecified; M79.7 Fibromyalgia; J45.909 Unspecified asthma, uncomplicated; R00.2 Palpitations; R42 Dizziness and giddiness; G57.01 Lesion of sciatic nerve, right lower limb; M51.17 Intervertebral disc disorders with radiculopathy, lumbosacral region; Z79.899 Other long term (current) drug therapy; Z88.1 Allergy status to other antibiotic agents; Z88.5 Allergy status to narcotic agent; Z91.041 Radiographic dye allergy status; Z98.890 Other specified postprocedural states
CPT/HCPCS: 43239; 88305; 88313; 88342; J2003; J2704

== ENCOUNTER → 2025-02-04 06:59 | Outpatient (BNV) | payer OTHER, SELFPAY | PROVIDERS: PCP Internal Medicine; Visit Provider Internal Medicine Gastroenterology | DX: K21.00 Gastro-esophageal reflux disease with esophagitis, without bleeding (principal) | CPT/HCPCS: 43239 ==

== ENCOUNTER 2025-02-10 10:01 | Outpatient (REF) | payer OTHER, SELFPAY ==
[2025-02-10 16:18] LABS: Bacterial Vaginosis PCR NEGATIVE (Negative); Candida Group PCR NOT DETECTED (Not Detect); Candida glab krusei PCR NOT DETECTED (Not Detect); Trichomonas vaginalis PCR NOT DETECTED (Not Detect)
== END 2025-02-10 10:02 | disposition home or self-care (01) ==
LOC: HO.LAB 10:01
PROVIDERS: PCP Internal Medicine; Visit Provider Advanced Practice Midwife
DX: N89.8 Other specified noninflammatory disorders of vagina (principal)
CPT/HCPCS: 81515

== ENCOUNTER 2025-02-10 10:01 | Outpatient (AMB) | payer OTHER, SELFPAY ==
--- NOTE | 2025-02-10 10:10 | A.OFFVIS_ITS ---
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 Sales Agent Required: No Budget Controller: Budget Controller Present (nava) Allergies cephalexin [From KEFLEX] Allergy (Severe, Verified 02/10/25 10:15) SOB/HIVES Iodinated Contrast Media [IV CONTRAST] Allergy (Severe, Verified 02/10/25 10:15) SOB/CHEST PAIN/DIFFICULTY BREATHING oxycodone [From Percocet] Allergy (Intermediate, Verified 02/10/25 10:15) itchy, SOB environmental allergies Allergy (Mild, Verified 02/10/25 10:15) congestion Medication List - Last Reconciled 02/10/25 by Rosalva Pyle LPN albuterol sulfate 2.5 mg (3 mL) inhalation Q4-6H PRN albuterol sulfate 90 mcg/actuation 2 inhalations inhalation QID PRN atorvastatin 10 mg PO BEDTIME 90 days esomeprazole magnesium 40 mg PO DAILY fluticasone furoate-vilanterol 100-25 mcg/dose (Breo Ellipta) 1 inh inhalation DAILY gabapentin 300 mg (3 x 100 mg) PO BEDTIME 90 days ibuprofen 800 mg PO TID PRN linaclotide (Linzess) 72 mcg PO QAM noxkhm-kfcacxxa-yozniin 36,000-114,000- 180,000 unit (Creon) 1 cap PO QID magnesium oxide 500 mg PO BID 30 days simethicone 180 mg PO .tidac 30 days sucralfate 10 mL PO BID Is last menstrual period known: No Post menopausal: Yes Patient : No Do you need a note to return to daycare/school/sports/work: No HPI Comments Details: She is a postmenopausal woman presenting for her 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 She is doing well with fat pressroom worker concerns: vaginal odor for a few month w/ occasional itching and burning. Admits 2 finger cleaning due to unpleasant odor. Currently sexually active, shelter partner. Has vaginal dryness and discomfort with intimacy. Attempting to eat a healthy diet with calcium and vitamin D and stays active with exercise-walks at work. Last pap smear; 2021, negative. Hysterectomy due to HMB. Last mammogram; 2023. Colonoscopy is UTD. Denies any family history of breast, ovarian or colon cancer. [facility] Medical History Esophagitis DDD (degenerative disc disease), thoracolumbar Bilateral plantar fasciitis Facet arthritis, degenerative, L5-S1 level, lumbosacral spine Piriformis syndrome of right side Constipation Bilateral carpal tunnel syndrome Fibromyalgia Chest pain Dizziness Palpitations Osteoporosis screening Cervical cancer screening Breast cancer screening by mammogram Obesity (BMI 30-39.9) Pure hypercholesterolemia Erosive gastritis Osteoarthritis Duodenitis Tubular adenoma of colon Hemorrhagic gastritis Class 1 obesity Anxiety disorder due to medical condition Elevated blood pressure reading without diagnosis of hypertension COVID-19 Peptic ulcer disease Low back pain Vaginal odor Painful breasts Overweight (BMI 25.0-29.9) Vitamin D deficiency Migraine Gastroparesis History of COVID-19 Asthma GERD (gastroesophageal reflux disease) Surgical History History of esophagogastroduodenoscopy (EGD) Hx of colonoscopy History of hernia surgery Hx of tubal ligation History of appendectomy H/O: hysterectomy Family History Mother Uterine cancer Family/Other History of breast cancer Social History Housing: House Alcohol intake: never Patient Tobacco Use Status: Never used Tobacco Tobacco use type: Cigarette e-Cigarette/Vaping Use: Never Used Second Hand Smoke Exposure: No Patient : No service: No Current occupational status: 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 Sexual orientation: Straight/Heterosexual Gender identity: Female Cognitive needs: No Hearing needs: No Vision needs: Yes Female Reproductive History Menstrual Age of Menarche: 12 Menopause type: surgical Total pregnancies: 4 Full term: 4 Premature: 0 Number of Living Children: 3 Date of last pap smear: 11/03/21 History of abnormal pap smear: No History of STI: No Date of Mammogram: 04/07/24 Other: Hysterectomy 04/07/24 Review of Systems Const All systems reviewed & are unremarkable except as noted in HPI and below Reports as per HPI Eyes Reports no additional complaints ENT Reports no additional complaints Card Reports no additional complaints Resp Reports no additional complaints GI Reports as per HPI and Reports no additional complaints Reports as per HPI Musc Reports no additional complaints Skin/Breast Reports as per HPI Neuro Reports no additional complaints Psych Reports no additional complaints Endo Reports no additional complaints Julien/Lymph Reports no additional complaints Aller/Immun Reports no additional complaints Physical Exam Vital Signs: Last Vital Signs BP 104/60 02/10/25 10:11 BMI result Body Mass Index 29.8 Const General: cooperative, healthy appearing, no acute distress, well developed and alert Orientation/consciousness: patient oriented x3 HEENT Head: Yes normal to inspection Eyes General: appearance normal, both eyes and all related structures Neck Neck: Yes normal visual inspection Thyroid: Thyroid normal Chest Chest palpation & inspection: normal inspection of the chest and other (no puckering, dimpling, peau de orange, retraction, discharge, masses) Breast/axilla inspection: normal inspection of the breasts Breast/axilla palpation: normal palpation of the breasts Resp Effort & Inspection: normal respiratory effort GI Inspection: Yes normal to inspection and Yes scar Palpation (GI): Soft to palpation Rectal Exam - Female: deferred General: Yes bladder normal to palpation External Female Exam: normal external appearance and normal appearance of the urethra Speculum Exam - Vagina: normal appearance of the vagina, normal palpation, normal vaginal discharge (Minimal discharge) and vagina atrophic Speculum Exam - Cervix: normal appearance of the cervix, normal palpation and Cervix absent (Vaginal cuff no lesions or nodules) Bimanual exam- vagina & uterus: normal bimanual exam, normal palpation, uterine size normal, bladder normal to palpation, normal palpation and non-tender Bimanual Exam- Adnexa, other: no masses Skin General skin exam: no rashes or lesions noted Rashes: no rashes Neuro General: patient oriented x3 Cognition (Neuro): normal cognition Extrem General: Yes normal to inspection Psych Attitude: cooperative Thought process: Normal thought process present Assessment & Plan Assessment & Plan (1) 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 Breast awareness, periodic self breast exams and yearly mammogram. Maintain a healthy lifestyle, well balanced diet including Calcium 1,200 mg and Vitamin D 600 IU daily, and routine exercise. Replens moisturizer use for vaginal dryness may take up to 3 months to be effective. If unsuccessful to return to the office for consult for hormone therapy. BV panel obtained. The role of vaginal floor. Advised not to finger cleaned or douche. The role of women's probiotics for vaginal health. Patient verbalizes understanding and agrees to the plan of care. She was given opportunity to ask questions and all questions were answered to the best of my ability. RTO in 1 year for annual fat pressroom worker exam. This note is constructed using voice recognition software. While every effort has been made to ensure accuracy, dental equipment installer and servicer errors may have been included. 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
[2025-02-10 10:11] VITALS: BP 104/60; BMI 29.8
== END 2025-02-10 11:04 | disposition home or self-care (01) ==
LOC: HO.HWS 10:03
PROVIDERS: PCP Internal Medicine; Visit Provider Advanced Practice Midwife
DX: Z01.419 Encounter for gynecological examination (general) (routine) without abnormal findings (principal); Z91.89 Other specified personal risk factors, not elsewhere classified
CPT/HCPCS: 99396; 99459

== ENCOUNTER 2025-03-15 15:31 | Outpatient (AMB) | payer OTHER, SELFPAY ==
[2025-03-15 15:33] VITALS: BP 100/66; PULSE 77; TEMP 36.8; O2SAT 98; BMI 30.2
--- NOTE | 2025-03-15 15:33 | AM.OFFWIN_ITS ---
Intake Vital Signs 03/15/25 15:33 Height 5 ft 2 in Weight 165 lb 4 oz BMI 30.2 BP 100/66 Blood Pressure Location Rt brachial Position Sitting Pulse 77 Pulse Source Pulse Oximeter Temp 98.2 F Temp Source Oral Pulse Oximetry (%) 98 Oxygen Delivery Method Room Air Intake Visit Reasons: EP LT leg pain/numbness Intake Note: Patient present with posterior knee numbness times 1 day with pain shooting down the leg Patient Tobacco Use Status: Never used Tobacco Allergies cephalexin (From KEFLEX) Allergy (Severe, Verified 02/10/25 10:15) SOB/HIVES Iodinated Contrast Media (IV CONTRAST) Allergy (Severe, Verified 02/10/25 10:15) SOB/CHEST PAIN/DIFFICULTY BREATHING oxycodone (From Percocet) Allergy (Intermediate, Verified 02/10/25 10:15) itchy, SOB environmental allergies Allergy (Mild, Verified 02/10/25 10:15) congestion HPI HPI Comments History of Present Illness Details 54 y/o Female patient who presents to [facility] with c/o Pain and numbness left knee. Reports pain is located posterior of Left Knee. She also has left sided lower back pain that radiates down to left Lower extremity. She does have OA of Knees and lower back. [facility] Medical History (Updated 03/15/25 @ 16:24 by Lenore Kelly NP) Low back pain radiating to lower extremity Esophagitis DDD (degenerative disc disease), thoracolumbar Bilateral plantar fasciitis Facet arthritis, degenerative, L5-S1 level, lumbosacral spine Piriformis syndrome of right side Constipation Bilateral carpal tunnel syndrome Fibromyalgia Chest pain Dizziness Palpitations Osteoporosis screening Cervical cancer screening Breast cancer screening by mammogram Obesity (BMI 30-39.9) Pure hypercholesterolemia Erosive gastritis Osteoarthritis Duodenitis Tubular adenoma of colon Hemorrhagic gastritis Class 1 obesity Anxiety disorder due to medical condition Elevated blood pressure reading without diagnosis of hypertension COVID-19 Peptic ulcer disease Low back pain Vaginal odor Painful breasts Overweight (BMI 25.0-29.9) Vitamin D deficiency Migraine Gastroparesis History of COVID-19 Asthma GERD (gastroesophageal reflux disease) Surgical History History of esophagogastroduodenoscopy (EGD) Hx of colonoscopy History of hernia surgery Hx of tubal ligation History of appendectomy H/O: hysterectomy Family History Mother Uterine cancer Family/Other History of breast cancer Social History Housing: House Alcohol intake: never Patient Tobacco Use Status: Never used Tobacco Tobacco use type: Cigarette e-Cigarette/Vaping Use: Never Used Second Hand Smoke Exposure: No service: No Current occupational status: 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 Sexual orientation: Straight/Heterosexual Gender identity: Female Cognitive needs: No Hearing needs: No Vision needs: Yes Female Reproductive History Menstrual Age of Menarche: 12 Review of Systems Const All systems reviewed & are unremarkable except as noted in HPI and below Physical Exam Vital Signs: Last Vital Signs Temp 98.2 F 03/15/25 15:33 Pulse 77 03/15/25 15:33 BP 100/66 03/15/25 15:33 Pulse Ox 98 03/15/25 15:33 Oxygen Delivery Method Room Air 03/15/25 15:33 BMI result Body Mass Index 30.2 Const General: no acute distress Orientation/consciousness: patient oriented x3 Back/Spine/Pelvis Back: back tenderness Thoracic/Lumbar Spine: pain with thoraco-lumbar ROM, thoraco-lumbar spasm and lumbar spinal tenderness Neuro General: patient oriented x3, gait normal and moves all extremities Extrem Left lower extremity: knee Details: normal ROM; no tenderness, no swelling, no crepitus and no deformity Psych Speech and movement: Normal speech and movement present Assessment & Plan Assessment & Plan (1) Low back pain radiating to lower extremity: Code(s): M54.50 - Low back pain, unspecified; M79.606 - Pain in leg, unspecified Plan: NSAIDs and Acetaminophen for pain relief. Ice/Hot Rest Ordered Flexeril. Medications: New acetaminophen 1,000 mg (2 x 500 mg) PO Q6H 30 caps 0RF pain M54.50 - Low back pain, unspecified, M79.606 - Pain in leg, unspecified cyclobenzaprine 5 mg PO BEDTIME 14 tabs 0RF M54.50 - Low back pain, unspecified, M79.606 - Pain in leg, unspecified Coding Level of Care Code Est Pt Level 4 (12764) Diagnoses Low back pain radiating to lower extremity M54.50; M79.606 Time Spent (min) 20
== END 2025-03-15 16:35 | disposition home or self-care (01) ==
PROVIDERS: PCP Internal Medicine; Visit Provider Nurse Practitioner Family
DX: M54.50 Low back pain, unspecified (principal); M79.606 Pain in leg, unspecified

== ENCOUNTER 2025-03-21 06:34 | Emergency (ER) | payer OTHER, SELFPAY ==
--- NOTE | ~2025-03-21 | XR_ITS ---
CLINICAL HISTORY: pain 2 view left knee Comparison: CR/SR - XR KNEE 4 OR MORE VIEWS RIGHT - 01/12/23 08:43 EDT Findings: Bones intact. No dislocations. Mild medial compartment joint space narrowing. No joint effusion. No radiopaque foreign body. IMPRESSION: Mild medial compartment joint space narrowing. No acute findings. This document has been electronically signed by: Dio Claudio MD on 03/21/2025 08:14:11
[2025-03-21 06:41] VITALS: BP 138/81; PULSE 79; RESP 20; TEMP 37.1; O2SAT 96; BMI 30.2
--- NOTE | 2025-03-21 07:14 | PC.NURSE ---
Addendum entered by Lakisha Humphreys RN 03/21/25 07:14: Patient is a 54 y/o Female patient recently seen at a clinic with c/o Pain and numbness left knee. Reports pain is located posterior of Left Knee. She also has left sided lower back pain that radiates down to left Lower extremity. She does have OA of Knees and lower back. She presents today with the same pain, pain behind the left knee radiating down to her calf. Alert and oriented. Lungs clear bilat. Respirations even and non-labored. abdomen soft, non-tender with positive bowel sounds. Positive pedal pulses with no edema noted. Difficulty moving left lower extremity secondary to the pain. Original Note: Medical History Low back pain radiating to lower extremity Esophagitis DDD (degenerative disc disease), thoracolumbar Bilateral plantar fasciitis Facet arthritis, degenerative, L5-S1 level, lumbosacral spine Piriformis syndrome of right side Constipation Bilateral carpal tunnel syndrome Fibromyalgia Chest pain Dizziness Palpitations Osteoporosis screening Cervical cancer screening Breast cancer screening by mammogram Obesity (BMI 30-39.9) Pure hypercholesterolemia Erosive gastritis Osteoarthritis Duodenitis Tubular adenoma of colon Hemorrhagic gastritis Class 1 obesity Anxiety disorder due to medical condition Elevated blood pressure reading without diagnosis of hypertension COVID-19 Peptic ulcer disease Low back pain Vaginal odor Painful breasts Overweight (BMI 25.0-29.9) Vitamin D deficiency Migraine Gastroparesis History of COVID-19 Asthma GERD (gastroesophageal reflux disease)
--- NOTE | 2025-03-21 07:15 | ED.EXTPRO ---
HPI - Extremity Problem General Chief complaint: Extremity Problem Stated complaint: left knee pain Time Seen by Provider: 03/21/25 07:08 Source: patient Mode of arrival: ambulatory Limitations: no limitations History of Present Illness ED Provider: DR. 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 Related Data Previous Rx's ?Medication ?Instructions ?Recorded albuterol sulfate 2.5 mg/3 mL 2.5 mg (3 mL) inhalation Q4-6H PRN 08/19/23 (0.083 %) solution for nebulization shortness of breath or wheezing #180 mL magnesium oxide 500 mg capsule 500 mg PO BID 30 days #60 caps 03/24/24 simethicone 180 mg capsule 180 mg PO .tidac 30 days #90 caps 03/24/24 gabapentin 100 mg capsule 300 mg (3 x 100 mg) PO BEDTIME 90 07/15/24 days #270 caps linaclotide 72 mcg capsule 72 mcg PO QAM #30 caps 08/04/24 (Linzess) sucralfate 100 mg/mL oral 10 ml PO BID #300 mL 09/10/24 suspension albuterol sulfate 90 mcg/actuation 2 inh inhalation QID PRN shortness 11/09/24 aerosol inhaler of breath or wheezing #8.5 grams fluticasone furoate 100 1 inh inhalation DAILY #60 ea 11/09/24 mcg-vilanterol 25 mcg/dose inhalation powder (Breo Ellipta) ibuprofen 800 mg tablet 800 mg PO TID PRN pain #60 tabs 12/28/24 atorvastatin 10 mg tablet 10 mg PO BEDTIME 90 days #90 tabs 01/19/25 esomeprazole magnesium 40 mg 40 mg PO DAILY #90 caps 02/04/25 capsule,delayed release [id number] 1 cap PO QID #120 caps 02/18/25 36,000-114,000-180,000 unit capsule,delay rel (Creon) acetaminophen 500 mg capsule 1,000 mg (2 x 500 mg) PO Q6H pain 03/15/25 #30 caps cyclobenzaprine 5 mg tablet 5 mg PO BEDTIME #14 tabs 03/15/25 lidocaine 5 % topical patch 1 patch topical DAILY #15 ea 03/16/25 naproxen 500 mg tablet 500 mg PO BID PRN pain #10 tabs 03/21/25 Allergies Allergy/AdvReac Type Severity Reaction Status Date / Time cephalexin (From KEFLEX) Allergy Severe SOB/HIVES Verified 03/21/25 06:42 Iodinated Contrast Media (IV Allergy Severe SOB/CHEST Verified 03/21/25 06:42 CONTRAST) PAIN/DIFFICULTY BREATHING oxycodone (From Percocet) Allergy Intermediate itchy, SOB Verified 03/21/25 06:42 environmental allergies Allergy Mild congestion Verified 03/21/25 06:42 Review of Systems Review of Systems: All other systems are reviewed and are negative Constitutional: Reports as per HPI and Reports no additional constitutional complaints Eyes: Reports as per HPI and Reports no additional eye complaints Reports system reviewed and no additional complaints, except as documented Cardiovascular: Reports as per HPI and Reports no additional cardiovascular complaints Respiratory: Reports as per HPI and Reports no additional respiratory complaints Gastrointestinal: Reports as per HPI and Reports no additional gastrointestinal complaints Genitourinary: Reports no additional female genitourinary complaints Musculoskeletal: Reports no additional musculoskeletal complaints Skin/Breast: Reports system reviewed and no additional complaints, except as docu Psychiatric: Reports no additional psychiatric complaints Endocrine: Reports no additional endocrine complaints Hematologic/Lymphatic: Reports no additional hematologic/lymphatic complaints Allergic/Immunologic: Reports no additional allergic/immunologic complaints Reports system reviewed and no additional complaints, except as documented and Reports Abnormal speech present [facility] Past Medical History Medical History Low back pain radiating to lower extremity Esophagitis DDD (degenerative disc disease), thoracolumbar Bilateral plantar fasciitis Facet arthritis, degenerative, L5-S1 level, lumbosacral spine Piriformis syndrome of right side Constipation Bilateral carpal tunnel syndrome Fibromyalgia Chest pain Dizziness Palpitations Osteoporosis screening Cervical cancer screening Breast cancer screening by mammogram Obesity (BMI 30-39.9) Pure hypercholesterolemia Erosive gastritis Osteoarthritis Duodenitis Tubular adenoma of colon Hemorrhagic gastritis Class 1 obesity Anxiety disorder due to medical condition Elevated blood pressure reading without diagnosis of hypertension COVID-19 Peptic ulcer disease Low back pain Vaginal odor Painful breasts Overweight (BMI 25.0-29.9) Vitamin D deficiency Migraine Gastroparesis History of COVID-19 Asthma GERD (gastroesophageal reflux disease) Surgical History History of esophagogastroduodenoscopy (EGD) Hx of colonoscopy History of hernia surgery Hx of tubal ligation History of appendectomy H/O: hysterectomy Family History Family History Mother Uterine cancer Family/Other History of breast cancer Social History Social History Housing: House Alcohol intake: never Patient Tobacco Use Status: Never used Tobacco Tobacco use type: Cigarette e-Cigarette/Vaping Use: Never Used Second Hand Smoke Exposure: No service: No Current occupational status: 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 Blood pressure elevated. Heart rate normal. Respiratory rate normal. Temperature normal. Oxygen saturation normal. Appearance: Alert. Oriented X3. No acute distress. Head: Normal external exam. Normocephalic. Atraumatic. No Pacheco signs noted. No raccoon eyes noted Eyes: PERRLA. EOMI. Conjunctiva and sclera normal. Eyelids normal. ENT: TM's Normal. Pharynx normal. Uvula midline. Moist mucous membranes. No trismus noted. No drooling noted. No muffled voice noted. Neck: Normal inspection. Neck supple. FROM. No adenopathy. Thyroid Normal. No meningeal signs. No neck mass noted. CVS: Normal heart rate and rhythm. Heart sound normal. No murmurs noted. Pulses normal throughout. Respiratory: No respiratory distress. Painless inspiration. Breath sounds normal. No wheezes/rales/rhonchi noted. Chest nontender. No accessory muscle usage noted or decreased air movement noted. Abdomen: Soft and nontender. Bowel sounds normal in all 4 quadrants. No distention noted. No organomegaly noted. No visible injury noted. Back: No CVA tenderness. Full range of motion noted. Skin: Skin warm and dry. Normal skin color. Normal skin turgor. No rashes/lesions/lacerations noted. Extremities: Left lower extremity: No calf tenderness or swelling, left knee exam no obvious deformity, no step-off, effusion, no redness, hotness, stable ligamentous exam, vascularly intact. Neuro: Oriented X 3. Cranial nerve exam: II-XII are grossly intact No motor deficit. No sensory deficit. Reflexes normal. Course Reevaluation(s) Reevaluation #1: Feels better, normal sed rate, normal CRP, still able to ambulate with limping. No acute fracture on x-ray, will discharge to follow-up with ortho discharge on Naprosyn 500 mg p.r.n.. Time: 12:51 Medications Administered Discontinued Medications Generic Name Dose Route Start Last Admin Trade Name Harmeetq PRN Reason Stop Dose Admin Ketorolac Tromethamine 15 mg 03/21/25 07:13 03/21/25 07:43 Ketorolac Tromethamine 15 Mg/Ml Vial IVPUSH 03/21/25 07:14 15 mg ONCE ONE Administration Morphine Sulfate 1 mg 03/21/25 07:13 03/21/25 07:43 Morphine Sulfate 2 Mg/Ml Cartridge IVPUSH 03/21/25 07:14 1 mg ONCE ONE Administration Protocol Medical Decision Making Differential Diagnosis Differential Diagnoses: The differential diagnosis associated with the presentation includes (DVT, arthritis, fracture, dislocation, knee sprain.) Admission/Observation Consideration of admission/observation: Escalation of care including admission/observation considered Lab Data MDM Lab Attestation statement: I reviewed the patient's lab results. 03/21/25 07:34 Labs: Lab Results 03/21/25 03/21/25 Range/Units 07:34 08:32 WBC 6.4 (4.8-10.8) X10*3/uL RBC 4.10 L (4.20-5.50) X10*6/uL Hgb 12.3 (12.0-16.0) g/dl Hct 39.0 (37.0-47.0) % MCV 95.1 (80.0-98.0) fL MCH 30.0 (27.0-33.0) pg MCHC 31.5 (31.0-35.0) g/dl RDW 13.9 (11.0-16.0) % Plt Count 248 (160-400) X10*3/uL MPV 9.6 (9.4-12.3) fL Immature Gran % (Auto) 0.3 (0.0-0.4) % Neut % (Auto) 54.8 (45-73) % Lymph % (Auto) 32.3 (20-40) % [place] % (Auto) 10.7 (2-11) % Eos % (Auto) 1.6 (0-4) % Baso % (Auto) 0.3 (0-2) % Lymph # (Auto) 2.1 (1.2-4.9) X10*3/uL [place] # (Auto) 0.7 (0.1-1.2) X10*3/uL Eos # (Auto) 0.1 (0.0-0.4) X10*3/uL Baso # (Auto) 0.0 (0.0-0.2) X10*3/uL Abs Immat Gran (auto) 0.02 (0.00-0.03) X10*3/uL Absolute Neuts (auto) 3.5 (2.0-8.3) x10*3/uL Absolute Nucleated RBC 0.000 (0.0-0.012) X10*3/uL Nucleated RBC % (auto) 0.0 (0.0-0.2) /100WBC ESR 20 (0-20) MM/HR D-Dimer High Sensitivty < 150 NG/ML C-Reactive Protein 0.40 (< or = 0.50) mg/dL Independent Interpretation I performed an independent interpretation of an: Plain X-Ray (Left knee x-ray:Mild medial compartment joint space narrowing. No acute findings.) Radiology Impression Discussion of test interpretation with radiology: I have reviewed the radiologist's reading. Discharge Plan Discharge Clinical Impression: Arthralgia of knee, left Patient Disposition: Home, Self-Care Instructions: Arthralgia (ED) Prescriptions: New naproxen 500 mg tablet 500 mg PO BID PRN (Reason: pain) Qty: 10 0RF No Action albuterol sulfate 2.5 mg /3 mL (0.083 %) solution for nebulization 2.5 mg inhalation Q4-6H PRN (Reason: shortness of breath or wheezing) Qty: 180 3RF Creon 36,000-114,000- 180,000 unit capsule,delayed release(DR/EC) 1 cap PO QID Qty: 120 1RF Rx Instructions: administer with meals and/or snacks lidocaine 5 % adhesive patch,medicated 1 patch topical DAILY Qty: 15 0RF Rx Instructions: leave on most painful area for up to 12 hrs esomeprazole magnesium 40 mg capsule,delayed release(DR/EC) 40 mg PO DAILY Qty: 90 1RF magnesium oxide 500 mg capsule 500 mg PO BID 30 Days Qty: 60 6RF simethicone 180 mg capsule 180 mg PO .tidac 30 Days Qty: 90 6RF Rx Instructions: after meals atorvastatin 10 mg tablet 10 mg PO BEDTIME 90 Days Qty: 90 3RF albuterol sulfate 90 mcg/actuation HFA aerosol inhaler 2 inh inhalation QID PRN (Reason: shortness of breath or wheezing) Qty: 8.5 3RF fluticasone furoate-vilanterol [Breo Ellipta] 100-25 mcg/dose blister with device 1 inh inhalation DAILY Qty: 60 6RF gabapentin 100 mg capsule 300 mg PO BEDTIME 90 Days Qty: 270 1RF Linzess 72 mcg capsule 72 mcg PO QAM Qty: 30 6RF sucralfate 100 mg/mL suspension 10 ml PO BID Qty: 300 1RF ibuprofen 800 mg tablet 800 mg PO TID PRN (Reason: pain) Qty: 60 1RF acetaminophen 500 mg capsule 1,000 mg PO Q6H Qty: 30 0RF cyclobenzaprine 5 mg tablet 5 mg PO BEDTIME Qty: 14 0RF Referrals: Everett Gutierrez MD [Primary Care Provider, Internal Medicine] Zay Torres MD [Physician, Orthopedics] Stand Alone Forms: Work/School Release Interventions: ED Discharge Assessment Last Done: 03/21/25 10:29 Discharge Date/Time: 03/21/25 10:32 Print Language: Ukrainian
[2025-03-21 07:39] LABS: MANUAL DIFF FLAG NO
[2025-03-21 07:41] LABS: Hematocrit 39.0 % (37.0-47.0); Hemoglobin 12.3 g/dl (12.0-16.0); Imm Gran Abs Auto 0.02 X10*3/uL (0.00-0.03); Imm Gran Pct Auto 0.3 % (0.0-0.4); Lymphocytes Absolute Auto 2.1 X10*3/uL (1.2-4.9); Mean Corpuscular HGB Conc 31.5 g/dl (31.0-35.0); Mean Corpuscular Hemoglobin 30.0 pg (27.0-33.0); Mean Corpuscular Volume 95.1 fL (80.0-98.0); NRBC Abs Auto 0.000 X10*3/uL (0.0-0.012); NRBC Pct Auto 0.0 /100WBC (0.0-0.2); Platelet Count 248 X10*3/uL (160-400); Red Blood Count 4.10 X10*6/uL (4.20-5.50); White Blood Count 6.4 X10*3/uL (4.8-10.8)
[2025-03-21 08:13] VITALS: BP 134/74; PULSE 77; RESP 18; TEMP 36.8; O2SAT 97
[2025-03-21 08:50] LABS: D Dimer High Sensitivity < 150 NG/ML
[2025-03-21 10:13] VITALS: BP 118/75; PULSE 71; RESP 12; TEMP 37.2; O2SAT 98
[2025-03-21 10:29] VITALS: BP 118/75; PULSE 71; RESP 12; TEMP 37.2; O2SAT 98
== END 2025-03-21 10:32 | disposition home or self-care (01) ==
PROVIDERS: Emergency Provider Emergency Medicine; PCP Internal Medicine
DX: M25.562 Pain in left knee (principal)
CPT/HCPCS: 36415; 73560; 85025; 85379; 85652; 86140; 96374; 96375; 99284; J1885; J2270

== ENCOUNTER → 2025-03-21 07:13 | Outpatient (BNV) | payer OTHER, SELFPAY | PROVIDERS: Emergency Provider Emergency Medicine; PCP Internal Medicine; Visit Provider Radiology Vascular & Interventional Radiology | DX: M25.562 Pain in left knee (principal) | CPT/HCPCS: 73560 ==

== ENCOUNTER 2025-03-25 10:53 | Outpatient (AMB) | payer OTHER, SELFPAY ==
[2025-03-25 11:09] VITALS: BP 118/62; PULSE 88; O2SAT 96; BMI 30.2
--- NOTE | 2025-03-25 11:09 | MHC.OFFVIS ---
Vital Signs 03/25/25 11:09 Height 5 ft 2 in Weight 165 lb 2.02 oz BMI 30.2 BP 118/62 Blood Pressure Location Lt brachial Position Sitting Pulse 88 Pulse Source Pulse Oximeter Pulse Oximetry (%) 96 Oxygen Delivery Method Room Air Intake Visit Reasons: knee pain Intake Note: Patient is here with severe left knee pain for 10 days. She tried stretching it, smoothing it, Ibuprofen, Tylenol, Naproxen with no success. Accompanied by: Spouse Allergies cephalexin (From KEFLEX) Allergy (Severe, Verified 03/25/25 11:11) SOB/HIVES Iodinated Contrast Media (IV CONTRAST) Allergy (Severe, Verified 03/25/25 11:11) SOB/CHEST PAIN/DIFFICULTY BREATHING oxycodone (From Percocet) Allergy (Intermediate, Verified 03/25/25 11:11) itchy, SOB environmental allergies Allergy (Mild, Verified 03/25/25 11:11) congestion HPI Comments Details: Patient is a 54-year-old female with hyperlipidemia, fibomyalgia and polyarticular OA who presents for urgent visit for knee pain Interval History: Last seen 12/28/24 with me - f/u for polyarticular OA - C/o knee pain. Received bilateral steroid injection Today, - Pain behind the knee, associated with radiculopathy down the leg - Started 2 weeks ago - Went to the ED and morphine did not help Rheumatologic History: Initial History: Patient states that for the past 2 years she has noticed insidious onset of polyarticular joint pain involving her hands, wrists, elbows, shoulders, hips, knees and ankles. This is associated with overwhelming fatigue and insomnia (difficulty getting to sleep at night). She particularly notes that she finds it difficult to lay on either side of her hips at night. Denies rashes, photosensitivity, alopecia, oral/nasal ulcers, sicca symptoms, lymphadenopathy, chest pain/shortness of breath, foamy urine, lower extremity edema, muscle weakness, Raynaud's Also denies history of seizure, CVA, psychosis, history of kidney problems, history of cytopenias, history of VTE including PE or DVTs Based on history and examination, her pain was more consistent with degenerative joint disease and fibromyalgia. No evidence of inflammatory arthritis Started on gabapentin and celebrex Current Rheumatology Medication(s): Gabapentin 100mg - 300mg at night Celebrex 200mg bid [facility] History Low back pain radiating to lower extremity Esophagitis DDD (degenerative disc disease), thoracolumbar Bilateral plantar fasciitis Facet arthritis, degenerative, L5-S1 level, lumbosacral spine Piriformis syndrome of right side Constipation Bilateral carpal tunnel syndrome Fibromyalgia Chest pain Dizziness Palpitations Osteoporosis screening Cervical cancer screening Breast cancer screening by mammogram Obesity (BMI 30-39.9) Pure hypercholesterolemia Erosive gastritis Osteoarthritis Duodenitis Tubular adenoma of colon Hemorrhagic gastritis Class 1 obesity Anxiety disorder due to medical condition Elevated blood pressure reading without diagnosis of hypertension COVID-19 Peptic ulcer disease Low back pain Vaginal odor Painful breasts Overweight (BMI 25.0-29.9) Vitamin D deficiency Migraine Gastroparesis History of COVID-19 Asthma GERD (gastroesophageal reflux disease) Surgical History History of esophagogastroduodenoscopy (EGD) Hx of colonoscopy History of hernia surgery Hx of tubal ligation History of appendectomy H/O: hysterectomy Family History Mother Uterine cancer Family/Other History of breast cancer Social History Housing: House Alcohol intake: never Patient Tobacco Use Status: Never used Tobacco Tobacco use type: Cigarette e-Cigarette/Vaping Use: Never Used Second Hand Smoke Exposure: No service: No Current occupational status: 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 Sexual orientation: Straight/Heterosexual Gender identity: Female Cognitive needs: No Hearing needs: No Vision needs: Yes Female Reproductive History Menstrual Age of Menarche: 12 Review of Systems Const Details: Review of Systems Constitutional: Denies fever, chills, weight loss ENT: Denies vision changes, eye pain or eye redness, dental caries, dry mouth GI: Denies nausea, vomiting, diarrhea, abdominal pain, change in BM Pulm: Denies SOB, [place]DR[place]ON, hemoptysis, wheezing Cards: Denies chest pain, palpitations Skin: Denies Raynaud's, rash, nail changes, photosensitivity, [employer]: Denies headaches, weakness, paresthesias, recurrent falls MSK: as per HPI All other systems reviewed and are unremarkable except noted above Physical Exam Exam Exam: Vital signs reviewed Physical Examination CONSTITUITIONAL Patient alert and cooperative. Painful distress and limping MSK Knees Right knee: Full ROM. No swelling noted. No TTP of the knee joint lie or pes anserine bursa Left knee: Decreased ROM. No swelling noted. No TTP of the knee joint lie or pes anserine bursa. TTP of the posterior knee with mild fullness Vital Signs: Last Vital Signs Pulse 88 03/25/25 11:09 BP 118/62 03/25/25 11:09 Pulse Ox 96 03/25/25 11:09 Oxygen Delivery Method Room Air 03/25/25 11:09 BMI result Body Mass Index 30.2 Results Reviewed Results Reviewed: XR Left Knee 03/2025 Findings: Bones intact. No dislocations. Mild medial compartment joint space narrowing. No joint effusion. No radiopaque foreign body. IMPRESSION: Mild medial compartment joint space narrowing. No acute findings. Assessment & Plan Assessment & Plan (1) Arthralgia of knee, left: Code(s): M25.562 - Pain in left knee Category: Medical Plan: #Left knee arthralgia Patient is a 54 y.o. female with polyarticular OA here for an urgent visit for acute left posterior knee pain with radiculopathy down the knee There is some fullness in the posterior knee which may be related to a Galvin's cyst Will need to do US eval and aspiration Plan - US large joint asp and steroid injection Plan I spent 20 minutes reviewing the record and labs, taking a history, examining the patient, discussing the treatment plan, ordering diagnostic work up and documenting in the medical record Coding Level of Care Code Est Pt Level 3 (59381) Diagnoses Arthralgia of knee, left M25.562
== END 2025-03-25 11:41 | disposition home or self-care (01) ==
LOC: HO.RHE 10:54
PROVIDERS: PCP Internal Medicine; Visit Provider Student in an Organized Health Care Education/Training Program
DX: M25.562 Pain in left knee (principal)
CPT/HCPCS: 99213

== ENCOUNTER 2025-03-26 08:41 | Outpatient (REF) | payer OTHER, SELFPAY ==
--- NOTE | 2025-03-26 09:40 | PCN2_ITS ---
Brief Operative Note Date of procedure: 03/26/25 Pre-op diagnosis: left knee galvin cyst Post-op diagnosis: other (Left knee pain ?ruptured galvin's cyst vs tendonitis) Procedure: Date: 03/26/25 Study Type: Limited Ultrasound with Guidance of needle placement Indication: Left posterior knee pain Study Site: Left knee (posterior) Equipment: SummuS Render Brief History: Patient with known OA presented 03/25/25 with sudden onset posterior knee pain. XR Images reviewed: Findings: ? The posterior left knee was visualized using ultrasound. The femur bone was intact without any breaks or erosions. The semimembranosus tendon was intact with no peritendinous fluid and the gastrocnemius muscle was also intact. There was no Doppler signal involving either the semimembranosus tendon or the gastrocnemius. There was no Galvin's cyst/popliteal cysts collection noted. There may have been trace fluid noted adjacent to the semimembranosus tendon Procedure: ?After obtaining informed consent for an ultrasound-guided glucocorticoid injection of the left posterior knee, the knee was imaged with ultrasound. ?The morning knee was sterilely prepped with chlorhexidine x 2 and anesthetized with lidocaine spray. ?A 25 gauge 1.5 in needle was advanced into the area between the semimembranosus tendon and gastrocnemius muscle under direct ultrasound visualization using in plane technique. ?20 mg of kenalog was injected through the same needle. ?The procedure was well tolerated. Impressions: ? Knee pain possibly due to ruptured Galvin's cyst versus tendinopathy involving the semimembranosus tendon
[2025-03-26] MEDS: Lidocaine HCl 2 % MPF 5 ML VIAL SUBCUT (11:51)
== END 2025-03-26 08:42 | disposition home or self-care (01) ==
LOC: HO.US 08:41
PROVIDERS: PCP Internal Medicine; Visit Provider Student in an Organized Health Care Education/Training Program
DX: M71.22 Synovial cyst of popliteal space [Baker], left knee (principal); M25.562 Pain in left knee
CPT/HCPCS: 20606; 20611; J2003; J3301

== ENCOUNTER → 2025-03-26 08:41 | Outpatient (BNV) | payer OTHER, SELFPAY | PROVIDERS: PCP Internal Medicine; Visit Provider Student in an Organized Health Care Education/Training Program | DX: M25.562 Pain in left knee (principal) | CPT/HCPCS: 20610; 76981 ==

== ENCOUNTER 2025-04-01 15:02 | Outpatient (AMB) | payer OTHER, SELFPAY ==
[2025-04-01 15:06] VITALS: BP 151/85; PULSE 84; BMI 29.8
--- NOTE | 2025-04-01 15:06 | A.OFFVIS_ITS ---
Vital Signs 04/01/25 15:06 Height 5 ft 2 in Weight 163 lb 2.273 oz BMI 29.8 BP 151/85 H Blood Pressure Location Rt brachial Position Sitting Pulse 84 Intake Visit Reasons: FUV. Review meds. IBS/CIC. Intake Note: Laura presents to in office follow up s/p EGD and US. CC: Patient continues having constipation. States that she is doing better from GERD. 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 Review meds. IBS/CIC.: Details: Assessment & Plan (1) Gastroparesis: Comment: She could not tolerate reglan r/t hand shaking GASTRIC EMPTYING STUDY 08/17/22 IMPRESSION: Abnormal study. There is marked abnormal retention of solid food in the stomach at 4 hours. Code(s): K31.84 - Gastroparesis Category: Medical (2) GERD (gastroesophageal reflux disease): Code(s): K21.9 - Gastro-esophageal reflux disease without esophagitis Category: Medical (3) Chronic idiopathic constipation: Code(s): K59.04 - Chronic idiopathic constipation Category: Medical (4) Dysphagia: Code(s): R13.10 - Dysphagia, unspecified Category: Medical (5) Pre-op examination: Code(s): Z01.818 - Encounter for other preprocedural examination Category: Medical Plan Given history of erosive esophagitis and gastritis at this point we might want schedule another upper endoscopy to assess for healing. She is agreeable to this. No cardiac or respiratory problems. No problems with anesthesia or sedation. No ID problems. her dysphagia continues and when she drank the barium etc it really hurt her stomach. She continues on her pantoprazole 40mg bid. I can't rx carafate now as she is having CIC, she takes senna and magnesium, but this is very slow to work for her. Will progress to low dose Linzess 72mcg. She can continue the magnesium as this helps with her migraines. ROV 4 weeks. Orders: Orders Rheumatoid Factor Today M25.50 - Pain in unspecified joint EGD - GI Use Only Today R13.10 - Dysphagia, unspecified Medications: New linaclotide (Linzess) 72 mcg PO QAM 30 caps 6RF K59.00 - Constipation, unspecified On Hold sennosides (Senna Laxative) Hold Comment: Doctor's Order 17.2 mg (2 x 8.6 mg) PO BEDTIME 60 tabs 6RF K59.04 - Chronic idiopathic constipation Labs: RHEUMATOID FACTOR NOT OBTAINED BUT IT WAS NEGATIVE IN 2023 EGD 02/04/25 Findings: Larynx:normal Esophagus: GE junction at 33 cm, diaphragm hiatus at 35 cm, with LA grade B erosive esophagitis noted with few erosive streaks and mild ulceration at GEJ, bx taken from distal esophagus, also 2 cm small sliding hiatal hernia noted Stomach: mild erythema . Biopsies were obtained. Grade 2 flap valve on retroflexed examination of the cardia. Duodenum: Normal bulb and descending duodenum, Intervention: Biopsies as noted above, Impression/Findings: erosive esophagitis small hiatal hernia PLAN: check compliance with medication, if not working then change, or consider surgical referral GERD precautions BIOPSY Received: 02/04/25 Diagnosis A. Stomach, biopsy: Gastric body mucosa within normal limits; negative for Hel icobacter pylori, intestinal metaplasia and dysplasia. B. Esophagus, distal, biopsy: Squamocolumnar junctional mucosa with mild chronic inflammation; negative for intestinal metaplasia and dysplasia TODAY'S VISIT HER CURRENT REGIMEN CONSISTS of esomeprazole 40 mg daily, Linzess 72 micro g, and simethicone. She tolerated the procedure well and since she was changed from pantoprazole to esomeprazole she finds that her esophageal symptoms are improved. She says that Has son referred her to Dr. Hernandez, but she did not want to see him or consider surgery at this time before she determine whether or not medication therapy would be effective for her. I think this is a completely reasonable approach. She remains constipated and review the medicines along with showing her picture seems to indicate that she never received her Linzess. I have my staff call her pharmacy to see if she can get it. Return office visit in 6 weeks [facility] Medical History (Updated 04/01/25 @ 15:39 by VANCE Cornelius) Right sided abdominal pain Bilateral flank pain Low back pain radiating to lower extremity Esophagitis DDD (degenerative disc disease), thoracolumbar Bilateral plantar fasciitis Facet arthritis, degenerative, L5-S1 level, lumbosacral spine Piriformis syndrome of right side Constipation Bilateral carpal tunnel syndrome Fibromyalgia Chest pain Dizziness Palpitations Osteoporosis screening Cervical cancer screening Breast cancer screening by mammogram Obesity (BMI 30-39.9) Pure hypercholesterolemia Erosive gastritis Osteoarthritis Duodenitis Tubular adenoma of colon Hemorrhagic gastritis Class 1 obesity Anxiety disorder due to medical condition Elevated blood pressure reading without diagnosis of hypertension COVID-19 Peptic ulcer disease Low back pain Vaginal odor Painful breasts Overweight (BMI 25.0-29.9) Vitamin D deficiency Migraine Gastroparesis History of COVID-19 Asthma GERD (gastroesophageal reflux disease) Surgical History History of esophagogastroduodenoscopy (EGD) Hx of colonoscopy History of hernia surgery Hx of tubal ligation History of appendectomy H/O: hysterectomy Family History Mother Uterine cancer Family/Other History of breast cancer Social History Housing: House Alcohol intake: never Patient Tobacco Use Status: Never used Tobacco Tobacco use type: Cigarette e-Cigarette/Vaping Use: Never Used Second Hand Smoke Exposure: No service: No Current occupational status: 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 Sexual orientation: Straight/Heterosexual Gender identity: Female Cognitive needs: No Hearing needs: No Vision needs: Yes Female Reproductive History Menstrual Age of Menarche: 12 Review of Systems Const Denies fatigue, Denies fever(s), Denies night sweats, Denies poor appetite and Denies weight loss ENT Reports Normal hearing present, Denies dental pain, Denies dysphagia, Denies hearing loss, Denies mouth pain, Denies odynophagia, Denies throat swelling, Denies tongue swelling and Reports other (Dentition adequate) Card Reports no additional complaints Resp Reports no additional complaints GI Details: Denies abdominal pain, Denies melena, Denies bloating, Denies hematochezia, Reports constipation, Denies GI cramping, Denies dysphagia, Denies excessive flatus, Denies early satiety, Reports heartburn, Denies diarrhea, Denies nausea, Denies odynophagia, Denies vomiting and Denies hematemesis Skin/Breast Denies pruritus, Denies lesions, Denies rash and Denies jaundice Neuro Reports Normal hearing present and Denies Abnormal speech present Endo Denies fatigue Aller/Immun Denies throat swelling and Denies tongue swelling Physical Exam Vital Signs: Last Vital Signs Pulse 84 04/01/25 15:06 BP 151/85 H 04/01/25 15:06 BMI result Body Mass Index 29.8 Const General: cooperative, no acute distress, well developed and well groomed Nutritional Appearance: well nourished and overweight Orientation/consciousness: oriented to person, oriented to place and oriented to time Limitations: No language barrier HEENT Head: Yes normocephalic and Yes atraumatic Eyes General: appearance normal, both eyes and all related structures Pupils: Equal, round and reactive pupils present Neck Neck: Yes normal visual inspection and Yes no lymphadenopathy Thyroid: Thyroid normal Resp Effort & Inspection: normal respiratory effort and able to speak in complete sentences Auscultation: clear to auscultation bilaterally Cardio Rate: regular rate Rhythm: regular rhythm Heart sounds: Normal, physiologic split S2 sound present Peripheral pulses: radial pulses present and posterior tibial pulses present GI Inspection: No distended, No Abdominal panniculus present and Yes obesity Palpation (GI): Soft to palpation, nontender, no guarding, not rigid and No hepatosplenomegaly present Percussion: Yes normal to percussion Auscultation: normal bowel sounds Rectal Exam - Female: deferred Skin General skin exam: no rashes or lesions noted, turgor normal, skin not dry, no jaundice, No spider nevi and no striae Rashes: no rashes Nails: normal Neuro General: oriented to person, oriented to place and oriented to time Cranial nerves: Yes Equal, round and reactive pupils present and Yes Normal hearing present Speech: No Abnormal speech present Extrem General: Yes normal to inspection, No clubbing, No cyanosis and No edema Psych Appearance: grossly normal and well kempt Mental Status: mental status grossly normal Speech and movement: Normal speech and movement present Affect: normal affect Attitude: cooperative Thought process: Normal thought process present and not confabulating Thought content: Normal thought content present Insight: Good insight present (Psych) Judgement: Good judgement present (Psych) Assessment & Plan Assessment & Plan (1) Erosive esophagitis: Comment: 03/2025 EGD Code(s): K22.10 - Ulcer of esophagus without bleeding Category: Medical (2) Chronic idiopathic constipation: Code(s): K59.04 - Chronic idiopathic constipation Category: Medical (3) IBS (irritable bowel syndrome): Code(s): K58.9 - Irritable bowel syndrome, unspecified Category: Medical Plan HER CURRENT REGIMEN CONSISTS of esomeprazole 40 mg daily, Linzess 72 micro g, and simethicone. She tolerated the procedure well and since she was changed from pantoprazole to esomeprazole she finds that her esophageal symptoms are improved. She says that Has son referred her to Dr. Hernandez, but she did not want to see him or consider surgery at this time before she determine whether or not medication therapy would be effective for her. I think this is a completely reasonable approach. She apparently has a about a 2 cm sliding hiatal hernia which is unchanged since 2009. She remains constipated and review the medicines along with showing her picture seems to indicate that she never received her Linzess. I have my staff call her pharmacy to see if she can get it. Return office visit in 6 weeks Medications: Refilled linaclotide (Linzess) 72 mcg PO QAM 30 caps 6RF K59.00 - Constipation, unspecified Discontinued sucralfate Discontinued Reason: Doctor's Order 10 mL PO BID 300 mL 1RF K29.60 - Other gastritis without bleeding Coding Level of Care Code Est Pt Level 3 (54008) Diagnoses Erosive esophagitis K22.10 Chronic idiopathic constipation K59.04 IBS (irritable bowel syndrome) K58.9
== END 2025-04-01 16:46 | disposition home or self-care (01) ==
LOC: HO.HGI 15:03
PROVIDERS: PCP Internal Medicine; Visit Provider Nurse Practitioner
DX: K22.10 Ulcer of esophagus without bleeding (principal); K59.04 Chronic idiopathic constipation; K58.9 Irritable bowel syndrome, unspecified
CPT/HCPCS: 99213

== ENCOUNTER → 2025-04-28 18:44 | Outpatient (BNV) | payer OTHER, SELFPAY | PROVIDERS: PCP Internal Medicine; Visit Provider Radiology Diagnostic Radiology | DX: M16.12 Unilateral primary osteoarthritis, left hip (principal); R60.0 Localized edema | CPT/HCPCS: 73721 ==

== ENCOUNTER 2025-04-28 18:46 | Outpatient (REF) | payer OTHER, SELFPAY ==
--- NOTE | ~2025-04-28 | MR_ITS ---
EXAMINATION: MRI LEFT KNEE WITHOUT CONTRAST HISTORY: M25.562 - Pain in left knee COMPARISON: Correlation is made with plain films of the left knee dated 03/21/2025. TECHNIQUE: Coronal T1 and fat-suppressed proton density, sagittal proton density and fat-suppressed proton density, and axial fat suppressed T2 weighted MR images of the left knee were obtained. FINDINGS: Bone marrow: Bone marrow signal intensity is normal. Joint effusion: There is no joint effusion. Galvin's cyst: There is no Galvin's cyst. Articular cartilage: There is moderate osteoarthritis of the patellofemoral compartment with cartilage loss and subchondral marrow changes. There is a focal cartilage defect involving the midportion of the lateral tibial plateau. Muscles/soft tissues: There is edema in the lateral head of the gastrocnemius muscle with a strain. Anterior cruciate ligament: Intact Posterior cruciate ligament: Intact Medial collateral ligament: Intact Lateral collateral ligament: Intact Medial meniscus: Intact Lateral meniscus: Intact Flexor mechanism: The popliteus, gastrocnemius, and hamstring tendons are intact. Quadriceps tendon: Intact Patellar tendon: Intact Patellar retinacula: Intact MR/MR knee LT wo con IMPRESSION: 1. Moderate osteoarthritis of the patellofemoral compartment. 2. Focal cartilage defect involving the midportion of the lateral tibial plateau. 3. Edema of the lateral head of the gastrocnemius muscle consistent with muscle strain. Electronically signed by: Julio Palafox MD 04/29/2025 07:21 AM EDT
== END 2025-04-28 18:47 | disposition home or self-care (01) ==
LOC: HO.MRI 18:46
PROVIDERS: PCP Internal Medicine; Visit Provider Student in an Organized Health Care Education/Training Program
DX: M25.562 Pain in left knee (principal)
CPT/HCPCS: 73721

== ENCOUNTER 2025-04-30 09:18 | Outpatient (AMB) | payer OTHER, SELFPAY ==
--- NOTE | 2025-04-30 09:35 | MHC.OFFVIS ---
Intake Visit Reasons: OV - Left knee OA Intake Note: Laura is a 55 year old female who presents today for a follow up of her left knee OA. Patient was last seen on 03/21/23, she was referred to physical therapy and was given a prescription of celecoxib 200 mg. Patient states that she never received physical therapy. She does not recall if the prescription helped. Patient reporstposterior aspect hurting, difficulyt with extending her leg. Currently her pain is intermittent. Activities increase her pain, stretching pain. Allergies cephalexin (From KEFLEX) Allergy (Severe, Verified 04/01/25 15:42) SOB/HIVES Iodinated Contrast Media (IV CONTRAST) Allergy (Severe, Verified 04/01/25 15:42) SOB/CHEST PAIN/DIFFICULTY BREATHING oxycodone (From Percocet) Allergy (Intermediate, Verified 04/01/25 15:42) itchy, SOB environmental allergies Allergy (Mild, Verified 04/01/25 15:42) congestion Medication List - Last Reconciled 04/30/25 by Teodora Rosales PA-C acetaminophen 1,000 mg (2 x 500 mg) PO Q6H albuterol sulfate 2.5 mg (3 mL) inhalation Q4-6H PRN albuterol sulfate 90 mcg/actuation 2 inhalations inhalation QID PRN atorvastatin 10 mg PO BEDTIME 90 days esomeprazole magnesium 40 mg PO DAILY fluticasone furoate-vilanterol 100-25 mcg/dose (Breo Ellipta) 1 inh inhalation DAILY ibuprofen 800 mg PO TID PRN lidocaine 5% 1 patch topical DAILY linaclotide (Linzess) 72 mcg PO QAM ormoap-kkalgewx-cnrtxtt 36,000-114,000- 180,000 unit (Creon) 1 cap PO QID magnesium oxide 500 mg PO BID 30 days naproxen 500 mg PO BID PRN simethicone 180 mg PO .tidac 30 days HPI HPI OV - Left knee OA: Details: 55 yo female presents to the office today for left knee pain. 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 She has pain with planting the foot. Denies pain along the knee. [facility] Medical History Right sided abdominal pain Bilateral flank pain Low back pain radiating to lower extremity Esophagitis DDD (degenerative disc disease), thoracolumbar Bilateral plantar fasciitis Facet arthritis, degenerative, L5-S1 level, lumbosacral spine Piriformis syndrome of right side Constipation Bilateral carpal tunnel syndrome Fibromyalgia Chest pain Dizziness Palpitations Osteoporosis screening Cervical cancer screening Breast cancer screening by mammogram Obesity (BMI 30-39.9) Pure hypercholesterolemia Erosive gastritis Osteoarthritis Duodenitis Tubular adenoma of colon Hemorrhagic gastritis Class 1 obesity Anxiety disorder due to medical condition Elevated blood pressure reading without diagnosis of hypertension COVID-19 Peptic ulcer disease Low back pain Vaginal odor Painful breasts Overweight (BMI 25.0-29.9) Vitamin D deficiency Migraine Gastroparesis History of COVID-19 Asthma GERD (gastroesophageal reflux disease) Surgical History History of esophagogastroduodenoscopy (EGD) Hx of colonoscopy History of hernia surgery Hx of tubal ligation History of appendectomy H/O: hysterectomy Family History Mother Uterine cancer Family/Other History of breast cancer Social History Housing: House Alcohol intake: never Patient Tobacco Use Status: Never used Tobacco Tobacco use type: Cigarette e-Cigarette/Vaping Use: Never Used Second Hand Smoke Exposure: No service: No Current occupational status: 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 Moderate osteoarthritis of the patellofemoral compartment. 2. Focal cartilage defect involving the midportion of the lateral tibial plateau. 3. Edema of the lateral head of the gastrocnemius muscle consistent with muscle strain. Electronically signed by: Julio Palafox MD 04/29/2025 07:21 AM EDT Assessment & Plan Assessment & Plan (1) Gastrocnemius strain, left: Code(s): S86.112A - Strain of other muscle(s) and tendon(s) of posterior muscle group at lower leg level, left leg, initial encounter Category: Medical Plan: We discussed options which include PT for stretching and strengthening . I recommend comfortable foot wear, NSAIDS and activity modification. She will see us back prn. Orders: Orders XR knee LT 2V Today M25.562 - Pain in left knee PT Evaluation and Treatment Today S86.112A - Strain of other muscle(s) and tendon(s) of posterior muscle group at lower leg level, left leg, initial encounter Coding Level of Care Code Est Pt Level 3 (62574) Complex EM visit Add On G2211 Diagnoses Gastrocnemius strain, left S86.112A
== END 2025-04-30 10:01 | disposition home or self-care (01) ==
LOC: HO.HOS 09:19
PROVIDERS: PCP Internal Medicine; Visit Provider Physician Assistant
DX: S86.112A Strain of other muscle(s) and tendon(s) of posterior muscle group at lower leg level, left leg, initial encounter (principal)
CPT/HCPCS: 99213

== ENCOUNTER → 2025-04-30 09:21 | Outpatient (BNV) | payer OTHER, SELFPAY | PROVIDERS: Visit Provider Radiology Diagnostic Radiology | DX: M17.12 Unilateral primary osteoarthritis, left knee (principal) | CPT/HCPCS: 73560 ==

== ENCOUNTER 2025-04-30 09:50 | Outpatient (REF) | payer OTHER, SELFPAY ==
--- NOTE | ~2025-04-30 | XR_ITS ---
EXAMINATION: XR KNEE, LEFT CLINICAL INFORMATION: M25.562 - Pain in left knee COMPARISON: None available. TECHNIQUE: AP standing bilateral and sunrise views of the left knee. FINDINGS: There is mild medial joint space narrowing and minute tibial osteophytes. There are small trochlear osteophytes. Lateral intercondylar tubercle is peaked. XR/XR knee LT 2V IMPRESSION: Mild osteoarthritis. Electronically signed by: Gelacio Suarez MD 04/30/2025 09:47 AM EDT
== END 2025-04-30 09:51 | disposition home or self-care (01) ==
LOC: HO.HOSX 09:50
PROVIDERS: Visit Provider Physician Assistant
DX: S86.112A Strain of other muscle(s) and tendon(s) of posterior muscle group at lower leg level, left leg, initial encounter (principal); X58.XXXA Exposure to other specified factors, initial encounter; M25.562 Pain in left knee
CPT/HCPCS: 73560

== ENCOUNTER 2025-05-07 12:47 | Outpatient (AMB) | payer OTHER, SELFPAY ==
[2025-05-07 12:49] VITALS: BP 116/80; PULSE 87; O2SAT 95; BMI 29.4
--- NOTE | 2025-05-07 12:49 | MHC.PC.OV ---
Vital Signs 05/07/25 12:49 Height 5 ft 2 in Weight 161 lb BMI 29.4 BP 116/80 Blood Pressure Location Lt brachial Position Sitting Pulse 87 Pulse Source Pulse Oximeter Pulse Oximetry (%) 95 Oxygen Delivery Method Room Air Intake Visit Reasons: hyperlipidemia Water Purification Chemist Required: No Accompanied by: Self / Same As Patient Allergies cephalexin (From KEFLEX) Allergy (Severe, Verified 05/07/25 13:09) SOB/HIVES Iodinated Contrast Media (IV CONTRAST) Allergy (Severe, Verified 05/07/25 13:09) SOB/CHEST PAIN/DIFFICULTY BREATHING oxycodone (From Percocet) Allergy (Intermediate, Verified 05/07/25 13:09) itchy, SOB environmental allergies Allergy (Mild, Verified 05/07/25 13:09) congestion Medication List - Last Reconciled 05/07/25 by Everett Gutierrez MD acetaminophen 1,000 mg (2 x 500 mg) PO Q6H albuterol sulfate 2.5 mg (3 mL) inhalation Q4-6H PRN albuterol sulfate 90 mcg/actuation 2 inhalations inhalation QID PRN atorvastatin 10 mg PO BEDTIME 90 days esomeprazole magnesium 40 mg PO DAILY fluticasone furoate-vilanterol 100-25 mcg/dose (Breo Ellipta) 1 inh inhalation DAILY ibuprofen 800 mg PO TID PRN lidocaine 5% 1 patch topical DAILY linaclotide (Linzess) 72 mcg PO QAM qtrdid-biclthil-[place] 36,000-114,000- 180,000 unit (Creon) 1 cap PO QID magnesium oxide 500 mg PO BID 30 days naproxen 500 mg PO BID PRN simethicone 180 mg PO .tidac 30 days Tobacco use date assessed: 05/07/25 Dental Screening Dental Screen Date: 05/07/25 Did you have a dental visit in the last 12 months?: Yes Did you have a dental problem in the last 6 months where you did not have access to dental care?: No Was dental information given to patient?: Patient has dentist HPI hyperlipidemia HPI Details Patient comes in today for her follow up visit States that she's had a recurrent non-productive cough for over 2 weeks now Recalls that she first seemed to have lost her voice all of a sudden a couple of weeks back but does not recall experiencing any sore throat or any symptoms of increased cough and congestion at the time States that her voice gradually came back but her cough persisted and has noticed that lately, her cough sounds funny She denies any headaches or dizziness; denies any fever or sore throat Denies any chest pains, no increased SOB No nausea/vomiting, no abdominal pain No change in bowel habits noted She had her follow up labs last done back in December 2024 and has no other more recent labs done since [facility] Medical History Right sided abdominal pain Bilateral flank pain Low back pain radiating to lower extremity Esophagitis DDD (degenerative disc disease), thoracolumbar Bilateral plantar fasciitis Facet arthritis, degenerative, L5-S1 level, lumbosacral spine Piriformis syndrome of right side Constipation Bilateral carpal tunnel syndrome Fibromyalgia Chest pain Dizziness Palpitations Osteoporosis screening Cervical cancer screening Breast cancer screening by mammogram Obesity (BMI 30-39.9) Pure hypercholesterolemia Erosive gastritis Osteoarthritis Duodenitis Tubular adenoma of colon Hemorrhagic gastritis Class 1 obesity Anxiety disorder due to medical condition Elevated blood pressure reading without diagnosis of hypertension COVID-19 Peptic ulcer disease Low back pain Vaginal odor Painful breasts Overweight (BMI 25.0-29.9) Vitamin D deficiency Migraine Gastroparesis History of COVID-19 Asthma GERD (gastroesophageal reflux disease) Surgical History History of esophagogastroduodenoscopy (EGD) Hx of colonoscopy History of hernia surgery Hx of tubal ligation History of appendectomy H/O: hysterectomy Family History Mother Uterine cancer Family/Other History of breast cancer Social History Housing: House Alcohol intake: never Patient Tobacco Use Status: Never used Tobacco Tobacco use type: Cigarette e-Cigarette/Vaping Use: Never Used Second Hand Smoke Exposure: No service: No Current occupational status: 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 1. Little interest or pleasure in doing things: not at all 2. Feeling down, depressed, or hopeless: not at all 3. Trouble falling or staying asleep, or sleeping too much: not at all 4. Feeling tired or having little energy: nearly every day 5. Poor appetite or overeating: not at all 6. Feeling bad about yourself - or that you are a failure or have let yourself or your family down: not at all 7. Trouble concentrating on things, such as reading the newspaper or watching television: nearly every day 8. Moving or speaking so slowly that other people could have noticed. Or the opposite - being so fidgety or restless that you have been moving around a lot more than usual: not at all 9. Thoughts that you would be better off or of hurting yourself in some way: not at all Total score: 6 Depression Screening Interpretation: Positive Depression Screening Follow-up: Existing condition and Follow-up Visit Requested Depression Screening Done: Yes 99906 - PHQ-9 Billing: Yes Source: Developed by Drs. Julio Martínez, Reina Ness, Maximo Yousif and colleagues, with an educational neha from [employer]. Thrive Questionnaire Date Thrive assessed: 05/07/25 I am a: Patient What is your living situation today?: I have a steady place to live Within the past 12 months, did the food you bought not last and you didn't have the money to get more?: Sometimes True Within the past 12 months, did you worry whether your food would run out before you got money to buy more?: Sometimes True Do you have trouble paying for medicines?: No Do you have trouble getting transportation to medical appointments?: No Do you have trouble paying your heating and electricity bill?: Yes Do you have trouble taking care of your child, family member or friend?: No Do you have trouble with day-to-day activities such as bathing, preparing meals, shopping, managing finances, etc.?: No Are you currently unemployed and looking for a job?: Yes Are you interested in more education?: No Please select the resources that you would like help with: Utilities Currently or been in a relationship where the following occur: No concerns reported THRIVE Score: 3 AUDIT C Alcohol Use Questionnaire (AUDIT-C) 1. How often do you have a drink containing alcohol?: Never 3. How often do you have six or more drinks on one occasion?: Never Total Score: 0 Score Reviewed/Action Taken: Yes DANA-7 AMB Questionnaire DANA-7 Date DANA - 7 assessed: 05/07/25 Feeling nervous, anxious, or on edge: 0 = Not at all Not being able to stop or control worryin = Not at all Worrying too much about different things: 0 = Not at all Trouble relaxin = Not at all Being so restless that it is hard to sit still: 0 = Not at all Becoming easily annoyed or irritable: 0 = Not at all Feeling afraid as if something awful might happen: 0 = Not at all Total DANA-7 score (0-4 normal; 5-9 mild; 10-14 moderate; 15-21 severe): 0 Source: Developed by Drs. Julio Martínez, Reina Ness, Maximo Yousif and colleagues, with an educational neha from [employer]. DANA-7 Assessment Billing DANA-7 Assessment Tool: DANA-7 Assessment 77892 Review of Systems Const Denies chills, Reports difficulty sleeping (wakes up often in the middle of the night, at times due to dry mouth), Reports fatigue (chronic), Denies fever(s) and Denies headache(s) ENT Denies dysphagia, Denies dizziness, Reports dry mouth (frequent, especially in the middle of the night), Denies otalgia, Denies headache(s), Denies neck pain, Denies odynophagia, Denies sinus pain and Denies sore throat Card Denies chest pain, Denies rapid heart rate, Denies irregular heart rhythm, Denies palpitations and Denies dyspnea Resp Denies chest congestion, Reports cough (recurrent, non-productive), Denies dyspnea and Denies wheezing GI Denies abdominal pain, Denies constipation, Denies dysphagia, Denies heartburn, Denies diarrhea, Denies nausea, Denies odynophagia and Denies vomiting Denies difficulty voiding, Denies nocturia, Denies dysuria and Denies urinary urgency Musc Reports back pain (on and off), Reports myalgias (diffuse), Reports arthralgias (non-specific), Reports muscle cramps (recurrent, over the back of the knee especially, often at night) and Denies neck pain Skin/Breast Denies rash Neuro Denies dizziness, Denies headache(s) and Denies paresthesias Psych Denies anxiety and Denies depression Endo Reports fatigue (chronic) and Denies palpitations Julien/Lymph Denies easy bruising Aller/Immun Denies wheezing Physical exam (Primary Care) Vital Signs: Last Vital Signs Pulse 87 05/07/25 12:49 BP 116/80 05/07/25 12:49 Pulse Ox 95 05/07/25 12:49 Oxygen Delivery Method Room Air 05/07/25 12:49 BMI result Body Mass Index 29.4 Tobacco/Smoking Status: Tobacco use Status Tobacco use date assessed 05/07/25 05/07/25 12:52 Patient Tobacco Use Status Never used Tobacco 05/07/25 12:52 Tobacco use type Cigarette 05/07/25 12:52 e-Cigarette/Vaping Use Never Used 05/07/25 12:52 PHQ-9: PHQ-9 Score PHQ-9: Total score 6 05/07/25 13:59 Depression Screening Interpretation: Positive Depression Screening Follow-up: Existing condition and Follow-up Visit Requested Thrive Assessment: Date of Thrive Assessment Date Thrive assessed 05/07/25 05/07/25 12:52 Currently or been in a relationship where the following occur: No concerns reported Const General: no acute distress and alert HENMT Ears: TM's normal bilaterally and EAC's normal Throat: Yes posterior oropharynx normal and Yes tonsils normal (no TP congestion) Neck Neck: Yes supple and No lymphadenopathy Thyroid: Thyroid normal Resp Auscultation: no crackles, no rales, rhonchi (occasional) throughout, no wheezes and bronchial breath sounds bilateral Cardio Rate: regular rate Rhythm: regular rhythm Heart sounds: no murmurs GI Palpation (GI): Soft to palpation and nontender Auscultation: normal bowel sounds General: Yes no CVA tenderness Back/Spine/Pelvis Back: no CVA tenderness Skin Rashes: no rashes Extrem General: Yes no clubbing, cyanosis or edema Results Reviewed Results Reviewed: Laboratory Tests 05/19/24 01/19/25 01/19/25 06:48 06:16 06:18 WBC 10.4 Hgb 12.7 Hct 39.8 Plt Count 274 Sodium 144 Potassium 4.8 Creatinine 0.91 Estimated GFR > 60 Fasting Glucose 85 Calcium 9.5 AST 24 ALT 25 Triglycerides 124 112 Cholesterol 173 263 H LDL Cholesterol, Calc 109 H 192 H HDL Cholesterol 40 L 49 25-OH Vitamin D Total 23.1 L TSH 1.44 Ur Specific [place] 1.020 Urine Protein Negative Urine Glucose (UA) Negative Urine Blood Negative Urine Nitrite Negative Ur Leukocyte Esterase Trace H Coding Level of Care Code Est Pt Level 4 (07904) Diagnoses Pure hypercholesterolemia E78.00 Fibromyalgia M79.7 Dry mouth R68.2 Primary osteoarthritis of both knees M17.0 Osteoarthritis type: primary DDD (degenerative disc disease), thoracolumbar M51.35 Uncomplicated asthma, unspecified asthma severity, unspecified whether persistent J45.909 Asthma complication type: uncomplicated Asthma persistence: unspecified Asthma severity: unspecified severity Bronchitis J40 Esophagitis K20.90 Erosive gastritis K29.60 Gastroparesis K31.84 Chronic idiopathic constipation K59.04 Migraine without status migrainosus, not intractable, unspecified migraine type G43.909 Intractability: not intractable Migraine type: unspecified Status migrainosus presence: without status migrainosus Nocturnal leg cramps G47.62 Vitamin D deficiency E55.9 Overweight (BMI 25.0-29.9) E66.3 Additional Codes DANA-7 Assessment Billing - DANA-7 Assessment Tool: DANA-7 Assessment 48406 ([id number]) PHQ-9 - 78808 - PHQ-9 Billing: Yes ([id number]) Assessment & Plan Assessment & Plan (1) Pure hypercholesterolemia: Code(s): E78.00 - Pure hypercholesterolemia, unspecified Category: Medical Plan: Results of her labs done back in December 2024 reviewed and discussed with patient - have advised patient that her cholesterol levels, especially her LDL cholesterol, have increased significantly from her previous numbers last year and her LDL cholesterol is now at 192 mg/dl Patient admits that she often forgets to take her cholesterol medication as she finds it more difficult to keep up with having to take it at bedtime Have advised patient that if taking it at bedtime is more difficult for her to keep up with, then she can just take it in the morning together with all of her other meds Will continue her on Atorvastatin 10 mg QD for now Reinforced low-cholesterol diet Will recheck her labs and fasting lipids in 4 months for follow-up (2) Fibromyalgia: Code(s): M79.7 - Fibromyalgia Category: Medical Plan: Per rheumatology, patient meets criteria for fibromyalgia, with a widespread pain index greater than 5 and a somatic severity scale greater than 7 Patient is advised on regular exercise and physical activity to help manage her fibromyalgia symptoms She was on Gabapentin 300 mg Q HS but it appears that patient stopped taking this some time ago (3) Dry mouth: Code(s): R68.2 - Dry mouth, unspecified Category: Medical Plan: Have advised patient that she is currently not on any medications (based on the ones in her med list) that can cause dry mouth but this can also be due to other factors, including menopause, dry air/climate changes as well as possible conditions including certain autoimmune disorders She already tested negative for LORETTA and rheumatoid factor recently; sed rate and CRP also came back normal As she is currently seeing rheumatology, have advised patient that I will leave it up to Dr. Daniels to look into this further if she thinks her symptoms are pertinent enough to warrant further investigation (4) Osteoarthritis of knees, bilateral: Code(s): M17.0 - Bilateral primary osteoarthritis of knee Category: Medical Qualifiers: Osteoarthritis type: primary Qualified Code(s): M17.0 - Bilateral primary osteoarthritis of knee Plan: X-rays of both knees done last year revealed (+) minimal / early OA changes in the knees Continue Celecoxib 200 mg QD PRN (5) DDD (degenerative disc disease), thoracolumbar: Code(s): M51.35 - Other intervertebral disc degeneration, thoracolumbar region Category: Medical Plan: Thoracic spine x-rays done in 2022 revealed (+) mild degenerative changes of the thoracic spine Lumbar spine x-rays done last year revealed moderate L5-S1 degenerative disc disease and mild degenerative disc disease at L1-L2 with disc space narrowing and endplate osteophytes. This is slightly progressed since the previous study Reinforced activity and weight-lifting restrictions to avoid aggravating her back symptoms (6) Asthma: Code(s): J45.909 - Unspecified asthma, uncomplicated Category: Medical Qualifiers: Asthma complication type: uncomplicated Asthma persistence: unspecified Asthma severity: unspecified severity Qualified Code(s): J45.909 - Unspecified asthma, uncomplicated Plan: Controlled although she appears to have some bronchitic symptoms at present Continue Breo Ellipta 100-25 mcg 1 inhalation QD, Albuterol HFA 2 inhalations Q 6 hours PRN and Montelukast 10 mg QD Follow up with pulmonary as scheduled (7) Bronchitis: Code(s): J40 - Bronchitis, not specified as acute or chronic Category: Medical Plan: Will start her empirically on Azithromycin QD x 5 days Have advised her that allergies may have started this when she first had some respiratory symptoms a couple of weeks ago and she is reminded to call back if her symptoms do not improve significantly with Tx by next week (8) Esophagitis: Comment: (+) erosive esophagitis on biopsy in 2018 Code(s): K20.90 - Esophagitis, unspecified without bleeding Category: Medical Plan: Dietary restrictions reinforced Repeat EGD done in October 2022 revealed (+) findings of erosive esophagitis and gastritis Continue Esomeprazole 40 mg QD Follow up with GI as scheduled (9) Erosive gastritis: Code(s): K29.60 - Other gastritis without bleeding Category: Medical Plan: Repeat EGD done in October 2022 revealed (+) findings of BOTH erosive esophagitis and gastritis Dietary restrictions reinforced Continue Esomeprazole 40 mg QD Follow up with GI as scheduled (10) Gastroparesis: Comment: She could not tolerate reglan r/t hand shaking GASTRIC EMPTYING STUDY 08/17/22 IMPRESSION: Abnormal study. There is marked abnormal retention of solid food in the stomach at 4 hours. Code(s): K31.84 - Gastroparesis Category: Medical Plan: This was noted/confirmed on gastric emptying studies done back in August 2022 She is reminded to keep her feedings small but to eat more frequently to help keep up with her nutritional requirements Continue Simethicone 180 mg TID and Creon 1 capsule QID Follow up with GI as scheduled (11) Chronic idiopathic constipation: Code(s): K59.04 - Chronic idiopathic constipation Category: Medical Plan: Patient is encouraged again on increased oral fluids and dietary fiber intake Continue Linzess 72 mcg Q AM and Magnesium Oxide 500 mg QD Follow up with GI as scheduled (12) Migraine: Code(s): G43.909 - Migraine, unspecified, not intractable, without status migrainosus Category: Medical Qualifiers: Intractability: not intractable Migraine type: unspecified Status migrainosus presence: without status migrainosus Qualified Code(s): G43.909 - Migraine, unspecified, not intractable, without status migrainosus Plan: Stable/controlled Reinforced avoidance of potential migraine triggers (13) Nocturnal leg cramps: Code(s): G47.62 - Sleep related leg cramps Category: Medical Plan: Will start her on a trial of Magnesium oxide 400 mg QD (14) Vitamin D deficiency: Code(s): E55.9 - Vitamin D deficiency, unspecified Category: Medical Plan: Continue Vitamin D3 2000 units QD (15) Overweight (BMI 25.0-29.9): Code(s): E66.3 - Overweight Category: Medical Plan: Reinforced diet/exercise as tolerated/lose weight Plan Follow up in 4 months Orders: Orders TSH reflex Free T4 4 Months E78.00 - Pure hypercholesterolemia, unspecified Vitamin D 25-OH Total 4 Months E55.9 - Vitamin D deficiency, unspecified Lipid Panel 4 Months E78.00 - Pure hypercholesterolemia, unspecified Complete Blood Count Auto Diff 4 Months D64.9 - Anemia, unspecified UA CC w/rflx Micro + Cult 4 Months R30.0 - Dysuria Comprehensive [place]. Panel Fast 4 Months E78.00 - Pure hypercholesterolemia, unspecified Medications: New azithromycin take 500 mg today (day 1), then 250 mg for 4 days (days 2-5) PO 6 tabs 0RF magnesium oxide 400 mg PO DAILY 90 tabs 3RF 90 days
== END 2025-05-07 13:46 | disposition home or self-care (01) ==
LOC: HO.HMCH 12:48
PROVIDERS: PCP Internal Medicine; Visit Provider Internal Medicine
DX: J45.909 Unspecified asthma, uncomplicated (principal); M79.7 Fibromyalgia; R68.2 Dry mouth, unspecified; M17.0 Bilateral primary osteoarthritis of knee; M51.35 Other intervertebral disc degeneration, thoracolumbar region; J40 Bronchitis, not specified as acute or chronic; K20.90 Esophagitis, unspecified without bleeding; K29.60 Other gastritis without bleeding; K59.04 Chronic idiopathic constipation; G43.909 Migraine, unspecified, not intractable, without status migrainosus; G47.62 Sleep related leg cramps; E55.9 Vitamin D deficiency, unspecified

== ENCOUNTER → 2025-05-07 12:47 | Outpatient (BNVA) | payer OTHER, SELFPAY | PROVIDERS: PCP Internal Medicine; Visit Provider Internal Medicine | DX: M17.0 Bilateral primary osteoarthritis of knee (principal); E78.00 Pure hypercholesterolemia, unspecified; M79.7 Fibromyalgia; R68.2 Dry mouth, unspecified; M51.35 Other intervertebral disc degeneration, thoracolumbar region; J40 Bronchitis, not specified as acute or chronic; K20.90 Esophagitis, unspecified without bleeding; K29.60 Other gastritis without bleeding; K31.84 Gastroparesis; K59.04 Chronic idiopathic constipation; G43.909 Migraine, unspecified, not intractable, without status migrainosus; G47.62 Sleep related leg cramps; E55.9 Vitamin D deficiency, unspecified; E66.3 Overweight; R30.0 Dysuria; Z68.29 Body mass index [BMI] 29.0-29.9, adult | CPT/HCPCS: 96127 ==

== ENCOUNTER 2025-06-22 17:01 | Outpatient (RCR) | payer OTHER, SELFPAY ==
[2025-06-16 15:07] VITALS: BP 121/72; PULSE 77
--- NOTE | 2025-06-17 14:31 | MHC.PT.EP ---
[facility] [place] Office [place] Office [place] Office [address] [phone] F: [phone] F: [phone] F: [phone] F: [phone] Physical Therapy Plan of Care Date of Evaluation: 06/16/25 Date of Surgery: n/a Diagnosis: Strain of other muscles and tendons of posterior muscle group at lower leg level, initial encounter Gastrocnemius strain, left Assessment: Pt is a pleasant and motivated 55yo F who presents to PT with L posterior knee pain after pushing a heavy linen cart and turning quickly. She presents to PT with current impairments in pain, decreased strength, decreased muscle length, and soft tissue restrictions. She is limited functionally by bending, prolonged walking, stairs, and performing LE ADLs. She is a good candidate for skilled PT in order to address current impairments to facilitate return to PLOF. She is recommended to be seen 2x/week for 4 weeks and will be reassessed Frequency and Duration: The patient will be seen 2x/week for 4 weeks Short Term Goals: Pt will be I with HEP to promote self management of symptoms Pt will improve L knee flexion and extension strength to 4+/5 Supervisor Fishing Goals: Pt will tolerate prolonged walking > 20 minutes without pain Pt will perform LE ADLs independently without pain or compensation Pt will demonstrate improvements in function as evidenced by statistically significant improvement in LEFI outcome measure Treatment Plan: Modalities to reduce pain, spasms and effusion. Manual therapy to restore motion and function. Therapeutic exercise to improve strength and flexibility. Neuromuscular re-education for posture and balance. Therapeutic activities to return to functional activities of daily living. Electronically signed by: Manuela Franklin, PT, DPT Please sign and return to therapist. Thank you for your referral.
--- NOTE | 2025-08-02 09:52 | MHC.PT.DC ---
[facility] [place] [facility] [place] [facility] [place] [facility] [address] Ricardo Garcia [address] [phone] F: [phone] F: [phone] F: [phone] F: [phone] Physical Therapy Discharge Report Diagnosis: Strain of other muscles and tendons of posterior muscle group at lower leg level, initial encounter Gastrocnemius strain, left Date of Surgery: n/a Date of Evaluation: 06/16/25 Date of Discharge: 08/02/25 Treatments to Date: 2 Cancellations to Date: 7 No Shows to Date: Discharge Status: Patient Elected to Stop Discharge Summary: Pt attended initial PT evaluation and 1 treatment session. She cancelled her remaining appointments. She is being D/C from skilled PT as she has not attended or called to reschedule in > 30 days. Pt current level of function unknown Electronically signed by: Manuela Franklin, PT, DPT Please sign and return to therapist. Thank you for your referral.
== END 2025-08-02 09:51 | disposition home or self-care (01) ==
LOC: HO.PT 17:01
PROVIDERS: PCP Internal Medicine; Visit Provider Physician Assistant
DX: S86.112A Strain of other muscle(s) and tendon(s) of posterior muscle group at lower leg level, left leg, initial encounter (principal)
CPT/HCPCS: 97110; 97140; 97162

== ENCOUNTER 2025-07-14 14:51 | Outpatient (REF) | payer OTHER, SELFPAY ==
--- NOTE | ~2025-07-14 | XR_ITS ---
EXAMINATION: XR CHEST CLINICAL INFORMATION: M54.89 - Other dorsalgia COMPARISON: X-ray 06/01/2024 TECHNIQUE: 2 views of the chest were obtained. FINDINGS: The cardiomediastinal silhouette is within normal limits. The lungs are well expanded. There is no focal consolidation, edema, or effusion. No pneumothorax. Mild thoracic spine spondylosis.. XR/XR chest 2V IMPRESSION: No acute findings Electronically signed by: Bob Mccartney MD 07/15/2025 02:19 PM NICO
--- NOTE | ~2025-07-14 | XR_ITS ---
EXAMINATION: X-ray bilateral hand X-ray bilateral wrist CLINICAL INFORMATION: Fibromyalgia COMPARISON: None TECHNIQUE: Bilateral hands each 3 views. Bilateral wrist each 3 views. FINDINGS: Left hand and wrist: Bone mineralization is normal. No fracture, dislocation or suspicious bony lesion. Alignment is anatomic. Mild first CMC arthritis. Otherwise, no significant joint space narrowing or marginal osteophytes. No osseous erosion. No abnormal soft tissue calcification. Right hand and wrist: Bone mineralization is normal. No fracture, dislocation or suspicious bony lesion. Alignment is anatomic. Mild first CMC arthritis. No fracture or dislocation. No significant joint space narrowing or marginal osteophytes. No osseous erosion. No abnormal soft tissue calcification. XR/XR Wrist [place] min 3V IMPRESSION: Mild bilateral first CMC joint osteoarthritis. Electronically signed by: Bob Mccartney MD 07/15/2025 12:59 PM NICO
--- NOTE | ~2025-07-14 | XR_ITS ---
EXAMINATION: X-ray bilateral hand X-ray bilateral wrist CLINICAL INFORMATION: Fibromyalgia COMPARISON: None TECHNIQUE: Bilateral hands each 3 views. Bilateral wrist each 3 views. FINDINGS: Left hand and wrist: Bone mineralization is normal. No fracture, dislocation or suspicious bony lesion. Alignment is anatomic. Mild first CMC arthritis. Otherwise, no significant joint space narrowing or marginal osteophytes. No osseous erosion. No abnormal soft tissue calcification. Right hand and wrist: Bone mineralization is normal. No fracture, dislocation or suspicious bony lesion. Alignment is anatomic. Mild first CMC arthritis. No fracture or dislocation. No significant joint space narrowing or marginal osteophytes. No osseous erosion. No abnormal soft tissue calcification. XR/XR Hand Bilat min 3v IMPRESSION: Mild bilateral first CMC joint osteoarthritis. Electronically signed by: Bob Mccartney MD 07/15/2025 12:59 PM [facility]
== END 2025-07-14 14:52 | disposition home or self-care (01) ==
LOC: HO.XRAY 14:51
PROVIDERS: PCP Internal Medicine; Visit Provider Internal Medicine
DX: M54.89 Other dorsalgia (principal); M79.7 Fibromyalgia; Z79.1 Long term (current) use of non-steroidal anti-inflammatories (NSAID); Z79.899 Other long term (current) drug therapy
CPT/HCPCS: 71046; 73110; 73130; 81003; 96127

== ENCOUNTER 2025-07-14 14:51 | Outpatient (AMB) | payer OTHER, SELFPAY ==
[2025-07-14 14:56] VITALS: BP 120/84; PULSE 83; TEMP 36.2; O2SAT 97; BMI 30.8
--- NOTE | 2025-07-14 14:56 | MHC.PC.OV ---
Vital Signs 07/14/25 14:56 Height 5 ft 2 in Weight 168 lb 8 oz BMI 30.8 BP 120/84 Blood Pressure Location Lt brachial Position Sitting Pulse 83 Pulse Source Pulse Oximeter Temp 97.1 F Temp Source Temporal Artery Scan Pulse Oximetry (%) 97 Oxygen Delivery Method Room Air Intake Visit Reasons: pain on her back Allergies cephalexin (From KEFLEX) Allergy (Severe, Verified 07/14/25 14:56) SOB/HIVES Iodinated Contrast Media (IV CONTRAST) Allergy (Severe, Verified 07/14/25 14:56) SOB/CHEST PAIN/DIFFICULTY BREATHING oxycodone (From Percocet) Allergy (Intermediate, Verified 07/14/25 14:56) itchy, SOB environmental allergies Allergy (Mild, Verified 07/14/25 14:56) congestion Medication List - Last Reconciled 07/14/25 by Rios Blair MD acetaminophen 1,000 mg (2 x 500 mg) PO Q6H albuterol sulfate 2.5 mg (3 mL) inhalation Q4-6H PRN albuterol sulfate 90 mcg/actuation 2 inhalations inhalation QID PRN atorvastatin 10 mg PO BEDTIME 90 days esomeprazole magnesium 40 mg PO DAILY fluticasone furoate-vilanterol 100-25 mcg/dose (Breo Ellipta) 1 inh inhalation DAILY ibuprofen 800 mg PO TID PRN lidocaine 5% 1 patch topical DAILY linaclotide (Linzess) 72 mcg PO QAM kdpzhj-wpgaijnj-jkaqkiu (pork) 36,000-114,000- 180,000 unit (Creon) 1 cap PO QID magnesium oxide 500 mg PO BID 30 days magnesium oxide 400 mg PO DAILY 90 days naproxen 500 mg PO BID PRN simethicone 180 mg PO TID Tobacco use date assessed: 07/14/25 Dental Screening Dental Screen Date: 07/14/25 Did you have a dental visit in the last 12 months?: Yes Did you have a dental problem in the last 6 months where you did not have access to dental care?: No Was dental information given to patient?: Patient has dentist HPI HPI Comments History of Present Illness Details The patient is a 55-year-old female with PMH of GERD, esophagitis, IBS, Migraine, HTN, ADNA presenting with back pain. She reports the pain started a couple of days ago upon waking and has been progressively worsening. She describes the pain as a tight, stiff, and very uncomfortable sensation. Associated symptoms include chest pain that began around the same time and is exacerbated by deep inspiration. The patient also notes a new odor in her urine but denies any burning. She denies fever, chills, or cough. The patient has a history of similar back pain that would previously resolve on its own, but this episode has been persistent. She has tried Motrin, which usually helps, but it has not been effective for the current pain. Her past medical history is significant for fibromyalgia, which causes chronic leg pain, and unspecified stomach issues for which she takes Creon. She denies any history of diabetes, pancreatic problems, or kidney disease. She has a known allergy to IV contrast, which causes hives and shortness of breath. [facility] Medical History Right sided abdominal pain Bilateral flank pain Low back pain radiating to lower extremity Esophagitis DDD (degenerative disc disease), thoracolumbar Bilateral plantar fasciitis Facet arthritis, degenerative, L5-S1 level, lumbosacral spine Piriformis syndrome of right side Constipation Bilateral carpal tunnel syndrome Fibromyalgia Chest pain Dizziness Palpitations Osteoporosis screening Cervical cancer screening Breast cancer screening by mammogram Obesity (BMI 30-39.9) Pure hypercholesterolemia Erosive gastritis Osteoarthritis Duodenitis Tubular adenoma of colon Hemorrhagic gastritis Class 1 obesity Anxiety disorder due to medical condition Elevated blood pressure reading without diagnosis of hypertension COVID-19 Peptic ulcer disease Low back pain Vaginal odor Painful breasts Overweight (BMI 25.0-29.9) Vitamin D deficiency Migraine Gastroparesis History of COVID-19 Asthma GERD (gastroesophageal reflux disease) Surgical History History of esophagogastroduodenoscopy (EGD) Hx of colonoscopy History of hernia surgery Hx of tubal ligation History of appendectomy H/O: hysterectomy Family History (Reviewed 07/14/25 @ :00 by Avril Lopez CMA) Mother Uterine cancer Family/Other History of breast cancer Social History (Reviewed 07/14/25 @ :00 by Avril Lopez CMA) Housing: House Alcohol intake: never Patient Tobacco Use Status: Never used Tobacco Tobacco use type: Cigarette e-Cigarette/Vaping Use: Never Used Second Hand Smoke Exposure: No service: No Current occupational status: 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 1. Little interest or pleasure in doing things: not at all 2. Feeling down, depressed, or hopeless: not at all 3. Trouble falling or staying asleep, or sleeping too much: not at all 4. Feeling tired or having little energy: nearly every day 5. Poor appetite or overeating: not at all 6. Feeling bad about yourself - or that you are a failure or have let yourself or your family down: not at all 7. Trouble concentrating on things, such as reading the newspaper or watching television: nearly every day 8. Moving or speaking so slowly that other people could have noticed. Or the opposite - being so fidgety or restless that you have been moving around a lot more than usual: not at all 9. Thoughts that you would be better off or of hurting yourself in some way: not at all Total score: 6 Depression Screening Interpretation: Positive Depression Screening Follow-up: Existing condition and Follow-up Visit Requested Depression Screening Done: Yes Source: Developed by Drs. Julio Martínez, Reina Ness, Maximo Yousif and colleagues, with an educational neha from [employer]. Thrive Questionnaire Date Thrive assessed: 01/19/25 I am a: Patient What is your living situation today?: I have a steady place to live Within the past 12 months, did the food you bought not last and you didn't have the money to get more?: Sometimes True Within the past 12 months, did you worry whether your food would run out before you got money to buy more?: Sometimes True Do you have trouble paying for medicines?: No Do you have trouble getting transportation to medical appointments?: No Do you have trouble paying your heating and electricity bill?: Yes Do you have trouble taking care of your child, family member or friend?: No Do you have trouble with day-to-day activities such as bathing, preparing meals, shopping, managing finances, etc.?: No Are you currently unemployed and looking for a job?: Yes Are you interested in more education?: No Please select the resources that you would like help with: Utilities Currently or been in a relationship where the following occur: No concerns reported THRIVE Score: 3 AUDIT C Alcohol Use Questionnaire (AUDIT-C) 1. How often do you have a drink containing alcohol?: Never 3. How often do you have six or more drinks on one occasion?: Never Total Score: 0 DANA-7 AMB Questionnaire DANA-7 Date DANA - 7 assessed: 05/07/25 Feeling nervous, anxious, or on edge: 0 = Not at all Not being able to stop or control worryin = Not at all Worrying too much about different things: 0 = Not at all Trouble relaxin = Not at all Being so restless that it is hard to sit still: 0 = Not at all Becoming easily annoyed or irritable: 0 = Not at all Feeling afraid as if something awful might happen: 0 = Not at all Total DANA-7 score (0-4 normal; 5-9 mild; 10-14 moderate; 15-21 severe): 0 Source: Developed by Drs. Julio Martínez, Reina Ness, Maximo Yousif and colleagues, with an educational neha from [employer]. Review of Systems Const Details: As per HPI. Physical exam (Primary Care) Vital Signs: Last Vital Signs Temp 97.1 F 07/14/25 14:56 Pulse 83 07/14/25 14:56 BP 120/84 07/14/25 14:56 Pulse Ox 97 07/14/25 14:56 Oxygen Delivery Method Room Air 07/14/25 14:56 BMI result Body Mass Index 30.8 Tobacco/Smoking Status: Tobacco use Status Tobacco use date assessed 07/14/25 07/14/25 15:02 Patient Tobacco Use Status Never used Tobacco 07/14/25 15:02 Tobacco use type Cigarette 07/14/25 15:02 e-Cigarette/Vaping Use Never Used 07/14/25 15:02 PHQ-9: PHQ-9 Score PHQ-9: Total score 6 07/14/25 15:16 Depression Screening Interpretation: Positive Depression Screening Follow-up: Existing condition and Follow-up Visit Requested Thrive Assessment: Date of Thrive Assessment Date Thrive assessed 01/19/25 07/14/25 15:02 Currently or been in a relationship where the following occur: No concerns reported Const Other: Pertinent findings are in BOLD GENERAL APPEARANCE NAD, activity normal for age, well developed/ well nourished, no cyanosis, pallor, or diaphoresis. EYES lids/conjunctiva normal. EARS/NOSE/THROAT Mucous membranes moist, nares normal, lips/teeth normal uvula midline without oral pharyngeal erythema, exudate or swelling TMs normal bilaterally. No lymphangitis/lymphedema. HEAD/NECK normocephalic atraumatic, no facial trauma, neck is supple. RESPIRATORY respiratory effort normal, speaks in full sentences, no tripod position, no accessory muscle use. Lungs clear to auscultation without rhonchi, wheezes, rales CARDIAC Regular rate and rhythm, no edema. ABDOMINAL Soft, ND/NT. No evidence of fluid wave. No pulsatile masses on exam, rebound tenderness, Tierney sign or pain over Mcburney's point. MUSCLES/EXTREMITIES No abnormal range of motion, no swelling. Tenderness in mid back para spinal area. SKIN Warm, pink and dry. No rashes, dermatoses, petechiae or lesions. NEUROLOGICAL Speech is clear and appropriate. Normal level of consciousness. Gait and coordination are normal. 5/5 strength in all extremities. PSYCH Normal mood and affect. Judgement/competence is appropriate Results AMB Urinalysis, Automated UA Leukoctes 0 Simone/uL Last Edit by Avril Lopez CMA on 07/14/25 15:27 UA Nitrite Negative Last Edit by Avril Lopez CMA on 07/14/25 15:27 UA Urobilinogen 0.2 mg/dL Last Edit by Avril Lopez CMA on 07/14/25 15:27 UA Protein 15 mg/dL Last Edit by Avril Lopez CMA on 07/14/25 15:27 UA pH 6.0 Last Edit by Avril Lopez CMA on 07/14/25 15:27 UA Blood 0 Teto/uL Last Edit by Avril Lopez, LONG on 07/14/25 15:27 UA Specific [place] 1.025 Last Edit by Avril Lopez, LONG on 07/14/25 15:27 UA Ketone Negative Last Edit by Avril Lopez CMA on 07/14/25 15:27 UA Bilirubin 1 mg/dL Last Edit by Avril Lopez CMA on 07/14/25 15:27 UA Glucose 0 mg/dL Last Edit by Avril Lopez CMA on 07/14/25 15:27 Results Reviewed Results Reviewed: Laboratory Last Values Urine pH (Auto) 6.0 07/14/25 15:26 Specific [place] (Auto) 1.025 07/14/25 15:26 Urine Protein (Auto) 15 mg/dL 07/14/25 15:26 Glucose (UA)(Auto) 0 mg/dL 07/14/25 15:26 Urine Ketones (Auto) Negative 07/14/25 15:26 Urine Blood (Auto) 0 Teto/uL 07/14/25 15:26 Urine Nitrite (Auto) Negative 07/14/25 15:26 Urine Bilirubin (Auto) 1 mg/dL 07/14/25 15:26 Urine Urobilinogen (Auto) 0.2 mg/dL 07/14/25 15:26 Leukocyte Esterase (Auto) 0 Simone/uL 07/14/25 15:26 Coding Level of Care Code Est Pt Level 3 (03614) Diagnoses Other back pain, unspecified chronicity M54.89 Back pain location: back pain in other location Chronicity: unspecified Time Spent (min) 20 Assessment & Plan Assessment & Plan (1) Back pain: Code(s): M54.9 - Dorsalgia, unspecified Category: Medical Qualifiers: Back pain location: back pain in other location Chronicity: unspecified Qualified Code(s): M54.89 - Other dorsalgia Plan: - The differential diagnosis for the patient's worsening back pain includes musculoskeletal causes, renal pathology, and pleuritic etiologies, given the associated chest pain. - Ua was neagtvie. - A chest X-ray is ordered to investigate the pleuritic chest pain. - Blood tests, including a Complete Metabolic Panel (CMP) and lipase, will be performed to assess for renal or pancreatic issues. - Azithromycin for 6 days. - Added Famotidine for suspected GI issues. Plan I discussed with the patient that her back pain could be from her muscles, but we also need to consider other causes, such as her kidneys, given her symptoms. I explained the plan, which includes getting a urine test, blood work, and a chest x-ray. I prescribed her famotidine 20 mg for suspected worsening GERD symptoms. Azithromycin for suspected bronchitis. We will follow up with the patient regarding Xray results once they are back. Orders: Orders Lipase Today M54.89 - Other dorsalgia XR chest 2V Today M5. - Other dorsalgia Complete Blood Count no Diff Today M54. - Other dorsalgia Comprehensive Met. Panel Today M5. - Other dorsalgia AMB Urinalysis Automated Today Z13.9 - Encounter for screening, unspecified UA and rflx microscopic Today M5. - Other dorsalgia
== END 2025-07-14 15:26 | disposition home or self-care (01) ==
LOC: HO.HMCH 14:52
PROVIDERS: PCP Internal Medicine; Visit Provider Internal Medicine
DX: Z13.9 Encounter for screening, unspecified (principal); M54.89 Other dorsalgia

== ENCOUNTER 2025-07-14 15:26 | Outpatient (REF) | payer OTHER, SELFPAY ==
[2025-07-14 16:38] LABS: Appearance Urine Clear; Glucose Urine UA Negative (Negative); PH 5.5 (5.0-9.0); Specific Gravity - Urine 1.025 (1.005-1.025)
--- OUTSIDE RECORDS SUMMARY | 2025-07-14 18:39 | XMS_ITS ---
Author Organization Unknown ENCOUNTERS Encounter Performer Location Date Diagnosis Diagnosis Status Emergency [facility] [address] [place] [address] [id number] VIGNESH Pre Admit [facility] ED Physician [facility] [address] [place] [address] [id number] Outpatient [facility] [address] [place] [address] [id number] VIGNESH Pre Admit [facility] [address] [place] [address] [id number] Outpatient [facility] [address] [place] [address] [id number] VIGNESH Emergency [facility] [address] [place] [address] [id number] VIGNESH Emergency [facility] [address] [place] [address] [id number] VIGNESH Emergency [facility] [address] [place] [address] [id number] VIGNESH Emergency [facility] [address] [place] [address] [id number] VIGNESH Emergency [facility] [address] [place] [address] [id number] VIGNESH Pre Admit [facility] [address] [place] [address] [id number] Emergency [facility] [address] [place] [address] [id number] VIGNESH *Note: Encounters from your own facility or health system may be excluded. Allergies, Adverse Reactions, Alerts Allergen Type Severity Identification Date acetaminophen drug allergy [id number] oxycodone drug allergy [id number] cephalexin drug allergy 4 [id number] codeine drug allergy [id number] Iodinated Contrast Media drug allergy 4 17 environmental allergies propensity to adverse reaction s 2 [id number] Medications Name Date Quantity Days Supplied GPI Number
== END 2025-07-14 15:27 | disposition home or self-care (01) ==
LOC: HO.LAB 15:26
PROVIDERS: Visit Provider Internal Medicine
DX: M54.89 Other dorsalgia (principal)
CPT/HCPCS: 81003

== ENCOUNTER → 2025-07-14 15:35 | Outpatient (BNV) | payer OTHER, SELFPAY | PROVIDERS: PCP Internal Medicine; Visit Provider Radiology Diagnostic Ultrasound | DX: M54.89 Other dorsalgia (principal); M79.7 Fibromyalgia; M18.0 Bilateral primary osteoarthritis of first carpometacarpal joints | CPT/HCPCS: 71046; 73110; 73130 ==

== ENCOUNTER 2025-07-19 03:55 | Emergency (ER) | payer OTHER, SELFPAY ==
--- NOTE | 2025-07-19 | ECG_ITS ---
Test Reason : CHEST PAIN Blood Pressure : */* mmHG Vent. Rate : 114 BPM Atrial Rate : 114 BPM P-R Int : 140 ms QRS Dur : 78 ms QT Int : 322 ms P-R-T Axes : 67 12 44 degrees QTcB Int : 443 ms Sinus tachycardia Possible Inferior infarct (cited on or before 14-Jun-2021) Abnormal ECG When compared with ECG of 14-Jun-2021 11:45, No significant change was found Referred By: Baltazar Vilchis Electronically Signed By: CHARLY HESTER
--- NOTE | ~2025-07-19 | XR_ITS ---
CLINICAL HISTORY: prod cough, sob 2 view chest x-ray Comparison: CR/SR - XR CHEST 2 VIEWS - 07/14/25 16:21 EST Findings: No consolidation or effusion. Normal size heart. No acute fracture. IMPRESSION: 1. No acute findings. This document has been electronically signed by: Wily Pleitez MD on 07/19/2025 05:16:02
[2025-07-19 03:58] VITALS: BP 136/90; PULSE 125; RESP 20; TEMP 37.2; O2SAT 93
[2025-07-19 04:43] LABS: IDNOW Serial# 152EDE1D; Influenza B2 Negative (Negative)
[2025-07-19 04:44] LABS: COVID-19 Test Negative (Negative); IDNOW Serial# 16C4AD1C
--- NOTE | 2025-07-19 04:45 | ED.HA ---
HPI - Headache General Chief Complaint: Headache Stated Complaint: migraine, body pain Time Seen by Provider: 07/19/25 04:23 History of Present Illness ED Provider: kj HPI Narrative: 55 F with multiple comorbid medical conditions complains mainly of chills body aches malaise and also self-reported headache she does have history of migraine and feels this is similar to in the posterior scalp and wrapping around the head somewhat throbbing mild photophobia consistent with previous but a little bit more severe. No thunderclap. She is nauseous without vomiting currently. Denies abdominal pain with URI symptoms/cough Related Data Previous Rx's ?Medication ?Instructions ?Recorded albuterol sulfate 2.5 mg/3 mL 2.5 mg (3 mL) inhalation Q4-6H PRN 08/19/23 (0.083 %) solution for nebulization shortness of breath or wheezing #180 mL magnesium oxide 500 mg capsule 500 mg PO BID 30 days #60 caps 03/24/24 albuterol sulfate 90 mcg/actuation 2 inh inhalation QID PRN shortness 11/09/24 aerosol inhaler of breath or wheezing #8.5 grams fluticasone furoate 100 1 inh inhalation DAILY #60 ea 11/09/24 mcg-vilanterol 25 mcg/dose inhalation powder (Breo Ellipta) atorvastatin 10 mg tablet 10 mg PO BEDTIME 90 days #90 tabs 01/19/25 [id number] 1 cap PO QID #120 caps 02/18/25 (pork)36,000-114,000-180k unit capsule,del rel (Creon) acetaminophen 500 mg capsule 1,000 mg (2 x 500 mg) PO Q6H pain 03/15/25 #30 caps naproxen 500 mg tablet 500 mg PO BID PRN pain #10 tabs 03/21/25 linaclotide 72 mcg capsule 72 mcg PO QAM #30 caps 04/01/25 (Linzess) esomeprazole magnesium 40 mg 40 mg PO DAILY #90 caps 04/14/25 capsule,delayed release magnesium oxide 400 mg PO DAILY 90 days #90 tabs 05/07/25 ibuprofen 800 mg tablet 800 mg PO TID PRN pain #90 tabs 06/02/25 lidocaine 5 % topical patch 1 patch topical DAILY #15 ea 06/02/25 simethicone 180 mg capsule 180 mg PO TID #90 caplets 06/08/25 azithromycin 250 mg tablet 250 mg PO DAILY 6 days #7 tabs 07/14/25 famotidine 20 mg tablet 20 mg PO DAILY #20 tabs 07/14/25 Allergies Allergy/AdvReac Type Severity Reaction Status Date / Time cephalexin (From KEFLEX) Allergy Severe SOB/HIVES Verified 07/19/25 04:03 Iodinated Contrast Media (IV Allergy Severe SOB/CHEST Verified 07/19/25 04:03 CONTRAST) PAIN/DIFFICULTY BREATHING oxycodone (From Percocet) Allergy Intermediate itchy, SOB Verified 07/19/25 04:03 environmental allergies Allergy Mild congestion Verified 07/19/25 04:03 [facility]LY [facility] Past Medical History Medical History Right sided abdominal pain Bilateral flank pain Low back pain radiating to lower extremity Esophagitis DDD (degenerative disc disease), thoracolumbar Bilateral plantar fasciitis Facet arthritis, degenerative, L5-S1 level, lumbosacral spine Piriformis syndrome of right side Constipation Bilateral carpal tunnel syndrome Fibromyalgia Chest pain Dizziness Palpitations Osteoporosis screening Cervical cancer screening Breast cancer screening by mammogram Obesity (BMI 30-39.9) Pure hypercholesterolemia Erosive gastritis Osteoarthritis Duodenitis Tubular adenoma of colon Hemorrhagic gastritis Class 1 obesity Anxiety disorder due to medical condition Elevated blood pressure reading without diagnosis of hypertension COVID-19 Peptic ulcer disease Low back pain Vaginal odor Painful breasts Overweight (BMI 25.0-29.9) Vitamin D deficiency Migraine Gastroparesis History of COVID-19 Asthma GERD (gastroesophageal reflux disease) Surgical History History of esophagogastroduodenoscopy (EGD) Hx of colonoscopy History of hernia surgery Hx of tubal ligation History of appendectomy H/O: hysterectomy Family History Family History Mother Uterine cancer Family/Other History of breast cancer Social History Social History Housing: House Alcohol intake: never Patient Tobacco Use Status: Never used Tobacco Tobacco use type: Cigarette Smoked in Last 30 Days: No e-Cigarette/Vaping Use: Never Used Second Hand Smoke Exposure: No Use of substances other than those prescribed or required for medical reasons: No Advance Directives: No Advance Directives Information Provided: No Patient : No service: No Current occupational status: 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 Pupils 2-3 mm symmetric and reactive ENT: Moist mucosa, no pallor. ? Neck: Supple. Skin: ?No observable rash or bruising on exposed or examined skin Respiratory: Breathing comfortably, No distress.Clear to auscultation bilaterally, symmetric chest expansion, No wheeze, rales, ronchi. Cardiovascular: Tachycardic No murmurs or rub. Well perfused periphery, warm extremities. No edema. ? Abdominal: No focal tenderness. Soft, no objective distension. No palpable masses or obvious organomegaly. ?No guarding, no rebound tenderness or other peritoneal findings. : No flank tenderness. Neuro: Alert. Gross movement of all extremities intact. ?No meningismus. No objective photophobia on light pupillary exam neck is supple Psych: Calm. Cooperative. MSK: No grossly visible deformity. Vital signs: See flowsheet Vital Signs: Vital Signs: Last Vital Signs Temp 98.2 F 07/19/25 06:56 Pulse 106 H 07/19/25 06:56 Resp 20 07/19/25 06:56 BP 107/76 07/19/25 06:56 Pulse Ox 92 07/19/25 06:56 O2 Del Method Room Air 07/19/25 06:56 BMI result Body Mass Index 30.0 Course Reevaluation(s) Reevaluation #1: prior to discharge did patient was much more comfortable feeling significant relief from headache no vomiting I reviewed her lab work with her and discussed the diagnosis of influenza a which she understands she will keep well hydrated take antipyretics as needed and a few days off from work Medications Administered Discontinued Medications Generic Name Dose Route Start Last Admin Trade Name Freq PRN Reason Stop Dose Admin Dexamethasone Sodium Phosphate 10 mg 07/19/25 04:42 07/19/25 04:49 Dexamethasone Sod Phosphate 10 Mg/Ml Vial IVPUSH 07/19/25 04:43 10 mg ONCE ONE Administration Sodium Chloride 1,000 mls @ 999 mls/hr 07/19/25 04:45 07/19/25 06:25 Ns IV 07/19/25 05:45 Infused .Q1H1M TONY Infusion Acetaminophen 1,000 mg in 100 mls @ 400 mls/hr 07/19/25 04:42 07/19/25 05:04 Ofirmev IV 07/19/25 04:56 Infused ONCE ONE Infusion Ketorolac Tromethamine 15 mg 07/19/25 04:42 07/19/25 04:50 Ketorolac Tromethamine 15 Mg/Ml Vial IVPUSH 07/19/25 04:43 15 mg ONCE ONE Administration Metoclopramide HCl 10 mg 07/19/25 05:25 07/19/25 05:39 Metoclopramide Hcl 10 Mg/2 Ml Vial IVPUSH 07/19/25 05:26 10 mg ONCE ONE Administration Morphine Sulfate 2 mg 07/19/25 05:25 07/19/25 05:39 Morphine Sulfate 4 Mg/Ml Cartridge IVPUSH 07/19/25 05:26 2 mg ONCE ONE Administration Protocol Medical Decision Making Medical Decision Making MDM Narrative: Medical Decision Making: [age] female with self-described severe migraine she does have migraine history treated in the past with the Excedrin. No sudden onset or thunderclap described tonight she does have associated chills myalgias mild dry cough nausea nonbloody nonbilious vomiting. Influenza positive likely explains this patient's symptoms. She was mildly tachycardic temp 99 degrees here. Given the positive influenza test no focal findings to suggest acute bacterial infection we will treat for symptomatic relief with fluid intravenous migraine cocktail and reassess the patient Preliminary Favored Differential Diagnosis: Viral syndrome, dehydration, migraine, electrolyte derangement, among additional considered etiologies Testing Interpreted Independently: ?Sinus rhythm rate 114. No acute ischemic changes. Similar to previous but most recent comparison 2020 Radiology or Lab testing Results Reviewed: Influenza a positive Consults: ?See below for details Independent Historians/External Chart Reviews: ?See below for details Social Determinants of Health Impacting MDM/Planning: ?See below for details Lab Data Labs: Lab Results 07/19/25 Range/Units 04:06 COVID-19 (LENA) Negative (Negative) COVID-19 Clin Com See Note Influenza Type A (NIRAV) Positive A (Negative) Influenza Type B (NIRAV) Negative (Negative) Influenza A & B Note See Note Discharge Plan Discharge Clinical Impression: Influenza A Patient Disposition: Home, Self-Care Instructions: Influenza (ED) Additional Instructions: DISCHARGE DIAGNOSES: Headache likely as a result of influenza a infection HISTORY OF PRESENTATION: ?Headache chills nausea vomiting EMERGENCY DEPARTMENT COURSE,TESTS, TREATMENTS: While in the ED today you tested positive for influenza A received multiple medications including dexamethasone a steroid, ketorolac nonsteroidal anti-inflammatory, metoclopramide, acetaminophen and intravenous fluid DISCHARGE MEDICATIONS: ?[We have made no changes to your regular medication regimen] FOLLOW-UP: ?Call your primary or general physician soon as possible to discuss your symptoms, your ED visit and to discuss follow up plans Call your PCP for follow up INSTRUCTIONS ?& RETURN PRECAUTIONS: If any symptoms change first call your primary physician, if it is after-hours your primary doctors office should have a provider stonemason supervisor you can speak with. If the symptoms are severe or very concerning to you then call 911 or return to the ED. Baltazar Vilchis MD Emergency Physician [facility] Prescriptions: No Action albuterol sulfate 2.5 mg /3 mL (0.083 %) solution for nebulization 2.5 mg inhalation Q4-6H PRN (Reason: shortness of breath or wheezing) Qty: 180 3RF Creon 36,000-114,000- 180,000 unit capsule,delayed release(DR/EC) 1 cap PO QID Qty: 120 1RF Rx Instructions: administer with meals and/or snacks esomeprazole magnesium 40 mg capsule,delayed release(DR/EC) 40 mg PO DAILY Qty: 90 1RF lidocaine 5 % adhesive patch,medicated 1 patch topical DAILY Qty: 15 0RF Rx Instructions: leave on most painful area for up to 12 hrs ibuprofen 800 mg tablet 800 mg PO TID PRN (Reason: pain) Qty: 90 0RF simethicone 180 mg capsule 180 mg PO TID Qty: 90 6RF famotidine 20 mg tablet 20 mg PO DAILY Qty: 20 0RF azithromycin 250 mg tablet 250 mg PO DAILY 6 Days Qty: 7 0RF Rx Instructions: start on day 2 of therapy naproxen 500 mg tablet 500 mg PO BID PRN (Reason: pain) Qty: 10 0RF magnesium oxide 500 mg capsule 500 mg PO BID 30 Days Qty: 60 6RF atorvastatin 10 mg tablet 10 mg PO BEDTIME 90 Days Qty: 90 3RF albuterol sulfate 90 mcg/actuation HFA aerosol inhaler 2 inh inhalation QID PRN (Reason: shortness of breath or wheezing) Qty: 8.5 3RF fluticasone furoate-vilanterol [Breo Ellipta] 100-25 mcg/dose blister with device 1 inh inhalation DAILY Qty: 60 6RF magnesium oxide 400 mg magnesium tablet 400 mg PO DAILY 90 Days Qty: 90 3RF Linzess 72 mcg capsule 72 mcg PO QAM Qty: 30 6RF acetaminophen 500 mg capsule 1,000 mg PO Q6H Qty: 30 0RF Interventions: ED Discharge Assessment Last Done: 07/19/25 06:56 Discharge Date/Time: 07/19/25 06:56 Print Language: Zimbabwean
[2025-07-19 06:21] VITALS: BP 107/76; PULSE 106; RESP 20; TEMP 36.8; O2SAT 92
[2025-07-19 06:56] VITALS: BP 107/76; PULSE 106; RESP 20; TEMP 36.8; O2SAT 92
== END 2025-07-19 06:56 | disposition home or self-care (01) ==
PROVIDERS: Emergency Provider Emergency Medicine; PCP Internal Medicine
DX: J10.1 Influenza due to other identified influenza virus with other respiratory manifestations (principal); R07.9 Chest pain, unspecified; R00.0 Tachycardia, unspecified; R05.9 Cough, unspecified; R06.02 Shortness of breath; R51.9 Headache, unspecified; J45.909 Unspecified asthma, uncomplicated; K21.9 Gastro-esophageal reflux disease without esophagitis; Z03.818 Encounter for observation for suspected exposure to other biological agents ruled out; Z79.51 Long term (current) use of inhaled steroids
CPT/HCPCS: 71046; 87502; 87635; 93005; 96361; 96374; 96375; 99284; 99285; J0131; J1100; J1885; J2270; J2765

== ENCOUNTER → 2025-07-19 04:10 | Outpatient (BNV) | payer OTHER, SELFPAY | PROVIDERS: Emergency Provider Emergency Medicine; PCP Internal Medicine; Visit Provider Radiology Diagnostic Radiology | DX: R05.8 Other specified cough (principal); R06.02 Shortness of breath | CPT/HCPCS: 71046 ==

== ENCOUNTER → 2025-07-19 04:28 | Outpatient (BNV) | payer OTHER, SELFPAY | PROVIDERS: Emergency Provider Emergency Medicine; PCP Internal Medicine; Visit Provider Internal Medicine | DX: R00.0 Tachycardia, unspecified (principal) | CPT/HCPCS: 93010 ==

== ENCOUNTER 2025-08-02 15:39 | Outpatient (REF) | payer OTHER, SELFPAY ==
--- NOTE | ~2025-08-02 | XR_ITS ---
EXAMINATION: XR CHEST CLINICAL INFORMATION: R05.9 - Cough, unspecified COMPARISON: 07/19/2025, 07/14/2025. TECHNIQUE: 2 views of the chest were obtained. FINDINGS: The cardiac, hilar, and mediastinal contours are normal. The lungs are clear bilaterally. There is no pneumothorax or pleural effusion. There is no focal osseous or soft tissue abnormality. XR/XR chest 2V IMPRESSION: No active pulmonary disease. Electronically signed by: Kaushal Sánchez MD 08/02/2025 04:34 PM [facility]
== END 2025-08-02 15:40 | disposition home or self-care (01) ==
LOC: HO.XRAY 15:39
PROVIDERS: PCP Internal Medicine; Visit Provider Nurse Practitioner Family
DX: J18.0 Bronchopneumonia, unspecified organism (principal); J45.909 Unspecified asthma, uncomplicated; Z79.899 Other long term (current) drug therapy
CPT/HCPCS: 71046

== ENCOUNTER 2025-08-02 15:39 | Outpatient (AMB) | payer OTHER, SELFPAY ==
[2025-08-02 15:42] VITALS: BP 122/62; PULSE 89; O2SAT 96; BMI 30.2
--- NOTE | 2025-08-02 15:42 | A.OFFVIS_ITS ---
Vital Signs 08/02/25 15:42 Height 5 ft 2 in Weight 165 lb BMI 30.2 BP 122/62 Blood Pressure Location Lt brachial Position Sitting Pulse 89 Pulse Source Pulse Oximeter Pulse Oximetry (%) 96 Oxygen Delivery Method Room Air Intake Visit Reasons: Asthma Allergies cephalexin (From KEFLEX) Allergy (Severe, Verified 08/02/25 15:47) SOB/HIVES Iodinated Contrast Media (IV CONTRAST) Allergy (Severe, Verified 08/02/25 15:47) SOB/CHEST PAIN/DIFFICULTY BREATHING oxycodone (From Percocet) Allergy (Intermediate, Verified 08/02/25 15:47) itchy, SOB environmental allergies Allergy (Mild, Verified 08/02/25 15:47) congestion HPI HPI Asthma: Details: Laura is a pleasant 55-year-old female, never smoker, with underlying asthma, GERD, erosive gastritis, gastroparesis and hypertension. At baseline patient well-controlled on Breo and albuterol MDI/nebs. Today she presents for an acute visit. She was diagnosed with influenza a 07/19 and reports worsening asthma control despite using albuterol MDI and nebulizer. She had received prednisone and azithromycin last week with suboptimal effect. She continues to report dry hacking cough, chest congestion, dyspnea and wheezing. Denies fevers or chills. 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 FORMERLY [facility] Medical History Right sided abdominal pain Bilateral flank pain Low back pain radiating to lower extremity Esophagitis DDD (degenerative disc disease), thoracolumbar Bilateral plantar fasciitis Facet arthritis, degenerative, L5-S1 level, lumbosacral spine Piriformis syndrome of right side Constipation Bilateral carpal tunnel syndrome Fibromyalgia Chest pain Dizziness Palpitations Osteoporosis screening Cervical cancer screening Breast cancer screening by mammogram Obesity (BMI 30-39.9) Pure hypercholesterolemia Erosive gastritis Osteoarthritis Duodenitis Tubular adenoma of colon Hemorrhagic gastritis Class 1 obesity Anxiety disorder due to medical condition Elevated blood pressure reading without diagnosis of hypertension COVID-19 Peptic ulcer disease Low back pain Vaginal odor Painful breasts Overweight (BMI 25.0-29.9) Vitamin D deficiency Migraine Gastroparesis History of COVID-19 Asthma GERD (gastroesophageal reflux disease) Surgical History History of esophagogastroduodenoscopy (EGD) Hx of colonoscopy History of hernia surgery Hx of tubal ligation History of appendectomy H/O: hysterectomy Family History Mother Uterine cancer Family/Other History of breast cancer Social History Housing: House Alcohol intake: never Patient Tobacco Use Status: Never used Tobacco Tobacco use type: Cigarette e-Cigarette/Vaping Use: Never Used Second Hand Smoke Exposure: No service: No Current occupational status: 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 Sexual orientation: Straight/Heterosexual Gender identity: Female Cognitive needs: No Hearing needs: No Vision needs: Yes Female Reproductive History Menstrual Age of Menarche: 12 Review of Systems Const Denies chills, Denies excessive sweating, Denies fever(s), Denies headache(s) and Denies night sweats Eyes Denies dry eyes, Denies irritation and Denies itchy eyes ENT Reports Normal hearing present, Denies headache(s), Denies nasal congestion, Denies nasal discharge, Denies post nasal drip and Denies sore throat Card Denies chest pain, Denies chest pain at rest, Denies chest pain with activity, Denies claudication, Denies leg edema, Reports dyspnea on exertion, Denies orthopnea and Denies paroxysmal nocturnal dyspnea Resp Denies change in phlegm color, Reports chest congestion, Reports cough, Denies hemoptysis, Denies excessive phlegm production, Denies pain on inspiration, Denies pain with cough, Reports dyspnea on exertion, Denies stridor and Reports wheezing Musc Denies myalgias Neuro Reports Normal hearing present and Denies headache(s) Endo Denies excessive sweating Julien/Lymph Denies lymphadenopathy Aller/Immun Denies itchy eyes, Denies seasonal rhinorrhea and Reports wheezing Physical Exam Vital Signs: Last Vital Signs Pulse 89 08/02/25 15:42 BP 122/62 08/02/25 15:42 Pulse Ox 96 08/02/25 15:42 Oxygen Delivery Method Room Air 08/02/25 15:42 BMI result Body Mass Index 30.2 Const General: cooperative, comfortable, no acute distress, well developed and alert Nutritional Appearance: obese Orientation/consciousness: patient oriented x3 Limitations: no limitations HEENT Head: Yes normal to inspection, Yes normocephalic and Yes atraumatic Ears: hearing grossly normal bilaterally and external ears normal Eyes General: appearance normal, both eyes and all related structures Eyelids: Yes eyelids normal Sclerae: sclerae normal EOM: EOMs intact bilaterally Neck Neck: Yes normal visual inspection and Yes no lymphadenopathy Lymphatic: no lymphadenopathy noted Chest Chest palpation & inspection: normal inspection of the chest Resp Other: Inspiratory crackles left lower lobe Effort & Inspection: normal respiratory effort, able to speak in complete sentences, no audible wheezes, Actively coughing Quality: actively coughing, no stridor, not tachypneic, no tripod positioning and no use of accessory muscles Cardio Jugular venous distension: no JVD Rate: regular rate Rhythm: regular rhythm Skin Other: warm, dry General skin exam: no rashes or lesions noted Neuro General: patient oriented x3 Cranial nerves: Yes Normal hearing present Cognition (Neuro): normal cognition Gait exam (Neuro): Normal gait present Extrem General: Yes normal to inspection, Yes capillary refill normal, Yes no clubbing, cyanosis or edema and Yes no pedal edema Psych Appearance: grossly normal and well kempt Speech and movement: Normal speech and movement present and Clear speech present Affect: normal affect Attitude: cooperative Thought process: Normal thought process present Thought content: Normal thought content present Insight: Good insight present (Psych) Judgement: Good judgement present (Psych) Assessment & Plan Assessment & Plan (1) Bronchopneumonia: Code(s): J18.0 - Bronchopneumonia, unspecified organism Category: Medical (2) Asthma: Code(s): J45.909 - Unspecified asthma, uncomplicated Category: Medical Qualifiers: Asthma complication type: uncomplicated Asthma persistence: unspecified Asthma severity: unspecified severity Qualified Code(s): J45.909 - Unspecified asthma, uncomplicated (3) Cough: Code(s): R05.9 - Cough, unspecified Category: Medical Plan Symptoms suggestive of bronchopneumonia, will treat with doxycycline and prednisone. She is aware to call if symptoms do not improve and seek emergent care symptoms worsen. Will also obtain chest x-ray today. Encouraged patient to continue Breo and albuterol MDI/nebs. She is also requesting a nebulizer for home use, will send prescription. All questions were answered and patient is in agreement of plan. Will follow-up in 2 months or sooner if needed. Orders: Orders XR chest 2V 08/02/25 R05.9 - Cough, unspecified Medications: New prednisone see taper instructions; 40 mg Daily x3 days, 30 mg daily x3 days, 20 mg daily x3 days, 10 mg daily x3 days 10 mg PO DIRECTED 30 tabs 0RF doxycycline hyclate 100 mg PO BID 14 caps 0RF Refilled fluticasone furoate-vilanterol 100-25 mcg/dose (Breo Ellipta) 1 inh inhalation DAILY 60 ea 6RF albuterol sulfate 2.5 mg (3 mL) inhalation Q4-6H PRN 180 mL 3RF shortness of breath or wheezing J45.909 - Unspecified asthma, uncomplicated Coding Level of Care Code Est Pt Level 4 (52694) Diagnoses Bronchopneumonia J18.0 Uncomplicated asthma, unspecified asthma severity, unspecified whether persistent J45.909 Asthma complication type: uncomplicated Asthma persistence: unspecified Asthma severity: unspecified severity Cough R05.9
== END 2025-08-02 16:06 | disposition home or self-care (01) ==
LOC: HO.HPS 15:40
PROVIDERS: PCP Internal Medicine; Visit Provider Nurse Practitioner Family
DX: J18.0 Bronchopneumonia, unspecified organism (principal); J45.909 Unspecified asthma, uncomplicated; R05.9 Cough, unspecified
CPT/HCPCS: 99214

== ENCOUNTER → 2025-08-02 16:12 | Outpatient (BNV) | payer OTHER, SELFPAY | PROVIDERS: PCP Internal Medicine; Visit Provider Radiology Diagnostic Radiology | DX: R05.9 Cough, unspecified (principal) | CPT/HCPCS: 71046 ==

== ENCOUNTER 2025-08-05 15:33 | Outpatient (AMB) | payer OTHER, SELFPAY ==
--- NOTE | 2025-08-05 15:38 | A.OFFPC_ITS ---
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 Accompanied by: Self / Same As Patient Allergies cephalexin (From KEFLEX) Allergy (Severe, Verified 08/05/25 16:12) SOB/HIVES Iodinated Contrast Media (IV CONTRAST) Allergy (Severe, Verified 08/05/25 16:12) SOB/CHEST PAIN/DIFFICULTY BREATHING oxycodone (From Percocet) Allergy (Intermediate, Verified 08/05/25 16:12) itchy, SOB environmental allergies Allergy (Mild, Verified 08/05/25 16:12) congestion Medication List - Last Reconciled 08/05/25 by MARCELL Garcia acetaminophen 1,000 mg (2 x 500 mg) PO Q6H albuterol sulfate 90 mcg/actuation 2 inhalations inhalation QID PRN albuterol sulfate 2.5 mg (3 mL) inhalation Q4-6H PRN atorvastatin 10 mg PO BEDTIME 90 days doxycycline hyclate 100 mg PO BID esomeprazole magnesium 40 mg PO DAILY famotidine 20 mg PO DAILY fluticasone furoate-vilanterol 100-25 mcg/dose (Breo Ellipta) 1 inh inhalation DAILY ibuprofen 800 mg PO TID PRN lidocaine 5% 1 patch topical DAILY linaclotide (Linzess) 72 mcg PO QAM njlgwk-leayztjy-qwzumao (pork) 36,000-114,000- 180,000 unit (Creon) 1 cap PO QID magnesium oxide 500 mg PO BID 30 days magnesium oxide 400 mg PO DAILY 90 days naproxen 500 mg PO BID PRN prednisone 10 mg PO DIRECTED simethicone 180 mg PO TID Tobacco use date assessed: 08/05/25 Dental Screening Dental Screen Date: 08/05/25 Did you have a dental visit in the last 12 months?: Yes Did you have a dental problem in the last 6 months where you did not have access to dental care?: No Was dental information given to patient?: Patient has dentist HPI [facility] [place] migraine, body pain HPI Details The patient is a 55-year-old female presenting for post hospital follow up The patient went to [facility] on 07/19/2025 for increased migraines and body aches The patient was diagnosed with flu A. The patient was given dexamethasone 10 mg IV push, sodium chloride a 1000 mL bolus, acetaminophen 1000 mg IV times ketorolac 15 mg IV push, metoclopramide 10 mg IV push, and 4 mg of morphine IV push, termed as fluid intravenous migraine cocktail Patient reports that she saw her manager of software 2 days ago and had abnormal breath sound in one of her lung. She was started on doxycycline b.i.d. and prednisone tapered has a precaution due to her asthma. The patient reports that she is doing much better, she denies headache today and reports that her breathing feels much better. Patient lungs are clear on auscultation and no signs of respiratory distress noted. [facility] Medical History Right sided abdominal pain Bilateral flank pain Low back pain radiating to lower extremity Esophagitis DDD (degenerative disc disease), thoracolumbar Bilateral plantar fasciitis Facet arthritis, degenerative, L5-S1 level, lumbosacral spine Piriformis syndrome of right side Constipation Bilateral carpal tunnel syndrome Fibromyalgia Chest pain Dizziness Palpitations Osteoporosis screening Cervical cancer screening Breast cancer screening by mammogram Obesity (BMI 30-39.9) Pure hypercholesterolemia Erosive gastritis Osteoarthritis Duodenitis Tubular adenoma of colon Hemorrhagic gastritis Class 1 obesity Anxiety disorder due to medical condition Elevated blood pressure reading without diagnosis of hypertension COVID-19 Peptic ulcer disease Low back pain Vaginal odor Painful breasts Overweight (BMI 25.0-29.9) Vitamin D deficiency Migraine Gastroparesis History of COVID-19 Asthma GERD (gastroesophageal reflux disease) Surgical History History of esophagogastroduodenoscopy (EGD) Hx of colonoscopy History of hernia surgery Hx of tubal ligation History of appendectomy H/O: hysterectomy Family History Mother Uterine cancer Family/Other History of breast cancer Social History Housing: House Alcohol intake: never Patient Tobacco Use Status: Never used Tobacco Tobacco use type: Cigarette e-Cigarette/Vaping Use: Never Used Second Hand Smoke Exposure: No service: No Current occupational status: 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 Sexual orientation: Straight/Heterosexual Gender identity: Female Cognitive needs: No Hearing needs: No Vision needs: Yes Female Reproductive History Menstrual Age of Menarche: 12 Questionnaire Thrive Questionnaire Date Thrive assessed: 08/05/25 I am a: Patient What is your living situation today?: I have a steady place to live Within the past 12 months, did the food you bought not last and you didn't have the money to get more?: Sometimes True Within the past 12 months, did you worry whether your food would run out before you got money to buy more?: Sometimes True Do you have trouble paying for medicines?: No Do you have trouble getting transportation to medical appointments?: No Do you have trouble paying your heating and electricity bill?: Yes Do you have trouble taking care of your child, family member or friend?: No Do you have trouble with day-to-day activities such as bathing, preparing meals, shopping, managing finances, etc.?: No Are you currently unemployed and looking for a job?: Yes Are you interested in more education?: No Please select the resources that you would like help with: Utilities Currently or been in a relationship where the following occur: No concerns reported THRIVE Score: 3 DANA-7 AMB Questionnaire DANA-7 Date DANA - 7 assessed: 05/07/25 Source: Developed by Drs. Julio Martínez, Reina Ness, Maximo Yousif and colleagues, with an educational neha from [employer]. Review of Systems Const Denies body aches, Denies chills, Reports fatigue (chronic), Denies fever(s), Denies headache(s) and Denies poor appetite Eyes Reports no additional complaints ENT Denies dysphagia, Denies dizziness, Denies headache(s) and Denies odynophagia Card Denies chest pain, Denies syncope, Denies edema, Denies irregular heart rhythm, Denies lightheadedness, Denies palpitations and Denies dyspnea Resp Denies cough, Denies dyspnea and Denies wheezing GI Denies abdominal pain, Denies constipation, Denies dysphagia, Denies diarrhea, Denies nausea, Denies odynophagia and Denies vomiting Reports no additional complaints Musc Reports no additional complaints and Denies abnormal gait Skin/Breast Reports system reviewed and no additional complaints, except as documented Neuro Denies abnormal gait, Denies dizziness, Denies syncope and Denies headache(s) Psych Reports no additional complaints Endo Reports fatigue (chronic) and Denies palpitations Julien/Lymph Denies easy bruising Aller/Immun Denies wheezing Physical exam (Primary Care) Vital Signs: Last Vital Signs Pulse 74 08/05/25 15:39 Resp 18 08/05/25 15:39 BP 106/60 08/05/25 15:39 Pulse Ox 98 08/05/25 15:39 Oxygen Delivery Method Room Air 08/05/25 15:39 BMI result Body Mass Index 30.4 Tobacco/Smoking Status: Tobacco use Status Tobacco use date assessed 08/05/25 08/05/25 15:52 Patient Tobacco Use Status Never used Tobacco 08/05/25 15:52 Tobacco use type Cigarette 08/05/25 15:52 e-Cigarette/Vaping Use Never Used 08/05/25 15:52 Thrive Assessment: Date of Thrive Assessment Date Thrive assessed 08/05/25 08/05/25 15:52 Currently or been in a relationship where the following occur: No concerns reported Narrative Physical Exam - Respiratory: Lungs were auscultated. Const General: cooperative, healthy appearing, comfortable and no acute distress Orientation/consciousness: patient oriented x3 HENMT Head: Yes normocephalic Ears: hearing grossly normal bilaterally General nose exam: Normal external nose present Eyes General: appearance normal, both eyes and all related structures Conjunctivae: conjunctivae normal Neck Neck: Yes full ROM and Yes no lymphadenopathy Resp Effort & Inspection: normal respiratory effort Auscultation: clear to auscultation bilaterally, no crackles, no rales, no rhonchi and no wheezes Cardio Rate: regular rate Rhythm: regular rhythm Skin General skin exam: no rashes or lesions noted Neuro General: patient oriented x3 Gait exam (Neuro): Normal gait present Extrem General: Yes normal to inspection, Yes full ROM and No edema Psych Affect: normal affect Attitude: cooperative Insight: Good insight present (Psych) Judgement: Good judgement present (Psych) Coding Level of Care Code Est Pt Level 3 (03354) Diagnoses Uncomplicated asthma, unspecified asthma severity, unspecified [facility] J[facility] Asthma severity: unspecified severity Asthma persistence: unspecified Asthma complication type: uncomplicated Migraine without status migrainosus, not intractable, unspecified migraine type G43.909 Migraine type: unspecified Status migrainosus presence: without status migrainosus Intractability: not intractable Viral upper respiratory tract infection J06.9 URI type: unspecified viral URI Time Spent (min) 32 Assessment & Plan Assessment & Plan (1) Asthma: Code(s): J45.909 - Unspecified asthma, uncomplicated Category: Medical Qualifiers: Asthma severity: unspecified severity Asthma persistence: unspecified Asthma complication type: uncomplicated Qualified Code(s): J45.909 - Unspecified asthma, uncomplicated Plan: The patient was seen by manager of software 2 days ago and was placed on doxycycline on prednisone tapered to prevent asthma exacerbation due to abnormal breath sounds. Currently is doing well, lungs are clear upon auscultation bilaterally. Denies shortness of breath. (2) Migraine: Code(s): G43.909 - Migraine, unspecified, not intractable, without status migrainosus Category: Medical Qualifiers: Migraine type: unspecified Status migrainosus presence: without status migrainosus Intractability: not intractable Qualified Code(s): G43.909 - Migraine, unspecified, not intractable, without status migrainosus Plan: She was treated acutely in the hospital. The patient was given dexamethasone 10 mg IV push, sodium chloride a 1000 mL bolus, acetaminophen 1000 mg IV times ketorolac 15 mg IV push, metoclopramide 10 mg IV push, and 4 mg of morphine IV push, termed as fluid intravenous migraine cocktail. Currently the patient is doing well. (3) Upper respiratory infection: Code(s): J06.9 - Acute upper respiratory infection, unspecified Category: Medical Qualifiers: URI type: unspecified viral URI Qualified Code(s): J06.9 - Acute upper respiratory infection, unspecified Plan: The patient was diagnosed with flu a in-hospital and was given symptomatic treatment with positive effects. Symptoms have resolved, no new intervention added today. Plan Plan Patient was informed and verbally consented to the use of an ambient scribe for clinic note documentation during this visit. 1. Acute Upper Respiratory Infection The patient is currently on an antibiotic prescribed by another provider for a recent respiratory issue, which she started two days ago. She reports improvement in her symptoms. The plan is to continue the current course of medication. 2. Follow-Up Visit The patient does not need any prescription refills today. She will keep her scheduled appointment with Dr. Gutierrez in September. Discussion Notes I reviewed the patient's recent illness. She is feeling much better since starting an antibiotic prescribed by another provider. I advised her to continue her current treatment. We confirmed that she does not require any medication refills and will proceed with her scheduled follow-up with Dr. Gutierrez. Patient Instructions - Continue taking the antibiotic and other medication that was recently prescribed to you. - Please keep your appointment with Dr. Gutierrez on September 17.
[2025-08-05 15:39] VITALS: BP 106/60; PULSE 74; RESP 18; O2SAT 98; BMI 30.4
== END 2025-08-05 17:09 | disposition home or self-care (01) ==
LOC: HO.HMCH 15:34
PROVIDERS: PCP Internal Medicine
DX: J45.909 Unspecified asthma, uncomplicated (principal); G43.909 Migraine, unspecified, not intractable, without status migrainosus; J06.9 Acute upper respiratory infection, unspecified